=== PATIENT | male | born 1965 | race African-American/Black ===

== ENCOUNTER 2019-01-07 10:03 | Inpatient (IN) ==
[2019-01-07] MEDS ORDERED: MECLIZINE HCL 25 MG TAB PO STA (11:03)
[2019-01-07] MEDS ORDERED: SODIUM CHLORIDE 0.9% 1000ML 1,000 ML IV SCH (11:15)
--- NOTE | 2019-01-07 11:36 | XRay Report ---
XR chest 1V portable CLINICAL HISTORY: dizzy COMPARISON STUDY: No previous studies for comparison. FINDINGS: The cardiac and mediastinal contours are normal. There is no evidence of focal pulmonary co nsolidation. There is no evidence of failure. No pleural effusions are visualized.[ IMPRESSION: No active disease in the chest. Electronically signed by: Mike Victoria M.D. 01/07/2019 11:35 AM
[2019-01-07 11:56] LABS: Basophils # (auto) 0.02 K/uL (0-0.2); Basophils % (auto) 0.4 %; Eosinophils # (auto) 0.51 K/uL (0-0.5); Eosinophils % (auto) 9.3 %; Hematocrit (blood only) 32.6 % (42-52); Hemoglobin 10.5 g/dL (14.0-18.0); Immature Granulocytes # (auto) 0.01 K/uL (0.00-0.02); Immature Granulocytes % (auto) 0.2 %; Lymphocytes # (auto) 1.82 K/uL (1.2-3.4); Lymphocytes % (auto) 33.2 %; Mean Corpuscular Hgb Conc 32.2 g/dL (32-36); Mean Corpuscular Volume 89.8 fL (80-100); Mean Platelet Volume 9.2 fL (7.4-10.4); Monocytes # (auto) 0.56 K/uL (0.11-0.59); Monocytes % (auto) 10.2 %; Neutrophils # (auto) 2.56 K/uL (1.4-6.5); Neutrophils % (auto) 46.7 %; Platelet Count 273 K/uL (130-400); RDW Coefficient of Variation 16.6 % (11.5-14.5); Red Blood Count 3.63 M/uL (4.7-6.1); White Blood Count 5.48 K/uL (4.8-10.8)
[2019-01-07 12:04] LABS: INR 1.1 (0.9-1.1); Prothrombin Time 11.1 Seconds (9.0-12.0)
--- NOTE | 2019-01-07 12:15 | CT Scan Report ---
CT SCAN OF THE BRAIN WITHOUT IV CONTRAST CLINICAL HISTORY: Dizziness. COMPARISON STUDY: No priors. TECHNIQUE: Unenhanced axial CT scan of the brain is performed from the vertex to the skull base. A d ose lowering technique was utilized adhering to the principles of ALARA. CT DOSE: 537.48 mGy.cm FINDINGS: Brain parenchyma: The brain parenchyma is normal in appearance. There is no hemorrhage, mass effect, or evidence of acute territorial ischemia by CT criteria. Tate-white matter differentiation is preser morris. No extra-axial fluid collection is seen. Ventricles, sulci, cisterns: Normal in configuration. Intracranial vasculature: The visualized intracranial vasculature at the skull base is normal in appe arance. Calvarium: Unremarkable. Soft tissues: A 3.7 cm loculated lesion is identified in the left temporal scalp. This demonstrates f oci of peripheral calcification, as well as trace fluid. Sinuses and mastoids: Mucosal thickening is seen within the left posterior ethmoid sinuses. The remai moe visualized paranasal sinuses are clear. The mastoid air cells are well pneumatized. Orbits: The bony orbits are grossly intact. IMPRESSION: 1. There is no hemorrhage, mass effect, or evidence of acute territorial ischemia by CT criteria. 2. There is a 3.7 cm indeterminant lesion in the left temporal scalp which appears to contain fat, fl uid, and peripheral calcifications. This is pathologically indeterminant and clinical clinical correl ation will be essential. Electronically signed by: José Good M.D. 01/07/2019 12:13 PM
[2019-01-07 12:25] LABS: Alanine Aminotransferase 18 U/L (12-78); Albumin Globulin Ratio 0.7 (0.9-2); Albumin Level 3.3 gm/dl (3.4-5.0); Alkaline Phosphatase 51 U/L (45-117); Aspartate Aminotransferase 16 U/L (15-37); BUN Creatinine Ratio 14.1 (10-20); Bilirubin,Total 0.2 mg/dl (0.2-1); Blood Urea Nitrogen 45 mg/dl (7-18); Calcium 8.7 mg/dl (8.5-10.1); Carbon Dioxide 24 mmol/L (21-32); Chloride 107 mmol/L (98-107); Creatinine Clr Calc Pharmacy 29.5 ml/min; Est GFR (African American) 24.2; Est GFR (Non-African American) 20.9; Globulin 4.9 gm/dl (2.5-4.0); Glucose 120 mg/dl (70-99); Potassium 4.8 mmol/L (3.5-5.1); Sodium 137 mmol/L (136-145); Total Protein 8.2 gm/dl (6.4-8.2); Troponin I < 0.015 ng/ml (0-0.045)
[2019-01-07] MEDS ORDERED: SODIUM CHLORIDE 0.9% 1000ML 1,000 ML IV ONE (13:01)
--- NOTE | 2019-01-07 13:12 | History & Physical Report ---
Date of Service January 07, 2019 Assessment & Plan (1) EDVIN (acute kidney injury): - Admit to med surg - S/P 1 L NSS in ER, will continue with 80 ml/hr x 10 hours with hx of CHF so not to volume overload the patient. There are not records available for a recent LVEF% to know the status of his CHF. - Hold nephrotoxins and renally dose medications. Hold lasix as this is likely the causative factor in his EDVIN - pt took an extra 80 mg last Monday plus daily dosing with 40 mg daily. - Follow am prp - Baseline appears to be stage III CKD. (2) DM II (diabetes mellitus, type II), controlled: - Pt using metformin 100 mg BID as outpatient, holding for now. [facility] - A1C with am labs, pt reports not knowing most recent value - No longer taking Levemir 13 U QPM. - nurse educator consult prior to d/c - pt reports recently battery on home glucometer ran out and has not replaced this. (3) Benign essential HTN: - Continue amlodipine 10 mg daily, hydralazine 100 mg TID, carvedilol 12.5 mg BID (coreg was recently doubled per pt report) - Holding lasix for EDVIN as above. (4) HLD (hyperlipidemia): - Cont statin therapy (5) CKD stage 3 due to type 2 diabetes mellitus: - As above (6) CHF (congestive heart failure): - Unknown classification, will request records and attempt to obtain last ECHO from PCP. - Needs to establish with handkerchief presser as outpatient - consider inpatient cardiology consult pending course. - Monitor volume status, currently slightly dry - Pt notes dry weight is typically 210-213 lbs, however recently has been 205- 207. - Daily weights - Strict I/Os once euvolemic, has been on a fluid restriction as outpatient. - Holding lasix (7) Polyneuropathy: - Stable (8) Blindness of left eye: - Noted (9) History of shingles: - Sep 2018, resolved. (10) DVT prophylaxis: - Teds, scds, heparin subq History of Present Illness Chief Complaint: "Feeling off" Primary Care Provider: NO PCP This is a 53 yo M with PMHx with CHF, HTN, HLD, DMI II, obesity with BMI of 33.8, polyneuropathy, hx of shingles, CKD stage III, hx of tobacco smoking who presents with feeling unwell this morning. Pt notes that his body was "feeling off" and initially described it as a dizziness to the ER. He denies syncopal episodes or passing out. Pt has been restricting fluids to 50 oz per day as his PCP had instructed him to. He has been taking lasi 40 mg daily, and last Monday he took an extra lasix 80 mg due to increased swelling in the left lower extremity as instructed. He recently has moved here from [place], and has not yet established care with a PCP. He Most recently followed with Dr. Av Fregoso. Pt found to have Cr. of 3.19 which is above his baseline as per outpatient records he has supplied from 2017. EKG is negative. Allergies Allergy/AdvReac Type Severity Reaction Status Date / Time Penicillins AdvReac Severe Cramping Unverified 01/07/19 10:58 of the Muscles Home Medications Home Medications Medication Instructions Recorded Confirmed Type amlodipine 10 mg PO QAM 01/07/19 01/07/19 History aspirin 81 mg PO QAM 01/07/19 01/07/19 History atorvastatin 40 mg PO HS 01/07/19 01/07/19 History carvedilol 12.5 mg PO BID 01/07/19 01/07/19 History docusate sodium 100 mg PO BID 01/07/19 01/07/19 History furosemide 40 mg PO DAILY 01/07/19 01/07/19 History furosemide 80 mg PO DAILY PRN 01/07/19 01/07/19 History hydralazine 100 mg PO TID 01/07/19 01/07/19 History insulin detemir U-100 [Levemir 0 unit SUBCUT DAILY PRN 01/07/19 01/07/19 History FlexTouch U-100 Insuln] metformin 1,000 mg PO BID 01/07/19 01/07/19 History Past Med/Surg History Medical History History of shingles Blindness of left eye Polyneuropathy CHF (congestive heart failure) EDVIN (acute kidney injury) CKD stage 3 due to type 2 diabetes mellitus HLD (hyperlipidemia) Benign essential HTN DM II (diabetes mellitus, type II), controlled Surgical History S/P eye surgery S/P carpal tunnel release Right Family History Other HTN (hypertension) Social History Feels Safe at Home: Yes Smoking Status: Former smoker Review of Systems Constitutional: No fever, sweats or chills Eyes: No diplopia, no worsening or blurred vision ENT: normal hearing, no trouble swallowing Respiratory: No cough, sputum, dyspnea at rest or on exertion Cardiovascular: No chest pain, tightness or palpitations Abdomen: No pain, nausea, vomiting, diarrhea or constipation Musculoskeletal: No joint pain, calf pain, swelling Neurologic: No weakness, numbness/tingling, or balance problems Psychiatric: No anxiety or depression Skin: No rash or itch Physical Exam Vital Signs (Past 24 Hours): Last Vital Signs Temp 36.9 C 01/07/19 10:19 Pulse 87 01/07/19 10:19 Resp 20 01/07/19 10:19 BP 138/82 01/07/19 10:19 Pulse Ox 100 01/07/19 10:19 Physical Exam: General: , awake, alert, no apparent distress, + obese Head: Normocephalic, atraumatic ENT: PERRL, EOMI, no pharyngeal exudate, mucous membranes moist Chest: Clear to auscultation, on room air, no adventitious breath sounds Cardiac: Regular rate and rhythm, + MARY, no JVD, normal peripheral pulses, good capillary refill Abdominal: NABS x 4 quadrants, soft, nontender to palpation, no rebound, guarding or tenderness Extremities: Normal inspection, no peripheral edema or erythema, calfs nontender to palpation Psych: Normal mood and affect Neuro: AAO x 3, strength intact bilaterally and related 5/5, no motor deficits, speech is clear, no peripheral sensory deficits Constitutional: WD/WN, vitals as above Eyes: normal visual mandel by confrontation and + anicteric sclerae Neck: normal visual inspection and trachea midline Respiratory: normal respiratory effort, lungs clear to auscultation Cardiovascular: Rate/Rhythm: regular rate and regular rhythm Gastrointestinal (Abdomen): Inspection/Auscultation: abdomen not distended Percussion/Palpation: abdomen soft; abdomen nontender Musculoskeletal: Head/Neck/Chest: normocephalic and head atraumatic Neg for peripheral LE edema, + pedal pulses Skin: no rashes, warm and dry Neurologic: awake; not confused Speech / Cognition: normal speech Psychiatric: A+Ox3, euthymic affect Lymphatic: Exam as done by Mony Marino DO Results & Data Diagnostic Findings CT SCAN OF THE BRAIN WITHOUT IV CONTRAST CLINICAL HISTORY: Dizziness. COMPARISON STUDY: No priors. TECHNIQUE: Unenhanced axial CT scan of the brain is performed from the vertex to the skull base. A dose lowering technique was utilized adhering to the principles of ALARA. CT DOSE: 537.48 mGy.cm FINDINGS: Brain parenchyma: The brain parenchyma is normal in appearance. There is no hemorrhage, mass effect, or evidence of acute territorial ischemia by CT criteria. Tate-white matter differentiation is preserved. No extra-axial fluid collection is seen. Ventricles, sulci, cisterns: Normal in configuration. Intracranial vasculature: The visualized intracranial vasculature at the skull base is normal in appearance. Calvarium: Unremarkable. Soft tissues: A 3.7 cm loculated lesion is identified in the left temporal scalp. This demonstrates foci of peripheral calcification, as well as trace fluid. Sinuses and mastoids: Mucosal thickening is seen within the left posterior ethmoid sinuses. The remaining visualized paranasal sinuses are clear. The mastoid air cells are well pneumatized. Orbits: The bony orbits are grossly intact. IMPRESSION: 1. There is no hemorrhage, mass effect, or evidence of acute territorial ischemia by CT criteria. 2. There is a 3.7 cm indeterminant lesion in the left temporal scalp which appears to contain fat, fluid, and peripheral calcifications. This is pathologically indeterminant and clinical clinical correlation will be essential. XR chest 1V portable CLINICAL HISTORY: dizzy COMPARISON STUDY: No previous studies for comparison. FINDINGS: The cardiac and mediastinal contours are normal. There is no evidence of focal pulmonary consolidation. There is no evidence of failure. No pleural effusions are visualized.[ IMPRESSION: No active disease in the chest. ECG Additional Comments: 07-JAN-2019 10:33:13 [facility] Normal sinus rhythm Septal infarct , age undetermined Abnormal ECG No previous ECGs available Vent. rate [address] interval 158 ms QRS duration 78 ms QT/QTc 356/430 ms P-R-T axes 46 65 61 Code Status & VTE Plan Code Status Full Code Supervising Physician Co-Signing Physician Notes Pt seen and examined by me. Denies chest pain or SOB. States he did have return of lightheadeness, blurry vision, and jitters when he started eating, but this resolved as he ate and did not return. Tolerating PO without issue otherwise. Agree with HPI/ROS as noted by PA See above for my exam in PE section Agree with plan as outlined above Sx likely related to EDVIN in the setting of missed meds recently and then sudden resuming of meds New to area and will need PCP set up, CM alerted
[2019-01-07 14:01] LABS: Poikilocytosis Present
[2019-01-07] MEDS ORDERED: GLUCAGON FOR INJ 1 MG VIAL SQ PRN (16:03)
[2019-01-07] MEDS ORDERED: ACETAMINOPHEN 325 MG TAB PO PRN (16:03)
[2019-01-07] MEDS ORDERED: GLUCOSE 10 TABS/TUBE PO PRN (16:03)
[2019-01-07] MEDS ORDERED: DEXTROSE 50% 50 ML SYRINGE IV PRN (16:03)
[2019-01-07] MEDS ORDERED: CARBOHYDRATES FOR HYPOGLYCEMIA PO PRN (16:03)
[2019-01-07] MEDS ORDERED: GLUCOSE 40% GEL 15 GM TUBE PO PRN (16:03)
[2019-01-07] MEDS ORDERED: ONDANSETRON INJ 2 MG/ML 2 ML VIAL IV PRN (16:03)
--- NOTE | 2019-01-07 16:26 | Emergency Department Note ---
Entered by Roger Martinez acting as a scribe for Pavel Everett DO History of Present Illness General Chief complaint: Dizziness Stated complaint: LIGHT HEADED Source: patient History of Present Illness Provider complaint: dizziness Onset (ago): week(s) 1 Location: head Pain Consistency: + constant Quality: + other (dizziness) Associated symptoms: + denies other symptoms (abdominal pain) and + other (blurred vision in right eye); no chest pain, no nausea/vomiting, no shortness of breath and no weakness The patient is a 53 year old male who presents to the Emergency Room with complaints of dizziness that has been ongoing for about a week. The patient states his dizziness is also associated with blurred vision in his right eye. Th e patient reports that he just recently moved to [place] from [place]. He states when he moved here he was in the process of finding a new PCP and ran out of medications such as Amlodipine 10 mg, Hydroxyzine 2.5 mg, and Carvedilol and did not have them for about two weeks. The patient reports that he was able to refill and start taking the medications about a week or week and a half ago. The patient denies any abdominal pain, nausea, vomiting, chest pain, shortness of breath, weakness or numbness. Home Medications Home Medications Medication Instructions Recorded Confirmed Type amlodipine 10 mg PO QAM 01/07/19 01/07/19 History aspirin 81 mg PO QAM 01/07/19 01/07/19 History atorvastatin 40 mg PO HS 01/07/19 01/07/19 History carvedilol 12.5 mg PO BID 01/07/19 01/07/19 History docusate sodium 100 mg PO BID 01/07/19 01/07/19 History furosemide 40 mg PO DAILY 01/07/19 01/07/19 History furosemide 80 mg PO DAILY PRN 01/07/19 01/07/19 History hydralazine 100 mg PO TID 01/07/19 01/07/19 History insulin detemir U-100 [Levemir 0 unit SUBCUT DAILY PRN 01/07/19 01/07/19 History FlexTouch U-100 Insuln] metformin 1,000 mg PO BID 01/07/19 01/07/19 History Allergies Allergy/AdvReac Type Severity Reaction Status Date / Time Penicillins AdvReac Severe Cramping Unverified 01/07/19 10:58 of the Muscles Past Med/Surg History Medical History History of shingles Blindness of left eye Polyneuropathy CHF (congestive heart failure) EDVIN (acute kidney injury) CKD stage 3 due to type 2 diabetes mellitus HLD (hyperlipidemia) Benign essential HTN DM II (diabetes mellitus, type II), controlled Surgical History S/P eye surgery S/P carpal tunnel release Right Family History Other HTN (hypertension) Social History Feels Safe at Home: Yes Smoking Status: Former smoker Review of Systems See HPI for pertinent positives & negatives. and A total of 10 systems reviewed and were otherwise negative Physical Exam Vital Signs Vital Signs - 24 hr 01/07/19 10:19 01/07/19 10:50 01/07/19 11:03 Temperature 36.9 C Temperature Source Oral Sepsis Action Taken by Nursing No Action Required Pulse Rate - Lying Pulse Rate - Sitting Pulse Rate - Standing Pulse Rate 87 Pulse Rate [Brachial] Pulse Rate from SpO2 Sensor Respiratory Rate 20 Respiratory Effort / Characteristics Non-Labored Spontaneous Respiratory Depth Normal Blood Pressure - Lying Blood Pressure - Sitting Blood Pressure- Standing Blood Pressure 138/82 Blood Pressure [Left Arm] Blood Pressure Mean 100 Blood Pressure Mean [Left Arm] Blood Pressure Position [Left Arm] Pulse Oximetry 100 Oxygen Delivery Method Room Air Room Air Room Air 01/07/19 12:00 01/07/19 13:07 01/07/19 13:31 Temperature Temperature Source Sepsis Action Taken by Nursing Pulse Rate - Lying 82 Pulse Rate - Sitting 84 Pulse Rate - Standing 89 Pulse Rate 86 88 Pulse Rate [Brachial] Pulse Rate from SpO2 Sensor 86 88 Respiratory Rate 13 18 Respiratory Effort / Characteristics Respiratory Depth Blood Pressure - Lying 167/89 H Blood Pressure - Sitting 155/85 H Blood Pressure- Standing 149/75 H Blood Pressure 135/77 165/94 H Blood Pressure [Left Arm] Blood Pressure Mean 96 117 Blood Pressure Mean [Left Arm] Blood Pressure Position [Left Arm] Pulse Oximetry 97 100 Oxygen Delivery Method Room Air 01/07/19 14:00 01/07/19 14:30 01/07/19 15:19 Temperature Temperature Source Sepsis Action Taken by Nursing Pulse Rate - Lying Pulse Rate - Sitting Pulse Rate - Standing Pulse Rate 84 83 84 Pulse Rate [Brachial] Pulse Rate from SpO2 Sensor Respiratory Rate 15 18 20 Respiratory Effort / Characteristics Respiratory Depth Blood Pressure - Lying Blood Pressure - Sitting Blood Pressure- Standing Blood Pressure 138/80 167/86 H Blood Pressure [Left Arm] Blood Pressure Mean 99 113 Blood Pressure Mean [Left Arm] Blood Pressure Position [Left Arm] Pulse Oximetry 97 97 Oxygen Delivery Method Room Air Room Air 01/07/19 15:38 Temperature 36.3 C L Temperature Source Oral Sepsis Action Taken by Nursing Pulse Rate - Lying Pulse Rate - Sitting Pulse Rate - Standing Pulse Rate Pulse Rate [Brachial] 87 Pulse Rate from SpO2 Sensor Respiratory Rate 18 Respiratory Effort / Characteristics Respiratory Depth Blood Pressure - Lying Blood Pressure - Sitting Blood Pressure- Standing Blood Pressure Blood Pressure [Left Arm] 167/77 H Blood Pressure Mean Blood Pressure Mean [Left Arm] 107 Blood Pressure Position [Left Arm] Lying Pulse Oximetry 99 Oxygen Delivery Method Room Air GENERAL: Sitting up in bed, alert, disheveled and chronically ill appearing, well nourished, no distress, non-toxic EYE EXAM: normal conjunctiva. PERRL and EOM's grossly intact. OROPHARYNX: no exudate, no erythema, lips, buccal mucosa, and tongue normal and mucous membranes are moist NECK: supple, no nuchal rigidity, no adenopathy, non-tender LUNGS: Clear to auscultation. Normal chest wall mechanics HEART: no murmurs, S1 normal and S2 normal ABDOMEN: abdomen soft, non-tender, normo-active bowel, sounds, no masses, no rebound or guarding. BACK: Back is symmetrical on inspection and there is no deformity, no midline tenderness, no CVA tenderness. SKIN: no rashes and no bruising UPPER EXTREMITIES: upper extremities are grossly normal. LOWER EXTREMITIES: No pitting edema. NEURO EXAM: Normal sensorium, cranial nerves II-XII intact, normal speech, no weakness of arms, no weakness of legs. No drift. Finger to noseintact. Gross sensation intact. Course ED COURSE: Vital signs were reviewed and showed the patient is hypertensive. The patients medical record was reviewed The above diagnostic studies were performed and reviewed. ED treatments and interventions as stated above. 1056: The patient was evaluated in room A9B. A complete history and physical examination was performed. 1235: I updated the patient. I further reviewed his documents which revealed that his last baseline creatinine was 1.9 on 03/28/18. 1305: I reviewed the patient's case with Josefina Singh. She will evaluate the patient for further management. 1320: Upon reevaluation, the patient is resting comfortably. I discussed my findings with the patient and he understands and agrees with the treatment plan. Based on the patients age, coexisting illnesses, exam and lab findings the decision to treat as an inpatient was made. The patient remained stable while under my care. The patient will be evaluated for further management. Consultations Consultation #1: Josefina Singh Time: 13:05 Administered Medications Discontinued Medications Sodium Chloride (Nss 1000ml) 1,000 mls @ 999 mls/hr IV .Q1H1M KATIE Stop: 01/07/19 12:15 Last Infusion: 01/07/19 13:13 Dose: 0 mls/hr Documented by: [id number] Admin: 01/07/19 11:39 Dose: 999 mls/hr Documented by: [id number] Sodium Chloride (Nss 1000ml) 1,000 mls @ 999 mls/hr IV .Q1H1M ONE Stop: 01/07/19 14:01 Last Infusion: 01/07/19 14:56 Dose: 0 mls/hr Documented by: [id number] Admin: 01/07/19 13:13 Dose: 999 mls/hr Documented by: [id number] Meclizine HCl (Antivert) 25 mg PO NOW STA Stop: 01/07/19 11:04 Last Admin: 01/07/19 11:39 Dose: 25 mg Documented by: [id number] Medical Decision Making Differential Diagnosis Differential diagnosis: Etiologies such as benign positional vertigo, dehydration, hypovolemia, anemia, tumor, infection, hypoglycemia, electrolyte abnormalities, cardiac sources, intracerebral event, toxicologic, neurologic, as well as others were entertained. Medical Records Attestation: I reviewed the patient's medical records. Home Medications Current Medication List: was personally reviewed by me Laboratory Data Attestation: I reviewed the patient's lab results. Result diagrams: 01/07/19 11:25 01/07/19 11:25 Lab Results 01/07/19 01/07/19 01/07/19 Range/Units 11:25 11:25 11:25 WBC 5.48 (4.8-10.8) K/uL RBC 3.63 L (4.7-6.1) M/uL Hgb 10.5 L (14.0-18.0) g/dL Hct 32.6 L (42-52) % MCV 89.8 (80-100) fL MCH 28.9 (25-34) pg MCHC 32.2 (32-36) g/dL RDW Std Deviation 55.0 H (36.4-46.3) fL RDW Coeff of Celso 16.6 H (11.5-14.5) % Plt Count 273 (130-400) K/uL MPV 9.2 (7.4-10.4) fL Immature Gran % (Auto) 0.2 % Neut % (Auto) 46.7 % Lymph % (Auto) 33.2 % Duchesne % (Auto) 10.2 % Eos % (Auto) 9.3 % Baso % (Auto) 0.4 % Immature Gran # (Auto) 0.01 (0.00-0.02) K/uL Neut # (Auto) 2.56 (1.4-6.5) K/uL Lymph # (Auto) 1.82 (1.2-3.4) K/uL Duchesne # (Auto) 0.56 (0.11-0.59) K/uL Eos # (Auto) 0.51 H (0-0.5) K/uL Baso # (Auto) 0.02 (0-0.2) K/uL Poikilocytosis Present PT 11.1 (9.0-12.0) Seconds INR 1.1 (0.9-1.1) Sodium 137 (136-145) mmol/L Potassium 4.8 (3.5-5.1) mmol/L Chloride 107 (98-107) mmol/L Carbon Dioxide 24 (21-32) mmol/L Anion Gap 7.0 (3-11) BUN 45 H (7-18) mg/dl Creatinine 3.19 H (0.6-1.4) mg/dl Est Cr Clr Drug Dosing 29.5 ml/min Est GFR ( Amer) 24.2 Est GFR (Non-Af Amer) 20.9 BUN/Creatinine Ratio 14.1 (10-20) Glucose 120 H (70-99) mg/dl Calcium 8.7 (8.5-10.1) mg/dl Total Bilirubin 0.2 (0.2-1) mg/dl AST 16 (15-37) U/L ALT 18 (12-78) U/L Alkaline Phosphatase 51 (45-117) U/L Troponin I < 0.015 (0-0.045) ng/ml Total Protein 8.2 (6.4-8.2) gm/dl Albumin 3.3 L (3.4-5.0) gm/dl Globulin 4.9 H (2.5-4.0) gm/dl Albumin/Globulin Ratio 0.7 L (0.9-2) Specimen Hemolysis Imaging Data Radiologist's Impression: Radiology results as stated below per my review and t he radiologist's interpretation: CT SCAN OF THE BRAIN WITHOUT IV CONTRAST CLINICAL HISTORY: Dizziness. COMPARISON STUDY: No priors. TECHNIQUE: Unenhanced axial CT scan of the brain is performed from the vertex to the skull base. A dose lowering technique was utilized adhering to the principles of ALARA. CT DOSE: 537.48 mGy.cm FINDINGS: Brain parenchyma: The brain parenchyma is normal in appearance. There is no hemorrhage, mass effect, or evidence of acute territorial ischemia by CT criteria. Tate-white matter differentiation is preserved. No extra-axial fluid collection is seen. Ventricles, sulci, cisterns: Normal in configuration. Intracranial vasculature: The visualized intracranial vasculature at the skull base is normal in appearance. Calvarium: Unremarkable. Soft tissues: A 3.7 cm loculated lesion is identified in the left temporal scalp. This demonstrates foci of peripheral calcification, as well as trace fluid. Sinuses and mastoids: Mucosal thickening is seen within the left posterior ethmoid sinuses. The remaining visualized paranasal sinuses are clear. The mastoid air cells are well pneumatized. Orbits: The bony orbits are grossly intact. IMPRESSION: 1. There is no hemorrhage, mass effect, or evidence of acute territorial ischem ia by CT criteria. 2. There is a 3.7 cm indeterminant lesion in the left temporal scalp which appea rs to contain fat, fluid, and peripheral calcifications. This is pathologically indeterminant and clinical clinical correlation will be essential. Electronically signed by: José Good M.D. 01/07/2019 12:13 PM XR chest 1V portable CLINICAL HISTORY: dizzy COMPARISON STUDY: No previous studies for comparison. FINDINGS: The cardiac and mediastinal contours are normal. There is no evidence of focal pulmonary consolidation. There is no evidence of failure. No pleural effusions are visualized.[ IMPRESSION: No active disease in the chest. Electronically signed by: Mike Victoria M.D. 01/07/2019 11:35 AM ECG Data Attestation: I personally reviewed and interpreted this ECG as follows: Indication: other (dizziness) Rate (beats per minute): 88 Rhythm: sinus rhythm Findings: + other (normal axis, septal Q waves); no PVC Comparison ECG Date: no prior available Blood Pressure Blood Pressure Findings: Elevated blood pressure Blood Pressure Disposition: further management by hospitalist CHARLIE Narrative Patient is a 53-year-old male who presents the ER for dizziness and lightheadedness which is been present for the past week. He was out of his blood pressure medications for 2 weeks and restarted them about a week ago. Labs show a mild anemia at 10.5. INR is unremarkable. BMP with a creatinine of 3.2 up from a baseline as far as I can tell back in February 2018 at 1.9. Troponin was negative. Patient was given IV fluids. He was updated bedside. Do favor his symptoms are likely secondary to his dehydration and acute kidney injury. He was updated and admitted to the hospitalist for further workup. Impression & Plan Acute kidney injury, Dizziness, Lightheaded Discharge Plan Visit Data *Final* Discharge Date/Time: 01/07/19 15:19 Chief Complaint: Dizziness Stated Complaint: LIGHT HEADED ED Provider: Pavel Everett Discharge Problem: Acute kidney injury, Dizziness, Lightheaded Patient Disposition: Admitted As Inpatient Discharge Instructions Interventions: ED Discharge Assessment Last Done: 01/07/19 15:19 The scribe's documentation has been prepared under my direction and personally reviewed by me in its entirety. I confirm that the note above accurately reflects all work, treatment, procedures, and medical decision making performed by me.
[2019-01-07] MEDS: HydrALAZINE TAB 50 MG TAB PO SCH ×2 (16:56→21:09)
[2019-01-07] MEDS: SODIUM CHLORIDE 0.9% 1000ML 1,000 ML IV SCH (17:06)
[2019-01-07] MEDS ORDERED: METOPROLOL TARTRATE 1 MG/ML VIAL IV PRN (17:38)
[2019-01-07] MEDS: INSULIN ASPART 100 UNITS/ML 3 ML PEN SC SCH ×2 (18:01→21:14)
[2019-01-07] MEDS: CARVEDILOL 12.5 MG TAB PO SCH (21:11)
[2019-01-07] MEDS: ATORVASTATIN 40 MG TAB PO SCH (21:12)
[2019-01-07] MEDS: HEPARIN SOD 5,000 UNIT/0.5 ML VIAL SQ SCH (21:12)
[2019-01-07] MEDS: DOCUSATE SODIUM 100 MG CAP PO SCH (21:15)
[2019-01-08] MEDS: SODIUM CHLORIDE 0.9% 1000ML 1,000 ML IV SCH (05:16)
[2019-01-08] MEDS: AMLODIPINE BESYLATE 5 MG TAB PO SCH (07:42)
[2019-01-08] MEDS: HydrALAZINE TAB 50 MG TAB PO SCH ×3 (07:42→20:48)
[2019-01-08] MEDS: ASPIRIN 81 MG ECTAB PO SCH (07:43)
[2019-01-08] MEDS: DOCUSATE SODIUM 100 MG CAP PO SCH ×2 (07:43→20:50)
[2019-01-08] MEDS: CARVEDILOL 12.5 MG TAB PO SCH ×2 (07:43→20:51)
[2019-01-08] MEDS: HEPARIN SOD 5,000 UNIT/0.5 ML VIAL SQ SCH ×2 (07:44→20:45)
[2019-01-08 08:34] LABS: Hematocrit (blood only) 31.8 % (42-52); Hemoglobin 10.1 g/dL (14.0-18.0); Mean Corpuscular Hgb Conc 31.8 g/dL (32-36); Mean Corpuscular Volume 90.3 fL (80-100); Mean Platelet Volume 8.4 fL (7.4-10.4); Platelet Count 224 K/uL (130-400); RDW Coefficient of Variation 16.6 % (11.5-14.5); RDW Standard Deviation 55.2 fL (36.4-46.3); Red Blood Count 3.52 M/uL (4.7-6.1)
[2019-01-08 08:51] LABS: Magnesium 1.6 mg/dl (1.8-2.4)
[2019-01-08 09:04] LABS: Estimated Average Glucose 154 mg/dl
[2019-01-08 09:27] LABS: Albumin Globulin Ratio 0.7 (0.9-2); Albumin Level 3.3 gm/dl (3.4-5.0); BUN Creatinine Ratio 14.1 (10-20); Bilirubin,Total 0.3 mg/dl (0.2-1); Calcium 8.6 mg/dl (8.5-10.1); Creatinine Clr Calc Pharmacy 32.3 ml/min; Est GFR (African American) 26.5; Est GFR (Non-African American) 22.9; Globulin 4.5 gm/dl (2.5-4.0); Potassium 4.4 mmol/L (3.5-5.1); Total Protein 7.8 gm/dl (6.4-8.2)
[2019-01-08] MEDS: INSULIN ASPART 100 UNITS/ML 3 ML PEN SC SCH ×4 (09:28→20:45)
[2019-01-08] MEDS ORDERED: MAGNESIUM SULFATE / D5W 1 GM/100 ML BAG IV ONE (10:00)
[2019-01-08] MEDS: MAGNESIUM OXIDE 400 MG TAB PO SCH ×2 (10:49→20:51)
--- NOTE | 2019-01-08 17:53 | Hospitalist Progress Note ---
Date of Service January 08, 2019 Assessment & Plan (1) EDVIN (acute kidney injury): (2) DM II (diabetes mellitus, type II), controlled: (3) Benign essential HTN: (4) HLD (hyperlipidemia): (5) CKD stage 3 due to type 2 diabetes mellitus: (6) CHF (congestive heart failure): (7) Polyneuropathy: (8) Blindness of left eye: (9) History of shingles: (10) DVT prophylaxis: 53 yo M with PMHx with CHF, HTN, HLD, DMI II, obesity with BMI of 33.8, polyneuropathy, hx of shingles, CKD stage III, hx of tobacco smoking admitted because of acute on chronic kidney failure Possible acute on chronic kidney failure, Patient report has kidney disease before follow-up nephrology S/P 1 L NSS in ER, will continue with 80 ml/hr x 10 hours with hx of CHF so not to volume overload the patient. T Improved Creatinine is 2.9 from 3.1 Continue to hold nephrotoxins and renally dose medications. Continued hold lasix as this is likely the causative factor in his EDVIN pt took an extra 80 mg last Monday plus daily dosing with 40 mg daily. 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 Will cover with ISS with accuchecks achs. hx need Rx of one touch, Ultra 2 meter, need new pcp simulation educator consult done as recs above Accelerated hypertension, continue amlodipine 10 mg daily, hydralazine 100 mg TID, carvedilol 12.5 mg BID (coreg was recently doubled per pt report) Dyslipidemia, CHF compensated,,polyneulopathy, left eye blind, continue current care, GI DVT prophylaxis ordered Subjective Sitting in chair, conversational, feeling fairly okay, is tired Review of Systems Constitutional: Positive weakness, or fatigue Respiratory: no cough, sputum, wheezing, or dyspnea on exertion Cardiac: No chest pain, No orthopnea, No PND, Abdomen: No pain, No nausea, No vomiting, No diarrhea, Musculoskeletal: No joint pain, No muscle pain, No swelling, : No dysuria, No urinary frequency, No incontinence, No hematuria Neurologic: No paralysis, No weakness, No numbness/tingling, Psychiatric: No depression symptoms, No anhedonism, No anxiety, Heme: No abnormal bleeding/bruising, No clotting problems, Physical Exam Vital Signs (Past 24 Hours): Last Vital Signs Temp 36.6 C 01/08/19 15:00 Pulse 81 01/08/19 15:00 Resp 20 01/08/19 15:00 BP 162/79 H 01/08/19 15:00 Pulse Ox 98 01/08/19 15:00 Physical Exam: General: , sitting in chair, conversational, awake, alert, no apparent distress, + obese Head: Normocephalic, atraumatic ENT: PERRL, EOMI, no pharyngeal exudate, mucous membranes moist Chest: Clear to auscultation, on room air, no adventitious breath sounds Cardiac: Regular rate and rhythm, + MARY, no JVD, normal peripheral pulses, good capillary refill Abdominal: NABS x 4 quadrants, soft, nontender to palpation, no rebound, guarding or tenderness Extremities: left little toe Amputated with tiny wound in dressing normal inspection, no peripheral edema or erythema, calfs nontender to palpation Psych: Normal mood and affect Neuro: AAO x 3, strength intact bilaterally and related 5/5, no motor deficits, speech is clear, no peripheral sensory deficits Results & Data Laboratory Results Laboratory Results - last 24 hr 01/07/19 01/08/19 01/08/19 20:20 07:38 08:23 WBC 4.60 L RBC 3.52 L Hgb 10.1 L Hct 31.8 L MCV 90.3 MCH 28.7 MCHC 31.8 L RDW Std Deviation 55.2 H RDW Coeff of Celso 16.6 H Plt Count 224 MPV 8.4 Sodium Potassium Chloride Carbon Dioxide Anion Gap BUN Creatinine Est Cr Clr Drug Dosing Est GFR ( Amer) Est GFR (Non-Af Amer) BUN/Creatinine Ratio Glucose POC Glucose 125 H 94 Estimat Average Glucose Hemoglobin A1c Calcium Phosphorus Magnesium Total Bilirubin AST ALT Alkaline Phosphatase Total Protein Albumin Globulin Albumin/Globulin Ratio 01/08/19 01/08/19 01/08/19 08:23 08:23 08:23 WBC RBC Hgb Hct MCV MCH MCHC RDW Std Deviation RDW Coeff of Celso Plt Count MPV Sodium 138 Potassium 4.4 Chloride 110 H Carbon Dioxide 21 Anion Gap 7.0 BUN 42 H Creatinine 2.96 H Est Cr Clr Drug Dosing 32.3 Est GFR ( Amer) 26.5 Est GFR (Non-Af Amer) 22.9 BUN/Creatinine Ratio 14.1 Glucose 100 H POC Glucose Estimat Average Glucose 154 Hemoglobin A1c 7.0 H Calcium 8.6 Phosphorus 4.0 Magnesium 1.6 L Total Bilirubin 0.3 AST 16 ALT 15 Alkaline Phosphatase 44 L Total Protein 7.8 Albumin 3.3 L Globulin 4.5 H Albumin/Globulin Ratio 0.7 L 01/08/19 01/08/19 11:27 16:20 WBC RBC Hgb Hct MCV MCH MCHC RDW Std Deviation RDW Coeff of Celso Plt Count MPV Sodium Potassium Chloride Carbon Dioxide Anion Gap BUN Creatinine Est Cr Clr Drug Dosing Est GFR ( Amer) Est GFR (Non-Af Amer) BUN/Creatinine Ratio Glucose POC Glucose 160 H 113 H Estimat Average Glucose Hemoglobin A1c Calcium Phosphorus Magnesium Total Bilirubin AST ALT Alkaline Phosphatase Total Protein Albumin Globulin Albumin/Globulin Ratio
[2019-01-08] MEDS: ATORVASTATIN 40 MG TAB PO SCH (20:51)
[2019-01-09 07:35] LABS: Hematocrit (blood only) 33.5 % (42-52); Hemoglobin 10.7 g/dL (14.0-18.0); Mean Corpuscular Hgb Conc 31.9 g/dL (32-36); Mean Corpuscular Volume 90.1 fL (80-100); Mean Platelet Volume 8.8 fL (7.4-10.4); Platelet Count 265 K/uL (130-400); RDW Coefficient of Variation 16.5 % (11.5-14.5); RDW Standard Deviation 54.5 fL (36.4-46.3); Red Blood Count 3.72 M/uL (4.7-6.1); White Blood Count 5.29 K/uL (4.8-10.8)
[2019-01-09 07:51] LABS: Albumin Level 3.5 gm/dl (3.4-5.0); BUN Creatinine Ratio 14.2 (10-20); Calcium 8.8 mg/dl (8.5-10.1); Creatinine Clr Calc Pharmacy 31.8 ml/min; Est GFR (African American) 26.2; Est GFR (Non-African American) 22.6; Magnesium 2.1 mg/dl (1.8-2.4); Potassium 4.5 mmol/L (3.5-5.1)
[2019-01-09 07:54] LABS: Albumin Globulin Ratio 0.7 (0.9-2); Bilirubin,Total 0.3 mg/dl (0.2-1); Total Protein 8.5 gm/dl (6.4-8.2)
[2019-01-09] MEDS: CARVEDILOL 12.5 MG TAB PO SCH (08:11)
[2019-01-09] MEDS: DOCUSATE SODIUM 100 MG CAP PO SCH ×2 (08:11→20:42)
[2019-01-09] MEDS: HydrALAZINE TAB 50 MG TAB PO SCH ×3 (08:11→20:41)
[2019-01-09] MEDS: ASPIRIN 81 MG ECTAB PO SCH (08:12)
[2019-01-09] MEDS: AMLODIPINE BESYLATE 5 MG TAB PO SCH (08:12)
[2019-01-09] MEDS: MAGNESIUM OXIDE 400 MG TAB PO SCH ×2 (08:12→20:41)
[2019-01-09] MEDS: HEPARIN SOD 5,000 UNIT/0.5 ML VIAL SQ SCH ×2 (08:12→20:43)
[2019-01-09] MEDS: INSULIN ASPART 100 UNITS/ML 3 ML PEN SC SCH ×4 (08:59→20:22)
[2019-01-09] MEDS ORDERED: CARVEDILOL 3.125 MG TAB PO STA (10:31)
--- NOTE | 2019-01-09 12:08 | Ultrasound Report ---
EXAMINATION: RENAL ULTRASOUND CLINICAL HISTORY: Chronic renal disease COMPARISON STUDY: FINDINGS: The right kidney measures 12.5 cm. The left kidney measures 12.1 cm. There is no evidence of hydronephrosis. There are no renal masses. There is increased renal cortical echogenicity consist ent with medical renal disease. Bilateral ureteral jets were visualized. There is mild bladder wall thickening. IMPRESSION : 1. No evidence of hydronephrosis 2. Symmetric renal size 3. Increased renal cortical echogenicity consistent with medical renal disease Electronically signed by: Mike Victoria M.D. 01/09/2019 12:07 PM
[2019-01-09 12:21] LABS: Appearance Urine Clear (Clear); Bacteria Urine Automated Negative (Negative); Bilirubin Urine Negative (Negative); Blood Urine Negative (Negative); Color Urine Yellow; Epithelial Cell Urine Auto >30 /lpf (0-5); Glucose Urine UA Negative (Negative); Ketones Urine Negative (Negative); Leukocyte Esterase Urine 1+ (Negative); Nitrite Urine Negative (Negative); Protein Urine 3+ (Negative); RBC Urine Automated 0-4 /hpf (0-4); Urobilinogen Urine Negative (Negative)
[2019-01-09 13:43] LABS: Creatinine Urine Random 35.2 mg/dl; Total Protein Urine Random 177.8 mg/dl (0-11.9)
--- NOTE | 2019-01-09 16:44 | Nephrology Consultation ---
Date of Consultation January 09, 2019 Assessment & Plan (1) Chronic kidney disease, stage 4 (severe): -- Available records from PCP document creatinine 3.1 in 07/17 -- Will order urinalysis w/ micro -- Will order renal US -- Will order 24 hour urine for creatinine clearance and total protein -- Monitor serial PRP -- Agree w/ gentle hydration. Patient appears clinically volume contracted at this time (2) Benign essential HTN: -- Blood pressure was checked today and found to be acceptable. No change to current medical regimen -- Avoid DM / ARB as patient reports h/o EVDIN related to this class of medications (3) DM II (diabetes mellitus, type II), controlled: -- Hold Metformin. Use insulin for glycemic control History of Present Illness Reason for Consultation: Chronic kidney disease Attending Physician: Kristofer Lopez MD, PhD, [facility] History of Present Illness Mr. Au is a 52 year old male who is seen at the request of Dr. Lopez for evaluation of CKD. Medical records in the EMR were reviewed today and are summarized as follows: Mr. Au's medical history is significant for AODM, polyneuropathy, legal blindness in L eye, HTN, HLD, and ASCVD. Previously Mr. Au lived in [place], [place] and was cared for by Dr. Av Fregoso DO. Mr. Au reports that he was also seen by Cardiology and Nephrology but was told that he was "stable". Medical records from Dr. Fregoso show creatinine 1.9 (03/28/18) and creatinine 3.1 (07/03/18). In October 2018 Mr. Au moved to [place], [place] to live with a cousin. He has not yet established care w/ a PCP. Mr. Au presented to [facility] ED last night w/ complaints of fatigue and dizziness. Serum creatinine was elevated at 3.2. He was admitted to the hospital for IV hydration and Nephrology evaluation. Mr. Au denies any recent acute illness, difficulty voiding, use of NSAIDS or herbal supplements. He is a former smoker (quit 3 years ago). His FHx is negative for CKD / ESRD. He reports a h/o EDVIN associated w/ DM inhibitor therapy. He has recently been taking increasing doses of loop diuretic due to LE swelling Allergies Allergy/AdvReac Type Severity Reaction Status Date / Time Penicillins AdvReac Severe Cramping Unverified 01/07/19 10:58 of the Muscles Home Medications Home Medications Medication Instructions Recorded Confirmed Type amlodipine 10 mg PO QAM 01/07/19 01/07/19 History aspirin 81 mg PO QAM 01/07/19 01/07/19 History atorvastatin 40 mg PO HS 01/07/19 01/07/19 History carvedilol 12.5 mg PO BID 01/07/19 01/07/19 History docusate sodium 100 mg PO BID 01/07/19 01/07/19 History furosemide 40 mg PO DAILY 01/07/19 01/07/19 History furosemide 80 mg PO DAILY PRN 01/07/19 01/07/19 History hydralazine 100 mg PO TID 01/07/19 01/07/19 History insulin detemir U-100 [Levemir 0 unit SUBCUT DAILY PRN 01/07/19 01/07/19 History FlexTouch U-100 Insuln] metformin 1,000 mg PO BID 01/07/19 01/07/19 History Patient History Medical History History of shingles Blindness of left eye Polyneuropathy CHF (congestive heart failure) EDVIN (acute kidney injury) CKD stage 3 due to type 2 diabetes mellitus HLD (hyperlipidemia) Benign essential HTN DM II (diabetes mellitus, type II), controlled Surgical History S/P eye surgery S/P carpal tunnel release Right Family History Other HTN (hypertension) Social History Communication Ability: Effective Beliefs That Will Affect Care: None Current Living Situation: Alone Other Information That Helps Us Care for You: No Feels Safe at Home: Yes Safety Concerns: Feels Safe At This Time Smoking Status: Former smoker Hx Alcohol Use: No Hx Substance Use: No Review of Systems Respiratory: no cough and no dyspnea Cardiovascular: no chest pain Gastrointestinal: no abdominal pain and no diarrhea/loose stools Genitourinary (Male): no dysuria and no difficulty urinating Physical Exam Vital Signs (Past 24 Hours): Last Vital Signs Temp 36.6 C 01/09/19 16:01 Pulse 72 01/09/19 16:01 Resp 18 01/09/19 16:01 BP 130/72 01/09/19 16:01 Pulse Ox 99 01/09/19 16:01 Eyes: PERRL, conjunctivae normal, anicteric sclerae ENMT: external ear and nose normal, oropharynx normal Neck: trachea midline, no thyromegaly Respiratory: normal respiratory effort, lungs clear to auscultation Cardiovascular: Rate/Rhythm: regular rate and regular rhythm Extremities: + edema (trace LE edema) Gastrointestinal (Abdomen): normal bowel sounds, soft, nontender, no hepatosplenomegaly Neurologic: no focal motor deficits Results & Data Laboratory Results Laboratory Tests 01/09/19 01/09/19 07:03 07:03 WBC 5.29 Hgb 10.7 L Hct 33.5 L Plt Count 265 Sodium 139 Potassium 4.5 Chloride 110 H Carbon Dioxide 21 BUN 42 H Creatinine 2.99 H Glucose 106 H
--- NOTE | 2019-01-09 19:07 | Hospitalist Progress Note ---
Date of Service January 09, 2019 Assessment & Plan (1) EDVIN (acute kidney injury): (2) DM II (diabetes mellitus, type II), controlled: (3) Benign essential HTN: (4) HLD (hyperlipidemia): (5) CKD stage 3 due to type 2 diabetes mellitus: (6) CHF (congestive heart failure): (7) Polyneuropathy: (8) Blindness of left eye: (9) History of shingles: (10) DVT prophylaxis: 53 yo M with PMHx with CHF, HTN, HLD, DMI II, obesity with BMI of 33.8, polyneuropathy, hx of shingles, CKD stage III, hx of tobacco smoking admitted because of acute on chronic kidney failure Possible acute on chronic kidney failure, last creatinine in PCPs office was 3.1 which means kidney function is related to stable S/P 1 L NSS in ER, will discontinue IV fluid Continue to hold nephrotoxins and renally dose medications. Continued hold lasix as this is likely the causative factor in his EDVIN Nephrology input appreciated, follow-up UA with micro, follow-up renal ultrasound results, and 24-hour urine studies Controlled DM II with A1c 7 Pt using metformin 100 mg BID as outpatient, holding for now. Will cover with ISS [facility]. don't believe patient can continue metformin as outpatient because of CKD hx need Rx of one touch, Ultra 2 meter, need new pcp tobacco prevention health educator consult done as recs above Accelerated hypertension, continue amlodipine 10 mg daily, hydralazine 100 mg TID, carvedilol 12.5 mg BID Dyslipidemia, CHF compensated,,polyneulopathy, left eye blind, continue current care, GI DVT prophylaxis ordered Possible discharge soon Subjective Sitting in chair, conversational, feeling fairly okay, Review of Systems Constitutional: Positive weakness, which is better Respiratory: no cough, sputum, wheezing, or dyspnea on exertion Cardiac: No chest pain, No orthopnea, No PND, Abdomen: No pain, No nausea, No vomiting, No diarrhea, Musculoskeletal: No joint pain, No muscle pain, No swelling, : No dysuria, No urinary frequency, No incontinence, No hematuria Neurologic: No paralysis, No weakness, No numbness/tingling, Psychiatric: No depression symptoms, No anhedonism, No anxiety, Heme: No abnormal bleeding/bruising, No clotting problems, Physical Exam Vital Signs (Past 24 Hours): Last Vital Signs Temp 36.6 C 01/09/19 16:01 Pulse 72 01/09/19 16:01 Resp 18 01/09/19 16:01 BP 130/72 01/09/19 16:01 Pulse Ox 99 01/09/19 16:01 Physical Exam: General: , sitting in chair, conversational, awake, alert, no apparent distress, + obese Head: Normocephalic, atraumatic ENT: PERRL, EOMI, no pharyngeal exudate, mucous membranes moist Chest: Clear to auscultation, on room air, no adventitious breath sounds Cardiac: Regular rate and rhythm, + MARY, no JVD, normal peripheral pulses, good capillary refill Abdominal: NABS x 4 quadrants, soft, nontender to palpation, no rebound, guarding or tenderness Extremities: left little toe Amputated with tiny wound in dressing normal inspection, trace peripheral edema or erythema, calfs nontender to palpation Psych: Normal mood and affect Neuro: AAO x 3, strength intact bilaterally and related 5/5, no motor deficits, speech is clear, no peripheral sensory deficits Results & Data Laboratory Results Laboratory Results - last 24 hr 01/08/19 01/08/19 01/09/19 08:23 20:30 07:03 WBC 5.29 RBC 3.72 L Hgb 10.7 L Hct 33.5 L MCV 90.1 MCH 28.8 MCHC 31.9 L RDW Std Deviation 54.5 H RDW Coeff of Celso 16.5 H Plt Count 265 MPV 8.8 Sodium Potassium Chloride Carbon Dioxide Anion Gap BUN Creatinine Est Cr Clr Drug Dosing Est GFR ( Amer) Est GFR (Non-Af Amer) BUN/Creatinine Ratio Glucose POC Glucose 167 H Calcium Phosphorus Magnesium Total Bilirubin AST ALT Alkaline Phosphatase Total Protein Albumin Globulin Albumin/Globulin Ratio Urine Color Urine Appearance Urine pH Ur Specific [place] Urine Protein Urine Glucose (UA) Urine Ketones Urine Blood Urine Nitrite Urine Bilirubin Urine Urobilinogen Ur Leukocyte Esterase Urine WBC (Auto) Urine RBC (Auto) U Hyaline Cast (Auto) U Epithel Cells (Auto) Urine Bacteria (Auto) Ur Renal Epithelial Cell Ur Random Creatinine U Random Total Protein Protein/Creatinin Ratio Hepatitis C Ab Screen Neg 01/09/19 01/09/19 01/09/19 07:03 07:36 12:01 WBC RBC Hgb Hct MCV MCH MCHC RDW Std Deviation RDW Coeff of Celso Plt Count MPV Sodium 139 Potassium 4.5 Chloride 110 H Carbon Dioxide 21 Anion Gap 8.0 BUN 42 H Creatinine 2.99 H Est Cr Clr Drug Dosing 31.8 Est GFR ( Amer) 26.2 Est GFR (Non-Af Amer) 22.6 BUN/Creatinine Ratio 14.2 Glucose 106 H POC Glucose 130 H 117 H Calcium 8.8 Phosphorus 4.0 Magnesium 2.1 Total Bilirubin 0.3 AST 16 ALT 17 Alkaline Phosphatase 48 Total Protein 8.5 H Albumin 3.5 Globulin 5.0 H Albumin/Globulin Ratio 0.7 L Urine Color Urine Appearance Urine pH Ur Specific [place] Urine Protein Urine Glucose (UA) Urine Ketones Urine Blood Urine Nitrite Urine Bilirubin Urine Urobilinogen Ur Leukocyte Esterase Urine WBC (Auto) Urine RBC (Auto) U Hyaline Cast (Auto) U Epithel Cells (Auto) Urine Bacteria (Auto) Ur Renal Epithelial Cell Ur Random Creatinine U Random Total Protein Protein/Creatinin Ratio Hepatitis C Ab Screen 01/09/19 01/09/19 01/09/19 12:05 12:05 16:52 WBC RBC Hgb Hct MCV MCH MCHC RDW Std Deviation RDW Coeff of Celso Plt Count MPV Sodium Potassium Chloride Carbon Dioxide Anion Gap BUN Creatinine Est Cr Clr Drug Dosing Est GFR ( Amer) Est GFR (Non-Af Amer) BUN/Creatinine Ratio Glucose POC Glucose 131 H Calcium Phosphorus Magnesium Total Bilirubin AST ALT Alkaline Phosphatase Total Protein Albumin Globulin Albumin/Globulin Ratio Urine Color Yellow Urine Appearance Clear Urine pH 6.0 Ur Specific [place] 1.010 Urine Protein 3+ H Urine Glucose (UA) Negative Urine Ketones Negative Urine Blood Negative Urine Nitrite Negative Urine Bilirubin Negative Urine Urobilinogen Negative Ur Leukocyte Esterase 1+ H Urine WBC (Auto) 10-30 H Urine RBC (Auto) 0-4 U Hyaline Cast (Auto) 1-5 U Epithel Cells (Auto) >30 H Urine Bacteria (Auto) Negative Ur Renal Epithelial Cell Not Reportable Ur Random Creatinine 35.2 U Random Total Protein 177.8 H Protein/Creatinin Ratio 5.1 H Hepatitis C Ab Screen
[2019-01-09] MEDS: ATORVASTATIN 40 MG TAB PO SCH (20:41)
[2019-01-09] MEDS: CARVEDILOL 6.25 MG TAB PO SCH (20:42)
[2019-01-10 08:15] LABS: Hematocrit (blood only) 30.9 % (42-52); Mean Corpuscular Hgb Conc 32.4 g/dL (32-36); Mean Corpuscular Volume 89.8 fL (80-100); Platelet Count 267 K/uL (130-400); RDW Coefficient of Variation 16.4 % (11.5-14.5); RDW Standard Deviation 54.2 fL (36.4-46.3); Red Blood Count 3.44 M/uL (4.7-6.1); White Blood Count 5.09 K/uL (4.8-10.8)
[2019-01-10] MEDS: CARVEDILOL 6.25 MG TAB PO SCH (08:38)
[2019-01-10] MEDS: DOCUSATE SODIUM 100 MG CAP PO SCH (08:38)
[2019-01-10] MEDS: MAGNESIUM OXIDE 400 MG TAB PO SCH (08:38)
[2019-01-10] MEDS: ASPIRIN 81 MG ECTAB PO SCH (08:38)
[2019-01-10] MEDS: HydrALAZINE TAB 50 MG TAB PO SCH ×2 (08:38→12:43)
[2019-01-10] MEDS: HEPARIN SOD 5,000 UNIT/0.5 ML VIAL SQ SCH (08:40)
[2019-01-10] MEDS: AMLODIPINE BESYLATE 5 MG TAB PO SCH (08:40)
[2019-01-10] MEDS: INSULIN ASPART 100 UNITS/ML 3 ML PEN SC SCH ×2 (08:43→12:42)
[2019-01-10 08:54] LABS: Albumin Level 3.5 gm/dl (3.4-5.0); BUN Creatinine Ratio 13.6 (10-20); Creatinine Clr Calc Pharmacy 31.1 ml/min; Est GFR (African American) 25.5; Potassium 4.5 mmol/L (3.5-5.1)
[2019-01-10 08:57] LABS: Albumin Globulin Ratio 0.8 (0.9-2); Bilirubin,Total 0.3 mg/dl (0.2-1); Globulin 4.7 gm/dl (2.5-4.0); Total Protein 8.2 gm/dl (6.4-8.2)
--- NOTE | 2019-01-10 10:48 | Nephrology Progress Note ---
Date of Service January 10, 2019 Assessment & Plan (1) Chronic kidney disease, stage 4 (severe): -- Available records from PCP document creatinine 3.1 in 07/17 -- Urinalysis + for protein. Negative for blood. Urine microscopy is without casts. UPCR 5.1 -- Renal US w/ normal sized kidneys. No stone, mass or hydronephrosis -- 24 urine studies pending -- Monitor serial PRP -- Clinically suspect that patient has CKD related to diabetic nephropathy w/ baseline creatinine 3.0, EGFR 25 cc/min. If discharge is anticipated please have patient follow up in my office within 2 weeks ([phone]). I have advised him to have lab work and urine studies completed 24 hours prior to his OV (2) Benign essential HTN: -- Blood pressure was checked today and found to be acceptable. No change to current medical regimen -- Avoid DM / ARB as patient reports h/o EDVIN related to this class of medications (3) DM II (diabetes mellitus, type II), controlled: -- Hold Metformin. Use insulin for glycemic control Subjective Mr. Au was seen & examined in his hospital room this morning. He denies fever, FELIZ, dizziness or uremic symptoms. He voices no new medical concerns. Physical Exam Vital Signs (Past 24 Hours): Last Vital Signs Temp 36.7 C 01/10/19 10:32 Pulse 81 01/10/19 10:32 Resp 18 01/10/19 10:32 BP 169/91 H 01/10/19 10:32 Pulse Ox 99 01/10/19 10:32 Eyes: PERRL, conjunctivae normal, anicteric sclerae ENMT: external ear and nose normal, oropharynx normal Neck: trachea midline, no thyromegaly Respiratory: normal respiratory effort, lungs clear to auscultation Cardiovascular: Rate/Rhythm: regular rate and regular rhythm Extremities: + edema (trace LE edema) Gastrointestinal (Abdomen): normal bowel sounds, soft, nontender, no hepatosplenomegaly Neurologic: no focal motor deficits Results & Data Laboratory Results Laboratory Tests 01/09/19 01/09/19 01/10/19 12:05 12:05 07:58 WBC 5.09 Hgb 10.0 L Hct 30.9 L Plt Count 267 Sodium Potassium Chloride Carbon Dioxide BUN Creatinine Glucose Urine Color Yellow Urine Appearance Clear Urine pH 6.0 Ur Specific [place] 1.010 Urine Protein 3+ H Urine Glucose (UA) Negative Urine Blood Negative Urine RBC (Auto) 0-4 Protein/Creatinin Ratio 5.1 H 01/10/19 07:58 WBC Hgb Hct Plt Count Sodium 138 Potassium 4.5 Chloride 109 H Carbon Dioxide 21 BUN 42 H Creatinine 3.06 H Glucose 116 H Urine Color Urine Appearance Urine pH Ur Specific [place] Urine Protein Urine Glucose (UA) Urine Blood Urine RBC (Auto) Protein/Creatinin Ratio Diagnostic Findings Renal US: 1. No evidence of hydronephrosis 2. Symmetric renal size 3. Increased renal cortical echogenicity consistent with medical renal disease
[2019-01-10 12:49] LABS: Total Protein 24 Hour Urine 5705.3 mg/24 Hr (0-149.1); Urine Creatinine 43.8 mg/dl; Urine Total Protein 193.4 mg/dl
--- NOTE | 2019-01-10 17:57 | Discharge Summary ---
Date of Service January 10, 2019 Admission HPI Per Admitting Provider This is a 53 yo M with PMHx with CHF, HTN, HLD, DMI II, obesity with BMI of 33.8, polyneuropathy, hx of shingles, CKD stage III, hx of tobacco smoking who presents with feeling unwell this morning. Pt notes that his body was "feeling off" and initially described it as a dizziness to the ER. He denies syncopal episodes or passing out. Pt has been restricting fluids to 50 oz per day as his PCP had instructed him to. He has been taking lasi 40 mg daily, and last Monday he took an extra lasix 80 mg due to increased swelling in the left lower extremity as instructed. He recently has moved here from [place], and has not yet established care with a PCP. He Most recently followed with Dr. Av Fregoso. Pt found to have Cr. of 3.19 which is above his baseline as per outpatient records he has supplied from 2017. EKG is negative. Principal Diagnosis no Discharge Data Allergies Allergy/AdvReac Type Severity Reaction Status Date / Time Penicillins AdvReac Severe Cramping Unverified 01/07/19 10:58 of the Muscles Consultations 01/07/19 13:01 ED Decision to Admit Stat 01/07/19 14:04 Consult Health Information Management Stat 01/07/19 16:03 Consult Case Management - Discharge Planning Routine 01/09/19 08:42 Consult Neurology Routine Ordered Studies 01/07/19 11:03 CT head/brain wo con Stat 01/09/19 11:00 US renal/blad retro comp Routine Hospital Course (1) EDVIN (acute kidney injury): (2) DM II (diabetes mellitus, type II), controlled: (3) Benign essential HTN: (4) HLD (hyperlipidemia): - Cont statin therapy (5) CKD stage 3 due to type 2 diabetes mellitus: - As above (6) CHF (congestive heart failure): (7) Polyneuropathy: (8) Blindness of left eye: (9) History of shingles: (10) DVT prophylaxis: 53 yo M with PMHx with CHF, HTN, HLD, DMI II, obesity with BMI of 33.8, polyneuropathy, hx of shingles, CKD stage III, hx of tobacco smoking admitted because of acute on chronic kidney failure Possible acute on chronic kidney failure, last creatinine in PCPs office was 3.1 , which means kidney function is related to stable S/P 1 L NSS in ER, discontinued IV fluid in the first day after admission Continue to hold nephrotoxins and renally dose medications. Has been hold lasix as this is likely the causative factor in his EDVIN , will okay to restart at home as patient used to to which he told me if body weight more than 5 pounds can he can use Lasix I agree with that, please double check with PCP Nephrology input appreciated, follow-up UA with micro, follow-up renal ultrasound results, and 24-hour urine studies, I told patient to follow-up with nephrology as instructed Controlled DM II with A1c 7 Pt using metformin 100 mg BID as outpatient, holding for now. Has cover with ISS with [facility]. hx need Rx of one touch, Ultra 2 meter, need new pcp parent educator consult done as recs above I will not order any insulin for now to home, however recommend him to check blood glucose regularly and bring not to primary care physician, and adjust the medication accordingly Accelerated hypertension, Has been amlodipine 10 mg daily, hydralazine 100 mg TID, carvedilol 12.5 mg BID I increased Coreg to 15.625 mg p.o. twice daily,, PCP please adjust blood pressure medicine Dyslipidemia, CHF compensated,,polyneulopathy, left eye blind, continue current care, I told patient need to follow up Accounts Payable Accountant I told patient his metformin stopped , I will not give you insulin for now I give you Rx of one touch Ultra 2 meter, I told patient need to do one [facility] writing down number to bring the log to pcp, your current BG in hospital around 110 to 150, I told patient he has accelerated hypertension, continue amlodipine 10 mg daily, hydralazine 100 mg TID, I increased carvedilol 15.625 mg BID Subjective at discharge Sitting in chair, conversational, feeling fairly okay, Review of Systems at discharge Constitutional: no more weakness, which is better Respiratory: no cough, sputum, wheezing, or dyspnea on exertion Cardiac: No chest pain, No orthopnea, No PND, Abdomen: No pain, No nausea, No vomiting, No diarrhea, Musculoskeletal: No joint pain, No muscle pain, No swelling, : No dysuria, No urinary frequency, No incontinence, No hematuria Neurologic: No paralysis, No weakness, No numbness/tingling, Psychiatric: No depression symptoms, No anhedonism, No anxiety, Heme: No abnormal bleeding/bruising, No clotting problems, Physical Exam at discharge General: , sitting in chair, conversational, awake, alert, no apparent distress, + obese Head: Normocephalic, atraumatic ENT: PERRL, EOMI, no pharyngeal exudate, mucous membranes moist Chest: Clear to auscultation, on room air, no adventitious breath sounds Cardiac: Regular rate and rhythm, + MARY, no JVD, normal peripheral pulses, good capillary refill Abdominal: NABS x 4 quadrants, soft, nontender to palpation, no rebound, guarding or tenderness Extremities: left little toe Amputated with tiny wound in dressing normal inspection, trace peripheral edema or erythema, calfs nontender to palpation Psych: Normal mood and affect Neuro: AAO x 3, strength intact bilaterally and related 5/5, no motor deficits, speech is clear, no peripheral sensory deficits Lab data at discharge Laboratory Results - last 24 hr 01/09/19 01/10/19 01/10/19 20:03 07:44 07:58 WBC RBC Hgb Hct MCV MCH MCHC RDW Std Deviation RDW Coeff of Celso Plt Count MPV Sodium Potassium Chloride Carbon Dioxide Anion Gap BUN Creatinine 3.06 H Est Cr Clr Drug Dosing Est GFR ( Amer) Est GFR (Non-Af Amer) BUN/Creatinine Ratio Glucose POC Glucose 117 H 119 H Calcium Total Bilirubin AST ALT Alkaline Phosphatase Total Protein Albumin Globulin Albumin/Globulin Ratio Urine Collection Time Urine Total Volume Urine Creatinine Ur Creatinine 24 Hour Creatinine Clearance Ur Total Protein 24 Hr Urine Total Protein 01/10/19 01/10/19 01/10/19 07:58 07:58 11:23 WBC 5.09 RBC 3.44 L Hgb 10.0 L Hct 30.9 L MCV 89.8 MCH 29.1 MCHC 32.4 RDW Std Deviation 54.2 H RDW Coeff of Celso 16.4 H Plt Count 267 MPV 9.0 Sodium 138 Potassium 4.5 Chloride 109 H Carbon Dioxide 21 Anion Gap 8.0 BUN 42 H Creatinine 3.06 H Est Cr Clr Drug Dosing 31.1 Est GFR ( Amer) 25.5 Est GFR (Non-Af Amer) 22.0 BUN/Creatinine Ratio 13.6 Glucose 116 H POC Glucose 158 H Calcium 9.0 Total Bilirubin 0.3 AST 15 ALT 16 Alkaline Phosphatase 47 Total Protein 8.2 Albumin 3.5 Globulin 4.7 H Albumin/Globulin Ratio 0.8 L Urine Collection Time Urine Total Volume Urine Creatinine Ur Creatinine 24 Hour Creatinine Clearance Ur Total Protein 24 Hr Urine Total Protein 01/10/19 12:05 WBC RBC Hgb Hct MCV MCH MCHC RDW Std Deviation RDW Coeff of Celso Plt Count MPV Sodium Potassium Chloride Carbon Dioxide Anion Gap BUN Creatinine Est Cr Clr Drug Dosing Est GFR ( Amer) Est GFR (Non-Af Amer) BUN/Creatinine Ratio Glucose POC Glucose Calcium Total Bilirubin AST ALT Alkaline Phosphatase Total Protein Albumin Globulin Albumin/Globulin Ratio Urine Collection Time 24 Urine Total Volume 2950 Urine Creatinine 43.8 Ur Creatinine 24 Hour 1.3 Creatinine Clearance 24.3 L Ur Total Protein 24 Hr 5705.3 H Urine Total Protein 193.4 Total Time Total Time Spent Total Time Spent (In Minutes): 35 Discharge Plan Discharge Items Patient Disposition: Home - Self-Care Reason For Visit: DEHYDRATION, EDVIN Discharge Diagnosis: acute on chronic kidney failure Hypertension Condition: Fair Discharge Goals: Decrease discomfort, Diagnostic testing, Improve disease control and Learn about illness Activity: Resume your previous activity Non-emergency contact: Primary Care Provider and Accounts Payable Accountant Call non-emergency contact if: you have any medication questions Follow-up/Referrals: Sindhu Wall MD [Physician] - 01/23/19 2:50 pm (Please, follow up at [facility] Nephrology Office with Dr. Wall (kidney specialist) on MondayJanuary 23 at 2:50 pm. *This office is located in [address] of [facility] - big building next to this hospital. If you need to change this appointment, call the office at [phone].) Justin Delgadillo MD [Primary Care Provider] - 01/11/19 12:00 pm (Please, follow up with Dr. Justin Delgadillo on MondayJanuary 11 at 12:00 pm. He is a provider for the [facility]. He will be your new primary care provider *This office is located in [address] of [facility]. This is the big building next to this hospital If you need to change this appointment, call the office at [phone]. PLEASE, BE SURE TO CHECK WITH YOUR INSURANCE COMPANY ([employer]) REGARDING PHYSICIAN APPOINTMENTS. ASK IF THEY ARE "IN NETWORK" AND THEY WILL COVER THE COST OF THE APPOINTMENT. THE NUMBER FOR [employer] SHOULD BE ON YOUR CARD.) Qi Friedman DPM [Physician] - 01/21/19 1:15 pm (Please, follow up at [facility] with Dr. Qi Friedman on MondayJanuary 21 at 1:15 pm. *This office is located at [address] in [place]. If you have any questions, call the office at [phone].) Diet: Heart Healthy and Low Sodium (2gm) Addtl Provider Instructions: you possible acute on chronic kidney failure, we hold lasix a you need to follow up Accounts Payable Accountant I your metformin stopped , I will not give you insulin for now I give you Rx of one touch Ultra 2 meter, [facility] to bring the log to pcp, your current BG in hospital around 110 to 150, you have Accelerated hypertension, continue amlodipine 10 mg daily, hydralazine 100 mg TID, I increased carvedilol 15.625 mg BID you need to follow up with your primary care physician as schedulled - take medication as instructed, never overdose or any misuse, or take with alcohol, because misuse of medicine may cause organ damage or , call me, or your primary care physician if have questions of discharge medicaitons. - call your primary care physician, or go to local emergency room if has any fever/chill, chest pain, shortness of breathing, nausea/vomiting/abdominal pain, facial droop/slurry speech/local weakness, or if has any questions. - fall precaution - diet as instructed - you need to follow up with your subspecialist, such as Dr. Ambrosio Prescriptions: New carvedilol 6.25 mg Tablet 15.625 mg PO BID 30 Days Qty: 150 RF: 0 magnesium oxide 400 mg (241.3 mg magnesium) Tablet 400 mg PO BID 7 Days Qty: 14 RF: 0 Continued atorvastatin 40 mg tablet 40 mg PO HS RF: 0 aspirin 81 mg Tablet,Delayed Release (Dr/Ec) 81 mg PO QAM RF: 0 amlodipine 10 mg tablet 10 mg PO QAM RF: 0 docusate sodium 100 mg capsule 100 mg PO BID RF: 0 hydralazine 50 mg tablet 100 mg PO TID RF: 0 Levemir FlexTouch U-100 Insuln 100 unit/mL (3 mL) Insulin Pen SUBCUT DAILY PRN (Reason: bsg) RF: 0 Discontinued carvedilol 12.5 mg tablet 12.5 mg PO BID RF: 0 furosemide 80 mg tablet 80 mg PO DAILY PRN (Reason: Weight Gain) RF: 0 metformin 1,000 mg tablet 1,000 mg PO BID RF: 0 furosemide 40 mg 40 mg PO DAILY RF: 0 Stand-Alone Forms: [facility] Discharge Orders: Discharge Order (Routine); Ordered 01/10/19 Ordered By: Kristofer Lopez Admission Data Admit Date/Time: 01/07/19 13:42 Attending Provider: Kristofer Lopez Admit Provider: Mony Marino Primary Care Provider: Justin Delgadillo Other Providers: Mony Marino ; Fco Bhardwaj Service: Medical Other Interventions: Discharge Summary Assessment (RN) Last Done: 01/10/19 10:32 DC Date/Time DO NOT enter until pt leaves facility: 01/10/19 14:12
[2019-01-13 18:17] LABS: Kappa Lambda Ratio 14.88 (1.29-2.55)
== END 2019-01-10 14:12 | disposition home or self-care (01) | DRG 683 ==
LOC: ED 10:03 → SUATTDRO 13:42 → 4E 13:42

== ENCOUNTER 2019-01-16 16:21 | Inpatient (IN) ==
[2019-01-16 17:54] LABS: Basophils # (auto) 0.03 K/uL (0-0.2); Basophils % (auto) 0.5 %; Eosinophils # (auto) 0.41 K/uL (0-0.5); Eosinophils % (auto) 7.3 %; Hematocrit (blood only) 29.1 % (42-52); Hemoglobin 9.2 g/dL (14.0-18.0); Immature Granulocytes # (auto) 0.01 K/uL (0.00-0.02); Immature Granulocytes % (auto) 0.2 %; Lymphocytes # (auto) 1.92 K/uL (1.2-3.4); Lymphocytes % (auto) 34.3 %; Mean Corpuscular Hgb Conc 31.6 g/dL (32-36); Mean Corpuscular Volume 91.5 fL (80-100); Mean Platelet Volume 9.2 fL (7.4-10.4); Monocytes # (auto) 0.67 K/uL (0.11-0.59); Neutrophils # (auto) 2.56 K/uL (1.4-6.5); Neutrophils % (auto) 45.7 %; Platelet Count 250 K/uL (130-400); RDW Coefficient of Variation 16.4 % (11.5-14.5); RDW Standard Deviation 55.1 fL (36.4-46.3); Red Blood Count 3.18 M/uL (4.7-6.1)
--- NOTE | 2019-01-16 17:59 | XRay Report ---
XR chest 1V portable CLINICAL HISTORY: Chest Pain dyspnea COMPARISON STUDY: 01/07/2019 FINDINGS: The bones soft tissues and hemidiaphragms are normal. The cardiomediastinal silhouette is n ormal. The lungs are clear. The pulmonary vasculature is normal. IMPRESSION: Negative chest. The above report was generated using voice recognition software. It may contain grammatical, syntax or spelling errors. Electronically signed by: Irwin Ramirez M.D. 01/16/2019 5:57 PM
[2019-01-16 18:02] LABS: iSTAT Creatinine 3.8 mg/dl (0.6-1.3); iSTAT Hemoglobin 9.9 g/dl (14.0-18.0); iSTAT Ionized Calcium 1.08 mmol/l (1.12-1.32); iSTAT Potassium 5.6 mEq/L (3.3-5.0)
[2019-01-16 18:17] LABS: Alanine Aminotransferase 22 U/L (12-78); Albumin Level 3.2 gm/dl (3.4-5.0); Aspartate Aminotransferase 16 U/L (15-37); BUN Creatinine Ratio 17.7 (10-20); Blood Urea Nitrogen 67 mg/dl (7-18); Calcium 8.2 mg/dl (8.5-10.1); Carbon Dioxide 22 mmol/L (21-32); Chloride 113 mmol/L (98-107); Creatinine Clr Calc Pharmacy 25.6 ml/min; Est GFR (African American) 19.6; Est GFR (Non-African American) 16.9; Glucose 225 mg/dl (70-99); Potassium 5.6 mmol/L (3.5-5.1); Sodium 140 mmol/L (136-145)
[2019-01-16 18:22] LABS: Albumin Globulin Ratio 0.7 (0.9-2); Alkaline Phosphatase 52 U/L (45-117); Bilirubin,Total 0.2 mg/dl (0.2-1); Globulin 4.6 gm/dl (2.5-4.0); Total Protein 7.8 gm/dl (6.4-8.2); Troponin I < 0.015 ng/ml (0-0.045)
--- NOTE | 2019-01-16 18:59 | History & Physical Report ---
Date of Service January 16, 2019 Assessment & Plan (1) Hyperkalemia: Was 6.0 prior, now at 5.6 Monitor on IVF Renal c/s pending Advised to minimize bananas (states he eats at least 1 daily) (2) Anemia: Baseline Hb 10.0, slightly less today at 9.2 Hemoccult pending Monitor Will hold aspirin for now (3) EDVIN (acute kidney injury): Baseline cr around 3.0, now at 3.8 Renal c/s pending IVF (4) Benign essential HTN: continue home meds (5) DM II (diabetes mellitus, type II), controlled: continue home insulin SSI PRN A1c 7.0 earlier this month, will not recheck (6) Chronic kidney disease, stage 4 (severe): As per Dr. Bhardwaj (7) CHF (congestive heart failure): No current diuretics, monitor with IVF No signs of overload on CXR (8) HLD (hyperlipidemia): continue home meds (9) DVT prophylaxis: SCDs, will hold on rx until Hb is noted to be stable History of Present Illness Primary Care Provider: Justin Delgadillo MD 53 y/o M who was sent to the ED by Dr. Bhardwaj for abn labs. Pt states that he has been in his usual state of health since his recent d/c from [facility] on 01/10. He was feeling quite well. His labs were done with Dr. Bhardwaj as part of routine f/u. Pt denies fever, SOB, chest pain, abd pain, n/v, LE pain or swelling. Pt states he was started on colace at d/c but he still is constipated. His metformin was stopped at d/c. PCP started him on long acting insulin, 20units HS and he says his BS are much better now. He is checking his BS TID and recording them for further assessment. Allergies Allergy/AdvReac Type Severity Reaction Status Date / Time Penicillins AdvReac Severe Cramping Unverified 01/16/19 17:03 of the Muscles Home Medications Home Medications Medication Instructions Recorded Confirmed Type Levemir FlexTouch U-100 Insuln 20 unit SUBCUT HS 01/07/19 01/16/19 History amlodipine 10 mg PO QAM 01/07/19 01/16/19 History aspirin 81 mg PO QAM 01/07/19 01/16/19 History atorvastatin 40 mg PO HS 01/07/19 01/16/19 History docusate sodium 100 mg PO BID 01/07/19 01/16/19 History hydralazine 100 mg PO TID 01/07/19 01/16/19 History carvedilol 15.625 mg PO BID 30 Days #150 tab 01/10/19 01/16/19 Rx magnesium oxide 400 mg PO BID 7 Days #14 tab 01/10/19 01/16/19 Rx Past Med/Surg History Medical History History of shingles Blindness of left eye Polyneuropathy CHF (congestive heart failure) EDVIN (acute kidney injury) CKD stage 3 due to type 2 diabetes mellitus HLD (hyperlipidemia) Benign essential HTN DM II (diabetes mellitus, type II), controlled Surgical History S/P eye surgery S/P carpal tunnel release Right Family History Other Hypertension Social History Preferred Language: Danish Beliefs That Will Affect Care: None Current Living Situation: Alone Feels Safe at Home: Yes Smoking Status: Former smoker Hx Alcohol Use: Yes (occassional beer) Hx Substance Use: No Review of Systems Pertinent positives and negatives reviewed in HPI--all others negative Physical Exam Vital Signs (Past 24 Hours): Last Vital Signs Temp 36.3 C L 01/16/19 16:24 Pulse 82 01/16/19 18:18 Resp 18 01/16/19 18:18 BP 152/78 H 01/16/19 18:18 Pulse Ox 96 01/16/19 18:18 Constitutional: WD/WN, vitals as above Eyes: normal visual mandel by confrontation and + anicteric sclerae Neck: normal visual inspection and trachea midline Respiratory: normal respiratory effort, lungs clear to auscultation Cardiovascular: Rate/Rhythm: regular rate and regular rhythm Gastrointestinal (Abdomen): Inspection/Auscultation: abdomen not distended Percussion/Palpation: abdomen soft; abdomen nontender Musculoskeletal: Head/Neck/Chest: normocephalic and head atraumatic negative for edema, peripheral pulses intact Skin: no rashes, warm and dry Neurologic: awake; not confused Speech / Cognition: normal speech Psychiatric: A+Ox3, euthymic affect Results & Data Diagnostic Findings CXR: neg for acute ECG Rhythm: normal sinus Code Status & VTE Plan Code Status Full code VTE Prophylaxis Plan VTE Prophylaxis will be ordered: Yes
[2019-01-16] MEDS ORDERED: GLUCOSE 10 TABS/TUBE PO PRN (19:44)
[2019-01-16] MEDS ORDERED: CARBOHYDRATES FOR HYPOGLYCEMIA PO PRN (19:44)
[2019-01-16] MEDS ORDERED: MAGNESIUM HYDROXIDE SUSP 30 ML UDC PO PRN (19:44)
[2019-01-16] MEDS ORDERED: GLUCOSE 40% GEL 15 GM TUBE PO PRN (19:44)
[2019-01-16] MEDS ORDERED: DEXTROSE 50% 50 ML SYRINGE IV PRN (19:44)
[2019-01-16] MEDS ORDERED: GLUCAGON FOR INJ 1 MG VIAL SQ PRN (19:44)
[2019-01-16] MEDS ORDERED: ONDANSETRON INJ 2 MG/ML 2 ML VIAL IV PRN (19:44)
[2019-01-16] MEDS ORDERED: ACETAMINOPHEN 325 MG TAB PO PRN (19:44)
--- NOTE | 2019-01-16 20:44 | Emergency Department Note ---
Entered by Preston Vora acting as a scribe for Dane Jiang MD History of Present Illness General Chief complaint: Abnormal Labs/Diagnostic Testing Stated complaint: ABNORMAL LABS - REFERRED BY DOCTOR Time Seen by Provider: 01/16/19 16:43 History of Present Illness Provider complaint: Elevated Lab Values Onset (ago): hour(s) 1 Pain Consistency: + constant Current Pain Intensity: 0 Exacerbated By: + none Associated symptoms: no nausea/vomiting Patient is a 53 year old male who presents himself to the ER with complains of elevated lab levels. Patient woke up at 3:30AM this morning. He reports going to his doctor later in the morning for blood work and then returned home. Upon arrival at home he received a call from the doctors office stating that his potassium labs were abnormal and that he must head over to the ER for treatment. Patient states his potassium values have been abnormal for last 25-30 years. Patient also reports drinking Heineken alcohol earlier. Patient rates his current constant pain at a value of 0 on the pain intensity scale. Patients pain is not exacerbated by anything. Patient denies nausea and vomiting Home Medications Home Medications Medication Instructions Recorded Confirmed Type Levemir FlexTouch U-100 Insuln 20 unit SUBCUT HS 01/07/19 01/16/19 History amlodipine 10 mg PO QAM 01/07/19 01/16/19 History aspirin 81 mg PO QAM 01/07/19 01/16/19 History atorvastatin 40 mg PO HS 01/07/19 01/16/19 History docusate sodium 100 mg PO BID 01/07/19 01/16/19 History hydralazine 100 mg PO TID 01/07/19 01/16/19 History carvedilol 15.625 mg PO BID 30 Days #150 tab 01/10/19 01/16/19 Rx magnesium oxide 400 mg PO BID 7 Days #14 tab 01/10/19 01/16/19 Rx Allergies Allergy/AdvReac Type Severity Reaction Status Date / Time Penicillins AdvReac Severe Cramping Unverified 01/16/19 17:03 of the Muscles Past Med/Surg History Medical History History of shingles Blindness of left eye Polyneuropathy CHF (congestive heart failure) EDVIN (acute kidney injury) CKD stage 3 due to type 2 diabetes mellitus HLD (hyperlipidemia) Benign essential HTN DM II (diabetes mellitus, type II), controlled Surgical History S/P eye surgery S/P carpal tunnel release Right Family History Other Hypertension Social History Preferred Language: Salvadorean Benefit Director Required: No Beliefs That Will Affect Care: None Current Living Situation: Alone Other Information That Helps Us Care for You: No Feels Safe at Home: Yes Safety Concerns: Feels Safe At This Time Smoking Status: Former smoker Hx Alcohol Use: Yes Hx Substance Use: No Review of Systems See HPI for pertinent positives & negatives. and A total of 10 systems reviewed and were otherwise negative Physical Exam Vital Signs Vital Signs - 24 hr 01/16/19 16:24 01/16/19 18:18 01/16/19 19:09 Temperature 36.3 C L Temperature Source Oral Sepsis Recent Fever Within 48 Hours No Sepsis New/Unexplained Change in Mental Status No Sepsis Action Taken by Nursing No Action Required Pulse Rate 86 83 Pulse Rate [Apical] 82 Pulse Rhythm [Apical] Regular Respiratory Rate 20 18 18 Respiratory Effort / Characteristics Non-Labored Spontaneous Respiratory Depth Normal Respiratory Pattern Regular Blood Pressure 170/83 H 152/84 H Blood Pressure [Right Arm] 152/78 H Blood Pressure Mean 112 Blood Pressure Mean [Right Arm] 102 Pulse Oximetry 98 96 99 Oxygen Delivery Method Room Air Room Air Room Air 01/16/19 19:30 01/16/19 19:44 Temperature 36.5 C Temperature Source Oral Sepsis Recent Fever Within 48 Hours Sepsis New/Unexplained Change in Mental Status Sepsis Action Taken by Nursing Pulse Rate 82 Pulse Rate [Apical] 90 Pulse Rhythm [Apical] Respiratory Rate 18 18 Respiratory Effort / Characteristics Non-Labored Spontaneous Respiratory Depth Normal Respiratory Pattern Regular Blood Pressure 182/84 H Blood Pressure [Right Arm] 188/88 H Blood Pressure Mean Blood Pressure Mean [Right Arm] 121 Pulse Oximetry 98 97 Oxygen Delivery Method Room Air Room Air CONSTITUTIONAL/VITAL SIGNS: Reviewed / noted above. GENERAL: Non-toxic in appearance. INTEGUMENTARY: Warm, dry, and [place]. HEAD: Normocephalic. EYES: without scleral icterus or trauma. ENT/OROPHARYNX: clear and moist. LYMPHADENOPATHY/NECK: Is supple without lymphadenopathy or meningismus. RESPIRATORY: Lungs clear and equal. CARDIOVASCULAR: Regular rate and rhythm. GI/ABDOMEN: Soft and nontender. No organomegaly or pulsatile mass. No rebound or guarding. Normal bowel sounds. EXTREMITIES: Warm and well perfused. BACK: No CVA tenderness. NEUROLOGICAL: Intact without focal deficits. PSYCHIATRIC: normal affect. MUSCULOSKELETAL: Normally developed with good muscle tone. Course 1644: Past medical records reviewed. The patient was evaluated in room C3, and a complete history and physical examination were performed. 1826: I discussed the case with LENARD Najera who will admit the patient under their care for treatment. The patient has verbalized agreement to the treatment plan. Consultations Consultation #1: LENARD Najera Time: 18:27 Medical Decision Making Differential Diagnosis Differential includes acute coronary syndrome, myocardial infarction, CVA, TIA, anemia, infection, pneumonia, UTI, pyelonephritis, poor nutrition, dehydration, electrolyte disturbance,hypoglycemia. Medical Records Attestation: I reviewed the patient's medical records. Home Medications Current Medication List: was personally reviewed by me Laboratory Data Attestation: I reviewed the patient's lab results. Result diagrams: 01/16/19 17:44 01/16/19 17:44 Lab Results 01/16/19 01/16/19 01/16/19 Range/Units 17:44 17:44 17:49 WBC 5.60 (4.8-10.8) K/uL RBC 3.18 L (4.7-6.1) M/uL Hgb 9.2 L (14.0-18.0) g/dL POC Hgb 9.9 L (14.0-18.0) g/dl Hct 29.1 L (42-52) % POC Hct 29 L (42-52) % MCV 91.5 (80-100) fL MCH 28.9 (25-34) pg MCHC 31.6 L (32-36) g/dL RDW Std Deviation 55.1 H (36.4-46.3) fL RDW Coeff of Celso 16.4 H (11.5-14.5) % Plt Count 250 (130-400) K/uL MPV 9.2 (7.4-10.4) fL Immature Gran % (Auto) 0.2 % Neut % (Auto) 45.7 % Lymph % (Auto) 34.3 % [place] % (Auto) 12.0 % Eos % (Auto) 7.3 % Baso % (Auto) 0.5 % Immature Gran # (Auto) 0.01 (0.00-0.02) K/uL Neut # (Auto) 2.56 (1.4-6.5) K/uL Lymph # (Auto) 1.92 (1.2-3.4) K/uL [place] # (Auto) 0.67 H (0.11-0.59) K/uL Eos # (Auto) 0.41 (0-0.5) K/uL Baso # (Auto) 0.03 (0-0.2) K/uL POC Sodium 141 (135-144) mEq/L Sodium 140 (136-145) mmol/L POC Potassium 5.6 H (3.3-5.0) mEq/L Potassium 5.6 H (3.5-5.1) mmol/L POC Chloride 109 (101-112) mEq/L Chloride 113 H (98-107) mmol/L Carbon Dioxide 22 (21-32) mmol/L POC Total CO2 19 L (24-31) mEq/l Anion Gap 6.0 (3-11) POC Anion Gap 19.0 (16-25) mmol/L POC BUN 60 H (7-18) mg/dl BUN 67 H (7-18) mg/dl Creatinine 3.80 H (0.6-1.4) mg/dl POC Creatinine 3.8 H (0.6-1.3) mg/dl Est Cr Clr Drug Dosing 25.6 ml/min Est GFR ( Amer) 19.6 Est GFR (Non-Af Amer) 16.9 BUN/Creatinine Ratio 17.7 (10-20) Glucose 225 H (70-99) mg/dl POC Glucose (70-99) POC Glucose (other) 231 H (70-99) mg/dl Calcium 8.2 L (8.5-10.1) mg/dl POC Ioniz Calcium Jeremy 1.08 L (1.12-1.32) mmol/l Total Bilirubin 0.2 (0.2-1) mg/dl AST 16 (15-37) U/L ALT 22 (12-78) U/L Alkaline Phosphatase 52 (45-117) U/L Troponin I < 0.015 (0-0.045) ng/ml Total Protein 7.8 (6.4-8.2) gm/dl Albumin 3.2 L (3.4-5.0) gm/dl Globulin 4.6 H (2.5-4.0) gm/dl Albumin/Globulin Ratio 0.7 L (0.9-2) Lipase 140 (73-393) U/L 01/16/19 Range/Units 20:02 WBC (4.8-10.8) K/uL RBC (4.7-6.1) M/uL Hgb (14.0-18.0) g/dL POC Hgb (14.0-18.0) g/dl Hct (42-52) % POC Hct (42-52) % MCV (80-100) fL MCH (25-34) pg MCHC (32-36) g/dL RDW Std Deviation (36.4-46.3) fL RDW Coeff of Celso (11.5-14.5) % Plt Count (130-400) K/uL MPV (7.4-10.4) fL Immature Gran % (Auto) % Neut % (Auto) % Lymph % (Auto) % [place] % (Auto) % Eos % (Auto) % Baso % (Auto) % Immature Gran # (Auto) (0.00-0.02) K/uL Neut # (Auto) (1.4-6.5) K/uL Lymph # (Auto) (1.2-3.4) K/uL [place] # (Auto) (0.11-0.59) K/uL Eos # (Auto) (0-0.5) K/uL Baso # (Auto) (0-0.2) K/uL POC Sodium (135-144) mEq/L Sodium (136-145) mmol/L POC Potassium (3.3-5.0) mEq/L Potassium (3.5-5.1) mmol/L POC Chloride (101-112) mEq/L Chloride (98-107) mmol/L Carbon Dioxide (21-32) mmol/L POC Total CO2 (24-31) mEq/l Anion Gap (3-11) POC Anion Gap (16-25) mmol/L POC BUN (7-18) mg/dl BUN (7-18) mg/dl Creatinine (0.6-1.4) mg/dl POC Creatinine (0.6-1.3) mg/dl Est Cr Clr Drug Dosing ml/min Est GFR ( Amer) Est GFR (Non-Af Amer) BUN/Creatinine Ratio (10-20) Glucose (70-99) mg/dl POC Glucose 135 H (70-99) POC Glucose (other) (70-99) mg/dl Calcium (8.5-10.1) mg/dl POC Ioniz Calcium Jeremy (1.12-1.32) mmol/l Total Bilirubin (0.2-1) mg/dl AST (15-37) U/L ALT (12-78) U/L Alkaline Phosphatase (45-117) U/L Troponin I (0-0.045) ng/ml Total Protein (6.4-8.2) gm/dl Albumin (3.4-5.0) gm/dl Globulin (2.5-4.0) gm/dl Albumin/Globulin Ratio (0.9-2) Lipase (73-393) U/L Imaging Data Attestation: I personally reviewed and interpreted this imaging study as follows: Radiologist's Impression: Radiology results as stated below per my review and the radiologist's interpretation: XR chest 1V portable CLINICAL HISTORY: Chest Pain dyspnea COMPARISON STUDY: 01/07/2019 FINDINGS: The bones soft tissues and hemidiaphragms are normal. The cardiomediastinal silhouette is normal. The lungs are clear. The pulmonary vasculature is normal. IMPRESSION: Negative chest. The above report was generated using voice recognition software. It may contain grammatical, syntax or spelling errors. Electronically signed by: Irwin Ramirez M.D. 01/16/2019 5:57 PM Dictated: 01/16/191756 Transcribed: 01/16/191756 ECG Data Attestation: I personally reviewed and interpreted this ECG as follows: Indication: other (Elevated Labs) Rate (beats per minute): 79 Rhythm: normal sinus Findings: no ST depression and no ST elevation Blood Pressure Blood Pressure Findings: Elevated blood pressure Blood Pressure Disposition: further management by hospitalist CHARLIE Narrative This is a 53-year-old male who presents emergency department complaining of increased potassium. Patient himself has no complaints. The patient Keith has stage III kidney disease however his creatinine is significantly elevated today. In addition the patient's potassium is also elevated. Due to the fragile nature of the patient I did discuss the case with the hospitalist service who did admit the patient. Patient was in agreement with the treatment plan. Impression & Plan Chronic kidney disease, stage 4 (severe), Hyperkalemia, DM II (diabetes mellitus, type II), controlled, CHF (congestive heart failure) Discharge Plan Visit Data *Final* Discharge Date/Time: 01/16/19 19:30 Chief Complaint: Abnormal Labs/Diagnostic Testing Stated Complaint: ABNORMAL LABS - REFERRED BY DOCTOR ED Provider: Dane Jiang Discharge Problem: Chronic kidney disease, stage 4 (severe), Hyperkalemia, DM II (diabetes melli tus, type II), controlled, CHF (congestive heart failure) Patient Disposition: Admitted As Inpatient Discharge Instructions Interventions: ED Discharge Assessment Last Done: 01/16/19 19:30 The scribe's documentation has been prepared under my direction and personally reviewed by me in its entirety. I confirm that the note above accurately refl ects all work, treatment, procedures, and medical decision making performed by me.
[2019-01-16] MEDS: HydrALAZINE TAB 50 MG TAB PO SCH (21:10)
[2019-01-16] MEDS: SODIUM CHLORIDE 0.45 % 1,000 ML IV SCH (21:10)
[2019-01-16] MEDS: CARVEDILOL 6.25 MG TAB PO SCH (21:11)
[2019-01-16] MEDS: DOCUSATE SODIUM 100 MG CAP PO SCH (21:11)
[2019-01-16] MEDS: ATORVASTATIN 40 MG TAB PO SCH (21:11)
[2019-01-16] MEDS: MAGNESIUM OXIDE 400 MG TAB PO SCH (21:12)
[2019-01-16] MEDS: INSULIN DETEMIR FLEXPEN/FLEX TOUCH 100 UNITS/ML 3ML SQ SCH (21:13)
[2019-01-16] MEDS: INSULIN ASPART 100 UNITS/ML 3 ML PEN SC SCH (21:14)
[2019-01-16 22:13] LABS: Amphetamines+Metham, Urine Neg (Neg); Barbiturates, Urine Neg (Neg); Benzodiazepine, Urine Neg (Neg); Cocaine, Urine Neg (Neg); MDMA (Ecstacy), Urine Neg (Neg); Methadone, Urine Neg (Neg); Opiate, Urine Neg (Neg); Phencyclidine, Urine Neg (Neg)
[2019-01-17] MEDS: SODIUM CHLORIDE 0.45 % 1,000 ML IV SCH (06:36)
[2019-01-17 06:44] LABS: Basophils # (auto) 0.02 K/uL (0-0.2); Basophils % (auto) 0.5 %; Eosinophils # (auto) 0.36 K/uL (0-0.5); Eosinophils % (auto) 8.5 %; Hematocrit (blood only) 28.3 % (42-52); Hemoglobin 8.9 g/dL (14.0-18.0); Immature Granulocytes # (auto) 0.01 K/uL (0.00-0.02); Immature Granulocytes % (auto) 0.2 %; Lymphocytes # (auto) 1.26 K/uL (1.2-3.4); Lymphocytes % (auto) 29.7 %; Mean Corpuscular Hgb Conc 31.4 g/dL (32-36); Mean Corpuscular Volume 90.7 fL (80-100); Mean Platelet Volume 8.7 fL (7.4-10.4); Monocytes # (auto) 0.61 K/uL (0.11-0.59); Monocytes % (auto) 14.4 %; Neutrophils # (auto) 1.98 K/uL (1.4-6.5); Neutrophils % (auto) 46.7 %; Platelet Count 232 K/uL (130-400); RDW Coefficient of Variation 16.5 % (11.5-14.5); Red Blood Count 3.12 M/uL (4.7-6.1); White Blood Count 4.24 K/uL (4.8-10.8)
[2019-01-17 07:09] LABS: RBC Morphology Unremarkable
[2019-01-17 07:21] LABS: Calcium 8.1 mg/dl (8.5-10.1); Creatinine Clr Calc Pharmacy 27.6 ml/min; Est GFR (African American) 21.7; Est GFR (Non-African American) 18.7; Magnesium 2.9 mg/dl (1.8-2.4); Phosphorus 5.2 mg/dl (2.5-4.9); Potassium 5.5 mmol/L (3.5-5.1)
[2019-01-17] MEDS: HydrALAZINE TAB 50 MG TAB PO SCH ×3 (08:00→20:35)
[2019-01-17] MEDS: INSULIN ASPART 100 UNITS/ML 3 ML PEN SC SCH ×4 (08:08→20:36)
[2019-01-17] MEDS: MAGNESIUM OXIDE 400 MG TAB PO SCH (08:10)
[2019-01-17] MEDS: DOCUSATE SODIUM 100 MG CAP PO SCH ×2 (08:10→20:33)
[2019-01-17] MEDS: CARVEDILOL 6.25 MG TAB PO SCH ×2 (08:11→20:33)
[2019-01-17] MEDS: AMLODIPINE BESYLATE 5 MG TAB PO SCH (08:12)
[2019-01-17] MEDS: SENNA 8.8 MG/5 ML UDP PO SCH (08:12)
[2019-01-17] MEDS ORDERED: CALCIUM GLUCONATE 10% 1,000 MG in SODIUM CHLORIDE 0.9% 50 ML IV STA (08:16)
--- NOTE | 2019-01-17 09:43 | Nephrology Consultation ---
Date of Consultation January 17, 2019 Assessment & Plan (1) Acute kidney injury: 53 y o M the with stage 4 chronic kidney disease secondary to diabetic nephropathy admitted to the hospital with hyperkalemia and acute kidney injury. Patient reports some dietary contribution for hyperkalemia, has not been on any DM-inhibitor or ARB are potassium supplement. Has been otherwise asymptomatic and has been voiding normally. Blood pressure relatively well controlled. --continue on low-potassium diet, discussed about avoiding high potassium foods, continue to keep off of DM-inhibitor ARB --discontinue IV fluid --considering advanced CKD and recurrent episode of acute kidney injury and hype rkalemia, discussed about near future need for renal replacement therapy. Patient would consider incenter hemodialysis. Will need outpatient schedule with vascular surgery for AV fistula placement --will need dietary consult as an outpatient to help with low-potassium diet recommendations --if clinically stable, can be discharged tomorrow, will need f/U with Dr. Bhardwaj in 2 weeks with lab prior Will follow Thank you for allowing me to participate in your patient's care. It was a pleasure to see Chavo (2) Chronic kidney disease, stage 4 (severe): (3) Hyperkalemia: (4) Anemia: (5) Benign essential HTN: (6) DM II (diabetes mellitus, type II), controlled: History of Present Illness Reason for Consultation: Hyperkalemia, EDVIN with advanced CKD. Attending Physician: Pavel Crow DO History of Present Illness Chavo Au is a 53-year-old gentlemen with past medical history significant for stage IV CKD, diabetes and hypertension admitted to the hospital with hyperkalemia and acute kidney injury. Nephrology consult was requested for further management. Electronic medical records including labs and imaging are reviewed in detail during patient's visit. Chavo recently moved to [facility] from [place]. Has stage 4 CKD 2/2 DM nephropathy, baseline creatinine seems to be around 3.1-3.5. Recently he was in hospital and was discharged a week ago. Yesterday he had routine lab done as a follow-up and found to have acute kidney injury and hyperkalemia, creatinine was 3.8 and potassium was 6.2. He was admitted for further management. He denies any nausea, vomiting or diarrhea. He has been otherwise feeling fine. He reports having orange juice and bananas when his blood sugar was low and feels like that is contributing to his hyperkalemia. Has history of repeated hyperkalemia before. Has not been on any DM-inhibitor or ARB or potassium supplement. He has been voiding normally. Allergies Allergy/AdvReac Type Severity Reaction Status Date / Time Penicillins AdvReac Severe Cramping Unverified 01/16/19 17:03 of the Muscles Home Medications Home Medications Medication Instructions Recorded Confirmed Type Levemir FlexTouch U-100 Insuln 20 unit SUBCUT HS 01/07/19 01/16/19 History amlodipine 10 mg PO QAM 01/07/19 01/16/19 History aspirin 81 mg PO QAM 01/07/19 01/16/19 History atorvastatin 40 mg PO HS 01/07/19 01/16/19 History docusate sodium 100 mg PO BID 01/07/19 01/16/19 History hydralazine 100 mg PO TID 01/07/19 01/16/19 History carvedilol 15.625 mg PO BID 30 Days #150 tab 01/10/19 01/16/19 Rx Patient History Medical History History of shingles Blindness of left eye Polyneuropathy CHF (congestive heart failure) EDVIN (acute kidney injury) CKD stage 3 due to type 2 diabetes mellitus HLD (hyperlipidemia) Benign essential HTN DM II (diabetes mellitus, type II), controlled Surgical History S/P eye surgery S/P carpal tunnel release Right Family History Other Hypertension Social History Preferred Language: Samoan [place] Required: No Beliefs That Will Affect Care: None Current Living Situation: Alone Other Information That Helps Us Care for You: No Feels Safe at Home: Yes Safety Concerns: Feels Safe At This Time Smoking Status: Former smoker Hx Alcohol Use: Yes Hx Substance Use: No Review of Systems Detail ROS was unremarkable. Physical Exam Vital Signs (Past 24 Hours): Last Vital Signs Temp 36.2 C L 01/17/19 07:16 Pulse 78 01/17/19 07:16 Resp 18 01/17/19 07:16 BP 150/72 H 01/17/19 07:16 Pulse Ox 96 01/17/19 07:16 Physical Exam: GENERAL: middle aged male, AAA x 3, pleasant, healthy-appearing, not in any distress. TheHEENT: Atraumatic, normocephalic. NECK: Supple, no JVD, no carotid bruit appreciated. ENT: No sinus tenderness MOUTH and THROAT: Moist oral mucosa, RESPIRATORY: Normal breathing efforts, clear to auscultation bilaterally, no wheezes or rales. CARDIOVASCULAR: S1, S2 normal, rate rhythm regular. ABDOMEN: Soft, nontender, positive bowel sound. MUSCULOSKELETAL: No CVA tenderness. No joint swelling, erythema or tenderness. Normal range of motion. SKIN: No skin rash EXTREMITY: No lower extremity edema NEURO: No gross focal neurological deficit, speech fluent. PSYCHIATRY: Normal mood and judgment (1) DM II (diabetes mellitus, type II), controlled Diabetes mellitus complication status: with unspecified complications Diabetes mellitus fpc insulin use: with fpc use Qualified Code(s): E11.8 - Type 2 diabetes mellitus with unspecified complications; Z79.4 - marine oil terminal superintendent (current) use of insulin
[2019-01-17 09:46] LABS: Reticulocytes # 0.03 10^6/uL (0.02-0.10)
[2019-01-17 10:02] LABS: Ferritin 81.9 ng/ml (8-388)
[2019-01-17 10:09] LABS: Folate (Folic Acid) 11.67 ng/ml (>5.38)
[2019-01-17] MEDS ORDERED: SODIUM POLYSTYRENE SULFONATE 15G/60ML SUSP PO ONE (13:23)
--- NOTE | 2019-01-17 13:41 | Family Medicine Progress Note ---
Date of Service January 17, 2019 Assessment & Plan (1) Hyperkalemia: Was 6.0 prior, now at 5.6 Continue to follow. Ordered haptoglobin, LDH to ensure potassium not from intravascular destruction of RBCs Suspect multifactorial from worseneing kidney function, diet that has foods high in potassium. Review of medications, patient is not on any potassium sparing diuretics or ACEi/ARB. Ordered Calcium Gluconate 10% this morning to provide stabilization of cardiac membrane - Nephrology did put in an order for Kayexalate to decrease total body K+ (2) Acute kidney injury: Creatinine in ED was 3.80. This morning (01/17) 3.49. Review of old EMR previous lab values, baseline appears 3.0-3.1. Review of nephrology note includes the following recommendations, which I agree with treatment plan. --continue on low-potassium diet, discussed about avoiding high potassium foods, continue to keep off of DM-inhibitor ARB --discontinue IV fluid --considering advanced CKD and recurrent episode of acute kidney injury and hyperkalemia, discussed about near future need for renal replacement therapy. Patient would consider incenter hemodialysis. Will need outpatient schedule with vascular surgery for AV fistula placement --will need dietary consult as an outpatient to help with low-potassium diet recommendations --if clinically stable, can be discharged tomorrow, will need f/U with Dr. Bhardwaj in 2 weeks with lab prior (3) Chronic kidney disease, stage 4 (severe): consistent with GFR on admission labs (4) Anemia: Baseline Hb 10.0, slightly less today at 9.2 Hemoccult pending Monitor Will hold aspirin for now (5) Benign essential HTN: continue home meds (6) DM II (diabetes mellitus, type II), controlled: continue home insulin A1c 7.0 earlier this month, will not recheck He did have some low bG values around noon of 49-59. * changed insulin carb ration from 1:5 to 1:10 which is patient's home dose. * Discussed with patient about tweaking home insulin regimen to basal and bolus to help avoid low blood sugars that he has been having at home. Supervising Physician Co-Signing Physician Notes I personally examined the patient and verified all [place]amo points of history and exam, discussed case, and agree with decision making with Dr Mcgovern. Feeling better. No new complaints. Discussed his sugars, he does note that he wakes up below quite frequently. He takes 20 of Lantus no log. However he does note that in the past he has been on basal bolus regimens and actually spontaneously expresses a very good understanding of carb counting and in fact notes that well right now he is not on basal bolus at home, he still generally carb counts his meals anyway. Vitals noted, in general he is in no distress. HEENT normocephalic atraumatic mucous membranes moist. Breathing is unlabored no accessory muscle use. Skin shows no rashes no pallor or icterus. Hyperkalemia/CKDimproving. Continue current care for now. Repeat labs in the morning, hopefully home tomorrow. Type 2 diabetes on insulinoverall fairly well controlled based on his last A1c, but with his all basal/no bolus regimen, he is not surprisingly suffering from low sugars in a prolonged fasting state. We discussed options, and he is all for switching to a basal bolus regimen, and seems to express very good understanding of how to carb count and how to generally adjust his dosing based on his carb intake. We discussed postprandial glucose monitoring to "grade his work" otherwise as above Subjective Mr. Tony is asymptomatic this morning. He denies chest pain, shortness of breath, fevers, chills, leg swelling, dizziness, black/bloody stools. He notes that he has had low sugars in the morning at home 60s recently, and he was treating this with drinking orange juice and eating a banana, he will also eat oranges occassionally if low sugars during day. He notes that he recently relocated here from [place] and that he follows with Dr. Benton foster. He states he does not know etiology of low hemoglobin levels. Physical Exam Vital Signs (Past 24 Hours): Last Vital Signs Temp 36.5 C 01/17/19 11:30 Pulse 65 01/17/19 11:30 Resp 18 01/17/19 11:30 BP 105/60 01/17/19 11:30 Pulse Ox 98 01/17/19 11:30 Constitutional: WD/WN, vitals as above cooperative and comfortable Eyes: + anicteric sclerae and EOM intact bilaterally Neck: normal visual inspection and trachea midline Respiratory: normal respiratory effort, lungs clear to auscultation Cardiovascular: Rate/Rhythm: regular rate and regular rhythm Extremities: no pedal edema Gastrointestinal (Abdomen): Inspection/Auscultation: normal bowel sounds Percussion/Palpation: abdomen nontender Musculoskeletal: Head/Neck/Chest: head atraumatic left lateral joslyn-orbital area mass noted, patient notes chronic Skin: no rashes, warm and dry Neurologic: moves all extremities and awake Psychiatric: A+Ox3, euthymic affect Results & Data Laboratory Results Laboratory Results - last 24 hr 01/16/19 01/16/19 01/16/19 17:44 17:44 17:49 WBC 5.60 RBC 3.18 L Hgb 9.2 L POC Hgb 9.9 L Hct 29.1 L POC Hct 29 L MCV 91.5 MCH 28.9 MCHC 31.6 L RDW Std Deviation 55.1 H RDW Coeff of Celso 16.4 H Plt Count 250 MPV 9.2 Immature Gran % (Auto) 0.2 Neut % (Auto) 45.7 Lymph % (Auto) 34.3 Bates % (Auto) 12.0 Eos % (Auto) 7.3 Baso % (Auto) 0.5 Reticulocyte % (Auto) Immature Gran # (Auto) 0.01 Neut # (Auto) 2.56 Lymph # (Auto) 1.92 Bates # (Auto) 0.67 H Eos # (Auto) 0.41 Baso # (Auto) 0.03 Reticulocyte # RBC Morphology Peripher Smr Path Cons POC Sodium 141 Sodium 140 POC Potassium 5.6 H Potassium 5.6 H POC Chloride 109 Chloride 113 H Carbon Dioxide 22 POC Total CO2 19 L Anion Gap 6.0 POC Anion Gap 19.0 POC BUN 60 H BUN 67 H Creatinine 3.80 H POC Creatinine 3.8 H Est Cr Clr Drug Dosing 25.6 Est GFR ( Amer) 19.6 Est GFR (Non-Af Amer) 16.9 BUN/Creatinine Ratio 17.7 Glucose 225 H POC Glucose POC Glucose (other) 231 H Calcium 8.2 L POC Ioniz Calcium Jeremy 1.08 L Phosphorus Magnesium Iron TIBC Ferritin Total Bilirubin 0.2 AST 16 ALT 22 Alkaline Phosphatase 52 Lactate Dehydrogenase Troponin I < 0.015 Total Protein 7.8 Albumin 3.2 L Globulin 4.6 H Albumin/Globulin Ratio 0.7 L Lipase 140 Vitamin B12 Folate Urine Opiates Screen Ur Methadone, Qual Urine Barbiturates Ur Phencyclidine (PCP) U Amphetamin/Meth Scrn MDMA (Ecstasy) Screen U Benzodiazepines Scrn Ur Cocaine Metabolite U Marijuana (THC) Screen 01/16/19 01/16/19 01/17/19 20:02 21:20 06:24 WBC 4.24 L RBC 3.12 L Hgb 8.9 L POC Hgb Hct 28.3 L POC Hct MCV 90.7 MCH 28.5 MCHC 31.4 L RDW Std Deviation 55.0 H RDW Coeff of Celso 16.5 H Plt Count 232 MPV 8.7 Immature Gran % (Auto) 0.2 Neut % (Auto) 46.7 Lymph % (Auto) 29.7 Bates % (Auto) 14.4 Eos % (Auto) 8.5 Baso % (Auto) 0.5 Reticulocyte % (Auto) Immature Gran # (Auto) 0.01 Neut # (Auto) 1.98 Lymph # (Auto) 1.26 Bates # (Auto) 0.61 H Eos # (Auto) 0.36 Baso # (Auto) 0.02 Reticulocyte # RBC Morphology Unremarkable Peripher Smr Path Cons POC Sodium Sodium POC Potassium Potassium POC Chloride Chloride Carbon Dioxide POC Total CO2 Anion Gap POC Anion Gap POC BUN BUN Creatinine POC Creatinine Est Cr Clr Drug Dosing Est GFR ( Amer) Est GFR (Non-Af Amer) BUN/Creatinine Ratio Glucose POC Glucose 135 H POC Glucose (other) Calcium POC Ioniz Calcium Jeremy Phosphorus Magnesium Iron TIBC Ferritin Total Bilirubin AST ALT Alkaline Phosphatase Lactate Dehydrogenase Troponin I Total Protein Albumin Globulin Albumin/Globulin Ratio Lipase Vitamin B12 Folate Urine Opiates Screen Neg Ur Methadone, Qual Neg Urine Barbiturates Neg Ur Phencyclidine (PCP) Neg U Amphetamin/Meth Scrn Neg MDMA (Ecstasy) Screen Neg U Benzodiazepines Scrn Neg Ur Cocaine Metabolite Neg U Marijuana (THC) Screen Neg 01/17/19 01/17/19 01/17/19 06:24 07:37 09:11 WBC RBC Hgb POC Hgb Hct POC Hct MCV MCH MCHC RDW Std Deviation RDW Coeff of Celso Plt Count MPV Immature Gran % (Auto) Neut % (Auto) Lymph % (Auto) Bates % (Auto) Eos % (Auto) Baso % (Auto) Reticulocyte % (Auto) 1.0 Immature Gran # (Auto) Neut # (Auto) Lymph # (Auto) Bates # (Auto) Eos # (Auto) Baso # (Auto) Reticulocyte # 0.03 RBC Morphology Peripher Smr Path Cons Cancelled POC Sodium Sodium 140 POC Potassium Potassium 5.5 H POC Chloride Chloride 111 H Carbon Dioxide 25 POC Total CO2 Anion Gap 3.0 POC Anion Gap POC BUN BUN 66 H Creatinine 3.49 H D POC Creatinine Est Cr Clr Drug Dosing 27.6 Est GFR ( Amer) 21.7 Est GFR (Non-Af Amer) 18.7 BUN/Creatinine Ratio 19.0 Glucose 95 POC Glucose 81 POC Glucose (other) Calcium 8.1 L POC Ioniz Calcium Jeremy Phosphorus 5.2 H Magnesium 2.9 H Iron TIBC Ferritin Total Bilirubin AST ALT Alkaline Phosphatase Lactate Dehydrogenase Troponin I Total Protein Albumin Globulin Albumin/Globulin Ratio Lipase Vitamin B12 Folate Urine Opiates Screen Ur Methadone, Qual Urine Barbiturates Ur Phencyclidine (PCP) U Amphetamin/Meth Scrn MDMA (Ecstasy) Screen U Benzodiazepines Scrn Ur Cocaine Metabolite U Marijuana (THC) Screen 01/17/19 01/17/19 01/17/19 09:11 09:11 09:11 WBC RBC Hgb POC Hgb Hct POC Hct MCV MCH MCHC RDW Std Deviation RDW Coeff of Celso Plt Count MPV Immature Gran % (Auto) Neut % (Auto) Lymph % (Auto) Bates % (Auto) Eos % (Auto) Baso % (Auto) Reticulocyte % (Auto) Immature Gran # (Auto) Neut # (Auto) Lymph # (Auto) Bates # (Auto) Eos # (Auto) Baso # (Auto) Reticulocyte # RBC Morphology Peripher Smr Path Cons POC Sodium Sodium POC Potassium Potassium POC Chloride Chloride Carbon Dioxide POC Total CO2 Anion Gap POC Anion Gap POC BUN BUN Creatinine POC Creatinine Est Cr Clr Drug Dosing Est GFR ( Amer) Est GFR (Non-Af Amer) BUN/Creatinine Ratio Glucose POC Glucose POC Glucose (other) Calcium POC Ioniz Calcium Jeremy Phosphorus Magnesium Iron 77 TIBC 260 Ferritin 81.9 Total Bilirubin AST ALT Alkaline Phosphatase Lactate Dehydrogenase 229 Troponin I Total Protein Albumin Globulin Albumin/Globulin Ratio Lipase Vitamin B12 493 Folate 11.67 Urine Opiates Screen Ur Methadone, Qual Urine Barbiturates Ur Phencyclidine (PCP) U Amphetamin/Meth Scrn MDMA (Ecstasy) Screen U Benzodiazepines Scrn Ur Cocaine Metabolite U Marijuana (THC) Screen 01/17/19 01/17/19 01/17/19 11:36 11:37 11:58 WBC RBC Hgb POC Hgb Hct POC Hct MCV MCH MCHC RDW Std Deviation RDW Coeff of Celso Plt Count MPV Immature Gran % (Auto) Neut % (Auto) Lymph % (Auto) Bates % (Auto) Eos % (Auto) Baso % (Auto) Reticulocyte % (Auto) Immature Gran # (Auto) Neut # (Auto) Lymph # (Auto) Bates # (Auto) Eos # (Auto) Baso # (Auto) Reticulocyte # RBC Morphology Peripher Smr Path Cons POC Sodium Sodium POC Potassium Potassium POC Chloride Chloride Carbon Dioxide POC Total CO2 Anion Gap POC Anion Gap POC BUN BUN Creatinine POC Creatinine Est Cr Clr Drug Dosing Est GFR ( Amer) Est GFR (Non-Af Amer) BUN/Creatinine Ratio Glucose POC Glucose 59 L* 56 L* 49 L* POC Glucose (other) Calcium POC Ioniz Calcium Jeremy Phosphorus Magnesium Iron TIBC Ferritin Total Bilirubin AST ALT Alkaline Phosphatase Lactate Dehydrogenase Troponin I Total Protein Albumin Globulin Albumin/Globulin Ratio Lipase Vitamin B12 Folate Urine Opiates Screen Ur Methadone, Qual Urine Barbiturates Ur Phencyclidine (PCP) U Amphetamin/Meth Scrn MDMA (Ecstasy) Screen U Benzodiazepines Scrn Ur Cocaine Metabolite U Marijuana (THC) Screen 01/17/19 01/17/19 12:00 12:26 WBC RBC Hgb POC Hgb Hct POC Hct MCV MCH MCHC RDW Std Deviation RDW Coeff of Celso Plt Count MPV Immature Gran % (Auto) Neut % (Auto) Lymph % (Auto) Bates % (Auto) Eos % (Auto) Baso % (Auto) Reticulocyte % (Auto) Immature Gran # (Auto) Neut # (Auto) Lymph # (Auto) Bates # (Auto) Eos # (Auto) Baso # (Auto) Reticulocyte # RBC Morphology Peripher Smr Path Cons POC Sodium Sodium POC Potassium Potassium POC Chloride Chloride Carbon Dioxide POC Total CO2 Anion Gap POC Anion Gap POC BUN BUN Creatinine POC Creatinine Est Cr Clr Drug Dosing Est GFR ( Amer) Est GFR (Non-Af Amer) BUN/Creatinine Ratio Glucose POC Glucose 49 L* 205 H POC Glucose (other) Calcium POC Ioniz Calcium Jeremy Phosphorus Magnesium Iron TIBC Ferritin Total Bilirubin AST ALT Alkaline Phosphatase Lactate Dehydrogenase Troponin I Total Protein Albumin Globulin Albumin/Globulin Ratio Lipase Vitamin B12 Folate Urine Opiates Screen Ur Methadone, Qual Urine Barbiturates Ur Phencyclidine (PCP) U Amphetamin/Meth Scrn MDMA (Ecstasy) Screen U Benzodiazepines Scrn Ur Cocaine Metabolite U Marijuana (THC) Screen Medications Administered Amlodipine Besylate (Norvasc) 10 mg PO QAM KATIE Stop: 02/16/19 08:59 Last Admin: 01/17/19 08:12 Dose: 10 mg Documented by: [id number] Atorvastatin Calcium (Lipitor) 40 mg PO HS KATIE Stop: 02/15/19 20:59 Last Admin: 01/16/19 21:11 Dose: 40 mg Documented by: [id number] Carvedilol (Coreg) 15.625 mg PO BID KATIE Stop: 02/15/19 20:59 Last Admin: 01/17/19 08:11 Dose: 15.625 mg Documented by: [id number] Admin: 01/16/19 21:11 Dose: 15.625 mg Documented by: [id number] Dextrose (Dextrose 50%) 25 - 50 ml IV UD PRN; Protocol PRN Reason: Hypoglycemia Protocol Stop: 02/15/19 19:43 Last Admin: 01/17/19 12:09 Dose: 50 ml Documented by: [id number] Docusate Sodium (Colace) 100 mg PO BID KATIE Stop: 02/15/19 20:59 Last Admin: 01/17/19 08:10 Dose: 100 mg Documented by: [id number] Admin: 01/16/19 21:11 Dose: 100 mg Documented by: [id number] Glucose (Glucose 40%) 15 - 30 gm PO UD PRN; Protocol PRN Reason: Hypoglycemia Protocol Stop: 02/15/19 19:43 Last Admin: 01/17/19 11:42 Dose: 15 gm Documented by: [id number] Hydralazine HCl (Apresoline) 100 mg PO TID KATIE Stop: 02/15/19 20:59 Last Admin: 01/17/19 08:00 Dose: 100 mg Documented by: [id number] Admin: 01/16/19 21:10 Dose: 100 mg Documented by: [id number] Insulin Aspart (Novolog Flexpen) 0 units SC ACHS KATIE Stop: 02/15/19 20:59 Last Admin: 01/17/19 11:30 Dose: Not Given Documented by: [id number] Cosigned by: [id number] Admin: 01/17/19 08:08 Dose: 10 units Documented by: [id number] Cosigned by: [id number] Admin: 01/16/19 21:14 Dose: 10 units Documented by: [id number] Cosigned by: [id number] Insulin Detemir (Levemir Flextouch) 20 units SQ HS [facility] Stop: 02/15/19 20:59 Last Admin: 01/16/19 21:13 Dose: 20 units Documented by: [id number] Cosigned by: [id number] Magnesium Oxide (Mag-Ox) 400 mg PO BID [facility] Stop: 02/15/19 20:59 Last Admin: 01/17/19 08:10 Dose: 400 mg Documented by: [id number] Admin: 01/16/19 21:12 Dose: 400 mg Documented by: [id number] Sennosides (Senokot) 8.8 mg PO QAM [facility] Stop: 02/16/19 08:59 Last Admin: 01/17/19 08:12 Dose: 8.8 mg Documented by: [id number] (1) DM II (diabetes mellitus, type II), controlled Diabetes mellitus complication status: with unspecified complications 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
[2019-01-17] MEDS: INSULIN DETEMIR FLEXPEN/FLEX TOUCH 100 UNITS/ML 3ML SQ SCH (20:35)
[2019-01-17] MEDS: ATORVASTATIN 40 MG TAB PO SCH (20:37)
[2019-01-17] MEDS: HEPARIN SOD 5,000 UNIT/0.5 ML VIAL SQ SCH (20:38)
[2019-01-18 07:05] LABS: Hematocrit (blood only) 27.2 % (42-52); Hemoglobin 8.6 g/dL (14.0-18.0); Mean Corpuscular Hgb Conc 31.6 g/dL (32-36); Mean Corpuscular Volume 90.4 fL (80-100); Mean Platelet Volume 9.3 fL (7.4-10.4); Platelet Count 242 K/uL (130-400); RDW Coefficient of Variation 16.3 % (11.5-14.5); RDW Standard Deviation 53.9 fL (36.4-46.3); Red Blood Count 3.01 M/uL (4.7-6.1); White Blood Count 4.59 K/uL (4.8-10.8)
[2019-01-18 07:43] LABS: Albumin Level 2.8 gm/dl (3.4-5.0); BUN Creatinine Ratio 17.2 (10-20); Creatinine Clr Calc Pharmacy 24.8 ml/min; Est GFR (African American) 19.1; Est GFR (Non-African American) 16.4; Phosphorus 5.8 mg/dl (2.5-4.9); Potassium 4.4 mmol/L (3.5-5.1)
[2019-01-18] MEDS ORDERED: EPOETIN ALFA 40,000 UNITS/ML VIAL SQ SCH (08:30)
[2019-01-18] MEDS: INSULIN ASPART 100 UNITS/ML 3 ML PEN SC SCH ×2 (08:52→13:06)
[2019-01-18] MEDS: HydrALAZINE TAB 50 MG TAB PO SCH ×2 (08:54→13:07)
[2019-01-18] MEDS: HEPARIN SOD 5,000 UNIT/0.5 ML VIAL SQ SCH (08:54)
[2019-01-18] MEDS: AMLODIPINE BESYLATE 5 MG TAB PO SCH (08:55)
[2019-01-18] MEDS: CARVEDILOL 6.25 MG TAB PO SCH (08:55)
[2019-01-18] MEDS: DOCUSATE SODIUM 100 MG CAP PO SCH (08:55)
[2019-01-18] MEDS: SENNA 8.8 MG/5 ML UDP PO SCH (08:56)
--- NOTE | 2019-01-18 11:10 | Discharge Summary ---
Date of Service January 18, 2019 Admission HPI Per Admitting Provider 53 y/o M who was sent to the ED by Dr. Bhardwaj for abn labs. Pt states that he has been in his usual state of health since his recent d/c from [facility] on 01/10. He was feeling quite well. His labs were done with Dr. Bhardwaj as part of routine f/u. Pt denies fever, SOB, chest pain, abd pain, n/v, LE pain or swelling. Pt states he was started on colace at d/c but he still is constipated. His metformin was stopped at d/c. PCP started him on long acting insulin, 20units HS and he says his BS are much better now. He is checking his BS TID and recording them for further assessment. Admission Exam Per Admitting Provider General: , awake, alert, no apparent distress, + obese Head: Normocephalic, atraumatic ENT: PERRL, EOMI, no pharyngeal exudate, mucous membranes moist Chest: Clear to auscultation, on room air, no adventitious breath sounds Cardiac: Regular rate and rhythm, + MARY, no JVD, normal peripheral pulses, good capillary refill Abdominal: NABS x 4 quadrants, soft, nontender to palpation, no rebound, guarding or tenderness Extremities: Normal inspection, no peripheral edema or erythema, calfs nontender to palpation Psych: Normal mood and affect Neuro: AAO x 3, strength intact bilaterally and related 5/5, no motor deficits, speech is clear, no peripheral sensory deficits Constitutional: WD/WN, vitals as above Eyes: normal visual mandel by confrontation and + anicteric sclerae Neck: normal visual inspection and trachea midline Respiratory: normal respiratory effort, lungs clear to auscultation Cardiovascular: Rate/Rhythm: regular rate and regular rhythm Gastrointestinal (Abdomen): Inspection/Auscultation: abdomen not distended Percussion/Palpation: abdomen soft; abdomen nontender Musculoskeletal: Head/Neck/Chest: normocephalic and head atraumatic Neg for peripheral LE edema, + pedal pulses Skin: no rashes, warm and dry Neurologic: awake; not confused Speech / Cognition: normal speech Psychiatric: A+Ox3, euthymic affect Lymphatic: Exam as done by Mony Marino DO Principal Diagnosis Hyperkalemia Discharge Exam Constitutional WD/WN, vitals as above cooperative and comfortable Eyes + anicteric sclerae and EOM intact bilaterally Neck normal visual inspection and trachea midline Respiratory normal respiratory effort, lungs clear to auscultation Cardiovascular Rate/Rhythm: regular rate and regular rhythm Extremities: no pedal edema Gastrointestinal (Abdomen) Inspection/Auscultation: normal bowel sounds Percussion/Palpation: abdomen nontender Musculoskeletal Head/Neck/Chest: head atraumatic Skin no rashes, warm and dry Neurologic moves all extremities and awake Psychiatric A+Ox3, euthymic affect Discharge Data Allergies Allergy/AdvReac Type Severity Reaction Status Date / Time Penicillins AdvReac Severe Cramping Unverified 01/16/19 17:03 of the Muscles Consultations 01/16/19 18:08 ED Decision to Admit Stat 01/16/19 19:44 Consult Case Management - Discharge Planning Routine Consult Nephrology Routine Hospital Course (1) Hyperkalemia: Was 6.0 prior, then next day 5.6, then WNL on day of discharge 4.4 Continue to follow. Ordered haptoglobin, LDH to ensure potassium not from intravascular destruction of RBCs which were all within normal limits Suspect multifactorial from worseneing kidney function, diet that has foods high in potassium. Review of medications, patient is not on any potassium sparing diuretics or ACEi/ARB. Ordered Calcium Gluconate 10% x1 to provide stabilization of cardiac membrane with high potassium day prior to discharge, also covered mild hypocalcemia. - Nephrology did put in an order for Kayexalate to decrease total body K+, on day prior to discharge (2) Acute kidney injury: Creatinine in ED was 3.80. (01/17) 3.49. Day of discharge 01/18 was 3.89. Review of old EMR previous lab values, baseline appears 3.0-3.1. Review of nephrology note includes the following recommendations, which I agree with treatment plan. --continue on low-potassium diet, discussed about avoiding high potassium foods, continue to keep off of DM-inhibitor ARB --discontinue IV fluid --considering advanced CKD and recurrent episode of acute kidney injury and hyperkalemia, discussed about near future need for renal replacement therapy. Patient would consider incenter hemodialysis. Will need outpatient schedule with vascular surgery for AV fistula placement --will need dietary consult as an outpatient to help with low-potassium diet recommendations --if clinically stable, can be discharged tomorrow, will need f/U with Dr. Bhardwaj in 2 weeks with lab prior (3) Chronic kidney disease, stage 4 (severe): consistent with GFR on admission labs (4) Anemia: Baseline Hb 10.0, values on admission ranged from 8.6-10. No signs of symptoms of acute bleeding. Hemoccult pending, does not appear to have been collected Monitor Will hold aspirin for now (5) Benign essential HTN: continue home meds (6) DM II (diabetes mellitus, type II), controlled: continue home insulin A1c 7.0 earlier this month, will not recheck He did have some low bG values around noon of 49-59 on day prior to discharge * changed insulin carb ration from 1:5 to 1:10 which is patient's home dose. * Discussed with patient about tweaking home insulin regimen to basal and bolus to help avoid low blood sugars that he has been having at home. Will send home with Basal coverage of Levemir 10units qHS. Then do carb counting for meal time coverage with insulin to carb ratio of 1:10. Total insulin coverage appears to be 20 units per day, expect will have adequate coverage with 10 basal and roughly 3 units per meal. Total Time Total Time Spent Total Time Spent (In Minutes): 35 Total Time Includes: Examination of the Patient, Discharge Planning, Medication Reconciliation and Communication With Other Providers Discharge Plan Discharge Items Patient Disposition: Home - Self-Care Reason For Visit: HYPERKALEMIA Discharge Diagnosis: Hyperkalemia Condition: Good Discharge Goals: Prevent disease and Therapeutic intervention Activity: Per 'Additional Instructions' section Non-emergency contact: Primary Care Provider Call non-emergency contact if: you have any medication questions Follow-up/Referrals: Fco Bhardwaj MD [Physician] - 02/01/19 1:45 pm (Please, follow up at [facility] Nephrology Office with Dr. Bhardwaj on MondayFebruary 01 at 1:45 pm. *This office is located in [address] of [facility] [employer] [facility]- big building next to this hospital. If you need to change this appointment, call the office at [phone].) Justin Delgadillo MD [Primary Care Provider] - 01/22/19 10:30 am (Please, follow up with Dr. Delgadillo on MondayJanuary 22 at 10:30 am. *If you need to change this appointment, call the office at [phone].) Diet: Low Potassium (2gm) Other Ambulatory Orders: Basic Metabolic Panel (Routine) Timeframe: 3 Days Location: Determined by Patient Ordered By: Lyndon Bridges Provider Instructions: You were admitted for management and treated for hyperkalemia (high potassium level in your blood). A hand out is provided on foods that are high in potassium, which should be avoided. You will need to have blood work done on Monday to ensure that your potassium levels did not elevate. A prescription for blood work is provided. For your diabetic medication regimen. Continue to check your blood sugars after meals and before bedtime. - For Basal coverage take Insulin Lantus 10 units at bedtime. - You are provided a prescription for short acting insulin - Insulin Aspart (Novolog). This will provide meal time carbohydrate coverage via carbohydrate counting. For every 10 grams of carbohydrates take 1 unit of Novolog. This is insulin to carb ratio of 1:10. - Your post-prandial target blood glucose is 100-160. - These two medication prescriptions were sent electronically to [facility] in [place], [place]. Please follow up with your Primary Care Physician for next available appointment for hospital follow up. Please ensure follow-up with Dr. Bond (Nephrology) in 2 weeks as scheduled. Please continue to take all other medications as previously prescribed. Prescriptions: New insulin aspart U-100 100 unit/mL (3 mL) insulin pen 3 units SQ AC Qty: 15 RF: 0 Lantus Solostar U-100 Insulin 100 unit/mL (3 mL) insulin pen 10 units SQ .qhs Qty: 15 RF: 0 Continued atorvastatin 40 mg tablet 40 mg PO HS RF: 0 aspirin 81 mg Tablet,Delayed Release (Dr/Ec) 81 mg PO QAM RF: 0 amlodipine 10 mg tablet 10 mg PO QAM RF: 0 docusate sodium 100 mg capsule 100 mg PO BID RF: 0 hydralazine 50 mg tablet 100 mg PO TID RF: 0 carvedilol 6.25 mg Tablet 15.625 mg PO BID 30 Days Qty: 150 RF: 0 Discontinued Levemir FlexTouch U-100 Insuln 100 unit/mL (3 mL) Insulin Pen 20 unit SUBCUT HS RF: 0 Stand-Alone Forms: My [facility] [employer]/Other Patient Handouts: Hypoglycemia, Diabetes Carbs, Diabetes Low Blood Sugar Ch, Diet Low Potassium Dc, Diabetes Meal Planning Discharge Orders: Discharge Order (Routine); Ordered 01/18/19 Ordered By: Lyndon Mcgovern Admission Data Admit Date/Time: 01/16/19 18:48 Attending Provider: Pavel Crow Admit Provider: Mony Marino Primary Care Provider: Justin Delgadillo Other Providers: Mony Marino ; Fco Bhardwaj Service: Telemetry Other Interventions: Discharge Summary Assessment (RN) Last Done: 01/18/19 13:51 DC Date/Time DO NOT enter until pt leaves facility: 01/18/19 15:43 Supervising Physician Co-Signing Physician Notes I personally examined the patient and verified all alamo points of history and exam, discussed case, and agree with decision making with Dr Mcgovern. Feeling good. feels up to going home. reiterated plans for carb counting as well as K avoidance - he expresses ongoing good understanding of both Vitals noted, in general he is in no distress. HEENT normocephalic atraumatic mucous membranes moist. Breathing is unlabored no accessory muscle use. Skin shows no rashes no pallor or icterus. Hyperkalemia/CKDimproved K. eGFR around what appears to be his baseline range. stable for d/c. labs early next week Type 2 diabetes on insulinoverall fairly well controlled based on his last A1c, but with his all basal/no bolus regimen, he is not surprisingly suffering from low sugars in a prolonged fasting state. We discussed options, and he is all for switching to a basal bolus regimen, and seems to express very good understanding of how to carb count and how to generally adjust his dosing based on his carb intake. We discussed postprandial glucose monitoring to "grade his work", right now carb ratio of 1:10 (had to put "static units" on label for [employer] - so given total bolus to likely be around 10 units per day, 3 units AC labeled -- however, d/w pt in person and on instructions, and verbally d/w pharmacist at his pharmacy, that he is to carb count w a 1:10) otherwise as above
--- NOTE | 2019-01-18 12:24 | Nephrology Progress Note ---
Date of Service January 18, 2019 Assessment & Plan (1) Acute kidney injury: 53 y o M the with stage 4 chronic kidney disease secondary to diabetic nephropathy admitted to the hospital with hyperkalemia and acute kidney injury. Patient reports some dietary contribution for hyperkalemia, has not been on any DM-inhibitor or ARB are potassium supplement. Has been otherwise asymptomatic and has been voiding normally. Blood pressure relatively well controlled. Hyperkalemia resolved however renal function slightly, electrolyte blood pressure, volume status acceptable. --continue on low-potassium diet, keep off of DM-inhibitor ARB --since there was further worseningof renal function, hold discharged today and monitor renal function and if creatinine stable and electrolyte acceptable okay to be discharged tomorrow --has f/U with Dr. Bhardwaj in 2 weeks with lab prior Will follow (2) Chronic kidney disease, stage 4 (severe): (3) Hyperkalemia: (4) Anemia: (5) Benign essential HTN: (6) DM II (diabetes mellitus, type II), controlled: Akash Tony Was seen and examined in his room this morning. Overall he is feeling well, denies any shortness of breath or chest pain. Appetite fair. Blood pressure and volume status acceptable. Physical Exam Vital Signs (Past 24 Hours): Last Vital Signs Temp 36.6 C 01/18/19 12:17 Pulse 74 01/18/19 12:17 Resp 18 01/18/19 12:17 BP 130/70 01/18/19 12:17 Pulse Ox 98 01/18/19 12:17 Constitutional: WD/WN, vitals as above Neck: supple Respiratory: normal respiratory effort, lungs clear to auscultation Cardiovascular: RRR, no murmur, no edema Neurologic: moves all extremities and awake Psychiatric: A+Ox3, euthymic affect (1) DM II (diabetes mellitus, type II), controlled Diabetes mellitus complication status: with unspecified complications Diabetes mellitus intermediate insulin use: with long term care phlebotomist use Qualified Code(s): E11.8 - Type 2 diabetes mellitus with unspecified complications; Z79.4 - assisted (current) use of insulin
== END 2019-01-18 15:43 | disposition home or self-care (01) | DRG 683 ==
LOC: ED 16:21 → SUATTDRO 18:48 → 2N 18:48

== ENCOUNTER 2019-05-07 11:37 | Inpatient (IN) ==
--- NOTE | 2019-05-07 12:43 | XRay Report ---
XR chest 1V portable HISTORY: Dyspnea COMPARISON: Chest 01/16/2019. FINDINGS: The current silhouette remains enlarged. Progressive interstitial and vascular thickening m ost pronounced on the right. This is consistent with asymmetric pulmonary edema. Trace right pleural effusion. No pneumothorax. No rib fractures. IMPRESSION: Cardiomegaly with asymmetric pulmonary edema and a trace right pleural effusion. Electronically signed by: Rao Pace M.D. 05/07/2019 12:41 PM
[2019-05-07 13:43] LABS: Basophils # (auto) 0.04 K/uL (0-0.2); Basophils % (auto) 0.8 %; Eosinophils # (auto) 0.49 K/uL (0-0.5); Eosinophils % (auto) 9.7 %; Hematocrit (blood only) 26.2 % (42-52); Hemoglobin 8.3 g/dL (14.0-18.0); Immature Granulocytes # (auto) 0.01 K/uL (0.00-0.02); Immature Granulocytes % (auto) 0.2 %; Lymphocytes % (auto) 23.8 %; Mean Corpuscular Hgb Conc 31.7 g/dL (32-36); Mean Corpuscular Volume 89.7 fL (80-100); Mean Platelet Volume 8.6 fL (7.4-10.4); Monocytes # (auto) 0.48 K/uL (0.11-0.59); Monocytes % (auto) 9.5 %; Neutrophils # (auto) 2.83 K/uL (1.4-6.5); Platelet Count 190 K/uL (130-400); RDW Coefficient of Variation 16.8 % (11.5-14.5); RDW Standard Deviation 54.9 fL (36.4-46.3); Red Blood Count 2.92 M/uL (4.7-6.1); White Blood Count 5.05 K/uL (4.8-10.8)
[2019-05-07 13:53] LABS: INR 1.1 (0.9-1.1); Partial Thromboplastin Ratio 1.2; Partial Thromboplastin Time 33.1 Seconds (21.0-31.0); Prothrombin Time 11.4 Seconds (9.0-12.0)
[2019-05-07 14:01] LABS: Albumin Level 3.1 gm/dl (3.4-5.0); Calcium 8.4 mg/dl (8.5-10.1); Creatinine Clr Calc Pharmacy 24.4 ml/min; Est GFR (African American) 18.1; Est GFR (Non-African American) 15.7; Potassium 4.6 mmol/L (3.5-5.1)
[2019-05-07 14:03] LABS: D Dimer 840 ug/L FEU (0-500)
[2019-05-07 14:05] LABS: Albumin Globulin Ratio 0.7 (0.9-2); Bilirubin,Total 0.3 mg/dl (0.2-1); Globulin 4.6 gm/dl (2.5-4.0); Total Protein 7.7 gm/dl (6.4-8.2); Troponin I 0.017 ng/ml (0-0.045)
--- NOTE | 2019-05-07 15:56 | History & Physical Report ---
Date of Service May 07, 2019 Assessment & Plan (1) CHF (congestive heart failure): Mr. Au is a 53-year-old male with a past medical history of CKD stage IV, anemia, hypertension, CHF and type 2 diabetes mellitus who was sent to the [facility] from [facility], after he was found to be hypoxic while receiving an iron infusion. Acute respiratory failure with hypoxia secondary to systolic CHF exacerbation -Admit to med/surg -Patient with a new 2L oxygen requirement -Chest x-ray revealed cardiomegaly with asymmetric pulmonary edema, indicative of an acute CHF exacerbation -Prior echo from February 2018 shows an ejection fraction of 45% with diffuse left v entricular hypokinesis -Will administer 80 mg of IV Lasix x1, and monitor response -Monitor intake and output, and daily weights -Wean oxygen as tolerated -No evidence of pneumonia at this time -D-dimer positive, however Wells score for PE is 0. CTA is not indicated at this time Chronic kidney disease, stage IV -Follows with Dr. Bhardwaj -Baseline creatinine appears to be from 3.1 - 3.5 -Creatinine on admission is 4.05, will trend BMP -Avoid nephrotoxic agents -of note, pt had a recent UPEP w/proteinuria w/evidence of monoclonal protein and serum LINO w/IgG kappa band -> following w/Dr. Roman and due to have a bone marrow biopsy on Monday Hypertension -Continue home carvedilol, amlodipine and hydralazine Diabetes mellitus type 2 -Patient takes 10 units of Lantus at night, will continue this as well as place the patient on an insulin sliding scale Anemia -Hemoglobin 8.3 on admission, stable from prior -no signs or symptoms of bleeding -continue Venofer infusions on discharge CODE STATUS: Full DVT prophylaxis: SCDs Disposition: Admit to med/surg (2) Anemia: (3) Chronic kidney disease, stage 4 (severe): (4) Benign essential HTN: (5) DM II (diabetes mellitus, type II), controlled: (6) Acute respiratory failure with hypoxia: History of Present Illness Chief Complaint: Shortness of breath Primary Care Provider: Justin Delgadillo MD Mr. Au is a 53-year-old male with a past medical history of CKD stage IV, anemia, hypertension, CHF and type 2 diabetes mellitus who was sent to the emergency department from the [facility], after he was found to be hypoxic while receiving an iron infusion. Mr. Au reports that today was the first of his 5 scheduled iron infusions for anemia. Reportedly, his oxygen level was 88% on room air. He states that when he woke up this morning, he felt short of breath. He states that this is never happened to him before. He denies chest pain, cough, fever, or chills. He notes that his legs are slightly more swollen than usual, but denies any pain in his legs. He states that he feels like his sinuses are clogged, but denies rhinorrhea, ear pain, or sore throat. He denies any sick contacts. He denies any recent long haul car rides or flights, history of DVT or PE. He denies a history of prior [place], but states he was told that he has a history of CHF. He just relocated from [place], and used to see physician advisor in [place], but does not see anyone here as yet. He states he normally does w ell with minimizing sodium in his diet, however since he was struggling with URI symptoms lately, his sodium intake had increased, as he had a can of clam chowder and then had some chicken broth over the last 2 days. He also reports that he is currently seeing Dr. 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 He is meant to have a bone marrow biopsy this Monday. With regards to his history of CKD, he has met with vascular surgery to discuss the possibility of placing a fistula in the near future. Past medical history: CKD stage III (presumed to be secondary to diabetic nephropathy), anemia (baseline hemoglobin 10), hypertension, diabetes mellitus type 2, CHF Past surgical history: Prior toe amputation Social history: Lives at home alone, recently relocated from [place]. Prior smoker, quit 2 to 3 years ago, smoked 1 pack/week for 7 to 8 years prior to this. Denies use of alcohol or recreational drugs. Allergies Allergy/AdvReac Type Severity Reaction Status Date / Time Penicillins AdvReac Severe Cramping Verified 05/07/19 13:16 of the Muscles Home Medications Home Medications Medication Instructions Recorded Confirmed Type amlodipine 10 mg PO QAM 01/07/19 05/07/19 History aspirin 81 mg PO QAM 01/07/19 05/07/19 History atorvastatin 40 mg PO HS 01/07/19 05/07/19 History docusate sodium 100 mg PO BID 01/07/19 05/07/19 History hydralazine 100 mg tablet 100 mg PO TID #270 tab 04/30/19 05/07/19 Rx insulin aspart U-100 3 - 4 units SQ AC 05/07/19 05/07/19 History insulin glargine [Lantus Solostar 10 units SQ HS 05/07/19 05/07/19 History U-100 Insulin] Past Med/Surg History Medical History History of shingles Blindness of left eye Polyneuropathy CHF (congestive heart failure) (Acute) EDVIN (acute kidney injury) CKD stage 3 due to type 2 diabetes mellitus HLD (hyperlipidemia) Benign essential HTN DM II (diabetes mellitus, type II), controlled (Acute) Surgical History S/P eye surgery S/P carpal tunnel release Right Family History Other Hypertension Social History Preferred Language: Beninese Communication Ability: Effective Beliefs That Will Affect Care: None Current Living Situation: Alone Feels Safe at Home: Yes Smoking Status: Former smoker Second Hand Exposure: No Hx Alcohol Use: Yes Alcohol type: beer Hx Substance Use: No Review of Systems Constitutional: + fatigue; no fever, no chills, no weakness and no anorexia Ear, Nose, Mouth, Throat: no ear pain, no nasal congestion and no sore throat Respiratory: + dyspnea; no cough, no pain on inspiration and no wheezing Cardiovascular: + edema; no chest pain, no palpitations, no syncope and no calf pain Gastrointestinal: no abdominal pain, no nausea, no vomiting and no change in bowel habits Genitourinary: no dysuria, no urinary frequency, no urinary hesitancy and no hematuria Integumentary: no rash Physical Exam Constitutional: WD/WN, vitals as above cooperative and comfortable Eyes: PERRL, conjunctivae normal, anicteric sclerae ENMT: external ear and nose normal, oropharynx normal Respiratory: normal respiratory effort; no respiratory distress Auscultation: + crackles (Bilaterally, right worse than left) Cardiovascular: RRR, no murmur, no edema Musculoskeletal: no cyanosis or clubbing, extremities motor strength 5/5 Skin: no rashes, warm and dry Psychiatric: A+Ox3, euthymic affect Results & Data Vital Signs (Past 12 Hours) Vital Signs Temp Pulse Pulse Resp BP BP Pulse Ox 05/07/19 14:22 79 20 166/84 H 93 05/07/19 12:58 81 20 152/78 H 91 05/07/19 12:28 94 05/07/19 11:44 36.8 C 78 22 165/83 H 88 L Supervising Physician Co-Signing Physician Notes I personally examined the patient and verified all alamo points of history and exam, discussed case, and agree with decision making with Dr Bajwa. Shortness of breath otherwise feeling okay. Notes that over the last several days he was not feeling so great so his eating habits changed from his regular. He almost never eats soup but had a can of soup on Monday, and then made crockpot recipe with chicken broth that he ate both last night and this morning. Dyspnea worsened whenever he was getting his iron infusion Vitals noted, in general he is awake and alert pleasant no distress. HEENT normal cephalic atraumatic mucous members moist. Breathing unlabored no accessory muscle use but is markedly diminished throughout. No notable rales rhonchi or wheezes at time of my exam but he was laying down only rolls over due to fatigue. Acute on chronic systolic CHFexacerbated by his CKD. It appears that his sodium intake by accident with the soup and chicken broth was the inciting factor. Diuresis, educate on sodium restriction, home once improved. Otherwise as above PG Care Time/CCT Total # of Minutes Spent Total Time Spent with Patient: Total time spent is greater than 50% in coordination of care (as documented) at patient's floor/unit and/or counseling patient: Resident Activity Tracking Resident Involvement: Resident Care Provided Care Provided: Adult Hospital Medicine (1) DM II (diabetes mellitus, type II), controlled Diabetes mellitus complication status: with unspecified complications Diabetes mellitus group home insulin use: with group home use Qualified Code(s): E11.8 - Type 2 diabetes mellitus with unspecified complications; Z79.4 - exterminator helper (current) use of insulin
--- NOTE | 2019-05-07 17:05 | Ultrasound Report ---
LEFT LOWER EXTREMITY VENOUS DOPPLER CLINICAL HISTORY: +dd COMPARISON STUDY: No previous studies for comparison. TECHNIQUE: Sonography of the deep venous system of the left lower extremity was performed. Compressi on and augmentation were evaluated. FINDINGS: The left common femoral, superficial femoral and popliteal veins were compressible. Augmen tation was normal. Flow was shown within the deep calf vessels. IMPRESSION: No evidence of deep venous thrombus within the left lower extremity. Electronically signed by: Andi Garcia M.D. 05/07/2019 5:03 PM
[2019-05-07] MEDS ORDERED: CARBOHYDRATES FOR HYPOGLYCEMIA PO PRN (17:39)
[2019-05-07] MEDS ORDERED: GLUCAGON FOR INJ 1 MG VIAL SQ PRN (17:39)
[2019-05-07] MEDS ORDERED: GLUCOSE 10 TABS/TUBE PO PRN (17:39)
[2019-05-07] MEDS ORDERED: DEXTROSE 50% 50 ML SYRINGE IV PRN (17:39)
[2019-05-07] MEDS ORDERED: GLUCOSE 40% GEL 15 GM TUBE PO PRN (17:39)
[2019-05-07] MEDS ORDERED: ACETAMINOPHEN 325 MG TAB PO PRN (17:39)
[2019-05-07] MEDS ORDERED: FUROSEMIDE 80 MG in SYRINGE 0 ML IV STA (17:49)
--- NOTE | 2019-05-07 17:59 | Emergency Department Note ---
Entered by Kori Madsen acting as a scribe for Pavel Everett DO History of Present Illness General Chief complaint: Illness Source: patient History of Present Illness Provider complaint: low Oxygen saturation Onset (ago): hour(s) (today) Location: chest Maximum Pain Intensity: 0 Quality: + other (hypoxia) Associated symptoms: + denies other symptoms (runny nose) and + shortness of breath; no chest pain and no cough The patient is a 53 year old male with a PMHx of CHF, anemia, CKD, blindness of his left eye, diabetes, and HLD who presents to the Emergency Department with complaints of low Oxygen saturation today. The patient states that he got IV Iron and then became hypoxic. He reports feeling short of breath and states that this began this morning. He denies having chest pain, a cough, and runny nose. He denies recent weight gain but states that his legs do look more swollen to him. He states that he is unsure if he is on any blood thinners. The patient reports that he is a former smoker and quit years ago. Patient has no other complaints at this time. Home Medications Home Medications Medication Instructions Recorded Confirmed Type amlodipine 10 mg PO QAM 01/07/19 05/07/19 History aspirin 81 mg PO QAM 01/07/19 05/07/19 History atorvastatin 40 mg PO HS 01/07/19 05/07/19 History docusate sodium 100 mg PO BID 01/07/19 05/07/19 History hydralazine 100 mg tablet 100 mg PO TID #270 tab 04/30/19 05/07/19 Rx insulin aspart U-100 3 - 4 units SQ AC 05/07/19 05/07/19 History insulin glargine [Lantus Solostar 10 units SQ HS 05/07/19 05/07/19 History U-100 Insulin] Allergies Allergy/AdvReac Type Severity Reaction Status Date / Time Penicillins AdvReac Severe Cramping Verified 05/07/19 13:16 of the Muscles Past Med/Surg History Medical History History of shingles Blindness of left eye Polyneuropathy CHF (congestive heart failure) (Acute) EDVIN (acute kidney injury) CKD stage 3 due to type 2 diabetes mellitus HLD (hyperlipidemia) Benign essential HTN DM II (diabetes mellitus, type II), controlled (Acute) Surgical History S/P eye surgery S/P carpal tunnel release Right Family History Other Hypertension Social History Preferred Language: Maltese Communication Ability: Effective Beliefs That Will Affect Care: None Current Living Situation: Alone Feels Safe at Home: Yes Smoking Status: Former smoker Second Hand Exposure: No Hx Alcohol Use: Yes Alcohol type: beer Hx Substance Use: No Review of Systems See HPI for pertinent positives & negatives. and A total of 10 systems reviewed and were otherwise negative Physical Exam Vital Signs Vital Signs - 24 hr 05/07/19 11:40 05/07/19 11:44 05/07/19 12:15 Temperature 36.8 C Temperature Source Oral Sepsis Recent Fever Within 48 Hours No Sepsis Action Taken by Nursing No Action Required Pulse Rate 82 78 82 Pulse Rate [Apical] Pulse Rate from SpO2 Sensor 81 Respiratory Rate 17 22 19 Blood Pressure 165/83 H 165/83 H Blood Pressure [Right Arm] Blood Pressure Mean 110 110 Blood Pressure Mean [Right Arm] Pulse Oximetry 89 L 88 L Oxygen Delivery Method Room Air Oxygen Flow Rate 05/07/19 12:28 05/07/19 12:30 05/07/19 12:57 Temperature Temperature Source Sepsis Recent Fever Within 48 Hours Sepsis Action Taken by Nursing Pulse Rate 80 80 Pulse Rate [Apical] Pulse Rate from SpO2 Sensor 79 Respiratory Rate 23 Blood Pressure 152/78 H Blood Pressure [Right Arm] Blood Pressure Mean 102 Blood Pressure Mean [Right Arm] Pulse Oximetry 94 94 Oxygen Delivery Method Nasal Cannula Oxygen Flow Rate 2 05/07/19 12:58 05/07/19 13:00 05/07/19 13:30 Temperature Temperature Source Sepsis Recent Fever Within 48 Hours Sepsis Action Taken by Nursing Pulse Rate 79 78 Pulse Rate [Apical] 81 Pulse Rate from SpO2 Sensor 79 78 Respiratory Rate 20 11 L 15 Blood Pressure Blood Pressure [Right Arm] 152/78 H Blood Pressure Mean Blood Pressure Mean [Right Arm] 102 Pulse Oximetry 91 93 95 Oxygen Delivery Method Nasal Cannula Oxygen Flow Rate 2 05/07/19 14:13 05/07/19 14:14 05/07/19 14:22 Temperature Temperature Source Sepsis Recent Fever Within 48 Hours Sepsis Action Taken by Nursing Pulse Rate 77 79 Pulse Rate [Apical] 79 Pulse Rate from SpO2 Sensor 77 78 Respiratory Rate 13 23 20 Blood Pressure 166/84 H Blood Pressure [Right Arm] 166/84 H Blood Pressure Mean 111 Blood Pressure Mean [Right Arm] 111 Pulse Oximetry 94 93 93 Oxygen Delivery Method Nasal Cannula Oxygen Flow Rate 2 05/07/19 14:30 05/07/19 15:00 05/07/19 15:25 Temperature Temperature Source Sepsis Recent Fever Within 48 Hours Sepsis Action Taken by Nursing Pulse Rate 75 75 77 Pulse Rate [Apical] Pulse Rate from SpO2 Sensor 75 75 79 Respiratory Rate 14 13 16 Blood Pressure 163/80 H Blood Pressure [Right Arm] Blood Pressure Mean 107 Blood Pressure Mean [Right Arm] Pulse Oximetry 95 96 96 Oxygen Delivery Method Oxygen Flow Rate 05/07/19 15:30 05/07/19 16:00 05/07/19 16:01 Temperature Temperature Source Sepsis Recent Fever Within 48 Hours Sepsis Action Taken by Nursing Pulse Rate 78 78 77 Pulse Rate [Apical] Pulse Rate from SpO2 Sensor 78 78 77 Respiratory Rate 19 17 16 Blood Pressure 164/77 H 154/70 H Blood Pressure [Right Arm] Blood Pressure Mean 106 98 Blood Pressure Mean [Right Arm] Pulse Oximetry 96 95 96 Oxygen Delivery Method Oxygen Flow Rate 05/07/19 16:02 Temperature Temperature Source Sepsis Recent Fever Within 48 Hours Sepsis Action Taken by Nursing Pulse Rate 78 Pulse Rate [Apical] Pulse Rate from SpO2 Sensor 78 Respiratory Rate 16 Blood Pressure Blood Pressure [Right Arm] Blood Pressure Mean Blood Pressure Mean [Right Arm] Pulse Oximetry 94 Oxygen Delivery Method Oxygen Flow Rate GENERAL: Sitting up in bed, chronically ill appearing. Talking in full sentences on NC. EYE EXAM: normal conjunctiva HEAD: Mass above left orbit. OROPHARYNX: no exudate, no erythema, lips, buccal mucosa, and tongue normal and mucous membranes are moist NECK: supple, no nuchal rigidity, no adenopathy, non-tender LUNGS: Diminished at the bilateral bases. Normal chest wall mechanics HEART: no murmurs, S1 normal and S2 normal ABDOMEN: abdomen soft, non-tender, normo-active bowel sounds, no masses, no rebound or guarding. BACK: Back is symmetrical on inspection and there is no deformity, no midline tenderness, no CVA tenderness. SKIN: no rashes and no bruising UPPER EXTREMITIES: upper extremities are grossly normal. LOWER EXTREMITIES: No pitting edema. Calves are equal bilaterally. NEURO EXAM: Normal sensorium, cranial nerves II-XII grossly intact, normal speech, no gross weakness of arms, no gross weakness of legs. Course ED COURSE: Vital signs were reviewed and showed hypertension. The patients medical record was reviewed 1207: The patient was evaluated in room A12B. A history and physical were performed. 1444: I updated the patient who verbalized agreement and understanding of the treatment plan. 1502: I discussed the patient's case with Dr. Delgado who will evaluate the patient for further management. Consultations Consultation #1: Dr. Delgado Time: 15:02 Medical Decision Making Differential Diagnosis Differential diagnoses includes but is not limited to pneumonia, bronchitis, COPD/Asthma exacerbation, pneumothorax, pulmonary embolism, congestive heart failure, acute coronary syndrome Medical Records Attestation: I reviewed the patient's medical records. Home Medications Current Medication List: was personally reviewed by me Laboratory Data Attestation: I reviewed the patient's lab results. Result diagrams: 05/07/19 13:30 05/07/19 13:30 Lab Results 05/07/19 05/07/19 05/07/19 Range/Units 13:30 13:30 13:30 WBC 5.05 (4.8-10.8) K/uL RBC 2.92 L (4.7-6.1) M/uL Hgb 8.3 L (14.0-18.0) g/dL Hct 26.2 L (42-52) % MCV 89.7 (80-100) fL MCH 28.4 (25-34) pg MCHC 31.7 L (32-36) g/dL RDW Std Deviation 54.9 H (36.4-46.3) fL RDW Coeff of Celso 16.8 H (11.5-14.5) % Plt Count 190 (130-400) K/uL MPV 8.6 (7.4-10.4) fL Immature Gran % (Auto) 0.2 % Neut % (Auto) 56.0 % Lymph % (Auto) 23.8 % [place] % (Auto) 9.5 % Eos % (Auto) 9.7 % Baso % (Auto) 0.8 % Immature Gran # (Auto) 0.01 (0.00-0.02) K/uL Neut # (Auto) 2.83 (1.4-6.5) K/uL Lymph # (Auto) 1.20 (1.2-3.4) K/uL [place] # (Auto) 0.48 (0.11-0.59) K/uL Eos # (Auto) 0.49 (0-0.5) K/uL Baso # (Auto) 0.04 (0-0.2) K/uL PT 11.4 (9.0-12.0) Seconds INR 1.1 (0.9-1.1) APTT 33.1 H (21.0-31.0) Seconds PTT Ratio 1.2 D-Dimer 840 H* (0-500) ug/L FEU Sodium 143 (136-145) mmol/L Potassium 4.6 (3.5-5.1) mmol/L Chloride 117 H (98-107) mmol/L Carbon Dioxide 17 L (21-32) mmol/L Anion Gap 9.0 (3-11) BUN 77 H (7-18) mg/dl Creatinine 4.05 H (0.6-1.4) mg/dl Est Cr Clr Drug Dosing 24.4 ml/min Est GFR ( Amer) 18.1 Est GFR (Non-Af Amer) 15.7 BUN/Creatinine Ratio 19.0 (10-20) Glucose 70 (70-99) mg/dl Calcium 8.4 L (8.5-10.1) mg/dl Total Bilirubin 0.3 (0.2-1) mg/dl AST 22 (15-37) U/L ALT 32 (12-78) U/L Alkaline Phosphatase 48 (45-117) U/L Troponin I 0.017 (0-0.045) ng/ml Total Protein 7.7 (6.4-8.2) gm/dl Albumin 3.1 L (3.4-5.0) gm/dl Globulin 4.6 H (2.5-4.0) gm/dl Albumin/Globulin Ratio 0.7 L (0.9-2) Imaging Data Radiologist's Impression: Radiology results as stated below per my review and the radiologist's interpretation: XR chest 1V portable HISTORY: Dyspnea COMPARISON: Chest 01/16/2019. FINDINGS: The current silhouette remains enlarged. Progressive interstitial and vascular thickening most pronounced on the right. This is consistent with asymmetric pulmonary edema. Trace right pleural effusion. No pneumothorax. No rib fractures. IMPRESSION: Cardiomegaly with asymmetric pulmonary edema and a trace right pleural effusion. Electronically signed by: Rao Pace M.D. 05/07/2019 12:41 PM ECG Data Attestation: I personally reviewed and interpreted this ECG as follows: Indication: SOB/dyspnea Rate (beats per minute): 78 Rhythm: sinus rhythm Findings: + other (normal axis) and + T-wave inversion (in lead aVL); no PVC Blood Pressure Blood Pressure Findings: Elevated blood pressure Blood Pressure Disposition: further management by hospitalist MDM Narrative Patient is a 53-year-old male presents the ER who [place] he was found to be hypoxic. Patient does admit to some mild shortness of breath and may be some swelling of his legs. Does have a history of CHF and acute respiratory failure. IV was established blood work was obtained. Patient was found to be hypoxic at 86 to 88% on room air. He was placed on 3 L nasal cannula with a pulse ox of 93%. CBC was obtained and showed a hemoglobin of 8.3 consistent with previous. INR was unremarkable. D-dimer was elevated. Due to the creatinine of 4 which consistent with previous unable to perform CT PE. Duplex were obtained and were negative. BMP with a slightly elevated chloride and low CO2 of 17. Troponin was detectable but not positive. EKG showed no acute pathology. Chest x-ray was reviewed by myself with mild congestive heart failure changes. Did not give Lasix and defer to hospitalist due to the creatinine 4. Patient was updated bedside discussed with the hospitalist for admission secondary to CHF and hypoxia. Impression & Plan Hypoxia, CHF (congestive heart failure), Anemia, CKD (chronic kidney disease) Critical Care Time Critical Care Time: Yes Total Critical Care Time: 35 I have personally spent approximately 35 minutes of critical care time in the direct management of this patient. This includes bedside care, interpretation of diagnostic studies, and testing, discussion with consultants, patient, and family members, and other required patient management activities. This 35 minutes is in excess of all separately billable procedures. Discharge Plan Visit Data *Final* Discharge Date/Time: 05/07/19 17:30 Chief Complaint: Illness ED Provider: Pavel Everett Discharge Problem: Hypoxia, CHF (congestive heart failure), Anemia, CKD (chronic kidney disease) Patient Disposition: Admitted As Inpatient Discharge Instructions Interventions: ED Discharge Assessment Last Done: 05/07/19 17:30 Discharge Problem: CHF (congestive heart failure) Qualifiers: Heart failure type: unspecified Heart failure chronicity: acute Qualified Code(s): I50.9 - Heart failure, unspecified Anemia Qualifiers: Anemia type: unspecified type Qualified Code(s): D64.9 - Anemia, unspecified CKD (chronic kidney disease) Qualifiers: Chronic kidney disease stage: unspecified stage Qualified Code(s): N18.9 - Chronic kidney disease, unspecified The scribe's documentation has been prepared under my direction and personally reviewed by me in its entirety. I confirm that the note above accurately reflects all work, treatment, procedures, and medical decision making performed by me.
[2019-05-07] MEDS: INSULIN ASPART 100 UNITS/ML 3 ML PEN SC SCH ×2 (18:00→21:23)
[2019-05-07 18:02] LABS: Appearance Urine Clear (Clear); Bacteria Urine Automated Negative (Negative); Bilirubin Urine Negative (Negative); Blood Urine Negative (Negative); Color Urine Yellow; Epithelial Cell Urine Auto 0-5 /lpf (0-5); Glucose Urine UA Negative (Negative); Ketones Urine Negative (Negative); Leukocyte Esterase Urine Negative (Negative); Nitrite Urine Negative (Negative); Protein Urine 2+ (Negative); RBC Urine Automated 0-4 /hpf (0-4); Specific Gravity Urine 1.016 (1.000-1.030); Urobilinogen Urine Negative (Negative)
[2019-05-07] MEDS ORDERED: ATORVASTATIN 40 MG TAB PO SCH (21:00)
[2019-05-07] MEDS ORDERED: INSULIN GLARGINE SOLOSTAR 100 UNITS/ML 3 ML PEN SQ SCH (21:00)
[2019-05-07] MEDS: CARVEDILOL 6.25 MG TAB PO SCH (21:22)
[2019-05-07] MEDS: HydrALAZINE TAB 50 MG TAB PO SCH (21:23)
[2019-05-07] MEDS: DOCUSATE SODIUM 100 MG CAP PO SCH (21:24)
[2019-05-08 05:54] LABS: Basophils # (auto) 0.03 K/uL (0-0.2); Basophils % (auto) 0.7 %; Eosinophils # (auto) 0.44 K/uL (0-0.5); Eosinophils % (auto) 9.8 %; Hematocrit (blood only) 25.1 % (42-52); Hemoglobin 7.9 g/dL (14.0-18.0); Lymphocytes # (auto) 1.12 K/uL (1.2-3.4); Lymphocytes % (auto) 24.9 %; Mean Corpuscular Hgb Conc 31.5 g/dL (32-36); Mean Corpuscular Volume 88.1 fL (80-100); Mean Platelet Volume 8.9 fL (7.4-10.4); Monocytes # (auto) 0.49 K/uL (0.11-0.59); Monocytes % (auto) 10.9 %; Neutrophils # (auto) 2.42 K/uL (1.4-6.5); Neutrophils % (auto) 53.7 %; Platelet Count 198 K/uL (130-400); RDW Coefficient of Variation 16.8 % (11.5-14.5); RDW Standard Deviation 53.7 fL (36.4-46.3); Red Blood Count 2.85 M/uL (4.7-6.1)
[2019-05-08 06:23] LABS: BUN Creatinine Ratio 18.4 (10-20); Creatinine Clr Calc Pharmacy 23.9 ml/min; Est GFR (African American) 17.9; Est GFR (Non-African American) 15.5; Potassium 4.2 mmol/L (3.5-5.1)
[2019-05-08 06:34] LABS: RBC Morphology Unremarkable
[2019-05-08] MEDS: CARVEDILOL 6.25 MG TAB PO SCH (08:02)
[2019-05-08] MEDS: HydrALAZINE TAB 50 MG TAB PO SCH ×2 (08:03→13:01)
[2019-05-08] MEDS: DOCUSATE SODIUM 100 MG CAP PO SCH (08:03)
--- NOTE | 2019-05-08 08:42 | Discharge Summary ---
Date of Service May 08, 2019 Admission HPI Per Admitting Provider Mr. Au is a 53-year-old male with a past medical history of CKD stage IV, anemia, hypertension, CHF and type 2 diabetes mellitus who was sent to the emergency department from the [facility], after he was found to be hypoxic while receiving an iron infusion. Mr. Au reports that today was the first of his 5 scheduled iron infusions for anemia. Reportedly, his oxygen level was 88% on room air. He states that when he woke up this morning, he felt short of breath. He states that this is never happened to him before. He denies chest pain, cough, fever, or chills. He notes that his legs are slightly more swollen than usual, but denies any pain in his legs. He states that he feels like his sinuses are clogged, but denies rhinorrhea, ear pain, or sore throat. He denies any sick contacts. He denies any recent long haul car rides or flights, history of DVT or PE. He denies a history of prior [place], but states he was told that he has a history of CHF. He just relocated from [place], and used to see acute care certified nursing assistant in [place], but does not see anyone here as yet. He states he normally does well with minimizing sodium in his diet, however since he was struggling with URI symptoms lately, his sodium intake had increased, as he had a can of clam chowder and then had some chicken broth over the last 2 days. He also reports that he is currently seeing Dr. 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 He is meant to have a bone marrow biopsy this Monday. With regards to his history of CKD, he has met with vascular surgery to discuss the possibility of placing a fistula in the near future. Past medical history: CKD stage III (presumed to be secondary to diabetic nephropathy), anemia (baseline hemoglobin 10), hypertension, diabetes mellitus type 2, CHF Past surgical history: Prior toe amputation Social history: Lives at home alone, recently relocated from [place]. Prior smoker, quit 2 to 3 years ago, smoked 1 pack/week for 7 to 8 years prior to this. Denies use of alcohol or recreational drugs. Admission Exam Per Admitting Provider Constitutional: WD/WN, vitals as above cooperative and comfortable Eyes: PERRL, conjunctivae normal, anicteric sclerae ENMT: external ear and nose normal, oropharynx normal Respiratory: normal respiratory effort; no respiratory distress Auscultation: + crackles (Bilaterally, right worse than left) Cardiovascular: RRR, no murmur, no edema Musculoskeletal: no cyanosis or clubbing, extremities motor strength 5/5 Skin: no rashes, warm and dry Psychiatric: A+Ox3, euthymic affect Principal Diagnosis CHF Exacerbation Discharge Exam Constitutional WD/WN, vitals as above cooperative and comfortable Respiratory normal respiratory effort; no respiratory distress Auscultation: + diminished lung sounds Cardiovascular RRR, no murmur, no edema Gastrointestinal (Abdomen) normal bowel sounds, soft, nontender, no hepatosplenomegaly Skin no rashes, warm and dry Psychiatric A+Ox3, euthymic affect Discharge Data Allergies Allergy/AdvReac Type Severity Reaction Status Date / Time Penicillins AdvReac Severe Cramping Verified 05/07/19 13:16 of the Muscles Ordered Studies 05/07/19 15:14 US venous doppler LE LT Stat Hospital Course (1) CHF (congestive heart failure): Mr. Au is a 53-year-old male with a past medical history of CKD stage IV, anemia, hypertension, CHF and type 2 diabetes mellitus who was sent to the emergency department from the [facility], after he was found to be hypoxic while receiving an iron infusion. Acute respiratory failure with hypoxia secondary to systolic CHF exacerbation -Patient was admitted with a 2L oxygen requirement -Chest x-ray revealed cardiomegaly with asymmetric pulmonary edema, indicative of an acute CHF exacerbation -Prior echo from February 2018 shows an ejection fraction of 45% with diffuse left ventricular hypokinesis -Received 80 mg of IV Lasix x1 - net negative 2L on discharge -able to be weaned off of supplemental oxygen on discharge Chronic kidney disease, stage IV -Follows with Dr. Bhardwaj -Baseline creatinine appears to be 3.5 - 3.7 per patient -Creatinine on d/c was 4.09, recommend recheck on 05/09 or 05/10 - pt states he has a f/u appt with nephrology on 05/10 -of note, pt had a recent UPEP w/proteinuria w/evidence of monoclonal protein and serum LINO w/IgG kappa band -> following w/Dr. Roman and due to have a bone marrow biopsy on 05/10 Hypertension -Continue home carvedilol, amlodipine and hydralazine Diabetes mellitus type 2 -home regimen continued Anemia -Hemoglobin 7.9 on discharge -no signs or symptoms of bleeding -continue already scheduled Venofer infusions on discharge. 100mg IV Venofer given on day of discharge. (2) Anemia: (3) Chronic kidney disease, stage 4 (severe): (4) Benign essential HTN: (5) DM II (diabetes mellitus, type II), controlled: (6) Acute respiratory failure with hypoxia: Total Time Total Time Spent Total Time Spent (In Minutes): <30 Discharge Plan Discharge Items Patient Disposition: Home - Self-Care Reason For Visit: CHF EXACERBATION Discharge Diagnosis: Congestive Heart Failure Discharge Goals: Decrease discomfort Activity: Resume your previous activity Non-emergency contact: Primary Care Provider Call non-emergency contact if: you have any medication questions, your symptoms worsen and your pain is unusual for you Follow-up/Referrals: Justin Delgadillo MD [Primary Care Provider] - 05/16/19 8:30 am (Please, follow up with Dr. Delgadillo on May 16 at 8:30 am. *If you need to change this appointment, call the office at [phone].) Diet: Carb Consistent or DM2, Low Potassium (2gm) and Low Sodium (2gm) Fluids: 2000ml (8 cups) Addtl Provider Instructions: Mr. Au, you were admitted to [facility] due to fluid in your lungs. You were treated with Lasix, which helps you eliminate the fluid. Your breathing improved greatly. We suspect that this episode occurred due to an increase in your recent salt intake. We recommend limiting your salt intake to 2 grams a day. Avoid prepared foods, salty snacks, canned or instant soups. Your typical diet should do just fine. You also received a dose of IV iron while in the hospital. Due to the fact that your creatinine was slightly elevated from your baseline at 4.09, we recommend that you have this rechecked in the next day or two. We are not making any changes to your medications at this time, please continue taking them as prescribed. If you have any chest pain, trouble breathing, increased swelling in your legs, please seek medical attention. Otherwise, please follow up with your primary care doctor and kidney doctor. Prescriptions: Continued hydralazine 100 mg tablet 100 mg PO TID Qty: 270 RF: 1 atorvastatin 40 mg tablet 40 mg PO HS RF: 0 aspirin 81 mg Tablet,Delayed Release (Dr/Ec) 81 mg PO QAM RF: 0 amlodipine 10 mg tablet 10 mg PO QAM RF: 0 docusate sodium 100 mg capsule 100 mg PO BID RF: 0 insulin aspart U-100 100 unit/mL (3 mL) insulin pen 3 - 4 units SQ AC RF: 0 Lantus Solostar U-100 Insulin 100 unit/mL (3 mL) insulin pen 10 units SQ HS RF: 0 Stand-Alone Forms: [facility] Discharge Orders: Discharge Order (Routine); Ordered 05/08/19 Ordered By: Shola Bajwa Admission Data Admit Date/Time: 05/07/19 16:26 Attending Provider: Pavel Crow Admit Provider: Shola Bajwa Primary Care Provider: Justin Delgadillo Service: Medical Other Interventions: Discharge Summary Assessment (RN) Last Done: 05/08/19 09:44 DC Date/Time DO NOT enter until pt leaves facility: 05/08/19 14:07 Supervising Physician Co-Signing Physician Notes I personally examined the patient and verified all alamo points of history and exam, discussed case, and agree with decision making with Dr Bajwa. Breathing feeling better. Discussed creatinine. Readdressed sodium restriction. Vitals noted, in general he is awake and alert pleasant no distress. HEENT normal cephalic atraumatic mucous members moist. Breathing unlabored no accessory muscle use but is markedly diminished throughout. Lungs with far better air entry. Mild faint basilar rales. Acute on chronic systolic CHFexacerbated by his CKD. It appears that his sodium intake by accident with the soup and chicken broth was the inciting factor. Improved and stable for home. Creatinine slightly higher but GFR not very far off from his baseline, safe for home. Avoid nephrotoxins. Has nephrology follow-up in 2 days. Otherwise as above Resident Activity Tracking Resident Involvement: Resident Care Provided Care Provided: Adult Hospital Medicine
[2019-05-08] MEDS ORDERED: ASPIRIN 81 MG ECTAB PO SCH (09:00)
[2019-05-08] MEDS ORDERED: AMLODIPINE BESYLATE 5 MG TAB PO SCH (09:00)
[2019-05-08] MEDS: INSULIN ASPART 100 UNITS/ML 3 ML PEN SC SCH ×2 (09:16→13:00)
[2019-05-08] MEDS ORDERED: IRON SUCROSE 100 MG in 0.9 % SODIUM CHLORIDE 100 ML IV SCH (10:30)
== END 2019-05-08 14:07 | disposition home or self-care (01) | DRG 291 ==
LOC: ED 11:37 → 4E 16:26

== ENCOUNTER 2021-08-24 15:15 | Inpatient (IN) ==
[2021-08-24] MEDS ORDERED: cefTRIAXone SODIUM 1,000 MG/50 ML BAG IV STA (16:05)
--- NOTE | 2021-08-24 16:09 | Emergency Department Note ---
Impression & Plan Diabetic infection of right foot, DM II (diabetes mellitus, type II), controlled, Anemia, Chronic kidney disease, stage 4 (severe) ED Provider Note NAME: CORINE VAZQUEZ AGE: 55 SEX: M : 1965 ARRIVES VIA: Walk-In INFORMANT: Patient ED PROVIDER(S): Pavel Everett DO CHIEF COMPLAINT: Right foot infection HPI: Patient is a 55-year-old male who was seen here 6 days ago and discharged on antibiotics. He is dialysis dependent at home with PD nightly performed nightly. Patient has been on Cipro as an outpatient but notes that the wound has been worsening. He was seen and evaluated by Dr. Blanco and referred in. He denies any headache or change in vision. He admits to chronic/constant pain since this started about 2 weeks ago. He admits to a drainage and a foul smell. Denies any belly pain, nausea, vomiting, or diarrhea. No dysuria, urgency, or frequency. ROS: See above HPI for pertinent positives & negatives. A total of 10 systems reviewed and were otherwise negative. PAST MEDICAL HISTORY:See Below PAST SURGICAL HISTORY:See Below FAMILY HISTORY:See Below SOCIAL HISTORY:See Below HOME MEDICATIONS:See Below ALLERGIES:See Below VITALS:See Below PHYSICAL EXAMINATION: GENERAL: Sitting up in bed, alert, well appearing, well nourished, no distress, non-toxic EYE EXAM: normal conjunctiva. OROPHARYNX: no exudate, no erythema, lips, buccal mucosa, and tongue normal and mucous membranes are moist NECK: supple, no nuchal rigidity, no adenopathy, non-tender LUNGS: Clear to auscultation. Normal chest wall mechanics HEART: no murmurs, S1 normal and S2 normal ABDOMEN: abdomen soft, non-tender, normo-active bowel sounds, no masses, no rebound or guarding. BACK: Back is symmetrical on inspection and there is no deformity, no midline tenderness, no CVA tenderness. UPPER EXTREMITIES: upper extremities are grossly normal. LOWER EXTREMITIES: 3 x 2 cm wound over the right medial heel which tracks down into and through the skin. No exposed muscle. Moist discharge. NEURO EXAM: Normal sensorium, cranial nerves II-XII grossly intact, normal speech, no gross weakness of arms, no gross weakness of legs. MEDICAL DECISION MAKING: Patient is a 55-year-old gentleman peritoneal dialysis dependent performed nightly with diabetes a presents the ER for right foot ulcer which has been worsening. He has been on Cipro as an outpatient. Sudden by nephrology. IV was established blood work was obtained. Labs show no significant leukocytosis. Mild anemia at 9.8. INR unremarkable. BMP with a creatinine of 7.8 consistent with dialysis dependent. LFTs bilirubin and troponin was negative. Pro-Andrew was normal. Covid was negative. X-ray showed no osteo-. Patient was given IV antibiotics. Discussed with hospitalist for further evaluation. Triage Nursing notes reviewed. Limited review of prior medical records performed Vital Signs: reviewed and remarkable for tachy Differential diagnosis: Differential diagnosis includes etiologies such as sepsis, UTI, pneumonia, metabolic, electrolyte abnormalities, cardiac sources, intracerebral event, toxicologic, neurological, as well as others were entertained. ER treatment provided: See below Diagnostics interpreted by me: ECG: Sinus tachycardia rate of 102 Normal axis No PVCs QTC 490 Cardiac Monitoring: An order was placed for continuous cardiac monitoring. The monitor shows a rate of 101 with sinus rhythm. Laboratory studies: As stated above and show below. Imaging studies: X-rays show no obvious osteo- Consultation(s): Discussed with hospitalist for further evaluation Procedures: none Critical Care: None Past Med/Surg History Medical History Blindness of left eye Chronic kidney disease, stage 4 (severe) DM II (diabetes mellitus, type II), controlled History of shingles Hypertension Left ventricular hypertrophy Mild left ventricular systolic dysfunction Polyneuropathy Proteinuria Surgical History S/P arteriovenous (AV) fistula creation R AVF 10/2019 and transposed 07/14/20-Dr. Goddrad S/P carpal tunnel release Right S/P eye surgery Family History Unknown No pertinent family history Other Hypertension Denies family history of Colon cancer Ovarian cancer Prostate cancer Myocardial infarction Breast cancer Social History Smoking Status: Never smoker Second Hand Exposure: No; Hx Alcohol Use: No Hx Substance Use: No Preferred Language: Japanese Communication Ability: Effective Visual Impairment: Diminished Hearing Ability: Normal Gum Mixer Required: No Beliefs That Will Affect Care: None marital status: Single Current Living Situation: Alone current occupational status: disabled Other Information That Helps Us Care for You: No Feels Safe at Home: Yes Safety Concerns: Feels Safe At This Time Childhood Exposure to Second-Hand Smoke: Yes Dental Care, Regularly: No Seatbelt Use: always Sunscreen Use: No Assistive Devices: Glasses and Walker Allergies Allergies Allergy/AdvReac Type Severity Reaction Status Date / Time Penicillins AdvReac Severe Cramping Verified 08/24/21 16:33 of the Muscles Home Meds Home Medications Medication Instructions Recorded Confirmed diclofenac sodium 1 % topical gel 2 g TOPICAL TID 08/19/21 08/24/21 betamethasone dipropionate 0.05 % 1 applic TOPICAL BID PRN 08/24/21 08/24/21 lotion Previous Rx's Medication Instructions Recorded ferrous sulfate 325 mg (65 mg 325 mg PO DAILY #90 tab 03/02/21 iron) tablet hydroxyzine HCl 10 mg/5 mL oral See Rx Instructions PO .qhs PRN 03/23/21 solution #473 ml insulin glargine 100 unit/mL (3 See Rx Instructions SQ DAILY #15 ml 04/07/21 mL) subcutaneous pen (Basaglar KwikPen U-100 Insulin) insulin aspart U-100 100 unit/mL See Rx Instructions SQ AC #15 ml 04/26/21 (3 mL) subcutaneous pen mupirocin 2 % topical ointment 1 applic TOPICAL BID #22 g 05/11/21 atorvastatin 40 mg tablet 40 mg PO HS #90 tab 05/18/21 amlodipine 10 mg tablet 10 mg PO QAM #90 tab 05/25/21 aspirin 81 mg tablet,delayed 81 mg PO QAM #90 tab 05/25/21 release carvedilol 12.5 mg tablet 12.5 mg PO BID #180 tab 05/25/21 carvedilol 3.125 mg tablet 3.125 mg PO BID #180 tab 05/25/21 docusate sodium 100 mg capsule 100 mg PO BID #180 cap 05/25/21 furosemide 20 mg tablet 20 mg PO DAILY #90 tab 05/25/21 hydralazine 100 mg tablet 100 mg PO TID #270 tab 05/25/21 ciprofloxacin HCl 500 mg tablet 500 mg PO DAILY 6 Days #6 tab 08/19/21 (Cipro) Results & Data (ED) Vital Signs Vital Signs - 24 hr 08/24/21 15:29 08/24/21 17:00 08/24/21 17:30 Temperature 36.8 C Temperature Source Temporal Artery Scan Pulse Rate 101 H 101 H 97 H Pulse Rate from SpO2 Sensor 101 H 97 H Pulse Rhythm Regular Respiratory Rate 20 17 18 Respiratory Effort / Characteristics Non-Labored Spontaneous Respiratory Depth Normal Respiratory Pattern Regular Blood Pressure 112/61 172/88 H Blood Pressure Mean 78 116 Pulse Oximetry 97 96 93 Oxygen Delivery Method Room Air Room Air Sepsis Recent Fever Within 48 Hours No Sepsis New/Unexplained Change in Mental Status No Sepsis Action Taken by Nursing No Action Required 08/24/21 18:00 Temperature Temperature Source Pulse Rate 98 H Pulse Rate from SpO2 Sensor 98 H Pulse Rhythm Respiratory Rate 19 Respiratory Effort / Characteristics Respiratory Depth Respiratory Pattern Blood Pressure 209/96 H Blood Pressure Mean 133 Pulse Oximetry 94 Oxygen Delivery Method Sepsis Recent Fever Within 48 Hours Sepsis New/Unexplained Change in Mental Status Sepsis Action Taken by Nursing Laboratory Data Result diagrams: 08/24/21 16:42 08/24/21 16:42 Lab Results 08/24/21 08/24/21 08/24/21 Range/Units 16:42 16:42 16:42 WBC 9.33 (4.8-10.8) K/uL RBC 3.30 L (4.7-6.1) M/uL Hgb 9.8 L (14.0-18.0) g/dL Hct 31.2 L (42-52) % MCV 94.5 (80-100) fL MCH 29.7 (25-34) pg MCHC 31.4 L (32-36) g/dL RDW Std Deviation 54.3 H (36.4-46.3) fL RDW Coeff of Celso 15.7 H (11.5-14.5) % Plt Count 334 (130-400) K/uL MPV 8.5 (7.4-10.4) fL Immature Gran % (Auto) 0.2 % Neut % (Auto) 42.1 % Lymph % (Auto) 16.9 % [place] % (Auto) 9.3 % Eos % (Auto) 31.0 % Baso % (Auto) 0.5 % Neut # (Auto) 3.92 (1.4-6.5) K/uL Lymph # (Auto) 1.58 (1.2-3.4) K/uL [place] # (Auto) 0.87 H (0.11-0.59) K/uL Eos # (Auto) 2.89 H (0-0.5) K/uL Baso # (Auto) 0.05 (0-0.2) K/uL Immature Gran # (Auto) 0.02 (0.00-0.02) K/uL PT 10.9 (9.0-12.0) Seconds INR 1.1 (0.9-1.1) APTT 25.3 (21.0-31.0) Seconds PTT Ratio 1.0 Sodium 138 (136-145) mmol/L Potassium 4.3 (3.5-5.1) mmol/L Chloride 104 (98-107) mmol/L Carbon Dioxide 25 (21-32) mmol/L Anion Gap 9.0 (3-11) BUN 61 H (7-18) mg/dl Creatinine 7.85 H* (0.6-1.4) mg/dl Est Cr Clr Drug Dosing 12.1 ml/min Est GFR ( Amer) 8.0 ml/min Est GFR (Non-Af Amer) 6.9 ml/min BUN/Creatinine Ratio 7.8 L (10-20) Glucose 188 H (70-99) mg/dl Calcium 8.9 (8.5-10.1) mg/dl Magnesium 2.1 (1.8-2.4) mg/dl Total Bilirubin 0.3 (0.2-1) mg/dl AST 37 (15-37) U/L ALT 32 (12-78) U/L Alkaline Phosphatase 68 (45-117) U/L Troponin I < 0.015 (0-0.045) ng/ml Total Protein 8.9 H (6.4-8.2) gm/dl Albumin 2.5 L (3.4-5.0) gm/dl Globulin 6.4 H (2.5-4.0) gm/dl Albumin/Globulin Ratio 0.4 L (0.9-2) Procalcitonin (0-0.5) ng/ml COVID-19 Eval Order SARS-CoV-2 (PCR) (Negative) 10/26/21 10/26/21 10/26/21 Range/Units 16:42 16:58 16:58 WBC (4.8-10.8) K/uL RBC (4.7-6.1) M/uL Hgb (14.0-18.0) g/dL Hct (42-52) % MCV (80-100) fL MCH (25-34) pg MCHC (32-36) g/dL RDW Std Deviation (36.4-46.3) fL RDW Coeff of Celso (11.5-14.5) % Plt Count (130-400) K/uL MPV (7.4-10.4) fL Immature Gran % (Auto) % Neut % (Auto) % Lymph % (Auto) % [place] % (Auto) % Eos % (Auto) % Baso % (Auto) % Neut # (Auto) (1.4-6.5) K/uL Lymph # (Auto) (1.2-3.4) K/uL [place] # (Auto) (0.11-0.59) K/uL Eos # (Auto) (0-0.5) K/uL Baso # (Auto) (0-0.2) K/uL Immature Gran # (Auto) (0.00-0.02) K/uL PT (9.0-12.0) Seconds INR (0.9-1.1) APTT (21.0-31.0) Seconds PTT Ratio Sodium (136-145) mmol/L Potassium (3.5-5.1) mmol/L Chloride (98-107) mmol/L Carbon Dioxide (21-32) mmol/L Anion Gap (3-11) BUN (7-18) mg/dl Creatinine (0.6-1.4) mg/dl Est Cr Clr Drug Dosing ml/min Est GFR ( Amer) ml/min Est GFR (Non-Af Amer) ml/min BUN/Creatinine Ratio (10-20) Glucose (70-99) mg/dl Calcium (8.5-10.1) mg/dl Magnesium (1.8-2.4) mg/dl Total Bilirubin (0.2-1) mg/dl AST (15-37) U/L ALT (12-78) U/L Alkaline Phosphatase (45-117) U/L Troponin I (0-0.045) ng/ml Total Protein (6.4-8.2) gm/dl Albumin (3.4-5.0) gm/dl Globulin (2.5-4.0) gm/dl Albumin/Globulin Ratio (0.9-2) Procalcitonin 0.41 (0-0.5) ng/ml COVID-19 Eval Order Covid19 at [facility] SARS-CoV-2 (PCR) NEGATIVE (Negative) Administered Medications Discontinued Medications Diphenhydramine HCl (Diphenhydramine 50 Mg/Ml Vial) 25 mg IV NOW ONE Stop: 08/24/21 19:46 Last Admin: 08/24/21 19:53 Dose: 25 mg Documented by: [id number] Ceftriaxone Sodium (Rocephin) 1,000 mg in 50 mls @ 100 mls/hr IV NOW STA Stop: 08/24/21 16:34 Last Infusion: 08/24/21 17:25 Dose: 0 mls/hr Documented by: [id number] Admin: 08/24/21 16:53 Dose: 100 mls/hr Documented by: [id number] Imaging Data Radiologist's Impression: Foot X-Ray 08/24/21 16:05 XR foot RT min 3V routine HISTORY: 55 years-old Male r med heel infection/wound soft tissue ulcer of the right foot. Clinical concern for osteomyelitis. COMPARISON: Right foot radiographs 08/19/2021 TECHNIQUE: 3 views of the right foot FINDINGS: Status post partially dictation of the second toe at the level of the metatarsal phalangeal joint. 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 Extensive arterial calcifications. Mild to moderate diffuse soft tissue swelling. Spurring of the calcaneus. No osseous erosions identified. No acute fracture or dislocation. IMPRESSION: Diffuse soft tissue swelling without evidence of acute osteomyelitis. ACT 112: Negative or not required by law. The above report was generated using voice recognition software. It may contain grammatical, syntax or spelling errors. Electronically signed by: Kashif Botello M.D. 08/24/2021 6:01 PM Discharge Plan Visit Data Chief Complaint: Infection Stated Complaint: RIGHT FOOT INFECTION ED Provider: Pavel Everett Discharge Problem: Diabetic infection of right foot, DM II (diabetes mellitus, type II), controlled, Anemia, Chronic kidney disease, stage 4 (severe) Patient Disposition: Admitted As Inpatient Discharge Instructions Interventions: ED Discharge Assessment Last Done: 08/24/21 21:01
[2021-08-24 16:53] LABS: Basophils # (auto) 0.05 K/uL (0-0.2); Basophils % (auto) 0.5 %; Eosinophils # (auto) 2.89 K/uL (0-0.5); Hematocrit (blood only) 31.2 % (42-52); Hemoglobin 9.8 g/dL (14.0-18.0); Immature Granulocytes # (auto) 0.02 K/uL (0.00-0.02); Immature Granulocytes % (auto) 0.2 %; Lymphocytes # (auto) 1.58 K/uL (1.2-3.4); Lymphocytes % (auto) 16.9 %; Mean Corpuscular Hemoglobin 29.7 pg (25-34); Mean Corpuscular Hgb Conc 31.4 g/dL (32-36); Mean Corpuscular Volume 94.5 fL (80-100); Mean Platelet Volume 8.5 fL (7.4-10.4); Monocytes # (auto) 0.87 K/uL (0.11-0.59); Monocytes % (auto) 9.3 %; Neutrophils # (auto) 3.92 K/uL (1.4-6.5); Neutrophils % (auto) 42.1 %; Platelet Count 334 K/uL (130-400); RDW Coefficient of Variation 15.7 % (11.5-14.5); RDW Standard Deviation 54.3 fL (36.4-46.3); White Blood Count 9.33 K/uL (4.8-10.8)
[2021-08-24 17:04] LABS: INR 1.1 (0.9-1.1); Partial Thromboplastin Time 25.3 Seconds (21.0-31.0); Prothrombin Time 10.9 Seconds (9.0-12.0)
[2021-08-24 17:20] LABS: Alanine Aminotransferase 32 U/L (12-78); Albumin Globulin Ratio 0.4 (0.9-2); Albumin Level 2.5 gm/dl (3.4-5.0); Alkaline Phosphatase 68 U/L (45-117); Aspartate Aminotransferase 37 U/L (15-37); BUN Creatinine Ratio 7.8 (10-20); Bilirubin,Total 0.3 mg/dl (0.2-1); Blood Urea Nitrogen 61 mg/dl (7-18); Calcium 8.9 mg/dl (8.5-10.1); Carbon Dioxide 25 mmol/L (21-32); Chloride 104 mmol/L (98-107); Creatinine Clr Calc Pharmacy 12.1 ml/min; Est GFR (Non-African American) 6.9 ml/min; Globulin 6.4 gm/dl (2.5-4.0); Glucose 188 mg/dl (70-99); Magnesium 2.1 mg/dl (1.8-2.4); Potassium 4.3 mmol/L (3.5-5.1); Sodium 138 mmol/L (136-145); Total Protein 8.9 gm/dl (6.4-8.2); Troponin I < 0.015 ng/ml (0-0.045)
--- NOTE | 2021-08-24 18:02 | XRay Report ---
XR foot RT min 3V routine HISTORY: 55 years-old Male r med heel infection/wound soft tissue ulcer of the right foot. Clinical concern for osteomyelitis. COMPARISON: Right foot radiographs 08/19/2021 TECHNIQUE: 3 views of the right foot FINDINGS: Status post partially dictation of the second toe at the level of the metatarsal phalangeal joint. Mu ltifocal osteoarthritis is moderate within the midfoot. Extensive arterial calcifications. Mild to mo derate diffuse soft tissue swelling. Spurring of the calcaneus. No osseous erosions identified. No ac zenobia fracture or dislocation. IMPRESSION: Diffuse soft tissue swelling without evidence of acute osteomyelitis. ACT 112: Negative or not required by law. The above report was generated using voice recognition software. It may contain grammatical, syntax o r spelling errors. Electronically signed by: Kashif Botello M.D. 08/24/2021 6:01 PM
--- NOTE | 2021-08-24 18:55 | History & Physical Report ---
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 Patient with biopsy taken, results not available in system. Per note review suspected topical/eczematous dermatitis, potentially secondary to primary fungal infection. Bacterial culture negative, patch negative. Per dermatology recommended to continue light therapy and follow-up based on pathology. Considering outpatient initiation of Dupixent therapy. 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 Total daily dose estimated approximately 30 A1c 04/2021 6.4 Continue Lantus 10 units daily SSI goal [id number], ratio 1:25, correction factor 75 (4) Dyslipidemia: Plan: - Atorvastatin 40mg (5) End stage renal disease: Plan: ESRD on daily peritoneal dialysis Nephro consulted for dialysis Oliguric Creatinine 7.85, potassium 4.3 (6) Hypertension: Plan: - Amlodipine 10mg daily - Carvedilol 3.125mg daily (7) Cardiomyopathy: Plan: Nonischemic cardiomyopathy with reduced systolic function Continue carvedilol 3.125 mg p.o. twice daily Continue aspirin 81 mg daily Continue amlodipine 10 mg p.o. every morning, consider reducing for effect on lower extremity edema if blood pressure tolerates Last seen by Dr. Little 05/2021. No history of [place]. Echo 01/22/2018: Normal LV size, mild LVH, diffuse LV systolic dysfunction, LV ejection fraction 45%, reduced to low normal RV systolic function. Myocardial perfusion scan 2017 showed normal perfusion without evidence of ischemia or infarct, no history of cardiac catheterization Active without signs of ischemic disease. Negative cardiac amyloidosis evaluation. Plan: DVT prophylaxis: Heparin 5K twice daily Disposition: Medical/surgical CODE STATUS: Full code, discussed with patient Diet: Renal dialysis History of Present Illness Chief Complaint: R Foot drainage Primary Care Provider: LUCÍA Castellano Chavo is a 55-year-old male with a past medical history of diabetic foot ulc ers, end-stage renal disease with daily peritoneal dialysis, psoriasis, cardiomyopathy with CHF, type 2 diabetes, polyneuropathy who was discharged on Cipro 6 days ago for a right foot infection who has continued to worsen with wound drainage and foul smell in the interim. He presents for reassessment and treatment of a right foot infection. Last week skin 'started popping off' his legs after soaking them which then started to hurt. Came to the ER and was palced on an antibiotic, but 'that shit didn' work. It's too far gone for pills.' Wenth ome and changing his socks noted a terrible smell and smelling like ammonia. Right foot is painful on the bottom surface. Reports has severe eczema not psoiasis for years. Reports has used steroids in the past, but cause problems with blood sugars and infection and 'messes with my heart rate.'. December 2019 say dermatology in [place]. took steroids for 3- 4 months which didn't help, but did elevate his blood sugars. Switched providers and saw [facility] who took him off steroids and started him on dry baths and phototherapy. Biopsy taken, pending. Has been considering antifungal treatment, most recently being set up with potential Dupixent as outpatient. L eye soft tissue pominence, whole life. Reports he and family members have had the same thing, has not changed. Unable to see from left eye. Intact in right eye Denies fevers, chills, sweats, difficulty breathing, chest pain, chest pressure, palpitations. Medical History: Reviewed Medications: Reviewed Surgical History: Reviewed Allergies: Reviewed Social History: Lives tobacco/alcohol/recreational drug use Code Status: Full code - Allergies Allergy/AdvReac Type Severity Reaction Status Date / Time Penicillins AdvReac Severe Cramping Verified 08/24/21 16:33 of the Muscles Home Medications Medication Instructions Recorded Confirmed Type ferrous sulfate 325 mg (65 mg 325 mg PO DAILY #90 tab 03/02/21 08/24/21 Rx iron) tablet hydroxyzine HCl 10 mg/5 mL oral See Rx Instructions PO .qhs PRN 03/23/21 08/24/21 Rx solution #473 ml insulin glargine 100 unit/mL (3 See Rx Instructions SQ DAILY #15 ml 04/07/21 08/24/21 Rx mL) subcutaneous pen (Basaglar KwikPen U-100 Insulin) insulin aspart U-100 100 unit/mL See Rx Instructions SQ AC #15 ml 04/26/21 08/24/21 Rx (3 mL) subcutaneous pen mupirocin 2 % topical ointment 1 applic TOPICAL BID #22 g 05/11/21 08/24/21 Rx atorvastatin 40 mg tablet 40 mg PO HS #90 tab 05/18/21 08/24/21 Rx amlodipine 10 mg tablet 10 mg PO QAM #90 tab 05/25/21 08/24/21 Rx aspirin 81 mg tablet,delayed 81 mg PO QAM #90 tab 05/25/21 08/24/21 Rx release carvedilol 12.5 mg tablet 12.5 mg PO BID #180 tab 05/25/21 08/24/21 Rx carvedilol 3.125 mg tablet 3.125 mg PO BID #180 tab 05/25/21 08/24/21 Rx docusate sodium 100 mg capsule 100 mg PO BID #180 cap 05/25/21 08/24/21 Rx furosemide 20 mg tablet 20 mg PO DAILY #90 tab 05/25/21 08/24/21 Rx hydralazine 100 mg tablet 100 mg PO TID #270 tab 05/25/21 08/24/21 Rx ciprofloxacin HCl 500 mg tablet 500 mg PO DAILY 6 Days #6 tab 08/19/21 08/24/21 Rx (Cipro) diclofenac sodium 1 % topical gel 2 g TOPICAL TID 08/19/21 08/24/21 History betamethasone dipropionate 0.05 % 1 applic TOPICAL BID PRN 08/24/21 08/24/21 History lotion Past Med/Surg History Medical History Blindness of left eye Chronic kidney disease, stage 4 (severe) DM II (diabetes mellitus, type II), controlled History of shingles Hypertension Left ventricular hypertrophy Mild left ventricular systolic dysfunction Polyneuropathy Proteinuria Surgical History S/P arteriovenous (AV) fistula creation R AVF 10/2019 and transposed 07/14/20-Dr. Goddard S/P carpal tunnel release Right S/P eye surgery Family History Unknown No pertinent family history Other Hypertension Denies family history of Colon cancer Ovarian cancer Prostate cancer Myocardial infarction Breast cancer Social History Smoking Status: Never smoker Second Hand Exposure: No; Hx Alcohol Use: No Hx Substance Use: No Preferred Language: Taiwanese Communication Ability: Effective Visual Impairment: Diminished Hearing Ability: Normal Sommelier Required: No Beliefs That Will Affect Care: None marital status: Single Current Living Situation: Alone current occupational status: disabled Feels Safe at Home: Yes Childhood Exposure to Second-Hand Smoke: Yes Dental Care, Regularly: No Seatbelt Use: always Sunscreen Use: No Assistive Devices: Glasses Review of Systems Review of Systems: Constitutional: Denies fever, chills, endorses diffuse itching Eyes: Denies vision change ENT: Denies ear pain, sore throat, sinus pain Cardiovascular: Denies Chest pain, chest pressure, palpitations, extremity swelling Respiratory: Denies shortness of breath, cough, sputum production, difficulty breathing Gastrointestinal: Denies abdominal pain, nausea, vomiting, constipation, diarrhea Genitourinary: Denies dysuria, urinary frequency Musculoskeletal: Denies acute focal weakness, endorses pain at his right plantar foot Integumentary:As noted in HPI Neurological: Denies headache, numbness, tingling, focal weakness Physical Exam Physical Exam: General: A&Ox3. NAD. Cooperative. Skin: Diffuse scaly, dry, pruritic erythematous rash on arms, back, abdomen, legs, thighs. Diffuse lichenification and excoriation. Right foot with medial ulceration with scant drainage, tenderness, and surrounding erythema. Plantar surface of the right foot with midfoot linear skin break, tender to palpation. HEENT: Atraumatic, normocephalic. Visual acuity intact in right eye, and hearing grossly intact. Minimal acuity in left eye, slight "sweet spot" per patient, both pupils reactive to light Pulm: CTAB A&P. -wheezes, -rales, -rhonchi. Symmetrical chest rise. No increase work of breathing. No respiratory distress. Cardiac: RRR, -mrg. Radial pulses intact and symmetrical. Abdominal: Nontender, nondistended, soft. BS present. Extremities: Moving all extremities equally, sensation to soft touch intact in hands and feet. Foot infection as noted above Results & Data Results & Data ([facility]) Vital Signs (Past 12 Hours) Vital Signs Temp Pulse Resp BP Pulse Ox 08/24/21 18:00 98 H 19 209/96 H 94 08/24/21 17:30 97 H 18 93 08/24/21 17:00 101 H 17 172/88 H 96 08/24/21 15:29 36.8 C 101 H 20 112/61 97 PG Care Time/CCT Total # of Minutes Spent Total Time Spent with Patient: Total time spent is greater than 50% in coordination of care (as documented) at patient's floor/unit and/or counseling patient: Coding Level of Care Code 42337 Initial Inpt Care Lvl 3 Diagnoses Diabetic infection of right foot E11.628; L08.9 DM II (diabetes mellitus, type II), controlled E11.8; Z79.4 Diabetes mellitus complication status: with unspecified complications Diabetes mellitus superintendent marine oil terminal insulin use: with superintendent marine oil terminal use Dyslipidemia E78.5 End stage renal disease N18.6 Eczematous dermatitis L30.9 Hypertension I10 Cardiomyopathy I42.9 (1) DM II (diabetes mellitus, type II), controlled Diabetes mellitus complication status: with unspecified complications Diabetes mellitus alf insulin use: with alf use Qualified Code(s): E11.8 - Type 2 diabetes mellitus with unspecified complications; Z79.4 - termite renewal inspector (current) use of insulin
[2021-08-24] MEDS ORDERED: diphenhydrAMINE 50 MG/ML VIAL IV ONE (19:45)
[2021-08-24] MEDS ORDERED: GLUCOSE 10 TABS/TUBE PO PRN (21:36)
[2021-08-24] MEDS ORDERED: DEXTROSE 50% 50 ML SYRINGE IV PRN (21:36)
[2021-08-24] MEDS ORDERED: CARBOHYDRATES FOR HYPOGLYCEMIA PO PRN (21:36)
[2021-08-24] MEDS ORDERED: GLUCAGON FOR INJ 1 MG VIAL SQ PRN (21:36)
[2021-08-24] MEDS ORDERED: GLUCOSE 40% GEL 15 GM TUBE PO PRN (21:36)
[2021-08-24] MEDS ORDERED: PHARMACY GLYCEMIC MGMT CONSULT PRN (21:36)
[2021-08-24] MEDS: carvediloL 3.125 MG TAB PO SCH (22:32)
[2021-08-24] MEDS: DOCUSATE SODIUM 100 MG CAP PO SCH (22:32)
[2021-08-24] MEDS: carvediloL 12.5 MG TAB PO SCH (22:33)
[2021-08-24] MEDS: ATORVASTATIN 40 MG TAB PO SCH (22:33)
[2021-08-24] MEDS: DAPTOmycin 275 MG in SYRINGE 0 ML IV SCH (22:40)
[2021-08-24] MEDS: HEPARIN SOD 5,000 UNIT/0.5 ML VIAL SQ SCH (22:41)
[2021-08-24] MEDS: metroNIDAZOLE 500 MG/100 ML BAG IV SCH (22:41)
[2021-08-24] MEDS: INSULIN GLARGINE SOLOSTAR 100 UNITS/ML 3 ML PEN SC SCH (22:41)
[2021-08-24] MEDS: INSULIN ASPART 100 UNITS/ML 3 ML PEN SC SCH (22:42)
[2021-08-24] MEDS: ACETAMINOPHEN 325 MG TAB PO PRN (23:15)
[2021-08-25 04:57] LABS: Appearance Urine Clear (Clear); Bacteria Urine Automated Negative (Negative); Bilirubin Urine Negative (Negative); Blood Urine Negative (Negative); Color Urine Yellow; Epithelial Cell Urine Auto 20-30 /lpf (0-5); Glucose Urine UA Trace (Negative); Ketones Urine Trace (Negative); Leukocyte Esterase Urine Negative (Negative); Nitrite Urine Negative (Negative); Protein Urine 2+ (Negative); Specific Gravity Urine 1.016 (1.000-1.030); Urobilinogen Urine Negative (Negative); pH Urine 5.5 (4.5-7.5)
[2021-08-25] MEDS: metroNIDAZOLE 500 MG/100 ML BAG IV SCH (05:33)
--- NOTE | 2021-08-25 05:34 | Electrocardiogram Report ---
Test Reason : Blood Pressure : / mmHG Vent. Rate : 102 BPM Atrial Rate : 102 BPM P-R Int : 150 ms QRS Dur : 080 ms QT Int : 376 ms P-R-T Axes : 071 058 065 degrees QTc Int : 490 ms Poor data quality, interpretation may be adversely affected Sinus tachycardia Prolonged QT When compared with ECG of 07-MAY-2019 12:56, Criteria for Anterior infarct are no longer Present QT has lengthened Confirmed by Jose Merida ([id number]) on 08/25/2021 5:34:24 AM Referred By: Confirmed By:Jose Merida
[2021-08-25 07:13] LABS: Basophils # (auto) 0.05 K/uL (0-0.2); Basophils % (auto) 0.7 %; Eosinophils # (auto) 2.72 K/uL (0-0.5); Eosinophils % (auto) 38.5 %; Hematocrit (blood only) 29.2 % (42-52); Hemoglobin 9.1 g/dL (14.0-18.0); Immature Granulocytes # (auto) 0.01 K/uL (0.00-0.02); Immature Granulocytes % (auto) 0.1 %; Lymphocytes # (auto) 1.06 K/uL (1.2-3.4); Mean Corpuscular Hemoglobin 29.2 pg (25-34); Mean Corpuscular Hgb Conc 31.2 g/dL (32-36); Mean Corpuscular Volume 93.6 fL (80-100); Mean Platelet Volume 8.2 fL (7.4-10.4); Monocytes # (auto) 0.79 K/uL (0.11-0.59); Monocytes % (auto) 11.2 %; Neutrophils # (auto) 2.43 K/uL (1.4-6.5); Neutrophils % (auto) 34.5 %; Platelet Count 312 K/uL (130-400); RDW Coefficient of Variation 15.9 % (11.5-14.5); RDW Standard Deviation 54.2 fL (36.4-46.3); Red Blood Count 3.12 M/uL (4.7-6.1); White Blood Count 7.06 K/uL (4.8-10.8)
[2021-08-25 07:39] LABS: Estimated Average Glucose 169 mg/dl; Hemoglobin A1C 7.5 % (4.5-5.6)
[2021-08-25] MEDS: ASPIRIN 81 MG ECTAB PO SCH (08:09)
[2021-08-25] MEDS: carvediloL 3.125 MG TAB PO SCH ×2 (08:09→20:41)
[2021-08-25 08:10] LABS: BUN Creatinine Ratio 8.2 (10-20); Calcium 8.7 mg/dl (8.5-10.1); Creatinine Clr Calc Pharmacy 12.6 ml/min; Est GFR (African American) 8.4 ml/min; Est GFR (Non-African American) 7.3 ml/min; Potassium 3.9 mmol/L (3.5-5.1)
[2021-08-25] MEDS: FUROSEMIDE 20 MG TAB PO SCH (08:10)
[2021-08-25] MEDS: HEPARIN SOD 5,000 UNIT/0.5 ML VIAL SQ SCH ×2 (08:10→20:43)
[2021-08-25] MEDS: carvediloL 12.5 MG TAB PO SCH ×2 (08:10→20:40)
[2021-08-25] MEDS: DOCUSATE SODIUM 100 MG CAP PO SCH ×2 (08:10→20:42)
[2021-08-25] MEDS: INSULIN ASPART 100 UNITS/ML 3 ML PEN SC SCH ×4 (08:16→20:44)
[2021-08-25] MEDS ORDERED: cefTRIAXone SODIUM 2,000 MG in DEXTROSE 5% 50 ML IV SCH (09:00)
--- NOTE | 2021-08-25 09:42 | Nephrology Consultation ---
Date of Consultation August 25, 2021 Assessment & Plan (1) End stage renal disease: Unfortunately, cannot continue PD due to risk for peritonitis. Will plan to transition to IHD. Patient is aware. AVF should be acceptable for use. First treatment today versus tomorrow depending on scheduling. [facility] is aware to move the patient from the home therapy program to in-center. We do not have a scheduled chair time for the patient which will be necessary prior to discharge. Appreciate case management assistance in this regard. I have discussed plans for IHD today versus tomorrow with the dialysis nurse. Currently, volume status and electrolytes are acceptable. There is no emergent indication for dialysis at si time. Medications appropriately dosed for kidney function. (2) Eczematous dermatitis: Dermatology consult pending. PD catheter to remain in place at this time with routine dressing change and care. (3) Diabetic infection of right foot: Antibiotic therapy acceptably dosed for kidney dysfunction. (4) S/P arteriovenous (AV) fistula creation: AVF mature for use. History of Present Illness Reason for Consultation: ESRD on dialysis Requesting Physician: Migel Esquivel MD Attending Physician: Migel Esquivel MD History of Present Illness Mr. Chavo Au is a 55-year-old male with AODM, CAD, hypertension, and ESRD. CKD attributed to DKD. Chavo started dialysis with in-center HD in March via a TDC. AVF placement was performed by Dr. Goddard with subsequent transposition. The AVF was functioning well for dialysis in June with some eczematous skin lesions overlying areas of the vessel. Chavo transitioned from IHD to PD in late June. Unfortunately, this was complicated by a tunnel t ract infection and subsequent severe progressive eczematous dermatitis involving the abdomen. Chavo has been following with dermatology. Phototherapy was prescribed but the patient became frustrated due to progression of skin lesion after 4 treatments and opted to stop. Pustular reaction noted and therapy with Dupixent, fluconazole, and TAC lotion was prescribed but it is unclear if therapy was appropriately started. Last week, Chavo developed an ulcerative lesion on his foot. He was evaluated in the ER and wound care clinic and started on cipro. He returned to the PD clinic yesterday and was referred for admission by his bed control specialist, Dr. Bhardwaj, for infected lesion of the foot without improvement on oral therapy and severe skin reaction on his abdomen. Unfortunately, due to the abdominal involvement of his disease, it is felt that continuing PD is unsafe due to risk of peritonitis. Chavo is planning to transition to IHD until his eczema improves. Allergies Allergy/AdvReac Type Severity Reaction Status Date / Time Penicillins AdvReac Severe Cramping Verified 08/24/21 16:33 of the Muscles Home Medications Medication Instructions Recorded Confirmed Type ferrous sulfate 325 mg (65 mg 325 mg PO DAILY #90 tab 03/02/21 08/24/21 Rx iron) tablet hydroxyzine HCl 10 mg/5 mL oral See Rx Instructions PO .qhs PRN 03/23/21 08/24/21 Rx solution #473 ml insulin glargine 100 unit/mL (3 See Rx Instructions SQ DAILY #15 ml 04/07/21 08/24/21 Rx mL) subcutaneous pen (Basaglar KwikPen U-100 Insulin) insulin aspart U-100 100 unit/mL See Rx Instructions SQ AC #15 ml 04/26/21 08/24/21 Rx (3 mL) subcutaneous pen mupirocin 2 % topical ointment 1 applic TOPICAL BID #22 g 05/11/21 08/24/21 Rx atorvastatin 40 mg tablet 40 mg PO HS #90 tab 05/18/21 08/24/21 Rx amlodipine 10 mg tablet 10 mg PO QAM #90 tab 05/25/21 08/24/21 Rx aspirin 81 mg tablet,delayed 81 mg PO QAM #90 tab 05/25/21 08/24/21 Rx release carvedilol 12.5 mg tablet 12.5 mg PO BID #180 tab 05/25/21 08/24/21 Rx carvedilol 3.125 mg tablet 3.125 mg PO BID #180 tab 05/25/21 08/24/21 Rx docusate sodium 100 mg capsule 100 mg PO BID #180 cap 05/25/21 08/24/21 Rx furosemide 20 mg tablet 20 mg PO DAILY #90 tab 05/25/21 08/24/21 Rx hydralazine 100 mg tablet 100 mg PO TID #270 tab 05/25/21 08/24/21 Rx ciprofloxacin HCl 500 mg tablet 500 mg PO DAILY 6 Days #6 tab 08/19/21 08/24/21 Rx (Cipro) diclofenac sodium 1 % topical gel 2 g TOPICAL TID 08/19/21 08/24/21 History betamethasone dipropionate 0.05 % 1 applic TOPICAL BID PRN 08/24/21 08/24/21 History lotion Patient History Medical History (Updated 08/25/21 @ 09:37 by Dane Purdy DO) Blindness of left eye DM II (diabetes mellitus, type II), controlled History of shingles Hypertension Left ventricular hypertrophy Mild left ventricular systolic dysfunction Polyneuropathy Proteinuria Surgical History S/P arteriovenous (AV) fistula creation R AVF 10/2019 and transposed 07/14/20-Dr. Goddard S/P carpal tunnel release Right S/P eye surgery Family History Unknown No pertinent family history Other Hypertension Denies family history of Colon cancer Ovarian cancer Prostate cancer Myocardial infarction Breast cancer Social History Smoking Status: Never smoker Second Hand Exposure: No; Hx Alcohol Use: No Hx Substance Use: No Preferred Language: [place] Communication Ability: Effective Visual Impairment: Diminished Hearing Ability: Normal Nurse Office Required: No Beliefs That Will Affect Care: None marital status: Single Current Living Situation: Alone current occupational status: disabled Other Information That Helps Us Care for You: No Feels Safe at Home: Yes Safety Concerns: Feels Safe At This Time Childhood Exposure to Second-Hand Smoke: Yes Dental Care, Regularly: No Seatbelt Use: always Sunscreen Use: No Assistive Devices: Glasses and Walker Review of Systems Review of Systems: All systems reviewed & are unremarkable except as noted in HPI & below Physical Exam Constitutional: well developed and + disheveled; + uncomfortable (itching from skin lesions) Eyes: no scleral abnormality and no corneal abnormality ENMT: Mouth: no oral mucosal abnormality and oral mucous membranes not dry Neck: normal visual inspection and trachea midline Respiratory: normal respiratory effort Auscultation: lungs clear to auscultation bilaterally Cardiovascular: Rate/Rhythm: regular rate Heart Sounds: normal S1 and normal S2 Extremities: + pedal edema and + AV fistula (LUE BC with some overlying eczema) Gastrointestinal (Abdomen): Percussion/Palpation: abdomen soft; abdomen nontender RLQ PD catheter with clean exit site Musculoskeletal: Extremities: no cyanosis and no clubbing Skin: normal turgor, + lesion, + wound, + crusts and + excoriations Neurologic: Motor/Sensory: no tremor and no asterixis Psychiatric: Orientation: alert and oriented x 3 Results & Data ([facility]) Vital Signs (Past 12 Hours) Vital Signs Temp Pulse Pulse Pulse Resp BP Pulse Ox 08/25/21 07:42 36.8 C 91 H 18 157/77 H 91 08/25/21 04:00 36.6 C 90 18 158/86 H 96 08/24/21 23:41 96 H 08/24/21 22:30 36.8 C 103 H 28 H 169/78 H 95 Laboratory Results Laboratory Results - last 24 hr 08/24/21 08/24/21 08/24/21 16:42 16:42 16:42 WBC 9.33 RBC 3.30 L Hgb 9.8 L Hct 31.2 L MCV 94.5 MCH 29.7 MCHC 31.4 L RDW Std Deviation 54.3 H RDW Coeff of Celso 15.7 H Plt Count 334 MPV 8.5 Immature Gran % (Auto) 0.2 Neut % (Auto) 42.1 Lymph % (Auto) 16.9 Will % (Auto) 9.3 Eos % (Auto) 31.0 Baso % (Auto) 0.5 Neut # (Auto) 3.92 Lymph # (Auto) 1.58 Will # (Auto) 0.87 H Eos # (Auto) 2.89 H Baso # (Auto) 0.05 Immature Gran # (Auto) 0.02 PT 10.9 INR 1.1 APTT 25.3 PTT Ratio 1.0 Sodium 138 Potassium 4.3 Chloride 104 Carbon Dioxide 25 Anion Gap 9.0 BUN 61 H Creatinine 7.85 H* Est Cr Clr Drug Dosing 12.1 Est GFR ( Amer) 8.0 Est GFR (Non-Af Amer) 6.9 BUN/Creatinine Ratio 7.8 L Glucose 188 H POC Glucose Estimat Average Glucose Hemoglobin A1c Calcium 8.9 Magnesium 2.1 Total Bilirubin 0.3 AST 37 ALT 32 Alkaline Phosphatase 68 Troponin I < 0.015 Total Protein 8.9 H Albumin 2.5 L Globulin 6.4 H Albumin/Globulin Ratio 0.4 L Procalcitonin Urine Color Urine Appearance Urine pH Ur Specific [place] Urine Protein Urine Glucose (UA) Urine Ketones Urine Blood Urine Nitrite Urine Bilirubin Urine Urobilinogen Ur Leukocyte Esterase Urine WBC (Auto) Urine RBC (Auto) U Hyaline Cast (Auto) U Epithel Cells (Auto) Urine Bacteria (Auto) COVID-19 Eval Order SARS-CoV-2 (PCR) 08/24/21 08/24/21 08/24/21 16:42 16:58 16:58 WBC RBC Hgb Hct MCV MCH MCHC RDW Std Deviation RDW Coeff of [place] Plt Count MPV Immature Gran % (Auto) Neut % (Auto) Lymph % (Auto) Will % (Auto) Eos % (Auto) Baso % (Auto) Neut # (Auto) Lymph # (Auto) Will # (Auto) Eos # (Auto) Baso # (Auto) Immature Gran # (Auto) PT INR APTT PTT Ratio Sodium Potassium Chloride Carbon Dioxide Anion Gap BUN Creatinine Est Cr Clr Drug Dosing Est GFR ( Amer) Est GFR (Non-Af Amer) BUN/Creatinine Ratio Glucose POC Glucose Estimat Average Glucose Hemoglobin A1c Calcium Magnesium Total Bilirubin AST ALT Alkaline Phosphatase Troponin I Total Protein Albumin Globulin Albumin/Globulin Ratio Procalcitonin 0.41 Urine Color Urine Appearance Urine pH Ur Specific [place] Urine Protein Urine Glucose (UA) Urine Ketones Urine Blood Urine Nitrite Urine Bilirubin Urine Urobilinogen Ur Leukocyte Esterase Urine WBC (Auto) Urine RBC (Auto) U Hyaline Cast (Auto) U Epithel Cells (Auto) Urine Bacteria (Auto) COVID-19 Eval Order Covid19 at [facility] SARS-CoV-2 (PCR) NEGATIVE 08/24/21 08/25/21 08/25/21 22:39 04:45 06:43 WBC 7.06 RBC 3.12 L Hgb 9.1 L Hct 29.2 L MCV 93.6 MCH 29.2 MCHC 31.2 L RDW Std Deviation 54.2 H RDW Coeff of [place] 15.9 H Plt Count 312 MPV 8.2 Immature Gran % (Auto) 0.1 Neut % (Auto) 34.5 Lymph % (Auto) 15.0 Will % (Auto) 11.2 Eos % (Auto) 38.5 Baso % (Auto) 0.7 Neut # (Auto) 2.43 Lymph # (Auto) 1.06 L Will # (Auto) 0.79 H Eos # (Auto) 2.72 H Baso # (Auto) 0.05 Immature Gran # (Auto) 0.01 PT INR APTT PTT Ratio Sodium Potassium Chloride Carbon Dioxide Anion Gap BUN Creatinine Est Cr Clr Drug Dosing Est GFR ( Amer) Est GFR (Non-Af Amer) BUN/Creatinine Ratio Glucose POC Glucose 153 H Estimat Average Glucose Hemoglobin A1c Calcium Magnesium Total Bilirubin AST ALT Alkaline Phosphatase Troponin I Total Protein Albumin Globulin Albumin/Globulin Ratio Procalcitonin Urine Color Yellow Urine Appearance Clear Urine pH 5.5 Ur Specific [place] 1.016 Urine Protein 2+ H Urine Glucose (UA) Trace H Urine Ketones Trace H Urine Blood Negative Urine Nitrite Negative Urine Bilirubin Negative Urine Urobilinogen Negative Ur Leukocyte Esterase Negative Urine WBC (Auto) 1-5 Urine RBC (Auto) 5-10 H U Hyaline Cast (Auto) 1-5 U Epithel Cells (Auto) 20-30 H Urine Bacteria (Auto) Negative COVID-19 Eval Order SARS-CoV-2 (PCR) 08/25/21 08/25/21 08/25/21 06:43 06:43 07:36 WBC RBC Hgb Hct MCV MCH MCHC RDW Std Deviation RDW Coeff of [place] Plt Count MPV Immature Gran % (Auto) Neut % (Auto) Lymph % (Auto) Will % (Auto) Eos % (Auto) Baso % (Auto) Neut # (Auto) Lymph # (Auto) Will # (Auto) Eos # (Auto) Baso # (Auto) Immature Gran # (Auto) PT INR APTT PTT Ratio Sodium 139 Potassium 3.9 Chloride 107 Carbon Dioxide 24 Anion Gap 9.0 BUN 62 H Creatinine 7.54 H* D Est Cr Clr Drug Dosing 12.6 Est GFR ( Amer) 8.4 Est GFR (Non-Af Amer) 7.3 BUN/Creatinine Ratio 8.2 L Glucose 177 H POC Glucose 173 H Estimat Average Glucose 169 Hemoglobin A1c 7.5 H Calcium 8.7 Magnesium Total Bilirubin AST ALT Alkaline Phosphatase Troponin I Total Protein Albumin Globulin Albumin/Globulin Ratio Procalcitonin Urine Color Urine Appearance Urine pH Ur Specific [place] Urine Protein Urine Glucose (UA) Urine Ketones Urine Blood Urine Nitrite Urine Bilirubin Urine Urobilinogen Ur Leukocyte Esterase Urine WBC (Auto) Urine RBC (Auto) U Hyaline Cast (Auto) U Epithel Cells (Auto) Urine Bacteria (Auto) COVID-19 Eval Order SARS-CoV-2 (PCR) PG Care Time/CCT Total # of Minutes Spent Total Time Spent with Patient: Total time spent is greater than 50% in coordination of care (as documented) at patient's floor/unit and/or counseling patient: Coding Level of Care Code 07278 Inpt Consult Level 4 Diagnoses Eczematous dermatitis L30.9 Diabetic infection of right foot E11.628; L08.9 End stage renal disease N18.6 S/P arteriovenous (AV) fistula creation Z98.890
[2021-08-25] MEDS: HYDROCORTISONE 1% CRM 30 GM TUBE EXT PRN (10:56)
--- NOTE | 2021-08-25 11:44 | Pharmacy Report ---
Pharmacy Glycemic Short Note 2 - Date of Service August 25, 2021 - Glycemic Short BSG Results (Last 24 hours): 08/24/21 08/24/21 08/25/21 16:42 22:39 06:43 Glucose 188 H 177 H POC Glucose 153 H 08/25/21 08/25/21 07:36 11:31 Glucose POC Glucose 173 H 91 OUTPATIENT ANTIDIABETIC REGIMEN: * Basaglar 10 units daily, Novolog 3-4 units QID, CR 10 * A1c 7.5% ASSESSMENT: * 55 year old admitted with DM foot infection, DM2, and ESRD on PD. Started on antibiotics on admission * Received home dose lantus last evening, fasting BSG 173 mg/d - plan to continue home basal for now * Started on novolog stress 1/2 dosing PLAN FOR INPATIENT GLYCEMIC CONTROL: * Hold outpatient oral diabetes medications * Basal insulin * Lantus 10 units HS * Bolus insulin * NovoLog per scale ACHS or Q6hrs while NPO * Goal Range: Low 120 mg/dL - High 160 mg/dL * Correction Factor: 30 mg/dL/unit * Nutritional / Prandial insulin per carb ratio of 1 unit per 10 grams CHO consumed PLAN FOR DISCHARGE: * A1c 7.5% - reasonable to continue home insulin regimen on discharge as long as patient not frequently reporting hyper/hypoglycemia
[2021-08-25] MEDS ORDERED: hydrOXYzine HCl 25 MG TAB PO PRN (11:54)
--- NOTE | 2021-08-25 12:13 | Hospitalist Progress Note ---
Date of Service August 25, 2021 Assessment & Plan (1) Diabetic infection of right foot: Plan: Diabetic foot infection-- mildly infected. NO obvious cellulitis seen in ED on 07/2100 discharged on ciprofloxacin 500 mg. Continued to worsen Clinically worsened with purulent drainage and foul smell No leukocytosis. Procal WNL. ESR and CRP slightly elevated at 50/1.96 respectively Foot x-ray: Diffuse soft tissue swelling without evidence of acute osteomyelitis. Clinically no abscess (Do not feel that further imaging is needed at this time) Admitted with Rocephin/Flagyl/Dapto -WC with prelim growth of GPB (? skin contaminate but did have drainage yesterday-- no drainage at present) Wound care consulted This wound looks more chronic without significant infection. Will de-escalate abx therapy (D/C rocephin and flagyl and keep dapto on board). -final abx therapy will be tailored as per final culture data -already established with podiatry (Dr. Lovett)-- NEEDS TO BE SEEN IN FU (? whirl pool therapy/debridement) -add arterial doppler to assess flow (pulses pal but diminished) (2) Eczematous dermatitis: Plan: Severe Eczema Reviewed last dermatology note from 06/2021. Patient with biopsy taken, results not available in system. Per note review suspected topical/eczematous dermatitis, potentially secondary to primary fungal infection. Bacterial culture negative, patch negative. Per dermatology recommended to continue light therapy and follow-up based on pathology. Considering outpatient initiation of Dupixent therapy. add lac-Hydrin while in house (as skin very dry) -will utilize vistaril and benadryl for pruritis (as definitely scratching to the point of bleeding which can increase risk of infection) (3) DM II (diabetes mellitus, type II), controlled: Plan: Type 2 diabetes mellitus continue lantus/log (4) Dyslipidemia: Plan: - Atorvastatin 40mg (5) End stage renal disease: Plan: ESRD on daily peritoneal dialysis Nephro consulted for dialysis--? appreciate recommendations -follow labs -renally adjust meds when appropriate (6) Hypertension: Plan: - Amlodipine 10mg daily - Carvedilol 3.125mg daily (7) Cardiomyopathy: Plan: Nonischemic cardiomyopathy with reduced systolic function Continue carvedilol 3.125 mg p.o. twice daily Continue aspirin 81 mg daily Continue amlodipine 10 mg p.o. every morning, consider reducing for effect on lower extremity edema if blood pressure tolerates volume status managed by Nephrology-- appreciate this Admission and Anticipated Discharge Date Admission Date: August 24, 2021 Subjective Patient seen on daily rounds today. He is a 55-year-old white male with significant chronic comorbidities including diabetes mellitus, end-stage renal disease requiring peritoneal dialysis, nonischemic cardiomyopathy/CHF, and severe dermatitis/eczema. He was hospitalized yesterday with a diabetic foot ulcer of the right lower extremity. He apparently was seen in the ED on 08/19 and prescribed Cipro for diabetic foot ulcer. Reports that while on this antibiotic, he had increasing drainage that became malodorous which prompted him to come back to the ED for evaluation. There he was hemodynamically stable and afebrile. His white blood cell count was normal. His procalcitonin was negative. He did have purulent drainage that was cultured and he was subsequently hospitalized for further evaluation and care. X-ray showed soft tissue swelling without evidence of osteomyelitis Nephrology was consulted to manage dialysis. Review of Systems Review of Systems: All systems reviewed and are unremarkable except as noted in HPI and below Denies fevers, chills, headache, nasal congestion, sore throat, cough, chest pain, shortness of breath, palpitations, orthopnea, PND, abdominal pain, nausea, vomiting, diarrhea, constipation, dysuria, hematuria, frequency, back pain, joint pain or swelling, easy bruising or bleeding, Physical Exam Physical Exam: General: Resting comfortably in his hospital bed. He does not appear ill or toxic. NAD. HEENT: Appears to have a lipoma on the left periorbital region buccal mucosa is moist and pink Neck: No JVD. Negative hepatojugular reflex Cardiac: RRR but distant Lungs: CTA without W/R/R Abdomen: Peritoneal dialysis catheter noted to abdomen. Normoactive X4. Soft and nontender in all quadrants. Extremities: See skin Neuro: A&O X4 cranial nerves II through XII are grossly intact no focal neuro deficits Skin: Patient has significant lichenified lesions generalized on both upper and lower extremities, his trunk and abdomen. Has associated cracks/excoriations that are bleeding on the arms. His feet have lichenified lesions that are flaking.? Superimposed fungus. Linear crack at the arch of his right foot that does not appear to be grossly infected. There is some mild serosanguineous drainage but no mucopurulent drainage. Does have 2 ulcers to the medial heel that are not erythematous/edematous and have no active drainage at the time of evaluation by myself. I did discuss this with the admitting physician who reported he did have mucopurulent drainage when seen yesterday. Peripheral pulses palpable but weak Psych: Appropriate affect pleasant and cooperative Results & Data Results & Data ([facility]) Vital Signs (Past 12 Hours) Vital Signs Temp Pulse Resp BP Pulse Ox 08/25/21 11:55 36.8 C 87 18 118/70 95 08/25/21 07:42 36.8 C 91 H 18 157/77 H 91 08/25/21 04:00 36.6 C 90 18 158/86 H 96 PG Care Time/CCT Total # of Minutes Spent Total Time Spent with Patient: Total time spent is greater than 50% in coordination of care (as documented) at patient's floor/unit and/or counseling patient: Coding Level of Care Code 70073 Subseq Hosp Care Lvl 2 Diagnoses Diabetic infection of right foot E11.628; L08.9 Eczematous dermatitis L30.9 DM II (diabetes mellitus, type II), controlled E11.9 Diabetes mellitus halfway insulin use: unspecified halfway insulin use status Dyslipidemia E78.5 End stage renal disease N18.6 Hypertension I10 Cardiomyopathy I42.9 (1) DM II (diabetes mellitus, type II), controlled Diabetes mellitus halfway insulin use: unspecified exterminator insulin use status
[2021-08-25] MEDS: diphenhydrAMINE Capsule 25 MG CAP PO PRN ×2 (12:39→20:39)
[2021-08-25] MEDS: COLLAGENASE OINT 30 GM TUBE EXT SCH (12:39)
[2021-08-25] MEDS: AMMONIUM LACTATE 12% LOTION 225 GM BTL EXT SCH (12:39)
[2021-08-25] MEDS ORDERED: HEPARIN SOD (PORCINE) 1000 UNIT/ML IV ONE (13:38)
[2021-08-25] MEDS ORDERED: IRON SUCROSE 100 MG in SYRINGE 0 ML IV ONE (14:00)
--- NOTE | 2021-08-25 15:43 | Ultrasound Report ---
US arterial duplex LE RT CLINICAL HISTORY: Right heel ulcer. Assess for peripheral arterial disease. COMPARISON STUDY: None. FINDINGS: Near diffuse calcified plaque seen throughout the right lower extremity arterial system. No rmal velocities and triphasic waveforms seen within the right common femoral and superficial femoral arteries. Monophasic waveforms seen within the right popliteal artery and calf vessels. Borderline el evated peak systolic velocities within the right popliteal artery of 145 cm/s. No elevated velocities within the right calf vessels to suggest stenosis. No areas of arterial occlusion. IMPRESSION: 1. Borderline stenosis within the right popliteal artery. 2. No areas of arterial occlusion within the right lower extremity. 3. Near diffuse calcified plaque within the right lower extremity arterial system. This likely accoun ts for the monophasic waveforms seen within the right popliteal artery and calf vessels. ACT 112: Negative or not required by law. Electronically signed by: Rao Pace M.D. 08/25/2021 3:42 PM
[2021-08-25] MEDS ORDERED: Nursing to Pharmacy Communication SCH (19:30)
[2021-08-25] MEDS: ACETAMINOPHEN 325 MG TAB PO PRN (20:38)
[2021-08-25] MEDS: ATORVASTATIN 40 MG TAB PO SCH (20:40)
[2021-08-25] MEDS: INSULIN GLARGINE SOLOSTAR 100 UNITS/ML 3 ML PEN SC SCH (20:46)
[2021-08-26] MEDS ORDERED: HEPARIN SOD (PORCINE) 1000 UNIT/ML IV ONE (07:00)
[2021-08-26 07:18] LABS: Basophils # (auto) 0.03 K/uL (0-0.2); Basophils % (auto) 0.4 %; Eosinophils # (auto) 2.44 K/uL (0-0.5); Eosinophils % (auto) 34.2 %; Hematocrit (blood only) 29.6 % (42-52); Hemoglobin 9.1 g/dL (14.0-18.0); Lymphocytes # (auto) 1.22 K/uL (1.2-3.4); Lymphocytes % (auto) 17.1 %; Mean Corpuscular Hemoglobin 28.7 pg (25-34); Mean Corpuscular Hgb Conc 30.7 g/dL (32-36); Mean Corpuscular Volume 93.4 fL (80-100); Mean Platelet Volume 8.5 fL (7.4-10.4); Monocytes # (auto) 1.08 K/uL (0.11-0.59); Monocytes % (auto) 15.1 %; Neutrophils # (auto) 2.36 K/uL (1.4-6.5); Neutrophils % (auto) 33.2 %; Platelet Count 333 K/uL (130-400); RDW Coefficient of Variation 15.5 % (11.5-14.5); RDW Standard Deviation 52.6 fL (36.4-46.3); Red Blood Count 3.17 M/uL (4.7-6.1); White Blood Count 7.13 K/uL (4.8-10.8)
[2021-08-26] MEDS ORDERED: IRON SUCROSE 100 MG in SYRINGE 0 ML IV ONE (08:00)
[2021-08-26] MEDS: ASPIRIN 81 MG ECTAB PO SCH (08:12)
[2021-08-26] MEDS: FUROSEMIDE 20 MG TAB PO SCH (08:12)
[2021-08-26 08:13] LABS: BUN Creatinine Ratio 8.2 (10-20); Calcium 8.6 mg/dl (8.5-10.1); Creatinine Clr Calc Pharmacy 13.2 ml/min; Est GFR (African American) 8.9 ml/min; Est GFR (Non-African American) 7.7 ml/min; Potassium 4.2 mmol/L (3.5-5.1)
[2021-08-26] MEDS: DOCUSATE SODIUM 100 MG CAP PO SCH ×2 (08:13→20:40)
[2021-08-26] MEDS: carvediloL 12.5 MG TAB PO SCH ×2 (08:13→20:39)
[2021-08-26] MEDS: carvediloL 3.125 MG TAB PO SCH ×2 (08:13→20:40)
[2021-08-26] MEDS: HEPARIN SOD 5,000 UNIT/0.5 ML VIAL SQ SCH ×2 (08:13→20:41)
[2021-08-26] MEDS: AMMONIUM LACTATE 12% LOTION 225 GM BTL EXT SCH (08:14)
[2021-08-26] MEDS: COLLAGENASE OINT 30 GM TUBE EXT SCH (08:14)
[2021-08-26] MEDS: HYDROCORTISONE 1% CRM 30 GM TUBE EXT PRN (08:14)
[2021-08-26] MEDS: NEPHROCAPS PO SCH (08:15)
[2021-08-26] MEDS: INSULIN ASPART 100 UNITS/ML 3 ML PEN SC SCH ×4 (08:16→20:47)
[2021-08-26] MEDS ORDERED: MoRPHine SULFATE 2 MG/ML CARP IV PRN (08:29)
[2021-08-26] MEDS: ACETAMINOPHEN 325 MG TAB PO PRN (08:30)
[2021-08-26] MEDS: hydrOXYzine HCl 25 MG TAB PO SCH ×3 (08:37→20:41)
[2021-08-26] MEDS: diphenhydrAMINE Capsule 25 MG CAP PO PRN ×2 (09:33→20:44)
--- NOTE | 2021-08-26 10:22 | Nephrology Progress Note ---
Date of Service August 26, 2021 Assessment & Plan (1) End stage renal disease: Plan: Unfortunately, cannot continue PD due to risk for peritonitis. Plan to transition to IHD. Orders for HD today have been entered into the EHR and reviewed with the dialysis nurse. Medications appropriately dosed for kidney function. PD catheter to remain in place at this time with routine dressing change and care. (2) Eczematous dermatitis: Plan: Dermatology consult pending. (3) Diabetic infection of right foot: Plan: Antibiotic therapy acceptably dosed for kidney dysfunction. (4) S/P arteriovenous (AV) fistula creation: Plan: AVF mature for use. Admission and Anticipated Discharge Date Admission Date: August 24, 2021 Subjective No acute events overnight. Unfortunately unable to sleep and remains very uncomfortable due to itching. Breathing comfortably. No fevers or chills. Review of Systems Review of Systems: All systems reviewed & are unremarkable except as noted in HPI & below Physical Exam Constitutional: well developed; + uncomfortable (itching from skin lesions) Eyes: no scleral abnormality and no corneal abnormality ENMT: Mouth: no oral mucosal abnormality and oral mucous membranes not dry Neck: normal visual inspection and trachea midline Respiratory: normal respiratory effort Auscultation: lungs clear to auscultation bilaterally Cardiovascular: Rate/Rhythm: regular rate Heart Sounds: normal S1 and normal S2 Extremities: + pedal edema and + AV fistula (LUE BC with some overlying eczema) Gastrointestinal (Abdomen): Percussion/Palpation: abdomen soft; abdomen nontender Exit site dressing removed demonstrating a slightly excoriated exit site without signs of infection Musculoskeletal: Extremities: no cyanosis and no clubbing Skin: normal turgor, + lesion, + wound, + crusts and + excoriations Neurologic: Motor/Sensory: no tremor and no asterixis Psychiatric: Orientation: alert and oriented x 3 Results & Data ([facility]) Vital Signs (Past 12 Hours) Vital Signs Temp Pulse Resp BP Pulse Ox 08/26/21 07:30 36.7 C 92 H 16 133/67 96 08/26/21 04:00 36.7 C 89 18 157/80 H 92 08/25/21 23:00 37.3 C 85 18 128/68 94 Laboratory Results Laboratory Results - last 24 hr 08/25/21 08/25/21 08/25/21 06:43 06:43 11:31 WBC RBC Hgb Hct MCV MCH MCHC RDW Std Deviation RDW Coeff of Celso Plt Count MPV Immature Gran % (Auto) Neut % (Auto) Lymph % (Auto) [place] % (Auto) Eos % (Auto) Baso % (Auto) Neut # (Auto) Lymph # (Auto) [place] # (Auto) Eos # (Auto) Baso # (Auto) Immature Gran # (Auto) ESR 50 H Sodium Potassium Chloride Carbon Dioxide Anion Gap BUN Creatinine Est Cr Clr Drug Dosing Est GFR ( Amer) Est GFR (Non-Af Amer) BUN/Creatinine Ratio Glucose POC Glucose 91 Calcium C-Reactive Protein 1.96 H 08/25/21 08/25/21 08/26/21 16:30 20:27 06:34 WBC 7.13 RBC 3.17 L Hgb 9.1 L Hct 29.6 L MCV 93.4 MCH 28.7 MCHC 30.7 L RDW Std Deviation 52.6 H RDW Coeff of [place] 15.5 H Plt Count 333 MPV 8.5 Immature Gran % (Auto) 0.0 Neut % (Auto) 33.2 Lymph % (Auto) 17.1 [place] % (Auto) 15.1 Eos % (Auto) 34.2 Baso % (Auto) 0.4 Neut # (Auto) 2.36 Lymph # (Auto) 1.22 [place] # (Auto) 1.08 H Eos # (Auto) 2.44 H Baso # (Auto) 0.03 Immature Gran # (Auto) 0.00 ESR Sodium Potassium Chloride Carbon Dioxide Anion Gap BUN Creatinine Est Cr Clr Drug Dosing Est GFR ( Amer) Est GFR (Non-Af Amer) BUN/Creatinine Ratio Glucose POC Glucose 109 H 164 H Calcium C-Reactive Protein 08/26/21 08/26/21 06:34 07:38 WBC RBC Hgb Hct MCV MCH MCHC RDW Std Deviation RDW Coeff of [place] Plt Count MPV Immature Gran % (Auto) Neut % (Auto) Lymph % (Auto) [place] % (Auto) Eos % (Auto) Baso % (Auto) Neut # (Auto) Lymph # (Auto) [place] # (Auto) Eos # (Auto) Baso # (Auto) Immature Gran # (Auto) ESR Sodium 140 Potassium 4.2 Chloride 106 Carbon Dioxide 24 Anion Gap 10.0 BUN 59 H Creatinine 7.20 H* D Est Cr Clr Drug Dosing 13.2 Est GFR ( Amer) 8.9 Est GFR (Non-Af Amer) 7.7 BUN/Creatinine Ratio 8.2 L Glucose 75 POC Glucose 123 H Calcium 8.6 C-Reactive Protein PG Care Time/CCT Total # of Minutes Spent Total Time Spent with Patient: Total time spent is greater than 50% in coordination of care (as documented) at patient's floor/unit and/or counseling patient: Coding Level of Care Code 61713 Subseq Hosp Care Lvl 3 Diagnoses End stage renal disease N18.6 Eczematous dermatitis L30.9 Diabetic infection of right foot E11.628; L08.9 S/P arteriovenous (AV) fistula creation Z98.890
--- NOTE | 2021-08-26 13:28 | Magnetic Resonance Report ---
MR ankle RT wo con CLINICAL HISTORY: 55 years-old Male with heel wound with tunneling. 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 FINDINGS: Motion degraded exam. No acute injury identified involving the lateral ligaments of the ankle. Tendin osis of the peroneal tendons, suboptimally evaluated secondary to motion artifact. Possible split tea ring of the inframalleolar segments. Trace tenosynovitis of the tibialis posterior. Visualized extens or tendons appear unremarkable. Mild to moderate subcutaneous edema of the foot and ankle, most pronounced dorsally. No abscess. Diff use muscle atrophy with edema suggests chronic denervation change. There is suggestion of a small cut aneous ulcer along the medial heel. No abscess. No MR evidence of acute osteomyelitis. There is a 6 x 9 mm osteochondral defect involving the medial aspect of the talar dome is likely chronic. No large joint effusion or intra-articular loose body identified. 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 No significant bone marrow edema, acute fracture or osseous eros ion. IMPRESSION: 1. Motion degraded exam. 2. Small cutaneous ulcer of the heel without abscess or evidence of osteomyelitis. 3. Subcentimeter chronic appearing osteochondral defect of the medial talar dome. 4. Mild to moderate diffuse subcutaneous edema with chronic denervation changes of the musculature. ACT 112: Negative or not required by law. The above report was generated using voice recognition software. It may contain grammatical, syntax o r spelling errors. Electronically signed by: Kashif Botello M.D. 08/26/2021 1:26 PM
--- NOTE | 2021-08-26 15:35 | Hospitalist Progress Note ---
Date of Service August 26, 2021 Assessment & Plan (1) Diabetic infection of right foot: Plan: Diabetic foot infection-- mildly infected. NO obvious cellulitis seen in ED on 08/19- discharged on ciprofloxacin 500 mg. Continued to worsen Clinically worsened with purulent drainage and foul smell No leukocytosis. Procal WNL. ESR and CRP slightly elevated at 50/1.96 respectively Foot x-ray: Diffuse soft tissue swelling without evidence of acute osteomyelitis. Clinically no abscess Admitted with Rocephin/Flagyl/Dapto--> De-escalated to Dapto when prelim cult ure showed GPC Wound culture now showing staph speciesfinal culture data pending. Dapto should be appropriate as MRSA and MSSA coverage Wound care consultedappreciate recommendations Santyl utilized up until this point. Has caused unroofing of ulcer which appeared to be tunneling slightly for which MRI ordered MRI shows no evidence of osteo or drainable abscess. Arterial Doppler shows no area of occlusion but borderline stenosis and calcified plaque in the right lower extremity. Patient on aspirin Already established with podiatry (Dr. Lovett)-- NEEDS TO BE SEEN IN FU (? whirl pool therapy/debridement) Continue current treatment plan with final antibiotic regimen to be tailored ba sed on culture data once finalized (2) Eczematous dermatitis: Plan: Severe Eczema Reviewed last dermatology note from 06/2021. Patient with biopsy taken, results not available in system. Per dermatology: Utilizing phototherapy. Will continue fluconazole 200 mg weekly as recommended by dermatology. Plan is for Dupixent (dermatology trying to get prior authorization) Lac-Hydrin added for moisture Change Vistaril to scheduled dosing every 8 hours. Benadryl for breakthrough as needed and add routine Zyrtec in the morning (3) End stage renal disease: Plan: ESRD on daily peritoneal dialysis For hemodialysis today Nephro consulted--managing fluid status. Appreciate recommendations -follow labs -renally adjust meds when appropriate Nephrocaps added (4) DM II (diabetes mellitus, type II), controlled: Plan: Type 2 diabetes mellitus continue lantus/log (5) Dyslipidemia: Plan: - Atorvastatin 40mg held given dapto on board and risk ofr toxicity (6) Hypertension: Plan: - Amlodipine 10mg daily - Carvedilol 3.125mg daily - watch BP closely and hold if needed when HD (7) Cardiomyopathy: Plan: Nonischemic cardiomyopathy with reduced systolic function Continue carvedilol 3.125 mg p.o. twice daily Continue aspirin 81 mg daily Continue amlodipine 10 mg p.o. every morning, consider reducing for effect on lower extremity edema if blood pressure tolerates (BP currently 136/64) volume status managed by Nephrology-- appreciate this Admission and Anticipated Discharge Date Admission Date: August 24, 2021 Subjective Patient seen on daily rounds today. Vocalizing pain in the right heel. Tylenol not helping. Otherwise, denies fevers or chills. For hemodialysis this afternoon. Denies shortness of breath/cough. Is making urine. Biggest complaint is significant pruritus given his dermatological condition.Vistaril ordered prn along with benadryl for breakthrough Review of Systems Review of Systems: All systems reviewed and are unremarkable except as noted in HPI and below Denies fevers, chills, headache, nasal congestion, sore throat, cough, chest pain, shortness of breath, palpitations, orthopnea, PND, abdominal pain, nausea, vomiting, diarrhea, constipation, dysuria, hematuria, frequency, back pain, joint pain or swelling, easy bruising or bleeding, skin lesions or rashes. Physical Exam Physical Exam: General: Resting comfortably in his hospital bed. He does not appear ill or toxic. NAD. HEENT: Appears to have a lipoma on the left periorbital region buccal mucosa is moist and pink Neck: No JVD. Negative hepatojugular reflex Cardiac: RRR but distant Lungs: CTA without W/R/R Abdomen: Peritoneal dialysis catheter noted to abdomen. Normoactive X4. Soft and nontender in all quadrants. Extremities: See skin Neuro: A&O X4 cranial nerves II through XII are grossly intact no focal neuro deficits Skin: Patient has significant lichenified lesions generalized on both upper and lower extremities, his trunk and abdomen. Has associated cracks/excoriations that are bleeding on the arms. His feet have lichenified lesions that are flaking. ? Superimposed fungus. Linear crack at the arch of his right foot that does not appear to be grossly infected. There is some mild serosanguineous drainage but no mucopurulent drainage. Does have 2 ulcers to the medial heel that are not erythematous/edematous and have no active drainage at the time of evaluation by myself. Top of the ulcer unroofed and there appears to be some heriberto neling. There is a pungent odor noted today. Psych: Appropriate affect pleasant and cooperative Results & Data Results & Data ([facility]) Vital Signs (Past 12 Hours) Vital Signs Temp Pulse Resp BP Pulse Ox 08/26/21 12:34 37.0 C 89 16 126/57 L 95 08/26/21 07:30 36.7 C 92 H 16 133/67 96 08/26/21 04:00 36.7 C 89 18 157/80 H 92 Laboratory Results 08/26/21 06:34 08/26/21 06:34 Wound culture: Gram Stain Final 08/25/21 Gram Stain Result No WBCs Seen Rare Gram Positive Bacilli Surface Wound Culture Preliminary 08/26/21 Organism 1 Staphylococcus species Quantity Many Sens Sensitivities to Follow +MixWound Plus Low Counts of Probable Skin [place] Diagnostic Findings Arterial Duplex RLE: IMPRESSION: 1. Borderline stenosis within the right popliteal artery. 2. No areas of arterial occlusion within the right lower extremity. 3. Near diffuse calcified plaque within the right lower extremity arterial system. This likely accounts for the monophasic waveforms seen within the right popliteal artery and calf vessels. PG Care Time/CCT Total # of Minutes Spent Total Time Spent with Patient: Total time spent is greater than 50% in coordination of care (as documented) at patient's floor/unit and/or counseling patient: Coding Level of Care Code 25226 Subseq Hosp Care Lvl 3 Diagnoses Diabetic infection of right foot E11.628; L08.9 Eczematous dermatitis L30.9 DM II (diabetes mellitus, type II), controlled E11.9 Diabetes mellitus senior living insulin use: unspecified senior living insulin use status Dyslipidemia E78.5 End stage renal disease N18.6 Hypertension I10 Cardiomyopathy I42.9 (1) DM II (diabetes mellitus, type II), controlled Diabetes mellitus senior living insulin use: unspecified ocean transportation intermediary insulin use status
[2021-08-26] MEDS: CETIRIZINE HCL 10 MG TABLET PO SCH (20:38)
[2021-08-26] MEDS: INSULIN GLARGINE SOLOSTAR 100 UNITS/ML 3 ML PEN SC SCH (20:52)
[2021-08-26] MEDS: DAPTOmycin 275 MG in SYRINGE 0 ML IV SCH (21:50)
[2021-08-27 06:09] LABS: Hemoglobin 9.8 g/dL (14.0-18.0); Mean Corpuscular Hemoglobin 29.3 pg (25-34); Mean Corpuscular Hgb Conc 30.6 g/dL (32-36); Mean Corpuscular Volume 95.8 fL (80-100); Mean Platelet Volume 9.1 fL (7.4-10.4); Platelet Count 313 K/uL (130-400); RDW Coefficient of Variation 15.8 % (11.5-14.5); RDW Standard Deviation 54.7 fL (36.4-46.3); Red Blood Count 3.34 M/uL (4.7-6.1); White Blood Count 7.03 K/uL (4.8-10.8)
[2021-08-27 07:08] LABS: Albumin Globulin Ratio 0.4 (0.9-2); Albumin Level 2.2 gm/dl (3.4-5.0); BUN Creatinine Ratio 6.8 (10-20); Bilirubin,Total 0.4 mg/dl (0.2-1); Calcium 8.9 mg/dl (8.5-10.1); Creatinine Clr Calc Pharmacy 20.2 ml/min; Est GFR (African American) 14.8 ml/min; Est GFR (Non-African American) 12.8 ml/min; Globulin 6.2 gm/dl (2.5-4.0); Total Protein 8.4 gm/dl (6.4-8.2)
[2021-08-27] MEDS: carvediloL 12.5 MG TAB PO SCH ×2 (08:18→20:57)
[2021-08-27] MEDS: carvediloL 3.125 MG TAB PO SCH ×2 (08:18→20:58)
[2021-08-27] MEDS: FUROSEMIDE 20 MG TAB PO SCH (08:18)
[2021-08-27] MEDS: DOCUSATE SODIUM 100 MG CAP PO SCH ×2 (08:18→21:00)
[2021-08-27] MEDS: NEPHROCAPS PO SCH (08:18)
[2021-08-27] MEDS: ASPIRIN 81 MG ECTAB PO SCH (08:18)
[2021-08-27] MEDS: AMMONIUM LACTATE 12% LOTION 225 GM BTL EXT SCH ×2 (08:18→20:56)
[2021-08-27] MEDS: hydrOXYzine HCl 25 MG TAB PO SCH ×3 (08:18→21:01)
[2021-08-27] MEDS: CETIRIZINE HCL 10 MG TABLET PO SCH (08:18)
[2021-08-27] MEDS: INSULIN ASPART 100 UNITS/ML 3 ML PEN SC SCH ×4 (08:19→21:01)
[2021-08-27] MEDS: HEPARIN SOD 5,000 UNIT/0.5 ML VIAL SQ SCH ×2 (08:19→21:00)
[2021-08-27] MEDS: COLLAGENASE OINT 30 GM TUBE EXT SCH (08:19)
[2021-08-27 08:23] LABS: Magnesium 2.2 mg/dl (1.8-2.4)
[2021-08-27] MEDS ORDERED: HYDROCODONE/ACETAMOPHEN 5/325MG TAB PO PRN ×2 (09:16)
--- NOTE | 2021-08-27 10:45 | Nephrology Progress Note ---
Date of Service August 27, 2021 Assessment & Plan (1) End stage renal disease: Plan: Tolerated HD yesterday without complications. Next anticipated treatment tomorrow. [facility] has offered chair times. If transportation for these treatments is not available, consider options at [facility]. Medications appropriately dosed for kidney function. PD catheter to remain in place at this time with routine dressing change and care. BP and volume status acceptable. Electrolytes normal. (2) Eczematous dermatitis: Plan: PD stopped pending improvement in skin lesions due to risk of peritonitis. (3) Diabetic infection of right foot: Plan: Antibiotic therapy acceptably dosed for kidney dysfunction. (4) S/P arteriovenous (AV) fistula creation: Plan: AVF functioned well with 16 g needles yesterday. Admission and Anticipated Discharge Date Admission Date: August 24, 2021 Subjective No acute events overnight. Tolerated HD yesterday without complications. No fevers or chills. No abdominal pain. Review of Systems Review of Systems: All systems reviewed & are unremarkable except as noted in HPI & below Physical Exam Constitutional: well developed; + uncomfortable (itching from skin lesions) Eyes: no scleral abnormality and no corneal abnormality ENMT: Mouth: no oral mucosal abnormality and oral mucous membranes not dry Neck: normal visual inspection and trachea midline Respiratory: normal respiratory effort Auscultation: lungs clear to auscultation bilaterally Cardiovascular: Rate/Rhythm: regular rate Heart Sounds: normal S1 and normal S2 Extremities: + pedal edema and + AV fistula (LUE BC with some overlying eczema) Gastrointestinal (Abdomen): Percussion/Palpation: abdomen soft; abdomen nontender Musculoskeletal: Extremities: no cyanosis and no clubbing Skin: normal turgor, + lesion, + wound, + crusts and + excoriations Neurologic: Motor/Sensory: no tremor and no asterixis Psychiatric: Orientation: alert and oriented x 3 Results & Data ([facility]) Vital Signs (Past 12 Hours) Vital Signs Temp Pulse Resp BP Pulse Ox 08/27/21 07:49 36.9 C 92 H 16 107/65 98 08/27/21 03:38 37.0 C 87 18 137/80 96 08/26/21 23:00 36.7 C 89 18 128/60 94 PG Care Time/CCT Total # of Minutes Spent Total Time Spent with Patient: Total time spent is greater than 50% in coordination of care (as documented) at patient's floor/unit and/or counseling patient: Coding Level of Care Code 28231 Subseq Hosp Care Lvl 3 Diagnoses End stage renal disease N18.6 Eczematous dermatitis L30.9 Diabetic infection of right foot E11.628; L08.9 S/P arteriovenous (AV) fistula creation Z98.890
[2021-08-27] MEDS: CLOTRIMAZOLE/BETAMETHASONE CR 15 GM TUBE EXT SCH ×2 (11:42→20:57)
--- NOTE | 2021-08-27 12:25 | Pharmacy Report ---
Pharmacy Glycemic Short Note 2 - Date of Service August 27, 2021 - Glycemic Short BSG Results (Last 24 hours): 08/26/21 08/27/21 08/27/21 19:47 05:50 07:46 Glucose 77 POC Glucose 81 130 H 08/27/21 11:45 Glucose POC Glucose 198 H OUTPATIENT ANTIDIABETIC REGIMEN: * Basaglar 10 units daily, Novolog 3-4 units QID, CR 10 * HbA1c 7.5% (08/25/21) ASSESSMENT: 08/27 * BSGs well-controlled yesterday, ranging 81-123 mg/dL * Received 14 units of insulin (50/50 basal/bolus) * Fasting BSG of 130 mg/dL this morning - will plan to continue current scale * Do not anticipate any changes to Novolog today * Antibiotics changed from daptomycin to cefazolin 08/25: * 55 year old admitted with DM foot infection, DM2, and ESRD on PD. Started on antibiotics on admission * Received home dose lantus last evening, fasting BSG 173 mg/d - plan to continue home basal for now * Started on novolog stress 1/2 dosing PLAN FOR INPATIENT GLYCEMIC CONTROL: * Hold outpatient oral diabetes medications * Basal insulin * Lantus 7-10 units SC HS (see EHR for details) * Bolus insulin * NovoLog per scale ACHS or Q6hrs while NPO * Goal Range: Low 120 mg/dL - High 160 mg/dL * Correction Factor: 30 mg/dL/unit * Nutritional / Prandial insulin per carb ratio of 1 unit per 10 grams CHO consumed PLAN FOR DISCHARGE: * A1c 7.5% - reasonable to continue home insulin regimen on discharge as long as patient not frequently reporting hyper/hypoglycemia
[2021-08-27] MEDS: diphenhydrAMINE Capsule 25 MG CAP PO PRN ×2 (12:38→19:47)
[2021-08-27] MEDS ORDERED: FLUCONAZOLE 100 MG TAB PO SCH (16:00)
--- NOTE | 2021-08-27 17:02 | Hospitalist Progress Note ---
Date of Service August 27, 2021 Assessment & Plan (1) Diabetic infection of right foot: Plan: Diabetic foot infection-- mildly infected. NO obvious cellulitis seen in ED on 08/19- discharged on ciprofloxacin 500 mg. Continued to worsen-- developed purulent drainage and foul smell No leukocytosis. Procal WNL. ESR and CRP slightly elevated at 50/1.96 respectively Foot x-ray: Diffuse soft tissue swelling without evidence of acute osteomyelitis. Clinically no abscess Admitted with Rocephin/Flagyl/Dapto--> De-escalated to Dapto when prelim culture showed GPC Santyl utilized up until this point. Has caused unroofing of ulcer which appeared to be tunneling slightly for which MRI ordered MRI shows no evidence of osteomyelitis or abscess Arterial Doppler shows no area of occlusion but borderline stenosis and calcified plaque in the right lower extremity. Patient on aspirin Wound nurse on boardappreciate recommendations Culture data showing MSSA. Patient with penicillin allergy. In the setting of ESRD, would avoid quinolones. Will transition daptomycin to Ancef [facility] Already established with podiatry (Dr. Lovett)-- NEEDS TO BE SEEN IN FU (? whirl pool therapy once infection cleared/debridement) Add [place] for pain control (2) Eczematous dermatitis: Plan: Severe Eczema Reviewed last dermatology note from 06/2021. Patient with biopsy taken, results not available in system. Per dermatology: Utilizing phototherapy. Will continue fluconazole 200 mg weekly as recommended by dermatology. Plan is for Dupixent (dermatology trying to get prior authorization) Add topical betamethasone/clotrimazole cream Curbside with dermatology who is recommending topical urea; however, unavailable here. Would need to be ordered and not arrive until next week Lac-Hydrin added for moisture (to apply over clotrimazole/betamethasone cream) Continue Vistaril. Unable to uptitrate this given his end-stage renal disease Continue Zyrtec Continue Benadryl In talking with dermatology, will get substantial relief from Dupixent (3) End stage renal disease: Plan: ESRD on daily peritoneal dialysis HD done 08/26. To have additional HD on 08/28 Nephro consulted--managing fluid status. Appreciate recommendations -follow labs -renally adjust meds when appropriate Nephrocaps added Plan is for transition from peritoneal dialysis to hemodialysis given risk for peritonitis given the significant dermatitis near peritoneal catheter. Patient has immature and working fistula Case management on board to help arrange for outpatient HD. (4) DM II (diabetes mellitus, type II), controlled: Plan: Type 2 diabetes mellitus continue lantus/log (5) Dyslipidemia: Plan: - Atorvastatin 40mg held given dapto on board and risk ofr toxicity (6) Hypertension: Plan: - Amlodipine 10mg daily - Carvedilol 3.125mg daily - watch BP closely and hold if needed when HD (7) Cardiomyopathy: Plan: Nonischemic cardiomyopathy with reduced systolic function Continue carvedilol 3.125 mg p.o. twice daily Continue aspirin 81 mg daily Continue amlodipine 10 mg volume status managed by Nephrology-- appreciate this Plan: PT/OT to determine if patient Able to be discharged home or if he will need skilled rehab given wound and associated pain Discharge awaiting arrangement of outpatient hemodialysis (as transitioning from peritoneal to HD) Medically and hemodynamically stable for discharge: ? DC to home with home care versus acute rehab Admission and Anticipated Discharge Date Admission Date: August 24, 2021 Subjective Patient seen on daily rounds today. Overall, his biggest complaint remains his generalized pruritus. Since making his Atarax routine, this seems to be improved but still persistent and uncontrollable. He had hemodialysis yesterday. Tolerated the session. Creatinine down to 4.7 today. For dialysis tomorrow. Case management on board to help facilitate tra nsition from peritoneal dialysis to hemodialysis as an outpatient. Culture data showing MSSA MRI showed no bone involvement Patient denies fevers, chills, chest pain, shortness of breath, abdominal pain, nausea or vomiting. Moving his bowel bladder without difficulty. Review of Systems Review of Systems: All systems reviewed and are unremarkable except as noted in HPI and below Denies fevers, chills, headache, nasal congestion, sore throat, cough, chest pain, shortness of breath, palpitations, orthopnea, PND, abdominal pain, nausea, vomiting, diarrhea, constipation, dysuria, hematuria, frequency, back pain, joint pain or swelling Physical Exam Physical Exam: General: Resting comfortably in his hospital bed. He does not appear ill or toxic. NAD. HEENT: Appears to have a lipoma on the left periorbital region buccal mucosa is moist and pink Neck: No JVD. Negative hepatojugular reflex Cardiac: RRR but distant Lungs: CTA without W/R/R Abdomen: Peritoneal dialysis catheter noted to abdomen. Normoactive X4. Soft and nontender in all quadrants. Extremities: See skin Neuro: A&O X4 cranial nerves II through XII are grossly intact no focal neuro deficits Skin: Patient has significant lichenified lesions generalized on both upper and lower extremities, his trunk and abdomen. Has associated cracks/excoriations that are bleeding on the arms. His feet have lichenified lesions that are flaking. ? Superimposed fungus. Linear crack at the arch of his right foot that does not appear to be grossly infected. There is some mild serosanguineous drainage but no mucopurulent drainage. Does have 2 ulcers to the medial heel that are not erythematous/edematous and have no active drainage at the time of evaluation by myself. Top of the ulcer unroofed and there appears to be some tunneling. There is a pungent odor noted today. Psych: Appropriate affect pleasant and cooperative Results & Data Results & Data ([facility]) Vital Signs (Past 12 Hours) Vital Signs Temp Pulse Pulse Resp BP Pulse Ox 08/27/21 15:29 36.6 C 91 H 16 169/85 H 95 08/27/21 11:44 80 08/27/21 11:33 37.1 C 84 16 136/75 99 08/27/21 07:49 36.9 C 92 H 16 107/65 98 Laboratory Results 08/27/21 05:50 08/27/21 07:37 08/25/21 21:15 Gram Stain - Final Abdomen, Right Lower Quadrant Wound Culture - Final Staphylococcus aureus 08/24/21 23:45 Gram Stain - Final Foot,Right Wound Culture - Final Staphylococcus aureus 08/24/21 16:05 Anaerobic Blood Culture - Final Blood Abnormal lab results 08/27/21 08/27/21 08/27/21 Range/Units 05:50 05:50 07:46 RBC 3.34 L (4.7-6.1) M/uL Hgb 9.8 L (14.0-18.0) g/dL Hct 32.0 L (42-52) % MCHC 30.6 L (32-36) g/dL RDW Std Deviation 54.7 H (36.4-46.3) fL RDW Coeff of Celso 15.8 H (11.5-14.5) % Chloride 109 H (98-107) mmol/L BUN 33 H (7-18) mg/dl Creatinine 4.74 H* D (0.6-1.4) mg/dl BUN/Creatinine Ratio 6.8 L (10-20) POC Glucose 130 H (70-99) mg/dl Total Protein 8.4 H (6.4-8.2) gm/dl Albumin 2.2 L (3.4-5.0) gm/dl Globulin 6.2 H (2.5-4.0) gm/dl Albumin/Globulin Ratio 0.4 L (0.9-2) 08/27/21 Range/Units 11:45 RBC (4.7-6.1) M/uL Hgb (14.0-18.0) g/dL Hct (42-52) % MCHC (32-36) g/dL RDW Std Deviation (36.4-46.3) fL RDW Coeff of Celso (11.5-14.5) % Chloride (98-107) mmol/L BUN (7-18) mg/dl Creatinine (0.6-1.4) mg/dl BUN/Creatinine Ratio (10-20) POC Glucose 198 H (70-99) mg/dl Total Protein (6.4-8.2) gm/dl Albumin (3.4-5.0) gm/dl Globulin (2.5-4.0) gm/dl Albumin/Globulin Ratio (0.9-2) PG Care Time/CCT Total # of Minutes Spent Total Time Spent with Patient: Total time spent is greater than 50% in coordination of care (as documented) at patient's floor/unit and/or counseling patient: [place] [address] Subseq Hosp Care Lvl 2 Patient Type Established Diagnoses Diabetic infection of right foot E11.628; L08.9 Eczematous dermatitis L30.9 End stage renal disease N18.6 DM II (diabetes mellitus, type II), controlled E11.9 Diabetes mellitus assisted insulin use: unspecified facilities officer insulin use status Dyslipidemia E78.5 Hypertension I10 Cardiomyopathy I42.9 (1) DM II (diabetes mellitus, type II), controlled Diabetes mellitus facilities officer insulin use: unspecified assisted insulin use status
[2021-08-27] MEDS: ceFAZolin 1000MG 1,000 MG/7.5 ML SYR IV SCH (17:22)
[2021-08-27] MEDS: INSULIN GLARGINE SOLOSTAR 100 UNITS/ML 3 ML PEN SC SCH (21:02)
[2021-08-28] MEDS ORDERED: SODIUM CHLORIDE 0.9% 1000ML 1,000 ML IV PRN (07:00)
[2021-08-28] MEDS ORDERED: HEPARIN IV BOLUS 2,000 UNITS in SYRINGE 0 ML IV ONE (07:00)
[2021-08-28] MEDS ORDERED: HEPARIN SOD (PORCINE) 1000 UNIT/ML IV SCH (07:00)
[2021-08-28] MEDS: INSULIN ASPART 100 UNITS/ML 3 ML PEN SC SCH ×4 (07:49→21:42)
[2021-08-28] MEDS: DOCUSATE SODIUM 100 MG CAP PO SCH ×2 (07:52→21:40)
[2021-08-28] MEDS: NEPHROCAPS PO SCH (07:52)
[2021-08-28] MEDS: CETIRIZINE HCL 10 MG TABLET PO SCH (07:52)
[2021-08-28] MEDS: hydrOXYzine HCl 25 MG TAB PO SCH ×3 (07:52→21:41)
[2021-08-28] MEDS: ASPIRIN 81 MG ECTAB PO SCH (07:52)
[2021-08-28] MEDS: HEPARIN SOD 5,000 UNIT/0.5 ML VIAL SQ SCH ×2 (07:52→21:41)
[2021-08-28] MEDS: AMMONIUM LACTATE 12% LOTION 225 GM BTL EXT SCH ×2 (07:53→21:37)
[2021-08-28] MEDS: CLOTRIMAZOLE/BETAMETHASONE CR 15 GM TUBE EXT SCH ×2 (07:53→21:37)
[2021-08-28] MEDS: COLLAGENASE OINT 30 GM TUBE EXT SCH (07:53)
[2021-08-28] MEDS: diphenhydrAMINE Capsule 25 MG CAP PO PRN (07:57)
[2021-08-28 09:15] LABS: Basophils # (auto) 0.03 K/uL (0-0.2); Basophils % (auto) 0.4 %; Eosinophils # (auto) 2.15 K/uL (0-0.5); Eosinophils % (auto) 27.8 %; Hematocrit (blood only) 35.7 % (42-52); Hemoglobin 10.9 g/dL (14.0-18.0); Immature Granulocytes # (auto) 0.01 K/uL (0.00-0.02); Immature Granulocytes % (auto) 0.1 %; Lymphocytes # (auto) 1.38 K/uL (1.2-3.4); Lymphocytes % (auto) 17.9 %; Mean Corpuscular Hemoglobin 29.4 pg (25-34); Mean Corpuscular Hgb Conc 30.5 g/dL (32-36); Mean Corpuscular Volume 96.2 fL (80-100); Mean Platelet Volume 9.1 fL (7.4-10.4); Monocytes # (auto) 0.77 K/uL (0.11-0.59); Neutrophils # (auto) 3.39 K/uL (1.4-6.5); Neutrophils % (auto) 43.8 %; Platelet Count 315 K/uL (130-400); RDW Coefficient of Variation 15.6 % (11.5-14.5); RDW Standard Deviation 54.5 fL (36.4-46.3); Red Blood Count 3.71 M/uL (4.7-6.1); White Blood Count 7.73 K/uL (4.8-10.8)
[2021-08-28 10:08] LABS: BUN Creatinine Ratio 7.4 (10-20); Calcium 9.1 mg/dl (8.5-10.1); Creatinine Clr Calc Pharmacy 16.6 ml/min; Est GFR (African American) 12.1 ml/min; Est GFR (Non-African American) 10.5 ml/min
--- NOTE | 2021-08-28 10:27 | Nephrology Progress Note ---
Date of Service August 28, 2021 Assessment & Plan (1) End stage renal disease: Plan: * Will provide HD today for correction of azotemia and continued UF * HD RN to provide exit site care for PD catheter (discussed w/ HD RN this am) * AVF + bruit * Patient expresses a desire to return home and continue w/ HD at [facility]. He does not want stay at [facility] for PT (2) Eczematous dermatitis: Plan: * PD stopped pending improvement in skin lesions due to tunnel infection and risk of peritonitis (3) Diabetic infection of right foot: Plan: * Antibiotic therapy acceptably dosed for kidney dysfunction Admission and Anticipated Discharge Date Admission Date: August 24, 2021 Subjective Mr. Au was evaluated in his hospital room this morning. He is accepting of transfer from PD back to [facility] due to eczema and PD tunnel infection. Mr. Au c/o intense pruritis and R foot pain. He denies fever, angina or dyspnea Review of Systems Constitutional: no fever Eyes: no worsening vision and no problem reported Ear, Nose, Mouth, Throat: no problem reported Respiratory: no cough and no dyspnea Cardiovascular: no chest pain, no palpitations and no edema Gastrointestinal: no abdominal pain Musculoskeletal: no back pain Integumentary: + rash and + pruritus Physical Exam Constitutional: + ill appearing; not in distress Eyes: PERRL, conjunctivae normal, anicteric sclerae ENMT: external ear and nose normal, oropharynx normal Neck: trachea midline, no thyromegaly Respiratory: normal respiratory effort, lungs clear to auscultation Cardiovascular: Rate/Rhythm: regular rate and regular rhythm Extremities: + edema (trace LE swelling) and + AV fistula (+ bruit) Gastrointestinal (Abdomen): normal bowel sounds, soft, nontender, no hepatosplenomegaly Skin: + rash (eczema involving scalp, face, neck, chest, abdomen, back, extremities) Neurologic: awake; not confused Results & Data ([facility]) Vital Signs (Past 12 Hours) Vital Signs Temp Pulse Pulse Pulse Pulse Resp BP 08/28/21 10:00 89 147/84 H 08/28/21 09:40 88 173/84 H 08/28/21 09:26 98 H 163/98 H 08/28/21 09:15 35.1 C L 91 H 08/28/21 07:51 36.7 C 80 16 08/28/21 02:48 37.0 C 89 18 08/27/21 22:43 37.1 C 89 18 BP Pulse Ox 08/28/21 10:00 08/28/21 09:40 08/28/21 09:26 08/28/21 09:15 08/28/21 07:51 138/72 98 08/28/21 02:48 137/75 96 08/27/21 22:43 152/82 H 93 Laboratory Results Laboratory Tests 08/28/21 08/28/21 08:44 08:44 WBC 7.73 Hgb 10.9 L Hct 35.7 L Plt Count 315 Sodium 136 Chloride 107 Carbon Dioxide 24 BUN 41 H Creatinine 5.58 H* D Glucose 173 H Calcium 9.1 PG Care Time/CCT Total # of Minutes Spent Total Time Spent with Patient: Total time spent is greater than 50% in coordination of care (as documented) at patient's floor/unit and/or counseling patient: Coding Level of Care Code 15926 Subseq Hosp Care Lvl 3 Diagnoses End stage renal disease N18.6 Eczematous dermatitis L30.9 Diabetic infection of right foot E11.628; L08.9
[2021-08-28] MEDS: carvediloL 12.5 MG TAB PO SCH ×2 (14:36→21:40)
[2021-08-28] MEDS: carvediloL 3.125 MG TAB PO SCH ×2 (14:36→21:39)
[2021-08-28] MEDS: FUROSEMIDE 20 MG TAB PO SCH (14:36)
[2021-08-28] MEDS: POLYETHYLENE (MIRALAX) 17 GM PACK PO SCH (14:37)
[2021-08-28 15:52] LABS: Potassium 3.6 mmol/L (3.5-5.1)
[2021-08-28 15:53] LABS: Magnesium 2.1 mg/dl (1.8-2.4)
[2021-08-28] MEDS: ceFAZolin 1000MG 1,000 MG/7.5 ML SYR IV SCH (17:36)
--- NOTE | 2021-08-28 18:35 | Hospitalist Progress Note ---
Date of Service August 28, 2021 Assessment & Plan (1) Diabetic infection of right foot: Plan: Diabetic foot infection-- mildly infected. NO obvious cellulitis seen in ED on 08/19- discharged on ciprofloxacin 500 mg. Continued to worsen-- developed purulent drainage and foul smell No leukocytosis. Procal WNL. ESR and CRP slightly elevated at 50/1.96 respectively Foot x-ray: Diffuse soft tissue swelling without evidence of acute osteomyelitis. Clinically no abscess Admitted with Rocephin/Flagyl/Dapto--> De-escalated to Dapto when prelim culture showed GPC Santyl utilized up until this point. Has caused unroofing of ulcer which appeared to be tunneling slightly for which MRI ordered MRI shows no evidence of osteomyelitis or abscess Arterial Doppler shows no area of occlusion but borderline stenosis and calcified plaque in the right lower extremity. Patient on aspirin Wound nurse on boardappreciate recommendations Culture data showing MSSA. Patient with penicillin allergy. In the setting of ESRD, would avoid quinolones. Will transition daptomycin to Ancef with [facility] Already established with podiatry (Dr. Lovett)-- NEEDS TO BE SEEN IN FU (? whirl pool therapy once infection cleared/debridement) [place] helping with pain control (2) Eczematous dermatitis: Plan: Severe Eczema Reviewed last dermatology note from 06/2021. Patient with biopsy taken, results not available in system. Per dermatology: Utilizing phototherapy. Will continue fluconazole 200 mg weekly as recommended by dermatology. Plan is for Dupixent (dermatology trying to get prior authorization) Added topical betamethasone/clotrimazole cream with lac-hydrin to follow. This is helping Curbside with dermatology who is recommending topical urea; however, unavailable here. will add upon D/C Lac-Hydrin added for moisture (to apply over clotrimazole/betamethasone cream) Continue Vistaril. Continue Zyrtec Continue Benadryl In talking with dermatology, will get substantial relief from Dupixent (3) End stage renal disease: Plan: ESRD on daily peritoneal dialysis HD done 08/26. To have additional HD today Nephro consulted--managing fluid status. Appreciate recommendations -follow labs -renally adjust meds when appropriate Nephrocaps added Plan is for transition from peritoneal dialysis to hemodialysis given risk for peritonitis given the significant dermatitis near peritoneal catheter. Patient has immature and working fistula Case management on board to help arrange for outpatient HD. (4) DM II (diabetes mellitus, type II), controlled: Plan: Type 2 diabetes mellitus continue lantus/log (5) Dyslipidemia: Plan: - Atorvastatin 40mg held given dapto on board and risk ofr toxicity (6) Hypertension: Plan: - Amlodipine 10mg daily - Carvedilol 3.125mg daily - watch BP closely and hold if needed when HD (7) Cardiomyopathy: Plan: Nonischemic cardiomyopathy with reduced systolic function Continue carvedilol 3.125 mg p.o. twice daily Continue aspirin 81 mg daily Continue amlodipine 10 mg volume status managed by Nephrology-- appreciate this Plan: Plan is to D/C to home once transition of PD can be transitioned to HD-- case mgmt working on this Discharge awaiting arrangement of outpatient hemodialysis (as transitioning from peritoneal to HD) Medically and hemodynamically stable for discharge Admission and Anticipated Discharge Date Admission Date: August 24, 2021 Subjective Patient seen on daily rounds today. Vocalizes no significant complaints or concerns. Overall the pruritus has improved greatly. He is able to ambulate independently using his walker. Pain is adequately controlled. [place] that he is not being placed and would like to go home with transition to outpatient hemodialysis. For hemodialysis today Patient denies fevers, chills, chest pain, shortness of breath, abdominal pain, nausea or vomiting. Review of Systems Review of Systems: All systems reviewed and are unremarkable except as noted in HPI and below Denies fevers, chills, headache, nasal congestion, sore throat, cough, chest pain, shortness of breath, palpitations, orthopnea, PND, abdominal pain, nausea, vomiting, diarrhea, constipation, dysuria, hematuria, frequency, back pain, joint pain or swelling, easy bruising or bleeding, skin lesions or rashes. Physical Exam Physical Exam: General: Resting comfortably in his bedside chair. Seen ambulating from the bed to the bedside chair independently using his walker. NAD. HEENT: Head is AT/NC buccal mucosa is moist and pink Neck: No JVD. Negative hepatojugular reflex Cardiac: RRR but distant Lungs: CTA without W/R/R Abdomen: Normoactive X4. Soft and nontender in all quadrants. Extremities: See skin Neuro: A&O X4 cranial nerves II through XII are grossly intact no focal neuro deficits Skin: Patient still with generalized atopic dermatitis but overall seems significantly improved in terms of scaling/dried skin. Still with excoriations over arms. Ulcerated lesions on medial right heel seems stable. No significant drainage noted today. No significant odor noted today. Psych: Appropriate affect pleasant and cooperative Results & Data Results & Data ([facility]) Vital Signs (Past 12 Hours) Vital Signs Temp Pulse Pulse Pulse Resp BP BP 08/28/21 16:27 36.9 C 88 16 119/62 08/28/21 12:30 37.0 C 88 128/68 08/28/21 12:26 90 128/68 08/28/21 12:20 89 114/66 08/28/21 12:00 89 118/74 08/28/21 11:40 81 140/74 08/28/21 11:20 91 H 149/82 H 08/28/21 11:00 90 151/71 H 08/28/21 10:20 85 154/83 H 08/28/21 10:00 89 147/84 H 08/28/21 09:40 88 173/84 H 08/28/21 09:26 98 H 163/98 H 08/28/21 09:15 35.1 C L 91 H 08/28/21 07:51 36.7 C 80 16 138/72 Pulse Ox 08/28/21 16:27 98 08/28/21 12:30 08/28/21 12:26 08/28/21 12:20 08/28/21 12:00 08/28/21 11:40 08/28/21 11:20 08/28/21 11:00 08/28/21 10:20 08/28/21 10:00 08/28/21 09:40 08/28/21 09:26 08/28/21 09:15 08/28/21 07:51 98 Laboratory Results Laboratory Results - last 24 hr 08/27/21 08/28/21 08/28/21 20:08 07:41 08:44 WBC 7.73 RBC 3.71 L Hgb 10.9 L Hct 35.7 L MCV 96.2 MCH 29.4 MCHC 30.5 L RDW Std Deviation 54.5 H RDW Coeff of Celso 15.6 H Plt Count 315 MPV 9.1 Immature Gran % (Auto) 0.1 Neut % (Auto) 43.8 Lymph % (Auto) 17.9 [place] % (Auto) 10.0 Eos % (Auto) 27.8 Baso % (Auto) 0.4 Neut # (Auto) 3.39 Lymph # (Auto) 1.38 [place] # (Auto) 0.77 H Eos # (Auto) 2.15 H Baso # (Auto) 0.03 Immature Gran # (Auto) 0.01 Sodium Potassium Chloride Carbon Dioxide Anion Gap BUN Creatinine Est Cr Clr Drug Dosing Est GFR ( Amer) Est GFR (Non-Af Amer) BUN/Creatinine Ratio Glucose POC Glucose 130 H 113 H Calcium Magnesium 08/28/21 08/28/21 08/28/21 08:44 15:11 16:44 WBC RBC Hgb Hct MCV MCH MCHC RDW Std Deviation RDW Coeff of Celso Plt Count MPV Immature Gran % (Auto) Neut % (Auto) Lymph % (Auto) [place] % (Auto) Eos % (Auto) Baso % (Auto) Neut # (Auto) Lymph # (Auto) [place] # (Auto) Eos # (Auto) Baso # (Auto) Immature Gran # (Auto) Sodium 136 Potassium 3.6 Chloride 107 Carbon Dioxide 24 Anion Gap 5.0 BUN 41 H Creatinine 5.58 H* D Est Cr Clr Drug Dosing 16.6 Est GFR ( Amer) 12.1 Est GFR (Non-Af Amer) 10.5 BUN/Creatinine Ratio 7.4 L Glucose 173 H POC Glucose 174 H Calcium 9.1 Magnesium 2.1 PG Care Time/CCT Total # of Minutes Spent Total Time Spent with Patient: Total time spent is greater than 50% in coordination of care (as documented) at patient's floor/unit and/or counseling patient: Coding Level of Care Code 53824 Subseq Hosp Care Lvl 1 History Problem Focused Diagnoses Diabetic infection of right foot E11.628; L08.9 Eczematous dermatitis L30.9 End stage renal disease N18.6 DM II (diabetes mellitus, type II), controlled E11.9 Diabetes mellitus care home insulin use: unspecified care home insulin use status Dyslipidemia E78.5 Hypertension I10 Cardiomyopathy I42.9 (1) DM II (diabetes mellitus, type II), controlled Diabetes mellitus care home insulin use: unspecified care home insulin use status
[2021-08-28] MEDS: ACETAMINOPHEN 325 MG TAB PO PRN (21:46)
[2021-08-28] MEDS: INSULIN GLARGINE SOLOSTAR 100 UNITS/ML 3 ML PEN SC SCH (21:48)
[2021-08-29] MEDS ORDERED: FERROUS SULFATE 325 MG TAB PO SCH (09:30)
--- NOTE | 2021-08-29 09:32 | Nephrology Progress Note ---
Date of Service August 29, 2021 Assessment & Plan (1) End stage renal disease: Plan: * No acute indication for HD today. Will check labs in am but plan next HD for Monday * HD RN to provide exit site care for PD catheter (discussed w/ HD RN this am) * AVF + bruit * Patient reports improvement in peripheral edema, eczema and blood sugar control since transitioning back to HD. He is agreeable to resuming HD at [facility]. We are awaiting input from case management to coordinate outpatient HD schedule (2) Eczematous dermatitis: Plan: * PD stopped due to volume overload, worsening glycemic control and recurrent tunnel infection due to eczema * Will need close outpatient follow up w/ Dermatology. They were considering photo therapy, fluconazole, TAC lotion and Dupixent therapy. [employer] Consultant has been Dr. Jacinta Henderson (3) Diabetic infection of right foot: Plan: * Antibiotic therapy acceptably dosed for kidney dysfunction Admission and Anticipated Discharge Date Admission Date: August 24, 2021 Subjective Mr. Au was evaluated in his hospital room this morning. He reports that his peripheral edema has markedly improved and his blood sugars are better controlled off PD. He is accepting of transfer back to HD. He was last dialyzed yesterday without complication Review of Systems Constitutional: no fever Eyes: no worsening vision and no problem reported Ear, Nose, Mouth, Throat: no problem reported Respiratory: no cough and no dyspnea Cardiovascular: no chest pain, no palpitations and no edema Gastrointestinal: no abdominal pain Musculoskeletal: no back pain Integumentary: + rash and + pruritus Physical Exam Constitutional: + ill appearing; not in distress Eyes: PERRL, conjunctivae normal, anicteric sclerae ENMT: external ear and nose normal, oropharynx normal Neck: trachea midline, no thyromegaly Respiratory: normal respiratory effort, lungs clear to auscultation Cardiovascular: Rate/Rhythm: regular rate and regular rhythm Extremities: + AV fistula (+ bruit); no edema Gastrointestinal (Abdomen): normal bowel sounds, soft, nontender, no hepatosplenomegaly Skin: + rash (eczema involving scalp, face, neck, chest, abdomen, back, extremities) Neurologic: awake; not confused Results & Data ([facility]) Vital Signs (Past 12 Hours) Vital Signs Temp Pulse Pulse Resp BP Pulse Ox 08/29/21 07:23 36.7 C 82 18 148/82 H 98 08/28/21 23:11 37 C 86 16 134/70 93 PG Care Time/CCT Total # of Minutes Spent Total Time Spent with Patient: Total time spent is greater than 50% in coordination of care (as documented) at patient's floor/unit and/or counseling patient: Coding Level of Care Code 73151 Subseq Hosp Care Lvl 3 Diagnoses End stage renal disease N18.6 Eczematous dermatitis L30.9 Diabetic infection of right foot E11.628; L08.9
[2021-08-29] MEDS: AMMONIUM LACTATE 12% LOTION 225 GM BTL EXT SCH (10:23)
[2021-08-29] MEDS: hydrOXYzine HCl 25 MG TAB PO SCH ×2 (10:24→12:59)
[2021-08-29] MEDS: carvediloL 12.5 MG TAB PO SCH (10:24)
[2021-08-29] MEDS: ASPIRIN 81 MG ECTAB PO SCH (10:24)
[2021-08-29] MEDS: DOCUSATE SODIUM 100 MG CAP PO SCH (10:25)
[2021-08-29] MEDS: CETIRIZINE HCL 10 MG TABLET PO SCH (10:25)
[2021-08-29] MEDS: FUROSEMIDE 20 MG TAB PO SCH (10:25)
[2021-08-29] MEDS: HEPARIN SOD 5,000 UNIT/0.5 ML VIAL SQ SCH (10:26)
[2021-08-29] MEDS: NEPHROCAPS PO SCH (10:26)
[2021-08-29] MEDS: carvediloL 3.125 MG TAB PO SCH (10:26)
[2021-08-29] MEDS: INSULIN ASPART 100 UNITS/ML 3 ML PEN SC SCH ×4 (10:28→18:31)
[2021-08-29] MEDS: COLLAGENASE OINT 30 GM TUBE EXT SCH (10:28)
[2021-08-29] MEDS: INSULIN GLARGINE SOLOSTAR 100 UNITS/ML 3 ML PEN SC SCH (10:32)
[2021-08-29] MEDS: POLYETHYLENE (MIRALAX) 17 GM PACK PO SCH (10:34)
[2021-08-29] MEDS: CLOTRIMAZOLE/BETAMETHASONE CR 15 GM TUBE EXT SCH (10:35)
--- NOTE | 2021-08-29 15:12 | Discharge Summary ---
Date of Service August 29, 2021 Admission HPI Per Admitting Provider Chavo is a 55-year-old male with a past medical history of diabetic foot ulcers, end-stage renal disease with daily peritoneal dialysis, psoriasis, cardiomyopathy with CHF, type 2 diabetes, polyneuropathy who was discharged on Cipro 6 days ago for a right foot infection who has continued to worsen with wound drainage and foul smell in the interim. He presents for reassessment and treatment of a right foot infection. Last week skin 'started popping off' his legs after soaking them which then started to hurt. Came to the ER and was palced on an antibiotic, but 'that shit didn' work. It's too far gone for pills.' Wenth ome and changing his socks noted a terrible smell and smelling like ammonia. Right foot is painful on the bottom surface. Reports has severe eczema not psoiasis for years. Reports has used steroids in the past, but cause problems with blood sugars and infection and 'messes with my heart rate.'. December 2019 say dermatology in [place]. took steroids for 3- 4 months which didn't help, but did elevate his blood sugars. Switched providers and saw [facility] who took him off steroids and started him on dry baths and phototherapy. Biopsy taken, pending. Has been considering antifungal treatment, most recently being set up with potential Dupixent as outpatient. L eye soft tissue pominence, whole life. Reports he and family members have had the same thing, has not changed. Unable to see from left eye. Intact in right eye Denies fevers, chills, sweats, difficulty breathing, chest pain, chest pressure, palpitations. Medical History: Reviewed Medications: Reviewed Surgical History: Reviewed Allergies: Reviewed Social History: Lives tobacco/alcohol/recreational drug use Code Status: Full code - Principal Diagnosis 1. Infectious diabetic foot ulcerMSSA 2. Severe pruritus and atopic dermatitis 3. End-stage renal diseaseperitoneal dialysis transitioned to hemodialysis due to skin inflammation and risk for peritoneal catheter infection/peritonitis Discharge Exam General: Resting comfortably in his bedside chair. Seen ambulating from the bed to the bedside chair independently using his walker. NAD. HEENT: Head is AT/NC buccal mucosa is moist and pink Neck: No JVD. Negative hepatojugular reflex Cardiac: RRR but distant Lungs: CTA without W/R/R Abdomen: Normoactive X4. Soft and nontender in all quadrants. Extremities: See skin Neuro: A&O X4 cranial nerves II through XII are grossly intact no focal neuro deficits Skin: Patient still with generalized atopic dermatitis but overall seems significantly improved in terms of scaling/dried skin. Still with excoriations over arms. Ulcerated lesions on medial right heel seems stable. No significant drainage noted today. No significant odor noted today. Psych: Appropriate affect pleasant and cooperative Discharge Data Allergies Allergy/AdvReac Type Severity Reaction Status Date / Time Penicillins AdvReac Severe Cramping Verified 08/24/21 16:33 of the Muscles Consultations 08/24/21 18:49 ED Decision to Admit Stat 08/24/21 21:36 Consult Nephrology Routine (1) End stage renal disease: Plan: * No acute indication for HD today. Will check labs in am but plan next HD for Monday * HD RN to provide exit site care for PD catheter (discussed w/ HD RN this am) * AVF + bruit * Patient reports improvement in peripheral edema, eczema and blood sugar control since transitioning back to HD. He is agreeable to resuming HD at [facility]. We are awaiting input from case management to coordinate outpatient HD schedule (2) Eczematous dermatitis: Plan: * PD stopped due to volume overload, worsening glycemic control and recurrent tunnel infection due to eczema * Will need close outpatient follow up w/ Dermatology. They were considering photo therapy, fluconazole, TAC lotion and Dupixent therapy. [employer] Supervisor has been Dr. Jacinta Henderson (3) Diabetic infection of right foot: Plan: * Antibiotic therapy acceptably dosed for kidney dysfunction 08/26/21 15:39 Consult Health Information Management Routine Ordered Studies 08/25/21 14:30 US arterial duplex LE RT Routine IMPRESSION: 1. Borderline stenosis within the right popliteal artery. 2. No areas of arterial occlusion within the right lower extremity. 3. Near diffuse calcified plaque within the right lower extremity arterial system. This likely accounts for the monophasic waveforms seen within the right popliteal artery and calf vessels. 08/26/21 10:35 MR ankle RT wo con Routine IMPRESSION: 1. Motion degraded exam. 2. Small cutaneous ulcer of the heel without abscess or evidence of osteomyelitis. 3. Subcentimeter chronic appearing osteochondral defect of the medial talar dome. 4. Mild to moderate diffuse subcutaneous edema with chronic denervation changes of the musculature. Hospital Course (1) Diabetic infection of right foot: Diabetic foot infection-- mildly infected. NO obvious cellulitis seen in ED on 08/19- discharged on ciprofloxacin 500 mg. Continued to worsen-- developed purulent drainage and foul smell No leukocytosis. Procal WNL. ESR and CRP slightly elevated at 50/1.96 respectively Foot x-ray: Diffuse soft tissue swelling without evidence of acute osteomyelitis. Clinically no abscess Admitted with Rocephin/Flagyl/Dapto--> De-escalated to Dapto when prelim culture showed GPC Santyl utilizedupfront. Has caused unroofing of ulcer which appeared to be tunneling slightly for which MRI ordered MRI showed no evidence of osteomyelitis or abscess Arterial Doppler shows no area of occlusion but borderline stenosis and calcified plaque in the right lower extremity. Patient on aspirin Wound nurse on boardappreciate recommendations Culture data showing MSSA. Patient with penicillin allergy. In the setting of ESRD, would avoid quinolones. Dapto transitioned to Ancef (despite PCN Allergy) - patient tolerated ancef without issues. D/C with Duricef Already established with podiatry (Dr. Lovett)-- NEEDS TO BE SEEN IN FU (? whirl pool therapy once infection cleared/debridement) [place] helping with pain control - continue with wound care: as outlined in patient instructions (2) Eczematous dermatitis: Severe Eczema Reviewed last dermatology note from 06/2021. Patient with biopsy taken, results not available in system. Per dermatology: Utilizing phototherapy. Will continue fluconazole 200 mg weekly as recommended by dermatology. Plan is for Dupixent (dermatology trying to get prior authorization) Added topical betamethasone/clotrimazole cream with lac-hydrin to follow. This is helping Curbside with dermatology who is recommending topical urea; however, unavailable here but will add upon D/C Lac-Hydrin added for moisture (to apply over clotrimazole/betamethasone cream) Continue Vistaril. Continue Zyrtec Continue Benadryl In talking with dermatology, will get substantial relief from Dupixent (3) End stage renal disease: ESRD on daily peritoneal dialysis HD done 08/26 and 08/28 (tolerated well) Nephro consulted--managing fluid status. Appreciate recommendations -labs followed -renally adjust meds when appropriate Nephrocaps added peritoneal dialysis has been transitioned back to to hemodialysis given risk f or peritonitis given the significant dermatitis near peritoneal catheter. Patient has immature and working fistula continue with HD upon D/C (was told that he can get session of Monday and Nephrology has confirmed this and reports okay to wait until Monday)--> appreciate co-management (4) DM II (diabetes mellitus, type II), controlled: Type 2 diabetes mellitus continue lantus/log (5) Dyslipidemia: - Atorvastatin 40mg held given dapto on board and risk of toxicitiy. - okay to resume upon D/C (6) Hypertension: - Amlodipine 10mg daily - Carvedilol 3.125mg daily - watch BP closely and hold if needed when HD (7) Cardiomyopathy: Nonischemic cardiomyopathy with reduced systolic function Continue carvedilol 3.125 mg p.o. twice daily Continue aspirin 81 mg daily Continue amlodipine 10 mg volume status managed by Nephrology-- appreciate this D/C to [facility] Total Time Total Time Spent Total Time Spent (In Minutes): 60 min including coordination with case mgmt and nephro, discuss with patient, and completion of documentation Discharge Plan Discharge Items Patient Disposition: Transfer Inpatient Rehab Fac Reason For Visit: DIABETIC FOOT INFECTION Discharge Diagnosis: 1. Diabetic foot ulcer with infection- MSSA 2. ESRD- on dialysis 3. Severe Atopic Dermatitis Activity: Resume your previous activity Weightbearing: Full weightbearing Weightbearing Comment: as tolerated to RLE Non-emergency contact: Primary Care Provider, Specialist and Legal Billing Coordinator Call non-emergency contact if: you have any medication questions Follow-up/Referrals: Ann Marie Azevedo CRNP [Primary Care Provider] - Diet: Dialysis Renal Addtl Attending Provider Instructions: - you were hospitalized with an infected diabetic foot ulcer (that grew MSSA) - complete full course of antibiotic therapy - follow up with wound care for the foot ulcer. For now, keep clear with soap and water. Pat dry. apply mupirocin oint or even triple abx and cover with nonadherent pad and wrap with gauze. Let open to air to sleep. Orders can be changed per attending. - can also use antibiotic ointment to the crack on the bottom of the right foot - follow up with [facility] (Dr. Lovett) - recommend wound care (if available at [facility]) - Your peritoneal dialysis has been transitioned to hemodialysis and you are to get your next session on Monday at [facility] - Fluid balance/Diaylsis to be managed by Dr. Bhardwaj/neprhology - In regards to your dermatitis-- use the lotrisone cream mixed with urea and after applying this, apply Lac-Hydrin. Follow up with dermatology as they are trying to get Dupixent covered for you (which will likely yield HUGE results). - you have been started on zyrtec in the am, atarax 3x/day and as needed benadryl to help alleviate the itch - follow up with the house Physician: 24-48 hours - follow up labs at the discretion of house physician/nephrology Pending Studies at Discharge: No Stand-Alone Forms: My [facility] Skilled Items Patient informed of condition?: Yes DNR: No Discharge Level of Care: Acute rehab Communicable Disease: No Discharge Prognosis: Improving Lines: None Urinary Catheter: No Medications and DC Order Prescriptions: New fluconazole 100 mg Tablet 200 mg PO Fr@1600 Qty: 7 RF: 0 cetirizine 10 mg Tablet 10 mg PO QAM Qty: 30 RF: 0 hydrocodone-acetaminophen 5-325 mg Tablet 1 tab PO Q6H PRN (Reason: pain) Qty: 24 RF: 0 diphenhydramine HCl [Benadryl] 25 mg Capsule 25 mg PO Q6H PRN (Reason: breakthrough pruritis) Qty: 30 RF: 0 clotrimazole-betamethasone 1-0.05 % Cream 1 applic EXT BID Qty: 45 RF: 0 hydroxyzine HCl 25 mg Tablet 25 mg PO TID Qty: 90 RF: 0 Renal Caps 1 mg Capsule 1 cap PO QAM Qty: 30 RF: 0 Lac-Hydrin Five 5 % Lotion 1 applic EXT BID Qty: 226 RF: 0 urea 40 % cream 1 applic topical BID Qty: 198 RF: 0 cefadroxil 500 mg capsule 500 mg PO BID Qty: 11 RF: 0 Continued ferrous sulfate 325 mg (65 mg iron) tablet 325 mg PO DAILY Qty: 90 RF: 3 Basaglar KwikPen U-100 Insulin 100 unit/mL (3 mL) insulin pen See Rx Instructions SQ DAILY Qty: 15 RF: 3 insulin aspart U-100 100 unit/mL (3 mL) insulin pen See Rx Instructions SQ AC Qty: 15 RF: 3 mupirocin 2 % ointment 1 applic topical BID Qty: 22 RF: 1 atorvastatin 40 mg tablet 40 mg PO HS Qty: 90 RF: 3 furosemide 20 mg tablet 20 mg PO DAILY Qty: 90 RF: 1 hydralazine 100 mg tablet 100 mg PO TID Qty: 270 RF: 1 carvedilol 12.5 mg tablet 12.5 mg PO BID Qty: 180 RF: 1 amlodipine 10 mg tablet 10 mg PO QAM Qty: 90 RF: 1 aspirin 81 mg tablet,delayed release (DR/EC) 81 mg PO QAM Qty: 90 RF: 1 carvedilol 3.125 mg tablet 3.125 mg PO BID Qty: 180 RF: 1 docusate sodium 100 mg capsule 100 mg PO BID Qty: 180 RF: 1 hydroxyzine HCl 10 mg/5 mL solution See Rx Instructions PO .qhs PRN (Reason: itching) Qty: 473 RF: 6 diclofenac sodium 1 % Gel 2 g TOPICAL TID RF: 0 Discontinued betamethasone dipropionate 0.05 % lotion 1 applic topical BID PRN (Reason: Rash) RF: 0 ciprofloxacin HCl [Cipro] 500 mg tablet 500 mg PO DAILY 6 Days Qty: 6 RF: 0 Discharge Orders: Discharge Order (Routine); Ordered 08/29/21 Ordered By: Ramona James Admission Data Admit Date/Time: 08/24/21 19:45 Attending Provider: Migel Esquivel Admit Provider: Tez Nixon Primary Care Provider: Ann Marie Azevedo Other Providers: Migel Esquivel ; [facility] ; Tez Nixon ; Dane Purdy Other Interventions: Discharge Summary Assessment (RN) Last Done: 08/29/21 15:30 Supervising Physician Co-Signing Physician Notes I supervised Ramona James PA-C on the care of this patient. I interviewed and examined the patient independently of her. The plan is as written in her note except for any following changes/exceptions: None Doing well today. Reports his rash is improving. Abx plan to complete course with cefadroxil. Plan to discharge to [facility] today. Nephrology aware and will continue HD there. Coding Level of Care Code D/C DAY MANAGEMENT >30 MINS Diagnoses Diabetic infection of right foot E11.628; L08.9 Eczematous dermatitis L30.9 End stage renal disease N18.6 DM II (diabetes mellitus, type II), controlled E11.9 Diabetes mellitus intermediate teacher insulin use: unspecified intermediate teacher insulin use status Dyslipidemia E78.5 Hypertension I10 Cardiomyopathy I42.9
[2021-08-29] MEDS: ceFAZolin 1000MG 1,000 MG/7.5 ML SYR IV SCH (18:34)
== END 2021-08-29 20:30 | DRG 638 ==
LOC: ED 15:15 → 2W 19:45 → SUATTDRO 19:45 → 2W 21:01

== ENCOUNTER 2025-06-24 10:00 | Inpatient (IN) ==
--- NOTE | 2025-06-24 10:40 | Emergency Department Note ---
ED Visit Note PROCEDURE: The patient does have what clinically appears to be an abscess to the posterior inferior scalp region/superior neck. Patient was seen and evaluated by Dr. Chavez. I was present for wound I&D. Verbal consent was obtained. Benefit versus risk of the procedure reviewed with patient. It is felt that the benefit outweighed risk. After saline and Betadine cleansing and let gel topical anesthesia, the abscess was incised with a number 11 scalpel blade. A large amount of purulent material was released with more expressed by pressure. A swab was obtained for culture. There is a large amount of surrounding induration and tenderness surrounding the abscess I am concerned that the infection is involving a larger area than what can be managed as an outpatient. I discussed this with Dr. Chavez and plan will be for obtaining laboratory studies and imaging of the area. At this time we will hold off on further I&D pending further assessment. Dressing was placed over the wound. .
--- NOTE | 2025-06-24 10:45 | Emergency Department Note ---
Impression & Plan Abscess or cellulitis of scalp, Renal failure (ARF), acute on chronic ED Provider Note NAME: CORINE VAZQUEZ AGE: 59 SEX: M : 1965 ARRIVES VIA: Walk-In INFORMANT: Patient, ED PROVIDER(S): Elias Chavez DO CHIEF COMPLAINT: Scalp swelling HPI: The patient is a 59-year-old male who presents to the emergency department for an evaluation of scalp swelling. The patient noted scalp swelling a couple weeks ago. He tried to see his family doctor but was unable to. He denies having any fever nausea or vomiting. He does complain of significant pain in the area. ROS: See above HPI for pertinent positives & negatives. A total of 6 systems reviewed and were otherwise negative. PAST MEDICAL HISTORY: See Below PAST SURGICAL HISTORY: See Below FAMILY HISTORY: See Below SOCIAL HISTORY: See Below HOME MEDICATIONS: See Below ALLERGIES: See Below VITALS: See Below PHYSICAL EXAMINATION: GENERAL: Patient is awake alert in no acute distress patient is resting comfortably and showing no signs of anxiety EYES: The conjunctivae are clear. The pupils are round and reactive. EARS, NOSE, MOUTH AND THROAT: The nose is without any evidence of any deformity. There is swelling in the occipital scalp with pointing. There are surrounding erythema. This has the appearance of an abscess. RESPIRATORY: Normal respiratory effort is noted there is no evidence of wheezing rhonchi or rales CARDIOVASCULAR: Regular rate and rhythm noted there no murmurs rubs or gallops normal S1 normal S2. GASTROINTESTINAL: The abdomen is soft. Abdomen is nontender. MUSCULOSKELETAL/EXTREMITIES: There is no evidence of gross deformity full range of motion is noted in the hips and shoulders. SKIN: No significant pedal edema was noted. NEUROLOGIC: Patient is awake alert and oriented x3 MEDICAL DECISION MAKING: The patient is a 59-year-old male who presented to the emergency department for an evaluation of swelling over his occipital scalp. The patient's history and physical exam appear to be consistent with an abscess. This was evaluated by my physician dyer assistant, Tyrone Humphrey PA-C. Please see his note for initial incision and drainage. This was felt to be very extensive. It was not felt to be completely addressed with the initial incision and drainage. For this reason further laboratory and radiographic studies were obtained. The patient was treated with IV antibiotics. I discussed his condition with the on-call [facility] hospitalist as well as the on-call general surgeon. They have agreed to evaluate the patient in the emergency department for further management and disposition. Triage Nursing notes reviewed. Prior medical records reviewed Vital Signs: reviewed and remarkable for no significant abnormalities Differential diagnosis: Cellulitis, abscess, MRSA infection, DVT, necrotizing fasciitis, dermatitis, drug eruption, allergic reaction, as well as other pathologies. ER treatment provided: See below Diagnostics interpreted by me: ECG: none Cardiac Monitoring: An order was placed for continuous cardiac monitoring. The monitor shows a rate of 86 bpm with sinus rhythm. Laboratory studies: As stated above and show below. Imaging studies: See below. Radiographic imaging was reviewed by myself Consultation(s): I discussed this case with Dr. Roth who is on-call for general surgery. I discussed this case with Dr. Archuleta who is on-call for the [facility]. 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 Normal left ventricular systolic function and wall motion History of amputation of toe Loss of protective sensation of skin of foot Diabetic peripheral neuropathy associated with type 2 diabetes mellitus Peripheral vascular disease End-stage renal disease (ESRD) (Chronic) HM- M/W/F- [place] Arthralgia of multiple joints Eczematous dermatitis (Chronic) Psoriasis (a type of skin inflammation) Dyslipidemia (Chronic) Vitamin D deficiency (Chronic) Hypertension (Chronic) Anemia (Acute) DM II (diabetes mellitus, type II), controlled (Chronic) Medical History Epidermoid cyst of skin of back History of CHF (congestive heart failure) Hidradenitis suppurativa Adverse reaction to anesthetic agent "stopped breathing" Bilateral shoulder pain Left shoulder pain Rash Left ventricular hypertrophy Mild left ventricular systolic dysfunction Cardiomyopathy History of shingles Blindness of left eye Surgical History History of removal of cyst (01/10/22) Skin, cyst of back, excision: - Features suggestive of a ruptured epidermoid cyst in office procedure Dr. Roth S/P arteriovenous (AV) fistula creation R AVF 10/2019 and transposed 07/14/20-Dr. Goddard S/P eye surgery S/P carpal tunnel release Right Family History Unknown No pertinent family history Other Hypertension Denies family history of Colon cancer Ovarian cancer Prostate cancer Myocardial infarction Breast cancer Social History Smoking Status: Never smoker Cigarettes Per Day: 3-4; Second Hand Exposure: Yes; Do You Dip or Chew Tobacco: No; Hx Alcohol Use: No Hx Substance Use: No Preferred Language: Japanese Communication Ability: Effective Visual Impairment: Partially Limited Hearing Ability: Normal Card Writer Hand Required: No Beliefs That Will Affect Care: None marital status: Single Current Living Situation: Alone current occupational status: disabled How many Children do You have: 0 Feels Safe at Home: Yes Childhood Exposure to Second-Hand Smoke: Yes Diet: diabetic caffeine: Yes (coffee) during the past year weight has: remained stable Dental Care, Regularly: No Physical Activity Frequency: Daily Seatbelt Use: always Sunscreen Use: No Gender Identity: Male Assistive Devices: Walker Allergies Allergies Allergy/AdvReac Type Severity Reaction Status Date / Time adhesive tape Allergy Verified 06/24/25 10:58 Penicillins AdvReac Severe Cramping Verified 06/24/25 10:58 of the Muscles Inhaled Anesthetics (Halogen AdvReac bronchospas Verified 06/24/25 10:58 Based) m? Home Meds Home Medications Medication Instructions Recorded Confirmed dupilumab 300 mg/2 mL subcutaneous 300 mg subcut Q14D 06/24/25 06/24/25 pen injector (Dupixent) insulin aspart U-100 100 unit/mL 5 - 7 sliding scale dose subcut AC 06/24/25 06/24/25 (3 mL) subcutaneous pen diabetes insulin glargine 100 unit/mL (3 3 - 4 unit subcut HS 06/24/25 06/24/25 mL) subcutaneous pen (Basaglar KwikPen U-100 Insulin) nystatin 100,000 unit/gram topical 1 applic topical BID PRN FLARE 06/24/25 06/24/25 cream sucroferric oxyhydroxide 500 mg 1,500 mg PO TIDWMEAL 06/24/25 06/24/25 chewable tablet (Velphoro) Previous Rx's Medication Instructions Recorded Hospital Bed [facility] (Hospital #1 ea 01/12/22 Bed) OneTouch Delica Lancets 30 gauge #400 ea 02/18/22 (lancets) OneTouch Verio Meter #1 ea 02/18/22 (blood-glucose meter) vitamin B complex and vitamin C 1 cap PO QAM #30 caps 08/17/22 no.20-folic acid 1 mg capsule (Renal Caps) OneTouch Verio test strips (blood #400 ea 03/01/23 sugar diagnostic) blood-glucose sensor (Dexcom G6 #3 ea 03/10/23 Sensor device) blood-glucose transmitter (Dexcom #1 ea 03/13/23 G6 Transmitter device) blood-glucose,green ware caster,cont #1 ea 03/13/23 (Dexcom G6 [employer]) pen needle, diabetic 31 gauge x #300 ea 01/05/2403/14" (Unifine Pentips) clotrimazole 1 % topical cream 1 applic topical BID #45 grams 02/15/24 (Lotrimin AF (clotrimazole)) aspirin 81 mg tablet,delayed 81 mg PO QAM #90 tabs 08/14/24 release bumetanide 2 mg tablet 2 mg PO BID 90 days #180 tabs 10/17/24 carvedilol 6.25 mg tablet 6.25 mg PO BID #180 tabs 01/02/25 atorvastatin 40 mg tablet 40 mg PO HS #90 tabs 01/27/25 hydralazine 50 mg tablet 50 mg PO TID #270 tabs 03/04/25 betamethasone dipropionate 0.05 % 1 applic topical BID #45 grams 04/10/25 topical cream amlodipine 10 mg tablet 10 mg PO QAM #90 tabs 04/23/25 docusate sodium 100 mg capsule 100 mg PO BID PRN constipation #60 04/23/25 (Stool Softener) caps mupirocin 2 % topical ointment 1 applic topical BID #44 grams 05/19/25 semaglutide 0.25 mg or 0.5 mg (2 0.5 mg (0.736 mL) subcut WK #3 mL 06/17/25 mg/3 mL) subcutaneous pen injector (Ozempic) Results & Data (ED) Vital Signs Vital Signs - 24 hr 06/24/25 10:11 06/24/25 13:47 Temperature 36.5 C 36.5 C Temperature Source Temporal Artery Scan Oral Pulse Rate 96 H Pulse Rate [Right Finger] 86 Pulse Rhythm [Right Finger] Regular Pulse Strength [Right Finger] Normal Respiratory Rate 18 20 Respiratory Effort / Characteristics Non-Labored Non-Labored Respiratory Depth Normal Normal Respiratory Pattern Regular Regular Blood Pressure 135/66 Blood Pressure [Right Arm] 154/101 H Blood Pressure Mean 89 Blood Pressure Mean [Right Arm] 118 Blood Pressure Position [Right Arm] Lying Pulse Oximetry 94 97 Oxygen Delivery Method Room Air Room Air Sepsis Recent Fever Within 48 Hours No Sepsis New/Unexplained Change in Mental Status N/A Sepsis Action Taken by Nursing No Action Required Home Medications Current Medication List: was personally reviewed by me Laboratory Data Attestation: I reviewed the patient's lab results. 06/24/25 12:44 06/24/25 14:46 Lab Results 06/24/25 06/24/25 06/24/25 Range/Units 12:44 12:49 14:46 WBC 9.00 (4.8-10.8) K/ul RBC 3.38 L (4.70-6.10) M/uL Hgb 10.6 L (14.0-18.0) g/dl POC Hgb 11.9 L (14.0-18.0) g/dl Hct 31.9 L (42.0-52.0) % POC Hct 35 L (42-52) % MCV 94.4 (80.0-100.0) fL MCH 31.4 (25.0-34.0) pg MCHC 33.2 (32.0-36.0) g/dL RDW Std Deviation 57.1 H (36.4-46.3) fL RDW Coeff of Celso 16.4 H (11.5-14.5) % Plt Count 197 (130-400) K/uL MPV 9.5 (9.4-12.4) fL Immature Gran % (Auto) 0.2 % Neut % (Auto) 67.7 % Lymph % (Auto) 17.0 % Vernon % (Auto) 11.0 % Eos % (Auto) 3.8 % Baso % (Auto) 0.3 % Neut # (Auto) 6.09 (1.40-6.50) K/uL Lymph # (Auto) 1.53 (1.20-3.40) K/uL Vernon # (Auto) 0.99 H (0.11-0.59) K/uL Eos # (Auto) 0.34 (0.00-0.50) K/uL Baso # (Auto) 0.03 (0.00-0.20) K/uL Immature Gran # (Auto) 0.02 (0.01-0.20) K/uL POC Sodium 134 L (135-144) mmol/L Sodium 132 L (136-145) mmol/L POC Potassium 5.1 H (3.3-5.0) mmol/L Potassium TNP 4.6 POC Chloride 96 L (101-112) mmol/L Chloride 94 L (98-107) mmol/L Carbon Dioxide 25 (21-32) mmol/L POC Total CO2 24 (24-31) mmol/L Anion Gap 13 H (3-11) POC Anion Gap 20.0 (16-25) mmol/L POC BUN 138 H* (7-18) mg/dl BUN 133 H (6-23) mg/dl Creatinine 13.21 H* (0.6-1.4) mg/dl POC Creatinine 15.0 H* (0.6-1.3) mg/dl Est Cr Clr Drug Dosing 7.2 ml/min eGFR 3.89 BUN/Creatinine Ratio 10.1 (10-20) Glucose 101 H (70-99(Fasting)) mg/dl POC Glucose (other) 105 H (70-99) mg/dl Calcium 9.3 (8.6-10.3) mg/dl POC Ioniz Calcium Jeremy 1.01 L (1.12-1.32) mmol/l C-Reactive Protein 8.01 H (0-0.5) mg/dl Procalcitonin (0-0.5) ng/ml 06/24/25 Range/Units 14:48 WBC (4.8-10.8) K/ul RBC (4.70-6.10) M/uL Hgb (14.0-18.0) g/dl POC Hgb (14.0-18.0) g/dl Hct (42.0-52.0) % POC Hct (42-52) % MCV (80.0-100.0) fL MCH (25.0-34.0) pg MCHC (32.0-36.0) g/dL RDW Std Deviation (36.4-46.3) fL RDW Coeff of Celso (11.5-14.5) % Plt Count (130-400) K/uL MPV (9.4-12.4) fL Immature Gran % (Auto) % Neut % (Auto) % Lymph % (Auto) % Vernon % (Auto) % Eos % (Auto) % Baso % (Auto) % Neut # (Auto) (1.40-6.50) K/uL Lymph # (Auto) (1.20-3.40) K/uL Vernon # (Auto) (0.11-0.59) K/uL Eos # (Auto) (0.00-0.50) K/uL Baso # (Auto) (0.00-0.20) K/uL Immature Gran # (Auto) (0.01-0.20) K/uL POC Sodium (135-144) mmol/L Sodium (136-145) mmol/L POC Potassium (3.3-5.0) mmol/L Potassium POC Chloride (101-112) mmol/L Chloride (98-107) mmol/L Carbon Dioxide (21-32) mmol/L POC Total CO2 (24-31) mmol/L Anion Gap (3-11) POC Anion Gap (16-25) mmol/L POC BUN (7-18) mg/dl BUN (6-23) mg/dl Creatinine (0.6-1.4) mg/dl POC Creatinine (0.6-1.3) mg/dl Est Cr Clr Drug Dosing ml/min eGFR BUN/Creatinine Ratio (10-20) Glucose (70-99(Fasting)) mg/dl POC Glucose (other) (70-99) mg/dl Calcium (8.6-10.3) mg/dl POC Ioniz Calcium Jeremy (1.12-1.32) mmol/l C-Reactive Protein (0-0.5) mg/dl Procalcitonin 0.89 H (0-0.5) ng/ml Administered Medications Discontinued Medications Cephalexin HCl (Cephalexin 250 Mg Cap) 500 mg PO NOW ONE Stop: 06/24/25 10:36 Last Admin: 06/24/25 11:17 Dose: 500 mg Documented By: kimberley Ceftriaxone Sodium (Rocephin) 2,000 mg in 50 mls @ 100 mls/hr IV NOW STA; Protocol Stop: 06/24/25 12:22 Last Admin: 06/24/25 15:54 Dose: 100 mls/hr Documented By: ROMAN Lidocaine (Lidocaine/Epineph/Tetracaine 1 Ea Syr) 1 each EXT NOW STA Stop: 06/24/25 10:41 Last Admin: 06/24/25 11:03 Dose: 1 each Documented By: kimberley Oxycodone HCl (Oxycodone Hcl Ir 5 Mg Tab (Immediate Release)) 5 mg PO NOW STA Stop: 06/24/25 10:36 Last Admin: 06/24/25 11:16 Dose: 5 mg Documented By: kimberley Imaging Data Attestation: I personally reviewed and interpreted this imaging study as follows: My Impression: CT of the brain was obtained in the emergency department. Occipital scalp swelling was noted, final report below. Radiologist's Impression: Head CT 06/24/25 13:09 CT head/brain wo con CLINICAL HISTORY: 59 years-old Male with abscess, occipital region. Occipital scalp soft tissue swelling TECHNIQUE: Multiple axial CT images of the head were obtained without contrast. A dose lowering technique was utilized adhering to the principles of ALARA. COMPARISON: CT soft tissue neck of same day, head CT 01/07/2019 FINDINGS: No acute intracranial hemorrhage, midline shift, intracranial mass, hydrocephalus, territorial ischemia or abnormal extra-axial collection. The calvarium is intact. 3.5 cm occipital/suboccipital cellulitis with complex 3.5 cm fluid collection within the posterior midline.A bilobed low-attenuation structure which appears contained fat and fluid is partially visualized in the left temporal soft tissues below the zygomatic arch. This is been present dating back to 2019. Mild mucosal thickening of the paranasal sinuses. The mastoid air cells are clear. Ill-defined hyperdensity noted within the posterior aspect of the left globe IMPRESSION: 1. No acute intracranial abnormality. 2. Probable cellulitis within the occipital/suboccipital tissues with a 3.5 cm complex collection, possibly an abscess or infected sebaceous cyst. 3. Nonspecific increased density within the left globe. Follow-up with ophthalmology recommended. ACT 112: Negative or not required by law. The above report was generated using voice recognition software. It may contain grammatical, syntax or spelling errors. Electronically signed by: Kashif Botello M.D. 06/24/2025 2:50 PM Soft Tissue Neck CT 06/24/25 13:09 CT SCAN OF THE NECK WITHOUT IV CONTRAST CLINICAL HISTORY: Occipital abscess. COMPARISON STUDY: CT of the brain dated 01/07/2019 TECHNIQUE: Unenhanced CT scan of the soft tissues of the neck was performed from the skull base to the upper chest. Images are reviewed in the axial, sagittal, and coronal planes. IV contrast was not administered for this examination. Note that the examination is suboptimal without IV contrast. A dose lowering technique was utilized adhering to the principles of ALARA. CT DOSE: 1607.9 mGy.cm FINDINGS: Soft tissues: A right internal jugular central venous catheter is in place. There is atherosclerotic calcification of the carotid bulbs. There is inflammation within the occipital/suboccipital soft tissues. A thick-walled fluid collection in the occipital/suboccipital soft tissues in the posterior midline on axial image #52 measures 3.1 x 2.4 x 3.5 cm. A 7 mm more inferiorly located pocket of fluid is seen at the dermal surface on image #107. A bilobed low-attenuation structure which appears contained fat and fluid is partially visualized in the left temporal soft tissues below the zygomatic arch on axial image #3. This is been present dating back to 2018. Pharynx: The unenhanced regional soft tissues are grossly unremarkable. The pharyngeal airway is widely patent. The epiglottis is normal. The vocal cords are symmetric. The parapharyngeal fat is well maintained. The prevertebral/retropharyngeal soft tissues are within normal limits. Lymphadenopathy: No cervical lymphadenopathy is seen Thyroid: Normal in size and heterogeneous in attenuation. Salivary glands: The parotid and submandibular glands are within normal limits. Brain parenchyma: The visualized brain parenchyma at the skull base is normal in appearance. Skeletal structures: The skeletal structures are osteopenic. Imaged portions of the calvarium at the skull base are within normal limits. The cervical spine appears intact noting multilevel spondylosis. The patient is edentulous. Orbits: The bladder was grossly intact. There is a right ocular lens implant. Layering hyperdense material suggested within the left lobe on axial image #14. Sinuses and mastoids: Moderate mucosal thickening is seen within the left posterior ethmoid sinus. There is mild mucosal thickening in the left sphenoid sinus. Trace mucosal thickening is observed in the maxillary antra. The mastoid air cells are well pneumatized. Lung apices: Visualized apical lung parenchyma is clear. IMPRESSION: 1. There is evidence of occipital/suboccipital cellulitis. A 3.5 cm fluid collection in the posterior midline in this region could represent an abscess or possibly an infected sebaceous cyst. Clinical correlation will be required. 2. A bilobed low-attenuation structure in the left temporal soft tissues below the zygomatic arch is again noted and appears to contain fat/fluid. This was also seen in 2015. Clinical correlation will be essential. 3. The unenhanced pharyngeal soft tissues are grossly unremarkable. 4. There is layering hyperdense material within the left globe. This could represent hemorrhage or possibly proteinaceous debris. This is new from 2019 and clinical correlation will be required. Consider ophthalmologic assessment. ACT 112: Negative or not required by law. Electronically signed by: José Good M.D. 06/24/2025 2:18 PM Discharge Plan Visit Data Chief Complaint: Head Pain Stated Complaint: PAINFUL BUMP ON THE HEAD ED Provider: Elias Chavez Discharge Problem: Abscess or cellulitis of scalp, Renal failure (ARF), acute on chronic Patient Disposition: Being Evaluated by Hospitalist Condition: Fair Forms Stand Alone Forms: [facility] Prescriptions Prescriptions: No Action (DME) Hospital Bed Misc See Rx Instructions .Route Qty: 1 0RF Rx Instructions: [facility] BED; DX: I50.9, M25.519 (DME) lancets [OneTouch Delica Lancets] 30 gauge misc See Rx Instructions .Route Qty: 400 3RF Rx Instructions: TEST 4 TIMES DAILY (DME) blood-glucose meter [OneTouch Verio Meter] Misc See Rx Instructions .Route Qty: 1 0RF Rx Instructions: TEST 4 TIMES DAILY Renal Caps 1 mg capsule 1 cap PO QAM Qty: 30 11RF (DME) OneTouch Verio test strips Strip See Rx Instructions .Route Qty: 400 3RF Rx Instructions: TEST 4 TIMES DAILY (DME) Dexcom G6 Sensor Device See Rx Instructions .Route Qty: 3 3RF Rx Instructions: can be worn up to 10 days (DME) Dexcom G6 [employer] Misc See Rx Instructions .Route Qty: 1 0RF Rx Instructions: As directed (DME) Dexcom G6 Transmitter Device See Rx Instructions .Route Qty: 1 3RF Rx Instructions: change every 90 days (DME) pen needle, diabetic [Unifine Pentips] 31 gauge x 5/16" needle See Rx Instructions .ROUTE .COMPLEX Qty: 300 3RF Dose Instruction: use to inject insulin up to 6 times daily Rx Instructions: use to inject insulin up to 6 times daily aspirin 81 mg tablet,delayed release (DR/EC) 81 mg PO QAM Qty: 90 3RF bumetanide 2 mg tablet 2 mg PO BID 90 Days Qty: 180 2RF carvedilol 6.25 mg tablet 6.25 mg PO BID Qty: 180 3RF Rx Instructions: must administer with a meal/food atorvastatin 40 mg tablet 40 mg PO HS Qty: 90 3RF hydralazine 50 mg tablet 50 mg PO TID Qty: 270 3RF Rx Instructions: Please create pills packs for patient - he is legally blind docusate sodium [Stool Softener] 100 mg capsule 100 mg PO BID PRN (Reason: constipation) Qty: 60 5RF amlodipine 10 mg tablet 10 mg PO QAM Qty: 90 1RF mupirocin 2 % ointment 1 applic topical BID Qty: 44 1RF Rx Instructions: Apply to affected areas twice daily until healed as directed. Ozempic 0.25 mg or 0.5 mg (2 mg/3 mL) pen injector 0.5 mg subcut WK Qty: 3 5RF Rx Instructions: Monday clotrimazole [Lotrimin AF (clotrimazole)] 1 % cream 1 applic topical BID Qty: 45 2RF betamethasone dipropionate 0.05 % cream 1 applic topical BID Qty: 45 1RF Rx Instructions: Apply to areas of the legs twice daily x 2 weeks as directed. Velphoro 500 mg tablet,chewable 1,500 mg PO TIDWMEAL nystatin 100,000 unit/gram cream 1 applic topical BID PRN (Reason: FLARE) insulin aspart U-100 100 unit/mL (3 mL) insulin pen 5 - 7 sliding scale dose SQ AC Rx Instructions: subcut before meals- 5-7 units insulin glargine [Basaglwes Perez U-100 Insulin] 100 unit/mL (3 mL) insulin pen 3 - 4 unit SQ HS Dupixent Pen 300 mg/2 mL pen injector 300 mg subcut Q14D Referrals Referrals: Leora Santo MD [Primary Care Provider] -
[2025-06-24] MEDS: LIDOCAINE/EPINEPH/TETRACAINE 1 EA SYR EXT STA (11:03)
[2025-06-24 13:08] LABS: Hematocrit (blood only) 31.9 % (42.0-52.0); Hemoglobin 10.6 g/dl (14.0-18.0); Immature Granulocytes # (auto) 0.02 K/uL (0.01-0.20); Immature Granulocytes % (auto) 0.2 %; Mean Corpuscular Hemoglobin 31.4 pg (25.0-34.0); Mean Corpuscular Volume 94.4 fL (80.0-100.0); Platelet Count 197 K/uL (130-400); RDW Standard Deviation 57.1 fL (36.4-46.3); Red Blood Count 3.38 M/uL (4.70-6.10); White Blood Count 9.00 K/ul (4.8-10.8)
[2025-06-24 13:34] LABS: Anion Gap 13 (3-11); Calcium 9.3 mg/dl (8.6-10.3); Carbon Dioxide 25 mmol/L (21-32); Chloride 94 mmol/L (98-107); Creatinine Clr Calc Pharmacy 7.2 ml/min; Glucose 101 mg/dl (70-99(Fasting)); Sodium 132 mmol/L (136-145)
[2025-06-24 13:44] LABS: Blood Urea Nitrogen 133 mg/dl (6-23)
[2025-06-24] MEDS: cefTRIAXone SODIUM 2,000 MG/50 ML BAG IV STA (13:56)
--- NOTE | 2025-06-24 14:20 | CT Scan Report ---
CT SCAN OF THE NECK WITHOUT IV CONTRAST CLINICAL HISTORY: Occipital abscess. COMPARISON STUDY: CT of the brain dated 01/07/2019 TECHNIQUE: Unenhanced CT scan of the soft tissues of the neck was performed from the skull base to th e upper chest. Images are reviewed in the axial, sagittal, and coronal planes. IV contrast was not a dministered for this examination. Note that the examination is suboptimal without IV contrast. A dos e lowering technique was utilized adhering to the principles of ALARA. CT DOSE: 1607.9 mGy.cm FINDINGS: Soft tissues: A right internal jugular central venous catheter is in place. There is atherosclerotic calcification of the carotid bulbs. There is inflammation within the occipital/suboccipital soft tiss ues. A thick-walled fluid collection in the occipital/suboccipital soft tissues in the posterior midl ine on axial image #52 measures 3.1 x 2.4 x 3.5 cm. A 7 mm more inferiorly located pocket of fluid is seen at the dermal surface on image #107. A bilobed low-attenuation structure which appears containe d fat and fluid is partially visualized in the left temporal soft tissues below the zygomatic arch on axial image #3. This is been present dating back to 2019. Pharynx: The unenhanced regional soft tissues are grossly unremarkable. The pharyngeal airway is wide ly patent. The epiglottis is normal. The vocal cords are symmetric. The parapharyngeal fat is well ma intained. The prevertebral/retropharyngeal soft tissues are within normal limits. Lymphadenopathy: No cervical lymphadenopathy is seen Thyroid: Normal in size and heterogeneous in attenuation. Salivary glands: The parotid and submandibular glands are within normal limits. Brain parenchyma: The visualized brain parenchyma at the skull base is normal in appearance. Skeletal structures: The skeletal structures are osteopenic. Imaged portions of the calvarium at the skull base are within normal limits. The cervical spine appears intact noting multilevel spondylosis. The patient is edentulous. Orbits: The bladder was grossly intact. There is a right ocular lens implant. Layering hyperdense mat erial suggested within the left lobe on axial image #14. Sinuses and mastoids: Moderate mucosal thickening is seen within the left posterior ethmoid sinus. Th ere is mild mucosal thickening in the left sphenoid sinus. Trace mucosal thickening is observed in th e maxillary antra. The mastoid air cells are well pneumatized. Lung apices: Visualized apical lung parenchyma is clear. IMPRESSION: 1. There is evidence of occipital/suboccipital cellulitis. A 3.5 cm fluid collection in the posterior midline in this region could represent an abscess or possibly an infected sebaceous cyst. Clinical c orrelation will be required. 2. A bilobed low-attenuation structure in the left temporal soft tissues below the zygomatic arch is again noted and appears to contain fat/fluid. This was also seen in 2015. Clinical correlation will b e essential. 3. The unenhanced pharyngeal soft tissues are grossly unremarkable. 4. There is layering hyperdense material within the left globe. This could represent hemorrhage or po ssibly proteinaceous debris. This is new from 2019 and clinical correlation will be required. Conside r ophthalmologic assessment. ACT 112: Negative or not required by law. Electronically signed by: José Good M.D. 06/24/2025 2:18 PM
--- NOTE | 2025-06-24 14:52 | CT Scan Report ---
CT head/brain wo con CLINICAL HISTORY: 59 years-old Male with abscess, occipital region. Occipital scalp soft tissue swel ling TECHNIQUE: Multiple axial CT images of the head were obtained without contrast. A dose lowering tech nique was utilized adhering to the principles of ALARA. COMPARISON: CT soft tissue neck of same day, head CT 01/07/2019 FINDINGS: No acute intracranial hemorrhage, midline shift, intracranial mass, hydrocephalus, territorial ischem ia or abnormal extra-axial collection. The calvarium is intact. 3.5 cm occipital/suboccipital cellulitis with complex 3.5 cm fluid collectio n within the posterior midline.A bilobed low-attenuation structure which appears contained fat and fl uid is partially visualized in the left temporal soft tissues below the zygomatic arch. This is been present dating back to 2019. Mild mucosal thickening of the paranasal sinuses. The mastoid air cells are clear. Ill-defined hyperdensity noted within the posterior aspect of the left globe IMPRESSION: 1. No acute intracranial abnormality. 2. Probable cellulitis within the occipital/suboccipital tissues with a 3.5 cm complex collection, po ssibly an abscess or infected sebaceous cyst. 3. Nonspecific increased density within the left globe. Follow-up with ophthalmology recommended. ACT 112: Negative or not required by law. The above report was generated using voice recognition software. It may contain grammatical, syntax o r spelling errors. Electronically signed by: Kashif Botello M.D. 06/24/2025 2:50 PM
--- NOTE | 2025-06-24 15:34 | History & Physical Report ---
Date of Service June 24, 2025 Assessment & Plan (1) Skin abscess: (2) End-stage renal disease (ESRD): (3) DM II (diabetes mellitus, type II), controlled: (4) Hypertension: Plan 69-year-old diabetic male on renal replacement therapy presents with a scalp abscess. This is fairly extensive clinically and was drained in the emergency department. Imaging of the scalp shows this to be about 3 cm abscess. It is unclear whether the entire abscess pocket was evacuated. Patient is glucoses in fairly reasonable control however he is an acute kidney injury on chronic kidney disease stage V with a BUN and creatinine markedly elevated to 133 and 13.21. Potassium is 5.1. #Skin infection diabetic skin infection. Patient said different skin norma present on surface cultures in the past as he suffers from eczema and other skin conditions and is prescribed Dupixent for this which increases his risk of infection.. Subsequently we will going to place him on daptomycin and Zosyn therapy. Surgical consultation likely may be needed to further drain this lesion #Acute kidney injury chronic kidney disease stage IV. Patient will have dialysis hopefully on 06/25. He will be given potassium lowering oral agent. To be on a diabetic diet consult nephrology Dr. Wall #Diabetes. Patient typically takes very low doses of glargine or Basaglar subsequently will just be placed on a sliding scale with diabetic diet and carbohydrate correction factor. His Ozempic is on hold #Cardiovascular risk. Patient has a history of heart failure reduced ejection fraction with subsequent improvement. He will be continued on amlodipine carvedilol hydralazine aspirin atorvastatin Patient will be on heparin therapy for DVT prevention History of Present Illness Primary Care Provider: Leora Santo MD 59-year-old male with presents with a abscess of his scalp which had been I&D performed in the emergency department. Patient is on chronic renal replacement therapy and had a manipulation of his fistula May 16, 2025 in [place]. He is currently being evaluated for kidney transplant at the [facility] he has had some sulfurous wound cultures in the past for various gram-positive organisms. Most recent hemoglobin A1c is 6.6 in February 2025 Patient states his been bothered by a scalp lesion for some time. He says he does not typically show this area to Dr. Bosch who is his deaf and hard of hearing teacher. He states he missed his dialysis session yesterday last dialysis session was on 06/20/2025 Allergies Allergy/AdvReac Type Severity Reaction Status Date / Time adhesive tape Allergy Verified 06/24/25 10:58 Penicillins AdvReac Severe Cramping Verified 06/24/25 10:58 of the Muscles Inhaled Anesthetics (Halogen AdvReac bronchospas Verified 06/24/25 10:58 Based) m? Home Medications Medication Instructions Recorded Confirmed Type Hospital Bed Homecare (Hospital #1 ea 01/12/22 04/22/25 Rx Bed) OneTouch Delica Lancets 30 gauge #400 ea 02/18/22 04/22/25 Rx (lancets) OneTouch Verio Meter #1 ea 02/18/22 04/22/25 Rx (blood-glucose meter) vitamin B complex and vitamin C 1 cap PO QAM #30 caps 08/17/22 06/24/25 Rx no.20-folic acid 1 mg capsule (Renal Caps) OneTouch Verio test strips (blood #400 ea 03/01/23 04/22/25 Rx sugar diagnostic) blood-glucose sensor (Dexcom G6 #3 ea 03/10/23 04/22/25 Rx Sensor device) blood-glucose transmitter (Dexcom #1 ea 03/13/23 04/22/25 Rx G6 Transmitter device) blood-glucose,motorcycle delivery driver,cont #1 ea 03/13/23 04/22/25 Rx (Dexcom G6 Estimating Engineer) pen needle, diabetic 31 gauge x #300 ea 01/05/24 04/22/25 Rx 5/16" (Unifine Pentips) clotrimazole 1 % topical cream 1 applic topical BID #45 grams 02/15/24 06/24/25 Rx (Lotrimin AF (clotrimazole)) aspirin 81 mg tablet,delayed 81 mg PO QAM #90 tabs 08/14/24 06/24/25 Rx release bumetanide 2 mg tablet 2 mg PO BID 90 days #180 tabs 10/17/24 06/24/25 Rx carvedilol 6.25 mg tablet 6.25 mg PO BID #180 tabs 01/02/25 06/24/25 Rx atorvastatin 40 mg tablet 40 mg PO HS #90 tabs 01/27/25 06/24/25 Rx hydralazine 50 mg tablet 50 mg PO TID #270 tabs 03/04/25 06/24/25 Rx betamethasone dipropionate 0.05 % 1 applic topical BID #45 grams 04/10/25 06/24/25 Rx topical cream amlodipine 10 mg tablet 10 mg PO QAM #90 tabs 04/23/25 06/24/25 Rx docusate sodium 100 mg capsule 100 mg PO BID PRN constipation #60 04/23/25 06/24/25 Rx (Stool Softener) caps mupirocin 2 % topical ointment 1 applic topical BID #44 grams 05/19/25 06/24/25 Rx semaglutide 0.25 mg or 0.5 mg (2 0.5 mg (0.736 mL) subcut WK #3 mL 06/17/25 06/24/25 Rx mg/3 mL) subcutaneous pen injector (Ozempic) dupilumab 300 mg/2 mL subcutaneous 300 mg subcut Q14D 06/24/25 06/24/25 History pen injector (Dupixent) insulin aspart U-100 100 unit/mL 5 - 7 sliding scale dose subcut AC 06/24/25 06/24/25 History (3 mL) subcutaneous pen diabetes insulin glargine 100 unit/mL (3 3 - 4 unit subcut HS 06/24/25 06/24/25 History mL) subcutaneous pen (Basaglar KwikPen U-100 Insulin) nystatin 100,000 unit/gram topical 1 applic topical BID PRN FLARE 06/24/25 06/24/25 History cream sucroferric oxyhydroxide 500 mg 1,500 mg PO TIDWMEAL 06/24/25 06/24/25 History chewable tablet (Velphoro) 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 Normal left ventricular systolic function and wall motion History of amputation of toe Loss of protective sensation of skin of foot Diabetic peripheral neuropathy associated with type 2 diabetes mellitus Peripheral vascular disease End-stage renal disease (ESRD) (Chronic) - M/W/F- [place] Arthralgia of multiple joints Eczematous dermatitis (Chronic) Psoriasis (a type of skin inflammation) Dyslipidemia (Chronic) Vitamin D deficiency (Chronic) Hypertension (Chronic) Anemia (Acute) DM II (diabetes mellitus, type II), controlled (Chronic) Medical History Epidermoid cyst of skin of back History of CHF (congestive heart failure) Hidradenitis suppurativa Adverse reaction to anesthetic agent "stopped breathing" Bilateral shoulder pain Left shoulder pain Rash Left ventricular hypertrophy Mild left ventricular systolic dysfunction Cardiomyopathy History of shingles Blindness of left eye Surgical History History of removal of cyst (01/10/22) Skin, cyst of back, excision: - Features suggestive of a ruptured epidermoid cyst in office procedure Dr. Roth S/P arteriovenous (AV) fistula creation R AVF 10/2019 and transposed 07/14/20-Dr. Goddard S/P eye surgery S/P carpal tunnel release Right Family History Unknown No pertinent family history Other Hypertension Denies family history of Colon cancer Ovarian cancer Prostate cancer Myocardial infarction Breast cancer Social History Smoking Status: Never smoker Cigarettes Per Day: 3-4; Second Hand Exposure: Yes; Do You Dip or Chew Tobacco: No; Hx Alcohol Use: No Hx Substance Use: No Preferred Language: Portuguese Communication Ability: Effective Visual Impairment: Partially Limited Hearing Ability: Normal Automation Qtp Tester Required: No Beliefs That Will Affect Care: None marital status: Single Current Living Situation: Alone current occupational status: disabled How many Children do You have: 0 Feels Safe at Home: Yes Childhood Exposure to Second-Hand Smoke: Yes Diet: diabetic caffeine: Yes (coffee) during the past year weight has: remained stable Dental Care, Regularly: No Physical Activity Frequency: Daily Seatbelt Use: always Sunscreen Use: No Gender Identity: Male Assistive Devices: Walker Review of Systems Review of Systems: Mild distress and fatigue no headache, no new visual changes no speech or swallowing issues no chest pain, pressure or palpitations no shortness of breath over his baseline, no cough or wheezes no abdominal pain, nausea or vomiting, diarrhea or constipation no dysuria, hematuria or frequency, patient still makes urine with Bumex therapy no focal joint pain does have minor distal extremity swelling no back pain, CVA tenderness or radicular pain no bruising, bleeding or rashes no focal signs of weakness or numbness or altered sensation with exception of diabetic neuropathy and vision impairment no complaints of anxiety or depression.. Physical Exam Physical Exam: The patient appeared chronically ill with a BMI of 40 being morbidly obese Head exam is scaly to the posterior occiput with a stab wound centrally and an area of induration. There is some minor serosanguineous discharge from this I&D Neck is without JVD, thyromegaly, or carotid bruits. Lungs are clear to auscultation, diminished breath sounds at the bases Cardiac exam, Rhythm is regular.. No murmurs, rubs or gallops. Abdominal exam reveals normal bowel sounds, soft non tender, no masses Extremities are trace edematous and both pedal pulses are present AV fistula left arm Neurologic exam is alert and oriented, diabetic neuropathy Results & Data Results & Data Vital Signs (Past 12 Hours) Vital Signs Temp Pulse Pulse Resp BP BP Pulse Ox 06/24/25 13:47 97.7 F 86 20 154/101 H 97 06/24/25 10:11 97.7 F 96 H 18 135/66 94 O2 Del Method 06/24/25 13:47 Room Air 06/24/25 10:11 Room Air Laboratory Results Reviewed CBC reviewed chemistry discussed case with ER provider Dr. Esequiel Harley Status & VTE Plan VTE Prophylaxis Plan VTE Prophylaxis will be ordered: Yes PG Care Time/CCT Total # of Minutes Spent Total Time Spent with Patient: Total time spent is greater than 50% in coordination of care (as documented) at patient's floor/unit and/or counseling patient: Coding Level of Care Code 09937 INT INP/OBS CARE 3/75MIN Diagnoses Skin abscess L02.91 End-stage renal disease (ESRD) N18.6 DM II (diabetes mellitus, type II), controlled E11.9 Hypertension I10
[2025-06-24] MEDS ORDERED: CARBOHYDRATES FOR HYPOGLYCEMIA PO PRN (18:48)
[2025-06-24] MEDS ORDERED: DOCUSATE SODIUM 100 MG CAP PO PRN (18:48)
[2025-06-24] MEDS ORDERED: GLUCOSE 10 TAB/TUBE PO PRN (18:48)
[2025-06-24] MEDS ORDERED: GLUCAGON FOR INJ 1 MG VIAL SQ PRN (18:48)
[2025-06-24] MEDS ORDERED: DEXTROSE 50% 50 ML SYRINGE IV PRN (18:48)
[2025-06-24] MEDS ORDERED: ONDANSETRON INJ 2 MG/ML 2 ML VIAL IV PRN (18:48)
[2025-06-24] MEDS ORDERED: GLUCOSE 40% GEL 15 GM TUBE PO PRN (18:48)
--- NOTE | 2025-06-24 19:05 | Surgery Consultation ---
Date of Consultation June 24, 2025 Assessment & Plan (1) Skin abscess: Patient has been admitted on hospital service. From a surgical perspective we recommend the following: Provide analgesics as needed Incision and drainage has been performed. Will continue to monitor this area and if there remains concern the patient continues to have fluid collection additional incision and drainage/washout may be required. Will. Will make the patient n.p.o. after midnight and reevaluate the patient in the morning and determine if additional procedures are needed For the patient's incision and drainage a Gram stain and culture have been sent. The Gram stain has shown gram-positive cocci with further culture data pending. The patient has been started on antibiotics in the form of Zosyn and daptomycin which should continue and can be tailored based on pending culture results. Dialysis plans will be directed by the primary service as well as his mobility scooter repairer Additional recommendations to be forthcoming based on his clinical course as it unfolds History of Present Illness Reason for Consultation: Scalp abscess Attending Physician: Josue Archuleta MD History of Present Illness This is a 59-year-old male who presents to the emergency department secondary to pain in his scalp in the occipital region. Patient notes that for a few months he has had a bump on his head that was quite small but over the past few days he noted that the area was more painful and it was enlarging. He says that he has not had any cuts, scrapes, or excoriations to this area and he has never had an abscess in this region before. He denies any fevers, shakes, or chills but because of the worsening nature of the problem he presented to the emergency department. It is noteworthy to mention that the patient has end-stage renal disease and gets dialyzed on Wednesdays and Fridays. He does note that his next dialysis session is due on 06/25/2025. Since arrival to the hospital today the patient has had labs and imaging which I independent reviewed. Patient had a CT scan of the head that showed no acute intracranial abnormalities. There is concern for cellulitis in the occipital and suboccipital tissue with a noted 3.5 cm complex fluid collection potentially felt to represent an abscess or an infected sebaceous cyst. Patient also underwent a CT scan of the soft tissue of the neck which again showed the above- noted fluid collection. CBC revealed white blood cell count platelet count were normal. Hemoglobin and hematocrit were 10.6 and 31.9. Chemistry profile showed sodium was 132 with a potassium of 4.6. BUN and creatinine are 133 and 13.2. Procalcitonin level was elevated at 0.89. In the emergency department the patient did undergo an incision and drainage of the above-noted fluid collection by the clinician in the emergency department. It was noted that a large amount of purulent material was drained. Appropriate cultures have been sent At the time of my interview the patient was resting comfortably in bed and he was in no distress. Allergies Allergy/AdvReac Type Severity Reaction Status Date / Time adhesive tape Allergy Verified 06/24/25 10:58 Penicillins AdvReac Severe Cramping Verified 06/24/25 10:58 of the Muscles Inhaled Anesthetics (Halogen AdvReac bronchospas Verified 06/24/25 10:58 Based) m? Home Medications Medication Instructions Recorded Confirmed Type Hospital Bed Homecare (Hospital #1 ea 01/12/22 04/22/25 Rx Bed) OneTouch Delica Lancets 30 gauge #400 ea 02/18/22 04/22/25 Rx (lancets) OneTouch Verio Meter #1 ea 02/18/22 04/22/25 Rx (blood-glucose meter) vitamin B complex and vitamin C 1 cap PO QAM #30 caps 08/17/22 06/24/25 Rx no.20-folic acid 1 mg capsule (Renal Caps) OneTouch Verio test strips (blood #400 ea 03/01/23 04/22/25 Rx sugar diagnostic) blood-glucose sensor (Dexcom G6 #3 ea 03/10/23 04/22/25 Rx Sensor device) blood-glucose transmitter (Dexcom #1 ea 03/13/23 04/22/25 Rx G6 Transmitter device) blood-glucose,dip lube operator,cont #1 ea 03/13/23 04/22/25 Rx (Dexcom G6 Lamination Builder) pen needle, diabetic 31 gauge x #300 ea 01/05/24 04/22/25 Rx /16" (Unifine Pentips) clotrimazole 1 % topical cream 1 applic topical BID #45 grams 02/15/24 06/24/25 Rx (Lotrimin AF (clotrimazole)) aspirin 81 mg tablet,delayed 81 mg PO QAM #90 tabs 08/14/24 06/24/25 Rx release bumetanide 2 mg tablet 2 mg PO BID 90 days #180 tabs 10/17/24 06/24/25 Rx carvedilol 6.25 mg tablet 6.25 mg PO BID #180 tabs 01/02/25 06/24/25 Rx atorvastatin 40 mg tablet 40 mg PO HS #90 tabs 01/27/25 06/24/25 Rx hydralazine 50 mg tablet 50 mg PO TID #270 tabs 03/04/25 06/24/25 Rx betamethasone dipropionate 0.05 % 1 applic topical BID #45 grams 04/10/25 06/24/25 Rx topical cream amlodipine 10 mg tablet 10 mg PO QAM #90 tabs 04/23/25 06/24/25 Rx docusate sodium 100 mg capsule 100 mg PO BID PRN constipation #60 04/23/25 06/24/25 Rx (Stool Softener) caps mupirocin 2 % topical ointment 1 applic topical BID #44 grams 05/19/25 06/24/25 Rx semaglutide 0.25 mg or 0.5 mg (2 0.5 mg (0.736 mL) subcut WK #3 mL 06/17/25 06/24/25 Rx mg/3 mL) subcutaneous pen injector (Ozempic) dupilumab 300 mg/2 mL subcutaneous 300 mg subcut Q14D 06/24/25 06/24/25 History pen injector (Dupixent) insulin aspart U-100 100 unit/mL 5 - 7 sliding scale dose subcut AC 06/24/25 06/24/25 History (3 mL) subcutaneous pen diabetes insulin glargine 100 unit/mL (3 3 - 4 unit subcut HS 06/24/25 06/24/25 History mL) subcutaneous pen (Basaglar KwikPen U-100 Insulin) nystatin 100,000 unit/gram topical 1 applic topical BID PRN FLARE 06/24/25 06/24/25 History cream sucroferric oxyhydroxide 500 mg 1,500 mg PO TIDWMEAL 06/24/25 06/24/25 History chewable tablet (Velphoro) Patient History Medical History Epidermoid cyst of skin of back History of CHF (congestive heart failure) Hidradenitis suppurativa Adverse reaction to anesthetic agent "stopped breathing" Bilateral shoulder pain Left shoulder pain Rash Left ventricular hypertrophy Mild left ventricular systolic dysfunction Cardiomyopathy History of shingles Blindness of left eye Surgical History History of removal of cyst (01/10/22) Skin, cyst of back, excision: - Features suggestive of a ruptured epidermoid cyst in office procedure Dr. Roth S/P arteriovenous (AV) fistula creation R AVF 10/2019 and transposed 07/14/20-Dr. Goddard S/P eye surgery S/P carpal tunnel release Right Family History Unknown No pertinent family history Other Hypertension Denies family history of Colon cancer Ovarian cancer Prostate cancer Myocardial infarction Breast cancer Social History Smoking Status: Former smoker Cigarettes Per Day: 3-4; Second Hand Exposure: No; Do You Dip or Chew Tobacco: No; Hx Alcohol Use: No Hx Substance Use: No Preferred Language: Croatian Communication Ability: Effective Visual Impairment: Partially Limited Hearing Ability: Normal Engineering Production Liaison Required: No Beliefs That Will Affect Care: None marital status: Single Current Living Situation: Alone Current Living Situation Comment: caregiver comes in es, thurs, sat current occupational status: disabled How many Children do You have: 0 Feels Safe at Home: Yes Childhood Exposure to Second-Hand Smoke: Yes Diet: diabetic caffeine: Yes (coffee) during the past year weight has: remained stable Dental Care, Regularly: No Physical Activity Frequency: Daily Seatbelt Use: always Sunscreen Use: No Gender Identity: Male Assistive Devices: Glasses and Walker Review of Systems Review of Systems: All systems reviewed & are unremarkable except as noted in HPI & below Physical Exam Physical Exam: Patient's head/occipital region was examined. There is approximately 1 cm incision from the incision and drainage performed by the treating emergency room clinician. The area surrounding the incision and drainage incision appears indurated. There is no crepitus noted in the soft tissue. The area is slightly warm to touch and elicits painful response when palpated at the time of my exam there is no drainage noted. Constitutional: WD/WN, vitals as above ENMT: Ears: no hearing impairment Neck: trachea midline Respiratory: normal respiratory effort; no respiratory distress and no labored breathing Cardiovascular: Rate/Rhythm: regular rate and regular rhythm Gastrointestinal (Abdomen): Soft and nontender Musculoskeletal: No calf tenderness Skin: No rashes see above for description of occipital region Neurologic: moves all extremities Psychiatric: A+Ox3, euthymic affect Results & Data Vital Signs (Past 12 Hours) Vital Signs Temp Pulse Pulse Resp BP BP Pulse Ox 06/24/25 18:10 88 16 129/71 94 06/24/25 16:13 86 18 120/74 96 06/24/25 13:47 36.5 C 86 20 154/101 H 97 06/24/25 10:11 36.5 C 96 H 18 135/66 94 O2 Del Method 06/24/25 18:10 Room Air 06/24/25 16:13 Room Air 06/24/25 13:47 Room Air 06/24/25 10:11 Room Air PG Care Time/CCT Total # of Minutes Spent Total Time Spent with Patient: Total time spent is greater than 50% in coordination of care (as documented) at patient's floor/unit and/or counseling patient: Coding Level of Care Code 73267 IN/OBS CONSULT LVL 5,80M Diagnoses Skin abscess L02.91
[2025-06-24] MEDS: SODIUM ZIRCONIUM CYCLOSILICATE 10 GM PACKET PO SCH (19:31)
[2025-06-24] MEDS: DAPTOmycin 500 MG in SYRINGE 0 ML IV SCH (19:51)
[2025-06-24] MEDS: PIPERACILLIN/TAZOBACTAM 4.5 GM/100 ML BAG IV ONE (19:54)
[2025-06-24] MEDS: HEPARIN SOD 5,000 UNIT/0.5 ML VIAL SQ SCH (21:45)
[2025-06-24] MEDS: CLOTRIMAZOLE 1% CR 15 GM TUBE TOP SCH (21:46)
[2025-06-24] MEDS: ACETAMINOPHEN 325 MG TAB PO PRN (21:46)
[2025-06-24] MEDS: MUPIROCIN 2% OINT 22 GM TUBE TOP SCH (21:46)
[2025-06-24] MEDS: ATORVASTATIN 40 MG TAB PO SCH (21:47)
[2025-06-24] MEDS: INSULIN ASPART PER UNIT CHARGE SC SCH (22:13)
--- NOTE | 2025-06-25 01:38 | Communication Note ---
Date of Service: June 25, 2025 S/O: The IV team attempted to get IV access through the patient's UE's first, but there were two failed attempts. Patient was supportive to trying to get IV access through one of his feet instead, in part d/t peripheral neuropathy that makes any pain associated with it minimal A/P: IV team finally placed an IV in patient's l. foot. This should allow him to get any needed IV fluids or medications due to his 3 cm scalp abscess.
[2025-06-25] MEDS: PIPERACILLIN/TAZOBACTAM 4.5 GM/100 ML BAG IV SCH (04:20)
[2025-06-25 06:59] LABS: Hematocrit (blood only) 29.4 % (42.0-52.0); Hemoglobin 9.4 g/dl (14.0-18.0); Mean Corpuscular Hemoglobin 30.2 pg (25.0-34.0); Mean Corpuscular Volume 94.5 fL (80.0-100.0); Platelet Count 172 K/uL (130-400); RDW Standard Deviation 55.7 fL (36.4-46.3); Red Blood Count 3.11 M/uL (4.70-6.10); White Blood Count 5.97 K/ul (4.8-10.8)
[2025-06-25 07:25] LABS: INR 1.0 (0.9-1.1); Partial Thromboplastin Time 31 Seconds (21-31); Prothrombin Time 11.2 Seconds (9.0-12.0)
[2025-06-25 07:29] LABS: Anion Gap 16.0 (3-11); Calcium 8.8 mg/dl (8.6-10.3); Carbon Dioxide 23.0 mmol/L (21-32); Chloride 96.0 mmol/L (98-107); Creatinine Clr Calc Pharmacy 6.7 ml/min; Glucose 104.0 mg/dl (70-99(Fasting)); Potassium 4.2 mmol/L (3.5-5.1); Sodium 135.0 mmol/L (136-145)
--- NOTE | 2025-06-25 07:29 | Surgery Progress Note ---
Date of Service June 25, 2025 Assessment & Plan (1) Scalp abscess: Plan: His CT images and results were personally viewed and interpreted by myself He still has a fair amount of fluctuance and tenderness palpation on exam consistent with persistent abscess Plan on incision and drainage of a scalp abscess in the operating room Consent was obtained, risks discussed including bleeding, infection, nonhealing wound Admission and Anticipated Discharge Date Admission Date: June 24, 2025 Subjective Patient seen and examined. Still with pain in his occipital scalp. Afebrile. Review of Systems Constitutional: no fever and no chills Respiratory: no cough and no dyspnea Cardiovascular: no chest pain and no dyspnea on exertion Gastrointestinal: no abdominal pain, no nausea and no vomiting Genitourinary: no dysuria or no urinary incontinence Integumentary: + erythema and + skin swelling; no acne Psychiatric: no behavioral changes and no depression Physical Exam Constitutional: WD/WN, vitals as above Neck: trachea midline, no thyromegaly Respiratory: normal respiratory effort, lungs clear to auscultation Cardiovascular: RRR, no murmur, no edema Gastrointestinal (Abdomen): normal bowel sounds, soft, nontender, no hepatosplenomegaly Skin: no rashes, warm and dry 5 cm area of erythema in the occipital s calp in the midline, fluctuant and tender to palpation, no drainage Psychiatric: A+Ox3, euthymic affect Results & Data Vital Signs (Past 12 Hours) Vital Signs Temp Pulse Resp BP Pulse Ox O2 Del Method 06/24/25 20:36 36.6 C 89 18 164/69 H 93 Room Air 06/24/25 19:45 Room Air PG Care Time/CCT Total # of Minutes Spent Total Time Spent with Patient: Total time spent is greater than 50% in coordination of care (as documented) at patient's floor/unit and/or counseling patient: Coding Level of Care Code 03462 SUB INP/OBS CARE 11/23MIN Diagnoses Scalp abscess L02.811
[2025-06-25] MEDS ORDERED: Nursing to Pharmacy Communication SCH ×2 (07:45→15:45)
[2025-06-25 07:50] LABS: Hemoglobin A1C 5.3 % (4.5-5.6)
[2025-06-25] MEDS: INSULIN ASPART PER UNIT CHARGE SC SCH ×2 (07:57→17:34)
--- NOTE | 2025-06-25 08:09 | Hospitalist Progress Note ---
Date of Service June 25, 2025 Assessment & Plan (1) Skin abscess: (2) End-stage renal disease (ESRD): (3) DM II (diabetes mellitus, type II), controlled: (4) Hypertension: Plan 69-year-old diabetic male on renal replacement therapy presents with a scalp abscess. This is fairly extensive clinically and was drained in the emergency department. Imaging of the scalp shows this to be about 3 cm abscess. It is unclear whether the entire abscess pocket was evacuated. Patient is glucoses in fairly reasonable control however he is an acute kidney injury on chronic kidney disease stage V with a BUN and creatinine markedly elevated to 133 and 13.21. Potassium is 5.1. #Skin infection diabetic skin infection. Patient said different skin norma present on surface cultures in the past as he suffers from eczema and other skin conditions and is prescribed Dupixent for this which increases his risk of infection.. Subsequently we will going to place him on daptomycin and Zosyn therapy. Surgical consultation planning for operating room I&D on 06/26/2025. Blood cultures are currently negative at this time. Personally discussed case with anesthesiologist on-call to alert him to the need for renal replacement therapy prior to surgery #Acute kidney injury chronic kidney disease stage IV. P status post dialysis on 06/25. His elevated potassium did respond to oral potassium lowering oral agent. To be on a diabetic diet consult nephrology Dr. Wall #Diabetes. Patient typically takes very low doses of glargine or Basaglar subsequently will just be placed on a sliding scale with diabetic diet and carbohydrate correction factor. His Ozempic is on hold #Cardiovascular risk. Patient has a history of heart failure reduced ejection fraction with subsequent improvement. He will be continued on amlodipine carvedilol hydralazine aspirin atorvastatin Patient will be on heparin therapy for DVT prevention Admission and Anticipated Discharge Date Admission Date: June 24, 2025 Subjective pt is seen in dialysis, feels fatigued weak and tired is slightly frustrated with her overall health decline. Patient has a lipoma on his left brow ridge that he says has been there since otherwise did not feel significantly short of breath still with pain in the back of his head Physical Exam Physical Exam: The patient appeared chronically ill with a BMI of 40 being morbidly obese Head exam is swollen and indurated to the posterior occiput with a stab wound centrally and an area of induration. I&D site is since close the Neck is without JVD, thyromegaly, or carotid bruits. Lungs are clear to auscultation, diminished breath sounds at the bases Cardiac exam, Rhythm is regular.. No murmurs, rubs or gallops. Abdominal exam reveals normal bowel sounds, soft non tender, no masses Extremities are trace edematous and both pedal pulses are present AV fistula left arm Neurologic exam is alert and oriented, diabetic neuropathy Results & Data Results & Data Vital Signs (Past 12 Hours) Vital Signs Temp Pulse Resp BP Pulse Ox O2 Del Method 06/25/25 07:51 98.1 F 87 18 111/65 94 Room Air 06/24/25 20:36 97.9 F 89 18 164/69 H 93 Room Air Laboratory Results Reviewed CBC no leukocytosis chronic anemia is present Reviewed chemistry with persistent renal failure hyperkalemia has resolved with treatment PG Care Time/CCT Total # of Minutes Spent Total Time Spent with Patient: Total time spent is greater than 50% in coordination of care (as documented) at patient's floor/unit and/or counseling patient: Coding Level of Care Code 07094 SUB INP/OBS CARE 3/50MIN Diagnoses Skin abscess L02.91 End-stage renal disease (ESRD) N18.6 DM II (diabetes mellitus, type II), controlled E11.9 Hypertension I10
[2025-06-25 08:15] LABS: Blood Urea Nitrogen 143.0 mg/dl (6-23)
--- NOTE | 2025-06-25 09:58 | Nephrology Consultation ---
Date of Consultation June 25, 2025 Assessment & Plan (1) End-stage renal disease (ESRD): (2) Scalp abscess: (3) Hypertension: (4) Diabetic peripheral neuropathy associated with type 2 diabetes mellitus: (5) Anemia due to chronic kidney disease: Plan 59-year-old man with end-stage kidney disease secondary to diabetic nephropathy, on hemodialysis Monday, Monday, Monday at [facility] kidney [facility]. Recently had multiple infiltration of AV fistula and currently tunneled dialysis catheter is being used for dialysis. Last dialysis was last Monday and missed dialysis Monday. Electrolytes were acceptable but BUN/creatinine was significantly elevated. Volume status was acceptable. Admitted to hospital with scalp abscess in occipital region and had I&D and plan for further drainage and washout in the OR later today. On daptomycin. Overall otherwise asymptomatic, blood pressure, volume status, electrolyte acceptable. --Will plan for dialysis today, considering significantly elevated BUN and creatinine, will dialyze doing low blood flow. UF as tolerated to reach his dry weight. -- Epogen 10,000 units x 1 dose today -- Dose medications for eGFR less than 10, left arm nephrology precaution -- Continue on Bumex home dose. Nephrocaps daily. Thank you for allowing me to participate in your patient's care. It was a pleasure to see Parish. History of Present Illness Reason for Consultation: ESKD on HD, admitted with scalp cellulitis and abscess in occipital area. Attending Physician: Josue Archuleta MD History of Present Illness Mr. Chavo Au is a 59-year-old male with past medical history significant for end-stage kidney disease on hemodialysis, hypertension, diabetes, coronary artery disease admitted to the hospital with scalp abscess in the occipital region. Nephrology on consult requested for management of dialysis while inpatient. EMR records were reviewed in detail during patient's visit. Parish presented to the ER yesterday with pressure pain in his scalp in the occipital region. CT scan of the head that showed no acute intracranial a bnormalities. Imaging showed cellulitis in the occipital and suboccipital tissue with 3.5 cm complex fluid collection. CBC showed no leukocytosis. In the emergency room he had incision and drainage and culture was sent. He is scheduled for further drainage and washout in OR this afternoon. He was started on daptomycin.vital signs are otherwise stable, did not have any respiratory distress on admission. Lab was notable for significantly elevated BUN and creatinine, serum calcium , and potassium was normal. He has been on dialysis Monday, Monday, last dialysis was last Monday and he missed dialysis Monday. End-stage kidney disease secondary to diabetic nephropathy, started on in center hemodialysis in March 2021 via tunneled dialysis catheter. Later on AV fistula was placed and subsequently had transposition. He was eventually transitioned to PD because of some eczematous skin lesion overlying his AV fistula PV was complicated by tunnel tract infection . And severe progressive eczematous dermatitis of abdomen. Eventually he was again transitioned to hemodialysis. He has left brachiocephalic AV fistula but fistula had multiple infiltration recently and currently has a tunneled dialysis catheter. Past medical history also significant for hypertension, type 2 diabetes, coronary artery disease, anemia and secondary hyperparathyroidism. This morning he reports overall feeling well, denies any shortness of breath or chest pain. Volume status acceptable. Blood pressure relatively low but asymptomatic. Hemoglobin low. Allergies Allergy/AdvReac Type Severity Reaction Status Date / Time adhesive tape Allergy Verified 06/24/25 10:58 Penicillins AdvReac Severe Cramping Verified 06/24/25 10:58 of the Muscles Inhaled Anesthetics (Halogen AdvReac bronchospas Verified 06/24/25 10:58 Based) m? Home Medications Medication Instructions Recorded Confirmed Type Hospital Bed Homecare (Hospital #1 ea 01/12/22 04/22/25 Rx Bed) OneTouch Delica Lancets 30 gauge #400 ea 02/18/22 04/22/25 Rx (lancets) OneTouch Verio Meter #1 ea 02/18/22 04/22/25 Rx (blood-glucose meter) vitamin B complex and vitamin C 1 cap PO QAM #30 caps 08/17/22 06/24/25 Rx no.20-folic acid 1 mg capsule (Renal Caps) OneTouch Verio test strips (blood #400 ea 03/01/23 04/22/25 Rx sugar diagnostic) blood-glucose sensor (Dexcom G6 #3 ea 03/10/23 04/22/25 Rx Sensor device) blood-glucose transmitter (Dexcom #1 ea 03/13/23 04/22/25 Rx G6 Transmitter device) blood-glucose,iso coordinator,cont #1 ea 03/13/23 04/22/25 Rx (Dexcom G6 Scada Technician) pen needle, diabetic 31 gauge x #300 ea 01/05/24 04/22/25 Rx 5/16" (Unifine Pentips) clotrimazole 1 % topical cream 1 applic topical BID #45 grams 02/15/24 06/24/25 Rx (Lotrimin AF (clotrimazole)) aspirin 81 mg tablet,delayed 81 mg PO QAM #90 tabs 08/14/24 06/24/25 Rx release bumetanide 2 mg tablet 2 mg PO BID 90 days #180 tabs 10/17/24 06/24/25 Rx carvedilol 6.25 mg tablet 6.25 mg PO BID #180 tabs 01/02/25 06/24/25 Rx atorvastatin 40 mg tablet 40 mg PO HS #90 tabs 01/27/25 06/24/25 Rx hydralazine 50 mg tablet 50 mg PO TID #270 tabs 03/04/25 06/24/25 Rx betamethasone dipropionate 0.05 % 1 applic topical BID #45 grams 04/10/25 06/24/25 Rx topical cream amlodipine 10 mg tablet 10 mg PO QAM #90 tabs 04/23/25 06/24/25 Rx docusate sodium 100 mg capsule 100 mg PO BID PRN constipation #60 04/23/25 06/24/25 Rx (Stool Softener) caps mupirocin 2 % topical ointment 1 applic topical BID #44 grams 05/19/25 06/24/25 Rx semaglutide 0.25 mg or 0.5 mg (2 0.5 mg (0.736 mL) subcut WK #3 mL 06/17/25 06/24/25 Rx mg/3 mL) subcutaneous pen injector (Ozempic) dupilumab 300 mg/2 mL subcutaneous 300 mg subcut Q14D 06/24/25 06/24/25 History pen injector (Dupixent) insulin aspart U-100 100 unit/mL 5 - 7 sliding scale dose subcut AC 06/24/25 06/24/25 History (3 mL) subcutaneous pen diabetes insulin glargine 100 unit/mL (3 3 - 4 unit subcut HS 06/24/25 06/24/25 History mL) subcutaneous pen (Mariluzaglwes Perez U-100 Insulin) nystatin 100,000 unit/gram topical 1 applic topical BID PRN FLARE 06/24/25 06/24/25 History cream sucroferric oxyhydroxide 500 mg 1,500 mg PO TIDWMEAL 06/24/25 06/24/25 History chewable tablet (Velphoro) Patient History Medical History Epidermoid cyst of skin of back History of CHF (congestive heart failure) Hidradenitis suppurativa Adverse reaction to anesthetic agent "stopped breathing" Bilateral shoulder pain Left shoulder pain Rash Left ventricular hypertrophy Mild left ventricular systolic dysfunction Cardiomyopathy History of shingles Blindness of left eye Surgical History History of removal of cyst (01/10/22) Skin, cyst of back, excision: - Features suggestive of a ruptured epidermoid cyst in office procedure Dr. Roth S/P arteriovenous (AV) fistula creation R AVF 10/2019 and transposed 07/14/20-Dr. 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 Beliefs That Will Affect Care: None marital status: Single Current Living Situation: Alone Current Living Situation Comment: caregiver comes in tues, thurs, sat current occupational status: disabled How many Children do You have: 0 Feels Safe at Home: Yes Childhood Exposure to Second-Hand Smoke: Yes Diet: diabetic caffeine: Yes (coffee) during the past year weight has: remained stable Dental Care, Regularly: No Physical Activity Frequency: Daily Seatbelt Use: always Sunscreen Use: No Gender Identity: Male Assistive Devices: Glasses and Walker Review of Systems Review of Systems: Detailed review of system was done and pertinent positives and negatives are mentioned above. Physical Exam Constitutional: WD/WN, vitals as above no acute distress Eyes: + anicteric sclerae Neck: normal visual inspection Respiratory: Auscultation: lungs clear to auscultation bilaterally Cardiovascular: RRR, no murmur, no edema Extremities: + vascular access device (Rt IJ TDC) and + AV fistula (L BC AVF) Gastrointestinal (Abdomen): Inspection/Auscultation: abdomen normal to inspection Musculoskeletal: Extremities: extremities normal to inspection Skin: no rashes, warm and dry Neurologic: no focal motor deficits Psychiatric: Orientation: alert and oriented x 3 Affect: euthymic affect Results & Data Vital Signs (Past 12 Hours) Vital Signs Temp Pulse Resp BP Pulse Ox O2 Del Method 06/25/25 07:51 36.7 C 87 18 111/65 94 Room Air PG Care Time/CCT Total # of Minutes Spent Total Time Spent with Patient: Total time spent is greater than 50% in coordination of care (as documented) at patient's floor/unit and/or counseling patient: Coding Level of Care Code 20941 INT INP/OBS CARE 3/75MIN Diagnoses End-stage renal disease (ESRD) N18.6 Scalp abscess L02.811 Hypertension I10 Diabetic peripheral neuropathy associated with type 2 diabetes mellitus E11.42 Anemia due to chronic kidney disease N18.9; D63.1
[2025-06-25] MEDS: EPOETIN ALFA 10,000 UNITS/ML VIAL IV STA (13:00)
[2025-06-25] MEDS: ASPIRIN 81 MG ECTAB PO SCH (14:39)
[2025-06-25] MEDS: NEPHROCAPS PO SCH (14:40)
[2025-06-26 07:18] LABS: Hematocrit (blood only) 30.8 % (42.0-52.0); Hemoglobin 9.8 g/dl (14.0-18.0); Mean Corpuscular Hemoglobin 30.1 pg (25.0-34.0); Mean Corpuscular Volume 94.5 fL (80.0-100.0); Platelet Count 182 K/uL (130-400); RDW Standard Deviation 56.2 fL (36.4-46.3); Red Blood Count 3.26 M/uL (4.70-6.10); White Blood Count 5.53 K/ul (4.8-10.8)
[2025-06-26 07:37] LABS: Anion Gap 12.0 (3-11); Blood Urea Nitrogen 73.0 mg/dl (6-23); Calcium 9.3 mg/dl (8.6-10.3); Carbon Dioxide 28.0 mmol/L (21-32); Chloride 97.0 mmol/L (98-107); Creatinine Clr Calc Pharmacy 9.7 ml/min; Glucose 97.0 mg/dl (70-99(Fasting)); Potassium 3.9 mmol/L (3.5-5.1); Sodium 137.0 mmol/L (136-145)
--- NOTE | 2025-06-26 08:09 | Hospitalist Progress Note ---
Date of Service June 26, 2025 Assessment & Plan (1) Skin abscess: (2) End-stage renal disease (ESRD): (3) DM II (diabetes mellitus, type II), controlled: (4) Hypertension: Plan 69-year-old diabetic male on renal replacement therapy presents with a scalp abscess. This is fairly extensive clinically and was drained in the emergency department. Imaging of the scalp shows this to be about 3 cm abscess. It is unclear whether the entire abscess pocket was evacuated. Patient is glucoses in fairly reasonable control however he is an acute kidney injury on chronic kidney disease stage V with a BUN and creatinine markedly elevated to 133 and 13.21. Potassium is 5.1. #Skin infection diabetic skin infection. Patient said different skin norma present on surface cultures in the past as he suffers from eczema and other skin conditions and is prescribed Dupixent for this which increases his risk of infection. Continue on daptomycin and Zosyn therapy. Surgical consultation status post I&D on 06/26/2025. Blood cultures are currently negative at this time. Without direct culture results may need to empirically treat this patient as infection #Acute kidney injury chronic kidney disease stage IV. P status post dialysis on 06/25. His elevated potassium did respond to oral potassium lowering oral agent. To be on a diabetic diet consult nephrology Dr. Wall for ongoing management of renal failure #Diabetes. Patient typically takes very low doses of glargine or Basaglar subsequently will just be placed on a sliding scale with diabetic diet and carbohydrate correction factor. His Ozempic remains on hold #Cardiovascular risk. Patient has a history of heart failure reduced ejection fraction with subsequent improvement. He will be continued on amlodipine carvedilol hydralazine aspirin atorvastatin Patient will be on heparin therapy for DVT prevention Admission and Anticipated Discharge Date Admission Date: June 24, 2025 Subjective Patient was much better since after surgical procedure. Difficulty with IV access patient requested we try his left foot apparently this was successful we were considering needing a central line. Patient is having some serosanguineous drainage from his scalp wound pressure dressings are in place Physical Exam Physical Exam: The patient appeared chronically ill with a BMI of 40 being morbidly obese Head exam status post surgical I&D on 06/26 there is a pressure dressing in place with a serosanguineous drainage He is a soft tissue protuberance at his left supraorbital brow ridge which she says been present since . Neck is without JVD, thyromegaly, or carotid bruits. Lungs are clear to auscultation, diminished breath sounds at the bases Cardiac exam, Rhythm is regular.. No murmurs, rubs or gallops. Abdominal exam reveals normal bowel sounds, soft non tender, no masses Extremities are trace edematous and both pedal pulses are present AV fistula left arm Neurologic exam is alert and oriented, diabetic neuropathy Results & Data Results & Data Vital Signs (Past 12 Hours) Vital Signs Temp Pulse Resp BP Pulse Ox O2 Del Method 06/26/25 07:21 98.4 F 92 H 17 136/67 95 Room Air 06/25/25 23:03 98.6 F 16 96 Room Air 06/25/25 21:41 86 135/79 06/25/25 21:30 Room Air Laboratory Results Reviewed CBC stable anemia reviewed chemistry persistent renal failure improved from admission PG Care Time/CCT Total # of Minutes Spent Total Time Spent with Patient: Total time spent is greater than 50% in coordination of care (as documented) at patient's floor/unit and/or counseling patient: Coding Level of Care Code 83163 SUB INP/OBS CARE 3/50MIN Diagnoses Skin abscess L02.91 End-stage renal disease (ESRD) N18.6 DM II (diabetes mellitus, type II), controlled E11.9 Hypertension I10
[2025-06-26] MEDS ORDERED: PROPOFOL IV EMULSION 10 MG/ML 20 ML VIAL IV ONE (09:20)
[2025-06-26] MEDS ORDERED: ONDANSETRON INJ 2 MG/ML 2 ML VIAL ONE (09:20)
--- NOTE | 2025-06-26 09:20 | Surgery Progress Note ---
Date of Service June 26, 2025 Assessment & Plan (1) Scalp abscess: Plan: His procedure was postponed today due to needing dialysis yesterday Plan on incision and drainage of a scalp abscess in the operating room today Consent was obtained, risks discussed including bleeding, infection, nonhealing wound Admission and Anticipated Discharge Date Admission Date: June 24, 2025 Subjective Patient seen and examined. Still with pain at the occiput. Afebrile. Went to dialysis yesterday. Review of Systems Constitutional: no fever and no chills Respiratory: no cough and no dyspnea Cardiovascular: no chest pain and no dyspnea on exertion Gastrointestinal: no abdominal pain, no nausea and no vomiting Genitourinary: no dysuria or no urinary incontinence Integumentary: + erythema and + skin swelling; no acne Psychiatric: no behavioral changes and no depression Physical Exam Constitutional: WD/WN, vitals as above Neck: trachea midline, no thyromegaly Respiratory: normal respiratory effort, lungs clear to auscultation Cardiovascular: RRR, no murmur, no edema Gastrointestinal (Abdomen): normal bowel sounds, soft, nontender, no hepatosplenomegaly Skin: no rashes, warm and dry 5 cm area of erythema in the occipital s calp in the midline, fluctuant and tender to palpation, no drainage Psychiatric: A+Ox3, euthymic affect Results & Data Vital Signs (Past 12 Hours) Vital Signs Temp Pulse Resp BP Pulse Ox O2 Del Method 06/26/25 07:21 36.9 C 92 H 17 136/67 95 Room Air 06/25/25 23:03 37.0 C 16 96 Room Air 06/25/25 21:41 86 135/79 06/25/25 21:30 Room Air PG Care Time/CCT Total # of Minutes Spent Total Time Spent with Patient: Total time spent is greater than 50% in coordination of care (as documented) at patient's floor/unit and/or counseling patient: Coding Level of Care Code 35472 SUB INP/OBS CARE 11/23MIN Diagnoses Scalp abscess L02.811
--- NOTE | 2025-06-26 09:47 | Nephrology Progress Note ---
Date of Service June 26, 2025 Assessment & Plan (1) End-stage renal disease (ESRD): (2) Scalp abscess: (3) Hypertension: (4) Diabetic peripheral neuropathy associated with type 2 diabetes mellitus: (5) Anemia due to chronic kidney disease: Plan 59-year-old man with end-stage kidney disease secondary to diabetic nephropathy, on hemodialysis Monday, Monday, Monday at [facility] kidney [facility]. Recently had multiple infiltration of AV fistula and currently tunneled dialysis catheter is being used for dialysis. Last dialysis was last Monday and missed dialysis Monday. Electrolytes were acceptable but BUN/creatinine was significantly elevated. Volume status was acceptable. Admitted to hospital with scalp abscess in occipital region and had I&D and plan for further drainage and washout in the OR later today. On daptomycin. Overall otherwise asymptomatic, blood pressure, volume status, electrolyte acceptable. Had dialysis yesterday, had 3 L UF. -- Plan for dialysis tomorrow versus regular schedule. -- Epogen 10,000 units x 1 dose given on 06/25/25 -- Dose medications for eGFR less than 10, left arm nephrology precaution -- Continue on Bumex home dose. Nephrocaps daily. Admission and Anticipated Discharge Date Admission Date: June 24, 2025 Subjective Parish was seen and evaluated this morning. He denies any shortness of breath or chest pain. Overall otherwise doing, asymptomatic. Blood pressure controlled. Had dialysis yesterday had 3 L UF, electrolyte acceptable this morning. Review of Systems Review of Systems: Detailed review of system was done and pertinent positives and negatives are mentioned above. Physical Exam Constitutional: WD/WN, vitals as above no acute distress Eyes: + anicteric sclerae Respiratory: Auscultation: lungs clear to auscultation bilaterally Cardiovascular: RRR, no murmur, no edema Extremities: + vascular access device (Rt IJ TDC) and + AV fistula (L BC AVF) Musculoskeletal: Extremities: extremities normal to inspection Skin: no rashes, warm and dry Neurologic: no focal motor deficits Psychiatric: Orientation: alert and oriented x 3 Affect: euthymic affect Results & Data Vital Signs (Past 12 Hours) Vital Signs Temp Pulse Resp BP Pulse Ox O2 Del Method 06/26/25 07:21 36.9 C 92 H 17 136/67 95 Room Air 06/25/25 23:03 37.0 C 16 96 Room Air PG Care Time/CCT Total # of Minutes Spent Total Time Spent with Patient: Total time spent is greater than 50% in coordination of care (as documented) at patient's floor/unit and/or counseling patient: Coding Level of Care Code 87421 SUB INP/OBS CARE 2/35MIN Diagnoses End-stage renal disease (ESRD) N18.6 Scalp abscess L02.811 Hypertension I10 Diabetic peripheral neuropathy associated with type 2 diabetes mellitus E11.42 Anemia due to chronic kidney disease N18.9; D63.1
[2025-06-26] MEDS ORDERED: MIDAZOLAM HCL 1 MG/ML 2ML VIAL ONE (09:53)
--- NOTE | 2025-06-26 10:29 | Communication Note ---
Date of Service: June 26, 2025 Pt has no vascular access. Surgeon will use pure local anesthetic.
[2025-06-26] MEDS: BUPIVACAINE/EPINEPHRINE 0.5% MPF 1:200,000 30 ML VIAL ONE (10:51)
--- NOTE | 2025-06-26 10:53 | Post Operative Brief Note ---
PG Immediate Post Op with CF Date of Surgery June 26, 2025 Pre & Post Diagnosis Operation Date: 06/26/25 10:10 Pre-Op diagnosis: Scalp abscess Postop diagnosis: Scalp abscess I identified the patient and participated in the time-out.: Yes Procedure Operation Date: 06/26/25 10:10 Incision and drainage of a scalp abscess Surgeon Shamar Roth DO Ceramics Teacher None Estimated Blood Loss 1 Findings Consistent with Post-Op Diagnosis Specimens Specimen Description: none per surgeon Anesthesia Type Local Complications none Disposition Disposition: Recovery Room
--- NOTE | 2025-06-26 10:55 | Operative Report ---
PG Post Operative Report Pre & Post Diagnosis Operation Date: 06/26/25 10:10 Pre-Op diagnosis: Scalp abscess Postop diagnosis: Scalp abscess I identified the patient and participated in the time-out.: Yes Procedure Operation Date: 06/26/25 10:10 Incision and drainage of the scalp abscess Surgeon Shamar Roth DO Mathematics Technician None Estimated Blood Loss 1 Findings Consistent with Post-Op Diagnosis Specimens None Drains None Anesthesia Type Local Complications none Disposition Disposition: Recovery Room Indications 59-year-old male diabetic with a scalp abscess Description of Procedure The patient was brought to the OR and placed in the left lateral decubitus position. The scalp was prepped and draped in the usual sterile fashion. A timeout was called. The procedure was verified as Incision and drainage of scalp abscess. Surgical, anesthesia and nursing teams agreed and the procedure was begun. After injection of 0.25% Marcaine with epinephrine, an incision was made directly over the most fluctuant area of abscess using a #11 blade scalpel. Purulent fluid was encountered. Wide drainage was ensured. All loculations were broken up bluntly. At this time the incision was irrigated until clear. Hemostasis was achieved using electrocautery. Hemostasis was complete. The incision was packed with quarter inch iodoform packing. Sterile dressing was applied. The patient was taken to PACU having remained stable throughout the entire case. All needle and sponge counts correct x 2. I attest to the content of the Intraoperative Record and any orders documented therein. Any exceptions are noted below.
--- NOTE | 2025-06-27 09:59 | Nephrology Progress Note ---
Date of Service June 27, 2025 Assessment & Plan (1) End-stage renal disease (ESRD): (2) Scalp abscess: (3) Hypertension: (4) Diabetic peripheral neuropathy associated with type 2 diabetes mellitus: (5) Anemia due to chronic kidney disease: Plan 59-year-old man with end-stage kidney disease secondary to diabetic nephropathy, on hemodialysis Monday, Monday, Monday at [facility] [place]. Recently had multiple infiltration of AV fistula and currently tunneled dialysis catheter is being used for dialysis. Last dialysis was last Monday and missed dialysis Monday. Electrolytes were acceptable but BUN/creatinine was significantly elevated. Volume status was acceptable. Admitted to hospital with scalp abscess in occipital region and had I&D in ER and then further drainage and washout in the OR on 06/26/25 On daptomycin. Overall otherwise asymptomatic, blood pressure, volume status, electrolyte acceptable. -- tolerating dialysis , UF 2 L -- Epogen 10,000 units x 1 dose given on 06/25/25 -- Dose medications for eGFR less than 10, left arm nephrology precaution -- Continue on Bumex home dose. Nephrocaps daily. Admission and Anticipated Discharge Date Admission Date: June 24, 2025 Subjective Parish was seen and evaluated during HD this morning. He denies any shortness of breath or chest pain, tolerating HD. Overall otherwise doing, asymptomatic. Blood pressure controlled. Review of Systems Review of Systems: Detailed review of system was done and pertinent positives and negatives are mentioned above. Physical Exam Constitutional: WD/WN, vitals as above no acute distress Eyes: + anicteric sclerae Respiratory: Auscultation: lungs clear to auscultation bilaterally Cardiovascular: RRR, no murmur, no edema Extremities: + vascular access device (Rt IJ TDC) and + AV fistula (L BC AVF) Musculoskeletal: Extremities: extremities normal to inspection Skin: no rashes, warm and dry Neurologic: no focal motor deficits Psychiatric: Orientation: alert and oriented x 3 Affect: euthymic affect Results & Data Vital Signs (Past 12 Hours) Vital Signs Temp Pulse Resp BP Pulse Ox O2 Del Method 06/27/25 09:12 Room Air 06/27/25 07:00 36.9 C 88 18 137/73 93 Room Air 06/26/25 22:55 36.9 C 84 16 100/60 94 Room Air PG Care Time/CCT Total # of Minutes Spent Total Time Spent with Patient: Total time spent is greater than 50% in coordination of care (as documented) at patient's floor/unit and/or counseling patient: Coding Level of Care Code 74994 SUB INP/OBS CARE 2/35MIN Diagnoses End-stage renal disease (ESRD) N18.6 Scalp abscess L02.811 Hypertension I10 Diabetic peripheral neuropathy associated with type 2 diabetes mellitus E11.42 Anemia due to chronic kidney disease N18.9; D63.1
[2025-06-27 10:02] LABS: Hematocrit (blood only) 30.3 % (42.0-52.0); Hemoglobin 9.6 g/dl (14.0-18.0); Mean Corpuscular Hemoglobin 29.8 pg (25.0-34.0); Mean Corpuscular Volume 94.1 fL (80.0-100.0); Platelet Count 223 K/uL (130-400); RDW Standard Deviation 55.7 fL (36.4-46.3); Red Blood Count 3.22 M/uL (4.70-6.10); White Blood Count 6.94 K/ul (4.8-10.8)
--- NOTE | 2025-06-27 10:14 | Surgery Progress Note ---
Date of Service June 27, 2025 Assessment & Plan (1) Scalp abscess: Plan: POD#1 I&D of scalp abscess WBC 6. afebrile Pt in dialysis unit, resting in bed. no distress surgical packing removed. may leave out. cover daily with dry gauze/medical tape until well healed and no longer draining. no active bleeding noted discussed dressing changes w/ patient and will leave instructions on d/c ppwk complete course of abx; cx's grew Cutibacterium (Propi) Avidum no need to f/u with us in the office unless questions/concerns Admission and Anticipated Discharge Date Admission Date: June 24, 2025 Subjective Patient seen up in the dialysis unit. Ran into his RN prior to seeing him and the dressing required multiple reinforcements for drainage. Patient has some mild discomfort with the wound but otherwise offers no complaints to me. Physical Exam Physical Exam: resting in dialysis bed, awake, but mostly keeps eyes closed. will answer questions Neck: surgical packing removed, bloody drainage on dressing. no active bleeding appreciated Results & Data Vital Signs (Past 12 Hours) Vital Signs Temp Pulse Pulse Pulse Resp BP BP 06/27/25 09:12 06/27/25 09:04 87 144/73 H 06/27/25 09:00 98.2 F 86 06/27/25 07:00 98.4 F 88 18 137/73 06/26/25 22:55 98.4 F 84 16 100/60 Pulse Ox O2 Del Method 06/27/25 09:12 Room Air 06/27/25 09:04 06/27/25 09:00 06/27/25 07:00 93 Room Air 06/26/25 22:55 94 Room Air PG Care Time/CCT Total # of Minutes Spent Total Time Spent with Patient: Total time spent is greater than 50% in coordination of care (as documented) at patient's floor/unit and/or counseling patient: Coding Level of Care Code 83770 Post Operative Follow-Up Diagnoses Scalp abscess L02.811
[2025-06-27 10:20] LABS: Anion Gap 14.0 (3-11); Blood Urea Nitrogen 86.0 mg/dl (6-23); Calcium 9.1 mg/dl (8.6-10.3); Carbon Dioxide 27.0 mmol/L (21-32); Chloride 96.0 mmol/L (98-107); Creatinine Clr Calc Pharmacy 8.1 ml/min; Glucose 131.0 mg/dl (70-99(Fasting)); Potassium 4.0 mmol/L (3.5-5.1); Sodium 137.0 mmol/L (136-145)
--- NOTE | 2025-06-27 14:15 | Hospitalist Progress Note ---
Date of Service June 27, 2025 Assessment & Plan (1) Skin abscess: (2) End-stage renal disease (ESRD): (3) DM II (diabetes mellitus, type II), controlled: (4) Hypertension: Plan 69-year-old diabetic male on renal replacement therapy presents with a scalp abscess. This is fairly extensive clinically and was drained in the emergency department. Imaging of the scalp shows this to be about 3 cm abscess. It is unclear whether the entire abscess pocket was evacuated. Patient is glucoses in fairly reasonable control however he is an acute kidney injury on chronic kidney disease stage V with a BUN and creatinine markedly elevated to 133 and 13.21. Potassium is 5.1. #Skin infection diabetic skin infection. Patient said different skin norma present on surface cultures in the past as he suffers from eczema and other skin conditions and is prescribed Dupixent for this which increases his risk of infection. Continue on daptomycin and Zosyn therapy. Surgical consultation status post I&D on 06/26/2025. Blood cultures are currently negative at this time. Without direct culture results may need to empirically treat this patient as infection #Left eye conjunctivitis - started pt on polytrim q3h (6 daily doses) for 10 days, through 07/07/25 - continue to monitor, if worsening, will request ophthalmology eval #Acute kidney injury chronic kidney disease stage IV. P status post dialysis on 06/25. His elevated potassium did respond to oral potassium lowering oral agent. To be on a diabetic diet consult nephrology Dr. Wall for ongoing management of renal failure #Diabetes. Patient typically takes very low doses of glargine or Basaglar subsequently will just be placed on a sliding scale with diabetic diet and carbohydrate correction factor. His Ozempic remains on hold #Cardiovascular risk. Patient has a history of heart failure reduced ejection fraction with subsequent improvement. He will be continued on amlodipine carvedilol hydralazine aspirin atorvastatin Patient will be on heparin therapy for DVT prevention Admission and Anticipated Discharge Date Admission Date: June 24, 2025 Subjective This morning, pt states that he has severely sensitive left eye requiring it to be kept closed. The eye has clear drainage. HD nurse said that the blinds had to be brought down. He denied grainy sensation. He denied scratching his. He stated that it happened shortly before evaluation. He also has a headache, which he attributes to the tube stocking being in the wrong place Review of Systems Review of Systems: Comprehensive ROS completed and is otherwise negative. Physical Exam Physical Exam: Gen: no acute distress, lying in bed comfortable HEENT: NC/AT, soft mass over the left presybeterian (chronic, mobile, nontender, no erythema)MMM Left eye: red, mild tenderness over the left eye lid, mild photosensitivity, no purulent drainage, no swelling around the eye (right eye appears normal) Lungs: nonlabored breathing, CTAB CVS: s1s2nl, RRR Abd: nl bowel sounds, soft, NT / ND : no sunshine Ext: no edema Neuro: AAOx3 Psych: calm cooperative Results & Data Results & Data Vital Signs (Past 12 Hours) Vital Signs Temp Pulse Pulse Pulse Resp BP BP 06/27/25 13:07 36.7 C 83 136/72 06/27/25 13:04 83 132/72 06/27/25 13:00 83 134/70 06/27/25 12:30 83 133/74 06/27/25 12:00 78 111/59 L 06/27/25 11:30 80 115/65 06/27/25 11:00 79 100/54 L 06/27/25 10:30 83 95/54 L 06/27/25 10:00 81 104/54 L 06/27/25 09:30 82 112/61 06/27/25 09:12 06/27/25 09:04 87 144/73 H 06/27/25 09:00 36.8 C 86 06/27/25 07:00 36.9 C 88 18 137/73 Pulse Ox O2 Del Method 06/27/25 13:07 06/27/25 13:04 06/27/25 13:00 06/27/25 12:30 06/27/25 12:00 06/27/25 11:30 06/27/25 11:00 06/27/25 10:30 06/27/25 10:00 06/27/25 09:30 06/27/25 09:12 Room Air 06/27/25 09:04 06/27/25 09:00 06/27/25 07:00 93 Room Air PG Care Time/CCT Total # of Minutes Spent Total Time Spent with Patient: Total time spent is greater than 50% in coordination of care (as documented) at patient's floor/unit and/or counseling patient: Coding Level of Care Code 91671 SUB INP/OBS CARE MIN Diagnoses Skin abscess L02.91 End-stage renal disease (ESRD) N18.6 DM II (diabetes mellitus, type II), controlled E11.9 Hypertension I10
[2025-06-27] MEDS: TRIMETHOPRIM/POLYMYXIN B OPL SCH (16:38)
--- NOTE | 2025-06-28 06:04 | Electrocardiogram Report ---
Test Reason : Blood Pressure : */* mmHG Vent. Rate : 86 BPM Atrial Rate : 86 BPM P-R Int : 184 ms QRS Dur : 72 ms QT Int : 364 ms P-R-T Axes : 71 20 34 degrees QTcB Int : 435 ms Normal sinus rhythm Low voltage QRS Anterior infarct , age undetermined Abnormal ECG When compared with ECG of 24-Aug-2021 15:43, Anterior infarct is now Present QT has shortened Confirmed by Jose Merida [id number]) on 06/28/2025 6:03:56 AM Referred By: REFERRED SELF Confirmed By: Jose Merida
[2025-06-28 08:01] LABS: Hematocrit (blood only) 30.6 % (42.0-52.0); Hemoglobin 9.5 g/dl (14.0-18.0); Mean Corpuscular Hemoglobin 29.7 pg (25.0-34.0); Mean Corpuscular Volume 95.6 fL (80.0-100.0); Platelet Count 189 K/uL (130-400); RDW Standard Deviation 56.8 fL (36.4-46.3); Red Blood Count 3.20 M/uL (4.70-6.10); White Blood Count 5.83 K/ul (4.8-10.8)
[2025-06-28 08:19] LABS: Anion Gap 11.0 (3-11); Blood Urea Nitrogen 41.0 mg/dl (6-23); Calcium 9.3 mg/dl (8.6-10.3); Carbon Dioxide 28.0 mmol/L (21-32); Chloride 98.0 mmol/L (98-107); Creatine Kinase 244.0 U/L (30-223); Creatinine Clr Calc Pharmacy 12.4 ml/min; Glucose 125.0 mg/dl (70-99(Fasting)); Potassium 3.8 mmol/L (3.5-5.1); Sodium 137.0 mmol/L (136-145)
--- NOTE | 2025-06-28 11:14 | Nephrology Progress Note ---
Date of Service June 28, 2025 Assessment & Plan (1) End stage renal disease: Plan: Tolerated HD yesterday without complications. Net UF 2 kg. BP and volume status acceptable. ESKD attributed to DKD. Parish has been maintained on dialysis since March 2021. Previously on PD. Adequate clearance. TDC has been used for treatment. AVF is being rested due to recent infiltration/pain following stent placement. AVF may be used as needed. Outpatient Rx MWF 4 hrs FxCorAL 80 450/800 2K 137Na 35HCO3 EDW 115 kg. Daily standing scale weights requested while hospitalized. Medications appropriately dosed for kidney function. (2) Scalp abscess: Plan: Remains on daptomycin and Zosyn. Medications are appropriately dosed for IHD. (3) Anemia due to chronic kidney disease: Plan: Epogen 06376 units provided 06/25. Admission and Anticipated Discharge Date Admission Date: June 24, 2025 Subjective No acute events overnight. Tolerated HD well yesterday. No complications with treatment. Breathing comfortably. Denies significant fluid retention or edema. Review of Systems Review of Systems: All systems reviewed & are unremarkable except as noted in HPI & below Physical Exam Constitutional: well developed; no acute distress Eyes: + anicteric sclerae ENMT: Mouth: no oral mucosal abnormality and oral mucous membranes not dry Neck: normal visual inspection and trachea midline Respiratory: normal respiratory effort Auscultation: lungs clear to auscultation bilaterally Cardiovascular: Rate/Rhythm: regular rate Heart Sounds: normal S1 and normal S2 Extremities: + AV fistula (+thrill and brui); no edema Musculoskeletal: Extremities: no cyanosis and no clubbing Skin: normal turgor Neurologic: Motor/Sensory: no tremor and no asterixis Psychiatric: Orientation: alert and oriented x 3 Results & Data Vital Signs (Past 12 Hours) Vital Signs Temp Pulse Pulse Resp BP Pulse Ox O2 Del Method 06/28/25 08:00 Room Air 06/28/25 07:26 36.9 C 87 16 132/70 97 Room Air 06/27/25 23:43 36.7 C 88 16 142/79 H 95 Room Air Laboratory Results Laboratory Results - last 24 hr 06/27/25 06/27/25 06/27/25 13:41 16:32 20:39 WBC RBC Hgb Hct MCV MCH MCHC RDW Std Deviation RDW Coeff of Celso Plt Count MPV Sodium Potassium Chloride Carbon Dioxide Anion Gap BUN Creatinine Est Cr Clr Drug Dosing eGFR BUN/Creatinine Ratio Glucose POC Glucose 103 H 120 H 116 H Calcium Total Creatine Kinase 06/28/25 06/28/25 07:48 07:49 WBC 5.83 RBC 3.20 L Hgb 9.5 L Hct 30.6 L MCV 95.6 MCH 29.7 MCHC 31.0 L RDW Std Deviation 56.8 H RDW Coeff of Celso 16.0 H Plt Count 189 MPV 8.8 L Sodium 137 Potassium 3.8 Chloride 98 Carbon Dioxide 28 Anion Gap 11 BUN 41 H D Creatinine 7.78 H* D Est Cr Clr Drug Dosing 12.4 eGFR 7.35 BUN/Creatinine Ratio 5.3 L Glucose 125 H POC Glucose 123 H Calcium 9.3 Total Creatine Kinase 244 H PG Care Time/CCT Total # of Minutes Spent Total Time Spent with Patient: Total time spent is greater than 50% in coordination of care (as documented) at patient's floor/unit and/or counseling patient: Coding Level of Care Code 47552 SUB INP/OBS CARE 3/50MIN Diagnoses End stage renal disease N18.6 Scalp abscess L02.811 Anemia due to chronic kidney disease N18.9; D63.1
[2025-06-28 12:23] LABS: Alanine Aminotransferase 14.0 U/L (7-52); Alkaline Phosphatase 65.0 U/L (34-104); Bilirubin,Total 0.4 mg/dl (0.2-1.0); Total Protein 8.4 gm/dl (6.0-8.3)
--- NOTE | 2025-06-28 19:14 | Hospitalist Progress Note ---
Date of Service June 28, 2025 Assessment & Plan (1) Skin abscess: (2) End-stage renal disease (ESRD): (3) DM II (diabetes mellitus, type II), controlled: (4) Hypertension: Plan 69-year-old diabetic male on renal replacement therapy presents with a scalp abscess. This is fairly extensive clinically and was drained in the emergency department. Imaging of the scalp shows this to be about 3 cm abscess. It is unclear whether the entire abscess pocket was evacuated. Patient is glucoses in fairly reasonable control however he is an acute kidney injury on chronic kidney disease stage V with a BUN and creatinine markedly elevated to 133 and 13.21. Potassium is 5.1. #Skin infection diabetic skin infection. Patient said different skin norma present on surface cultures in the past as he suffers from eczema and other skin conditions and is prescribed Dupixent for this which increases his risk of infection. Continue on daptomycin and Zosyn therapy. Surgical consultation status post I&D on 06/26/2025. Blood cultures are currently negative at this time. Without direct culture results may need to empirically treat this patient as infection #LEft eye conjunctivitis - more involving right eyes alos - started pt on polytrim q3h (6 daily doses) for 10 days, through 07/07/25 - continue to monitor, if worsening, will request ophthalmology eval - artificial tears ointment at night #Acute kidney injury chronic kidney disease stage IV. P status post dialysis on 06/25. His elevated potassium did respond to oral potassium lowering oral agent. To be on a diabetic diet consult nephrology Dr. Wall for ongoing management of renal failure #Diabetes. Patient typically takes very low doses of glargine or Basaglar subsequently will just be placed on a sliding scale with diabetic diet and carbohydrate correction factor. His Ozempic remains on hold #Cardiovascular risk. Patient has a history of heart failure reduced ejection fraction with subsequent improvement. He will be continued on amlodipine carvedilol hydralazine aspirin atorvastatin Patient will be on heparin therapy for DVT prevention Admission and Anticipated Discharge Date Admission Date: June 24, 2025 Subjective No acute events overnight Review of Systems Review of Systems: Comprehensive ROS completed and is otherwise negative. Physical Exam Physical Exam: Gen: no acute distress, lying in bed comfortable HEENT: NC/AT, soft mass over the left zoroastrianism (chronic, mobile, nontender, no erythema)MMM Left eye: red, mild tenderness over the left eye lid, mild photosensitivity, no purulent drainage, no swelling around the eye (right eye appears normal) Lungs: nonlabored breathing, CTAB Chest: right chest wall HD access CVS: s1s2nl, RRR Abd: nl bowel sounds, soft, NT / ND : no sunshine Ext: no edema Neuro: AAOx3 Psych: calm cooperative Results & Data Results & Data Vital Signs (Past 12 Hours) Vital Signs Temp Pulse Resp BP Pulse Ox O2 Del Method 06/28/25 15:11 36.9 C 83 16 145/69 H 93 Room Air 06/28/25 08:00 Room Air 06/28/25 07:26 36.9 C 87 16 132/70 97 Room Air PG Care Time/CCT Total # of Minutes Spent Total Time Spent with Patient: Total time spent is greater than 50% in coordination of care (as documented) at patient's floor/unit and/or counseling patient: Coding Level of Care Code 04044 SUB INP/OBS CARE 2/35MIN Diagnoses Skin abscess L02.91 End-stage renal disease (ESRD) N18.6 DM II (diabetes mellitus, type II), controlled E11.9 Hypertension I10
[2025-06-28] MEDS: TRIMETHOPRIM/POLYMYXIN B OPB SCH (21:08)
[2025-06-28] MEDS: ARTIFICIAL TEARS OP OINT 3.5 GM TUBE OP SCH (21:10)
--- NOTE | 2025-06-29 11:11 | Nephrology Progress Note ---
Date of Service June 29, 2025 Assessment & Plan (1) End stage renal disease: Plan: BP and volume status acceptable. Next HD planned for tomorrow. Preliminary orders have been entered into the EHR. ESKD attributed to DKD. Parish has been maintained on dialysis since March 2021. Previously on PD. TDC has been used for treatment. AVF is being rested due to recent infiltration/pain following stent placement. AVF may be used as needed. Outpatient Rx MWF 4 hrs FxCorAL 80 450/800 2K 137Na 35HCO3. EDW 115 kg. Daily standing scale weights requested while hospitalized. Weight this AM 105.2 kg. Medications appropriately dosed for kidney function. (2) Scalp abscess: Plan: Remains on daptomycin and Zosyn. Medications are appropriately dosed for IHD. (3) Anemia due to chronic kidney disease: Plan: Epogen 71184 units provided 06/25. Admission and Anticipated Discharge Date Admission Date: June 24, 2025 Subjective No acute events overnight. Parish feels well this AM. No fevers or chills. Breathing comfortably. Review of Systems Review of Systems: All systems reviewed & are unremarkable except as noted in HPI & below Physical Exam Constitutional: well developed; no acute distress Eyes: + anicteric sclerae ENMT: Mouth: no oral mucosal abnormality and oral mucous membranes not dry Neck: normal visual inspection and trachea midline Respiratory: normal respiratory effort Auscultation: lungs clear to auscultation bilaterally Cardiovascular: Rate/Rhythm: regular rate Heart Sounds: normal S1 and normal S2 Extremities: + AV fistula (+thrill and brui); no edema Musculoskeletal: Extremities: no cyanosis and no clubbing Skin: normal turgor Neurologic: Motor/Sensory: no tremor and no asterixis Psychiatric: Orientation: alert and oriented x 3 Results & Data Vital Signs (Past 12 Hours) Vital Signs Temp Pulse Resp BP Pulse Ox O2 Del Method 06/29/25 08:01 36.8 C 92 H 17 130/71 92 Room Air Laboratory Results Laboratory Results - last 24 hr 06/28/25 06/28/25 06/28/25 07:49 11:44 16:44 WBC 5.83 RBC 3.20 L Hgb 9.5 L Hct 30.6 L MCV 95.6 MCH 29.7 MCHC 31.0 L RDW Std Deviation 56.8 H RDW Coeff of Celso 16.0 H Plt Count 189 MPV 8.8 L Sodium 137 Potassium 3.8 Chloride 98 Carbon Dioxide 28 Anion Gap 11 BUN 41 H D Creatinine 7.78 H* D Est Cr Clr Drug Dosing 12.4 eGFR 7.35 BUN/Creatinine Ratio 5.3 L Glucose 125 H POC Glucose 143 H 112 H Calcium 9.3 Total Bilirubin 0.4 Direct Bilirubin 0.0 AST 23 ALT 14 Alkaline Phosphatase 65 Total Creatine Kinase 244 H Total Protein 8.4 H Albumin 3.3 L 06/28/25 06/29/25 20:44 07:39 WBC RBC Hgb Hct MCV MCH MCHC RDW Std Deviation RDW Coeff of Celso Plt Count MPV Sodium Potassium Chloride Carbon Dioxide Anion Gap BUN Creatinine Est Cr Clr Drug Dosing eGFR BUN/Creatinine Ratio Glucose POC Glucose 100 H 101 H Calcium Total Bilirubin Direct Bilirubin AST ALT Alkaline Phosphatase Total Creatine Kinase Total Protein Albumin PG Care Time/CCT Total # of Minutes Spent Total Time Spent with Patient: Total time spent is greater than 50% in coordination of care (as documented) at patient's floor/unit and/or counseling patient: Coding Level of Care Code 59904 SUB INP/OBS CARE 2/35MIN Diagnoses End stage renal disease N18.6 Scalp abscess L02.811 Anemia due to chronic kidney disease N18.9; D63.1
[2025-06-29] MEDS: SUCROFERRIC OXYHYDROXIDE 500 MG CHEW PO SCH (12:16)
--- NOTE | 2025-06-29 18:44 | Hospitalist Progress Note ---
Date of Service June 29, 2025 Assessment & Plan (1) Skin abscess: (2) End-stage renal disease (ESRD): (3) DM II (diabetes mellitus, type II), controlled: (4) Hypertension: Plan 69-year-old diabetic male on renal replacement therapy presents with a scalp abscess. This is fairly extensive clinically and was drained in the emergency department. Imaging of the scalp shows this to be about 3 cm abscess. It is unclear whether the entire abscess pocket was evacuated. Patient is glucoses in fairly reasonable control however he is an acute kidney injury on chronic kidney disease stage V with a BUN and creatinine markedly elevated to 133 and 13.21. Potassium is 5.1. #Skin infection diabetic skin infection. Patient said different skin norma present on surface cultures in the past as he suffers from eczema and other skin conditions and is prescribed Dupixent for this which increases his risk of infection. Continue on daptomycin and Zosyn therapy. Surgical consultation status post I&D on 06/26/2025. Blood cultures are currently negative at this time. Without direct culture results may need to empirically treat this patient as infection - discussed with pharmacy, d/c dapto, pt to be discharged on augmentin 500mg bid #Left eye conjunctivitis - more involving right eyes alos - started pt on polytrim q3h (6 daily doses) for 10 days, through 07/07/25 - continue to monitor, if worsening, will request ophthalmology eval - artificial tears ointment at night #Acute kidney injury chronic kidney disease stage IV. P status post dialysis on 06/25. His elevated potassium did respond to oral potassium lowering oral agent. To be on a diabetic diet consult nephrology Dr. Wall for ongoing management of renal failure #Diabetes. Patient typically takes very low doses of glargine or Basaglar subsequently will just be placed on a sliding scale with diabetic diet and carbohydrate correction factor. His Ozempic remains on hold #Cardiovascular risk. Patient has a history of heart failure reduced ejection fraction with subsequent improvement. He will be continued on amlodipine carvedilol hydralazine aspirin atorvastatin Patient will be on heparin therapy for DVT prevention #Dispo- d/c on 06/30/25 Admission and Anticipated Discharge Date Admission Date: June 24, 2025 Subjective no acute events overnight currently no new complaints Review of Systems Review of Systems: Comprehensive ROS completed and is otherwise negative. Physical Exam Physical Exam: Gen: no acute distress, lying in bed comfortable HEENT: NC/AT, soft mass over the left mormon (chronic, mobile, nontender, no erythema)MMM, scalp wound appears healing well, still some serosanguineous drainage, dressing to be changed today Left eye: red, mild tenderness over the left eye lid, mild photosensitivity, no purulent drainage, no swelling around the eye (right eye appears normal) Lungs: nonlabored breathing, CTAB Chest: right chest wall HD access CVS: s1s2nl, RRR Abd: nl bowel sounds, soft, NT / ND : no sunshine Ext: no edema Neuro: AAOx3 Psych: calm, cooperative Results & Data Results & Data Vital Signs (Past 12 Hours) Vital Signs Temp Pulse Resp BP Pulse Ox O2 Del Method 06/29/25 15:23 37.0 C 59 L 17 150/81 H 95 Room Air 06/29/25 08:01 36.8 C 92 H 17 130/71 92 Room Air PG Care Time/CCT Total # of Minutes Spent Total Time Spent with Patient: Total time spent is greater than 50% in coordination of care (as documented) at patient's floor/unit and/or counseling patient: Coding Level of Care Code 16845 SUB INP/OBS CARE 2/35MIN Diagnoses Skin abscess L02.91 End-stage renal disease (ESRD) N18.6 DM II (diabetes mellitus, type II), controlled E11.9 Hypertension I10
[2025-06-30 08:01] LABS: Hematocrit (blood only) 31.1 % (42.0-52.0); Hemoglobin 10.1 g/dl (14.0-18.0)
[2025-06-30 08:19] LABS: Anion Gap 14.0 (3-11); Blood Urea Nitrogen 64.0 mg/dl (6-23); Calcium 9.9 mg/dl (8.6-10.3); Carbon Dioxide 26.0 mmol/L (21-32); Chloride 97.0 mmol/L (98-107); Creatinine Clr Calc Pharmacy 7.2 ml/min; Glucose 127.0 mg/dl (70-99(Fasting)); Potassium 3.9 mmol/L (3.5-5.1); Sodium 137.0 mmol/L (136-145)
[2025-06-30 08:34] VITALS: RESP 16
--- NOTE | 2025-06-30 11:06 | Nephrology Progress Note ---
Date of Service June 30, 2025 Assessment & Plan (1) End stage renal disease: Plan: Orders for HD entered into the EHR and reviewed with buggy man. Patient seen and evaluated during treatment. He is tolerating dialysis well. ESKD attributed to DKD. Parish has been maintained on dialysis since March 2021. TDC has been used for treatment. AVF is being rested due to recent infiltration/pain following stent placement. Outpatient Rx MWF 4 hrs FxCorAL 80 450/800 2K 137Na 35HCO3. EDW 115 kg. Daily standing scale weights requested while hospitalized. Medications appropriately dosed for kidney function. (2) Scalp abscess: Plan: Remains on Zosyn. Medications are appropriately dosed for IHD. (3) Anemia due to chronic kidney disease: Plan: Epogen 30434 units provided 06/25. Admission and Anticipated Discharge Date Admission Date: June 24, 2025 Subjective No acute events overnight. Parish was seen and evaluated during hemodialysis this AM. He is tolerating treatment well. Review of Systems Review of Systems: All systems reviewed & are unremarkable except as noted in HPI & below Physical Exam Constitutional: well developed; no acute distress Eyes: + anicteric sclerae ENMT: Mouth: no oral mucosal abnormality and oral mucous membranes not dry Neck: normal visual inspection and trachea midline Respiratory: normal respiratory effort Auscultation: lungs clear to auscultation bilaterally Cardiovascular: Rate/Rhythm: regular rate Heart Sounds: normal S1 and normal S2 Extremities: + AV fistula (+thrill and brui); no edema Musculoskeletal: Extremities: no cyanosis and no clubbing Skin: normal turgor Neurologic: Motor/Sensory: no tremor and no asterixis Psychiatric: Orientation: alert and oriented x 3 Results & Data Vital Signs (Past 12 Hours) Vital Signs Temp Pulse Pulse Pulse Resp BP BP 06/30/25 10:30 89 98/54 L 06/30/25 10:00 84 113/55 L 06/30/25 09:32 89 123/66 06/30/25 09:25 36.3 C L 89 06/30/25 08:33 36.6 C 90 16 168/81 H 06/30/25 07:45 06/29/25 23:47 36.7 C 81 18 118/58 L Pulse Ox O2 Del Method 06/30/25 10:30 06/30/25 10:00 06/30/25 09:32 06/30/25 09:25 06/30/25 08:33 95 Room Air 06/30/25 07:45 Room Air 06/29/25 23:47 97 Room Air Laboratory Results Laboratory Results - last 24 hr 06/29/25 06/29/25 06/29/25 11:30 16:41 20:41 Hgb Hct Sodium Potassium Chloride Carbon Dioxide Anion Gap BUN Creatinine Est Cr Clr Drug Dosing eGFR BUN/Creatinine Ratio Glucose POC Glucose 153 H 108 H 152 H Calcium Phosphorus Albumin 06/30/25 06/30/25 07:09 07:22 Hgb 10.1 L Hct 31.1 L Sodium 137 Potassium 3.9 Chloride 97 L Carbon Dioxide 26 Anion Gap 14 H BUN 64 H D Creatinine 12.54 H* D Est Cr Clr Drug Dosing 7.2 eGFR 4.14 BUN/Creatinine Ratio 5.1 L Glucose 127 H POC Glucose 128 H Calcium 9.9 Phosphorus 7.0 H Albumin 3.5 PG Care Time/CCT Total # of Minutes Spent Total Time Spent with Patient: Total time spent is greater than 50% in coordination of care (as documented) at patient's floor/unit and/or counseling patient: Coding Level of Care Code 99754 SUB INP/OBS CARE 3/50MIN Diagnoses End stage renal disease N18.6 Scalp abscess L02.811 Anemia due to chronic kidney disease N18.9; D63.1
[2025-06-30 14:23] VITALS: BP 145/73; PULSE 83; TEMP 98.2; O2SAT 96
--- NOTE | 2025-06-30 16:57 | Discharge Summary ---
Discharge Summary Date of Service June 30, 2025 Principal Dx & Hospital Course #1 = Principal Diagnosis (1) Skin abscess: (2) End-stage renal disease (ESRD): (3) DM II (diabetes mellitus, type II), controlled: (4) Hypertension: Plan 69-year-old diabetic male on renal replacement therapy presents with a scalp abscess. This is fairly extensive clinically and was drained in the emergency department. Imaging of the scalp shows this to be about 3 cm abscess. It is unclear whether the entire abscess pocket was evacuated. Patient is glucoses in fairly reasonable control however he is an acute kidney injury on chronic kidney disease stage V with a BUN and creatinine markedly elevated to 133 and 13.21. Potassium is 5.1. #Skin infection diabetic skin infection. Patient said different skin norma present on surface cultures in the past as he suffers from eczema and other skin conditions and is prescribed Dupixent for this which increases his risk of infection. Continue on daptomycin and Zosyn therapy. Surgical consultation status post I&D on 06/26/2025. Blood cultures are currently negative at this time. Without direct culture results may need to empirically treat this patient as infection - discussed with pharmacy, d/c dapto, pt to be discharged on augmentin 500mg bid for 5 more days for a total of 10 day course. - when pt's caregiver Pauly arrives, RN will educate her on how to do wound care. #Left eye conjunctivitis - more involving right eyes alos - started pt on polytrim q3h (6 daily doses), however no significant improvement, will d/c - cont artificial tears ointment at night - he will need to follow up with ophthalmology as outpatient #Acute kidney injury chronic kidney disease stage IV. - resume outpatient HD. #DM- resume home meds #Cardiovascular risk. Patient has a history of heart failure reduced ejection fraction with subsequent improvement. He will be continued on amlodipine carvedilol hydralazine aspirin atorvastatin #Dispo- d/c on 06/30/25 Admission HPI Per Admitting Provider 59-year-old male with presents with a abscess of his scalp which had been I&D performed in the emergency department. Patient is on chronic renal replacement therapy and had a manipulation of his fistula May 16, 2025 in [place]. He is currently being evaluated for kidney transplant at the [facility] he has had some sulfurous wound cultures in the past for various gram-positive organisms. Most recent hemoglobin A1c is 6.6 in February 2025 Patient states his been bothered by a scalp lesion for some time. He says he does not typically show this area to Dr. Bosch who is his house wirer helper. He states he missed his dialysis session yesterday last dialysis session was on 06/20/2025 Discharge Exam Gen: no acute distress, lying in bed comfortable HEENT: NC/AT, soft mass over the left confucianism (chronic, mobile, nontender, no er ythema)MMM, scalp wound appears healing well, still some serosanguineous drainage, dressing to be changed today Left eye: red, mild tenderness over the left eye lid, mild photosensitivity, no purulent drainage, no swelling around the eye (right eye appears normal) Lungs: nonlabored breathing, CTAB Chest: right chest wall HD access CVS: s1s2nl, RRR Abd: nl bowel sounds, soft, NT / ND : no sunshine Ext: no edema Neuro: AAOx3 Psych: calm, cooperative Discharge Plan Discharge Items Patient Disposition: Home - Self-Care Reason For Visit: DIABETIC SKIN INFECTION, S/P I&D Discharge Diagnosis: Scalp skin infection Condition on Discharge: Fair Activity: Resume your previous activity Non-emergency contact: Primary Care Provider Call non-emergency contact if: you have any medication questions, your symptoms worsen and you have a fever Follow-up/Referrals: [facility] [Provider Group] Lana Rincon PA-C [Physician Bss Solution Architect] - 07/03/25 11:00 am (Lana Rincon is a Physician Bss Solution Architect that works with Dr. Collazo. She will see you for your hospital follow up. Please arrive 15 minutes prior to your scheduled appointment time. Thank you!) Shamar Roth, DO [Physician] - (you do not need to see us in the office but you may call with any questions/concerns and we would be happy to see you) Diet: Carb Consistent or DM2 and Dialysis Renal Addtl Attending Provider Instructions: - keep your wound clean and dry with daily dressing changes - complete antibiotics as prescribed - follow up with eye doctor for your red eye Addtl Sugar Sampler Provider Instructions: Please change the dressing on the back of your head daily and as needed (earlier if becomes saturated with fluid) with 4x4 gauze and medical tape. Continue richard ssing changes until the area is closed and no longer draining any fluid Pending Studies at Discharge: No Stand-Alone Forms: My [facility], Smoking Cessation Medications and DC Order Prescriptions: New Artificial Tears Oint [Lacri-Lube Oint] 1 applic ophthalmic (eye) HS Qty: 1 0RF amoxicillin-pot clavulanate 500-125 mg tablet 1 tab PO BID Qty: 10 0RF Continued (DME) Hospital Bed Misc See Rx Instructions .Route Qty: 1 0RF Rx Instructions: [facility] BED; DX: I50.9, M25.519 (DME) lancets [OneTouch Delica Lancets] 30 gauge misc See Rx Instructions .Route Qty: 400 3RF Rx Instructions: TEST 4 TIMES DAILY (DME) blood-glucose meter [[facility] Meter] [facility] See Rx Instructions .Route Qty: 1 0RF Rx Instructions: TEST 4 TIMES DAILY Renal Caps 1 mg capsule 1 cap PO QAM Qty: 30 11RF (DME) OneTouch Verio test strips Strip See Rx Instructions .Route Qty: 400 3RF Rx Instructions: TEST 4 TIMES DAILY (DME) Dexcom G6 Sensor Device See Rx Instructions .Route Qty: 3 3RF Rx Instructions: can be worn up to 10 days (DME) Dexcom G6 Director Telehealth [facility] See Rx Instructions .Route Qty: 1 0RF Rx Instructions: As directed (DME) Dexcom G6 Transmitter Device See Rx Instructions .Route Qty: 1 3RF Rx Instructions: change every 90 days (DME) pen needle, diabetic [Unifine Pentips] 31 gauge x 5/16" needle See Rx Instructions .ROUTE .COMPLEX Qty: 300 3RF Dose Instruction: use to inject insulin up to 6 times daily Rx Instructions: use to inject insulin up to 6 times daily aspirin 81 mg tablet,delayed release (DR/EC) 81 mg PO QAM Qty: 90 3RF bumetanide 2 mg tablet 2 mg PO BID 90 Days Qty: 180 2RF carvedilol 6.25 mg tablet 6.25 mg PO BID Qty: 180 3RF Rx Instructions: must administer with a meal/food atorvastatin 40 mg tablet 40 mg PO HS Qty: 90 3RF hydralazine 50 mg tablet 50 mg PO TID Qty: 270 3RF Rx Instructions: Please create pills packs for patient - he is legally blind docusate sodium [Stool Softener] 100 mg capsule 100 mg PO BID PRN (Reason: constipation) Qty: 60 5RF amlodipine 10 mg tablet 10 mg PO QAM Qty: 90 1RF mupirocin 2 % ointment 1 applic topical BID Qty: 44 1RF Rx Instructions: Apply to affected areas twice daily until healed as directed. Ozempic 0.25 mg or 0.5 mg (2 mg/3 mL) pen injector 0.5 mg subcut WK Qty: 3 5RF Rx Instructions: Monday clotrimazole [Lotrimin AF (clotrimazole)] 1 % cream 1 applic topical BID Qty: 45 2RF betamethasone dipropionate 0.05 % cream 1 applic topical BID Qty: 45 1RF Rx Instructions: Apply to areas of the legs twice daily x 2 weeks as directed. Velphoro 500 mg tablet,chewable 1,500 mg PO TIDWMEAL nystatin 100,000 unit/gram cream 1 applic topical BID PRN (Reason: FLARE) insulin aspart U-100 100 unit/mL (3 mL) insulin pen 5 - 7 sliding scale dose SQ AC Rx Instructions: subcut before meals- 5-7 units insulin glargine [Basaglar KwikPen U-100 Insulin] 100 unit/mL (3 mL) insulin pen 3 - 4 unit SQ HS Dupixent Pen 300 mg/2 mL pen injector 300 mg subcut Q14D Discharge Orders: Discharge Order (Routine); Ordered 06/30/25 Ordered By: Makenna Rowland Admission Data Admit Date/Time: 06/24/25 15:26 Attending Provider: Makenna Rowland Admit Provider: Josue Archuleta Primary Care Provider: Leora Santo V. Other Providers: Sindhu Wall; Josue Archuleta; Shamar Roth Other Interventions: Discharge Summary Assessment (RN) Last Done: 06/30/25 14:27 Hospital Stay Data Consultations 06/24/25 15:36 ED Decision to Admit Stat 06/24/25 16:14 Consult Nephrology Routine 06/24/25 16:15 Consult General Surgery Routine 06/24/25 18:48 Consult Nephrology Routine Procedures Performed Operation Date: 06/26/25 10:10 Actual Procedures p Incision and Drainage Scalp Abscess - Shamar Roth, Diagnostic Imagining Performed 06/24/25 13:09 CT head/brain wo con Stat CT soft tissue neck wo con Stat Pending Results Patient Have Any Pending Studies at Discharge: No Discharge Instructions Given to Patient (Per Discharging Provider) - keep your wound clean and dry with daily dressing changes - complete antibiotics as prescribed - follow up with eye doctor for your red eye Total Time Total Time Spent Total Time Spent (In Minutes): 35 Coding Level of Care Code 53230 INP/OBS DISCH >30 MIN Diagnoses Skin abscess L02.91 End-stage renal disease (ESRD) N18.6 DM II (diabetes mellitus, type II), controlled E11.9 Hypertension I10
== END 2025-06-30 17:30 | disposition home or self-care (01) | DRG 602 ==
LOC: ED 10:00 → SUATTDRO 15:26 → 3W 15:26